=== PATIENT | male | born 1935 | race Caucasian/White ===

== ENCOUNTER → 2016-05-21 | Day surgery (SDC) | payer OTHER ==
[2016-04-30 07:36] VITALS: Ht 171.5 cm; Wt 79.5 kg
[~2016-05-21] VITALS: Ht 171.5 cm; Wt 79.5 kg
[~2016-05-21] MED LIST: 500ML BSS 0.3ML EPI 1:1000PF IRRIG ONE; ACETAMINOPHEN 325 MG TAB PO PRN; ALT/25 PO; AMIO200T4 PO; AMVISC PLUS 0.8ML SYRINGE INT OCU ONE; ASCO500T3 PO; ATOR-22 PO; ATROPINE SULFATE 0.1 MG/ML 5ML SYR IV PRN; BSS FLUSH ONE; ELQ25 PO; ENDOCOAT 0.85ML SYRINGE INT OCU ONE; EpHEDrine SULFATE INJ 50 MG/ML AMP IV PRN; EpINEphrine INJ 1MG/ML AMP 1 MG/ML AMP ONE; FINA5TAB PO; FOLI1TAB7 PO; FRS/40 PO; LACTATED RINGER'S 1000ML 500 ML IV SCH; LIDOCAINE 4% OP SOLN DROP CHARGE ONE; LIDOCAINE 4% OP SOLN DROP CHARGE OPR SCH; LIDOCAINE HCL 1% MPF 2 ML VIAL ONE; METO-217 PO; MIDAZOLAM HCL 1 MG/ML 2ML VIAL ONE; MIX: 4ML BSS 1ML EPI 1:1000 PF TOP ONE; MOXIFLOXACIN OPH SOLN PER DROP CHARGE ONE; PHENYLEPHRINE HCL 10% OP SOLN PER DROP CHARGE OPR SCH; POVIDONE-IODINE OP SOLN 30 ML BTL ONE; PRED1SUS3 OPR; PROPARACAINE 0.5% OP SOLN PER DROP CHARGE OPR SCH; PYRI100T4 PO; TAMS0.4C38 PO; TOBRAMYCIN/DEXAMETHASONE OPH OINT PER APPLN CHARGE ONE
--- NOTE | 2016-05-21 09:07 | History & Physical Bridge - [place] ---
H&P Re-Evaluation Bridge Note: I have examined the patient, reviewed the History & Physical and in the interval since the performance of the History & Physical I have noted the following changes of clinical significance: No changes noted
[2016-05-21] MEDS: TROPICAMIDE 1% OP SOLN PER DROP CHARGE OPR SCH ×3 (09:22→09:32)
[2016-05-21] MEDS: CYCLOPENTOLATE HCL 1% OP SOLN PER DROP CHARGE OPR SCH ×3 (09:23→09:33)
[2016-05-21] MEDS: MOXIFLOXACIN OPH SOLN PER DROP CHARGE OPR SCH ×3 (09:24→09:34)
[2016-05-21] MEDS: PHENYLEPHRINE HCL 10% OP SOLN PER DROP CHARGE OPR SCH ×2 (09:26→09:31)
--- NOTE | 2016-05-21 11:00 | [facility] Post Operative Brief Note ---
Immediate Operative Summary Operative Date May 21, 2016. Pre-Operative Diagnosis Cataract Right Eye Post-Operative Diagnosis Same Procedure(s) Performed Right Cataract Phacoemulsification With Intraocular Lens Implant Surgeon Dr. Spencer Can Bander Operator Surgeon(s) None Estimated Blood Loss 0 mL Findings right cataract Specimens None Complication(s) None Disposition
--- NOTE | 2016-05-21 11:01 | [facility] Operative Report ---
Operative Report Date of Service May 21, 2016. Operative Report Phaco with monofocal IOL DATE OF OPERATION: 05/21/16 PREOPERATIVE DIAGNOSIS: Senile nuclear cataract, right eye POSTOPERATIVE DIAGNOSIS: Senile nuclear cataract, right eye PROCEDURE PERFORMED: Phacoemulsification with intraocular lens implantation, right eye SURGEON: Dr. Will Spencer ANESTHESIA: Topical with 1% intracameral lidocaine and monitored anesthesia care COMPLICATIONS: None DESCRIPTION OF PROCEDURE: After positively identifying the patient both verbally and by wristband in the preoperative area, the right eye was marked as the operative eye. The patient was then brought back to the operating room by the anesthesia and nursing staff where they were given a drop of Lidocaine and betadine into the operative eye. They were then sterilely prepped and draped in the standard fashion typical for ophthalmic surgery. Steri-strips were placed along the upper eyelids to keep the lashes back, and a lid speculum was placed into the operative eye. At this point, a documented time out was performed with members of the ophthalmology, nursing, and anesthesia staffs all agreeing upon the correct patient, correct location for surgery, correct procedure, and correct type and power of intraocular lens to be implanted. The microscope was then swung into position. First, a paracentesis wound was made using a sideport blade. Then, in sequence, 1% preservative-free lidocaine followed by Endocoat viscoelastic was injected into the anterior chamber. Next , the main incision was made with a keratome blade in triplanar fashion. A sharp cystotome was introduced into the eye and used to create a tear in the anterior capsule, which was directed into a continuous curvilinear capsulorrhexis using Utrata forceps. Hydrodissection was then performed with BSS on a flat-tip cannula. Next, the phacoemulsification handpiece was introduced into the eye and used to remove the nucleus in a ildaky-zlr-yvzfgfv fashion. This was done without complication and then the irrigation-aspiration handpiece was introduced into the eye and used to remove all remaining cortical and epinuclear material. Amvisc was then injected into the anterior chamber as well as into the capsular bag and using the lens injector system, an MX60 19.5 D lens, serial number [id number], and expiration date 08/2018 was injected into the capsular bag and rotated into the correct position. Next, the irrigation- aspiration handpiece was used to remove all remaining Amvisc. BSS was used to hydrate the main wound, and then BSS was injected into the paracentesis site to reach physiologic pressure and then the main wound was checked and found to be watertight. The patient was given drops of Vigamox and Tobradex ointment into the operative eye, and then the surrounding area was cleaned and dried. A clear plastic shield was placed over the eye and the patient was then sat up and taken from the operating room by the anesthesia staff having tolerated the procedure well and suffering no complications. DISPOSITION: The patient was returned to the recovery room in stable condition. I attest to the content of the Intraoperative Record and any orders documented therein. Any exceptions are noted below.
--- NOTE | 2016-05-21 11:02 | Discharge Instructions-SurgCtr ---
Discharge Instructions Date of Service May 21, 2016. Visit Reason for Visit: Cataract Right Eye Discharge Discharge Diagnosis / Problem: right cataract Discharge Goals Goal(s): Decrease discomfort, Improve function Activity Recommendations Activity Limitations: as noted below Anesthesia . Post Anesthesia Instructions: If you have had General Anesthesia or IV Sedation: * Do not drive today. * Resume driving when surgeon permits. * Do not make important decisions or sign legal documents today. * Call surgeon for: 1. Temperature elevations greater than 101 degrees F. 2. Uncontrollable pain. 3. Excessive bleeding. 4. Persistent nausea and vomiting. 5. Medication intolerance (nausea, vomiting or rash). * For nausea and vomiting use only clear liquids such as: tea, soda, bouillon until nausea subsides, then gradually increase diet as tolerated. * If you have any concerns or questions, call your surgeon's office. If physician is unavailable and it is an emergency, call 911 or go to the nearest emergency room. . Instructions / Follow-Up Instructions / Follow-Up ACTIVITY RECOMMENDATIONS: * Light activities. * You may walk outside, read, watch television. * You may notice redness on the white part of the eye and some blurry vision - this is normal. MEDICATIONS: Resume previous medications unless instructed otherwise by your surgeon. Start all eye drops at 1pm today: * Eye drops (today): Prednisone - one drop in operative eye every 2 hours while awake Ofloxacin - one drop in operative eye every 2 hours while awake SPECIAL CARE INSTRUCTIONS: * Tape plastic shield over eye to sleep at night. Call your doctor at with any concerns or problems. FOLLOW UP VISIT: Follow-up with Dr Spencer at [place] office as scheduled. Diet Recommendations Home Diet: no limitations Procedures Procedures Performed: Right Cataract Phacoemulsification With Intraocular Lens Implant Pending Studies Studies pending at discharge: no Medical Emergencies . Who to Call and When: Medical Emergencies: If at any time you feel your situation is an emergency, please call 911 immediately. . Non-Emergent Contact Non-Emergency issues call your: Surgeon . . "Provider Documentation" section prepared by Will Spencer.
[2016-05-21 11:05] VITALS: TEMP 36.3
[2016-05-21 11:16] VITALS: BP 129/70; PULSE 64; O2SAT 98
--- NOTE | 2016-05-21 11:31 | Anesthesia Progress Nt - [facility] ---
Anesthesia Post Op Note Date & Time May 21, 2016 at 11:30 Vital Signs Pain Intensity: 0 Vital Signs Past 12 Hours Date Time Temp Pulse Resp B/P Pulse Ox O2 Delivery O2 Flow Rate FiO2 05/21/16 11:16 64 18 129/70 98 Room Air 05/21/16 11:05 36.3 63 16 146/82 98 Room Air 05/21/16 09:13 36.5 63 16 117/77 96 Room Air Notes Mental Status: alert / awake / arousable, participated in evaluation Pt Amnestic to Procedure: Yes Nausea / Vomiting: adequately controlled Pain: adequately controlled Airway Patency, RR, SpO2: stable & adequate BP & HR: stable & adequate Hydration State: stable & adequate Anesthetic Complications: no major complications apparent
== END | disposition home or self-care (01) ==
LOC: X.SURG 08:31
PROVIDERS: ATTEND Ophthalmology
DX: H25.11 Age-related nuclear cataract, right eye (principal); I51.9 Heart disease, unspecified; C44.90 Unspecified malignant neoplasm of skin, unspecified; Z98.890 Other specified postprocedural states; Z88.8 Allergy status to other drugs, medicaments and biological substances

== ENCOUNTER → 2016-06-04 | Day surgery (SDC) | payer OTHER ==
[2016-06-03 08:18] VITALS: Ht 171.5 cm; Wt 81.8 kg
[~2016-06-04] VITALS: Ht 171.5 cm; Wt 81.8 kg
[~2016-06-04] MED LIST changes: +LIDOCAINE 4% OP SOLN DROP CHARGE OPL SCH; -LIDOCAINE 4% OP SOLN DROP CHARGE OPR SCH; -METO-217 PO; -PHENYLEPHRINE HCL 10% OP SOLN PER DROP CHARGE OPR SCH; +PROPARACAINE 0.5% OP SOLN PER DROP CHARGE OPL SCH; -PROPARACAINE 0.5% OP SOLN PER DROP CHARGE OPR SCH
[2016-06-04] MEDS: PHENYLEPHRINE HCL 2.5% OP SOLN PER DROP CHARGE OPL SCH ×3 (10:17→10:27)
--- NOTE | 2016-06-04 10:17 | History & Physical Bridge - [place] ---
H&P Re-Evaluation Bridge Note: I have examined the patient, reviewed the History & Physical and in the interval since the performance of the History & Physical I have noted the following changes of clinical significance: No changes noted. Left eye cataract surgery.
[2016-06-04] MEDS: TROPICAMIDE 1% OP SOLN PER DROP CHARGE OPL SCH ×3 (10:18→10:28)
[2016-06-04] MEDS: CYCLOPENTOLATE HCL 1% OP SOLN PER DROP CHARGE OPL SCH ×3 (10:19→10:29)
[2016-06-04] MEDS: MOXIFLOXACIN OPH SOLN PER DROP CHARGE OPL SCH ×3 (10:20→10:40)
--- NOTE | 2016-06-04 11:39 | [facility] Post Operative Brief Note ---
Immediate Operative Summary Operative Date Jun 04, 2016. Pre-Operative Diagnosis Cataract Left Eye Post-Operative Diagnosis Same Procedure(s) Performed Left Cataract Phacoemulsification With Intraocular Lens Implant Surgeon Dr. Spencer Social Economist Surgeon(s) None Estimated Blood Loss 0 Findings left cataract Specimens None Complication(s) None Disposition
[2016-06-04 11:40] VITALS: TEMP 36.3
--- NOTE | 2016-06-04 11:40 | [facility] Operative Report ---
Operative Report Date of Service Jun 04, 2016. Operative Report Phaco with monofocal IOL DATE OF OPERATION: 06/04/16 PREOPERATIVE DIAGNOSIS: Senile nuclear cataract, left eye POSTOPERATIVE DIAGNOSIS: Senile nuclear cataract, left eye PROCEDURE PERFORMED: Phacoemulsification with intraocular lens implantation, left eye SURGEON: Dr. Will Spencer ANESTHESIA: Topical with 1% intracameral lidocaine and monitored anesthesia care COMPLICATIONS: None DESCRIPTION OF PROCEDURE: After positively identifying the patient both verbally and by wristband in the preoperative area, the left eye was marked as the operative eye. The patient was then brought back to the operating room by the anesthesia and nursing staff where they were given a drop of Lidocaine and betadine into the operative eye. They were then sterilely prepped and draped in the standard fashion typical for ophthalmic surgery. Steri-strips were placed along the upper eyelids to keep the lashes back, and a lid speculum was placed into the operative eye. At this point, a documented time out was performed with members of the ophthalmology, nursing, and anesthesia staffs all agreeing upon the correct patient, correct location for surgery, correct procedure, and correct type and power of intraocular lens to be implanted. The microscope was then swung into position. First, a paracentesis wound was made using a sideport blade. Then, in sequence, 1% preservative-free lidocaine followed by Endocoat viscoelastic was injected into the anterior chamber. Next , the main incision was made with a keratome blade in triplanar fashion. A Malyugin ring was inserted due to poor pupil dilation. A sharp cystotome was introduced into the eye and used to create a tear in the anterior capsule, which was directed into a continuous curvilinear capsulorrhexis using Utrata forceps. Hydrodissection was then performed with BSS on a flat-tip cannula. Next, the phacoemulsification handpiece was introduced into the eye and used to remove the nucleus in a adwxfg-bof-eoycwkp fashion. This was done without complication and then the irrigation-aspiration handpiece was introduced into the eye and used to remove all remaining cortical and epinuclear material. Amvisc was then injected into the anterior chamber as well as into the capsular bag and using the lens injector system, an MX60 19.5 D lens, serial number [id number], and expiration date 12/2018 was injected into the capsular bag and rotated into the correct position. The Malyugin ring was removed. Next, the irrigation-aspiration handpiece was used to remove all remaining Amvisc. BSS was used to hydrate the main wound, and then BSS was injected into the paracentesis site to reach physiologic pressure and then the main wound was checked and found to be watertight. The patient was given drops of Vigamox and Tobradex ointment into the operative eye, and then the surrounding area was cleaned and dried. A clear plastic shield was placed over the eye and the patient was then sat up and taken from the operating room by the anesthesia staff having tolerated the procedure well and suffering no complications. DISPOSITION: The patient was returned to the recovery room in stable condition. I attest to the content of the Intraoperative Record and any orders documented therein. Any exceptions are noted below.
--- NOTE | 2016-06-04 11:41 | Discharge Instructions-SurgCtr ---
Discharge Instructions Date of Service Jun 04, 2016. Visit Reason for Visit: Left Cataract Discharge Discharge Diagnosis / Problem: left cataract Discharge Goals Goal(s): Decrease discomfort, Improve function Activity Recommendations Activity Limitations: as noted below Anesthesia . Post Anesthesia Instructions: If you have had General Anesthesia or IV Sedation: * Do not drive today. * Resume driving when surgeon permits. * Do not make important decisions or sign legal documents today. * Call surgeon for: 1. Temperature elevations greater than 101 degrees F. 2. Uncontrollable pain. 3. Excessive bleeding. 4. Persistent nausea and vomiting. 5. Medication intolerance (nausea, vomiting or rash). * For nausea and vomiting use only clear liquids such as: tea, soda, bouillon until nausea subsides, then gradually increase diet as tolerated. * If you have any concerns or questions, call your surgeon's office. If physician is unavailable and it is an emergency, call 911 or go to the nearest emergency room. . Instructions / Follow-Up Instructions / Follow-Up ACTIVITY RECOMMENDATIONS: * Light activities. * You may walk outside, read, watch television. * You may notice redness on the white part of the eye and some blurry vision - this is normal. MEDICATIONS: Resume previous medications unless instructed otherwise by your surgeon. Start all eye drops at 1:30 pm today: * Eye drops (today): Prednisone - one drop in operative eye every 2 hours while awake Ofloxacin - one drop in operative eye every 2 hours while awake SPECIAL CARE INSTRUCTIONS: * Tape plastic shield over eye to sleep at night. Call your doctor at with any concerns or problems. FOLLOW UP VISIT: Follow-up with Dr Spencer at [place] office as scheduled. Diet Recommendations Home Diet: no limitations Procedures Procedures Performed: Left Cataract Phacoemulsification With Intraocular Lens Implant Pending Studies Studies pending at discharge: no Medical Emergencies . Who to Call and When: Medical Emergencies: If at any time you feel your situation is an emergency, please call 911 immediately. . Non-Emergent Contact Non-Emergency issues call your: Surgeon . . "Provider Documentation" section prepared by Will Spencer. .
--- NOTE | 2016-06-04 11:55 | Anesthesia Progress Nt - [facility] ---
Anesthesia Post Op Note Date & Time Jun 04, 2016 at 11:54 Vital Signs Pain Intensity: 0 Vital Signs Past 12 Hours Date Time Temp Pulse Resp B/P Pulse Ox O2 Delivery O2 Flow Rate FiO2 06/04/16 11:40 36.3 65 16 140/68 99 Room Air 06/04/16 10:28 36.3 61 16 137/74 98 Room Air Notes Mental Status: alert / awake / arousable, participated in evaluation Pt Amnestic to Procedure: Yes Nausea / Vomiting: adequately controlled Pain: adequately controlled Airway Patency, RR, SpO2: stable & adequate BP & HR: stable & adequate Hydration State: stable & adequate Anesthetic Complications: no major complications apparent
[2016-06-04 12:02] VITALS: BP 118/82; PULSE 65; O2SAT 99
== END | disposition home or self-care (01) ==
LOC: X.SURG 10:13
PROVIDERS: ATTEND Ophthalmology
DX: H25.12 Age-related nuclear cataract, left eye (principal)

== ENCOUNTER 2019-11-22 12:30 | Inpatient (IN) ==
[2019-11-22] MEDS ORDERED: SODIUM CHLORIDE 0.9% 1000ML 1,000 ML IV SCH (13:00)
--- NOTE | 2019-11-22 13:02 | Emergency Department Note ---
History of Present Illness General Chief complaint: Hypotension Stated complaint: hypotension Time Seen by Provider: 11/22/19 12:43 Source: patient, EMS, RN notes reviewed and old records reviewed Mode of arrival: EMS Limitations: no limitations History of Present Illness Provider complaint: weakness Onset (ago): day(s) 1 Location: head Radiation: non-radiation Severity: mild Pain Consistency: + constant Current Pain Intensity: 1 Quality: + burning Relieved By: + immobilization Exacerbated By: + movement Associated symptoms: + loss of appetite; no chest pain, no fever/chills and no headaches Treatments prior to arrival: none This is an 84-year-old male who presents the emergency department complaining of hypotension and weakness. In addition the patient also has a rash to the left side of his face. The patient reports he has been feeling weak over the past 24 hours and has not eaten. He was sent in by his personal residential over concerns of low blood pressure this morning. The patient himself has no complaints he denies any chest pain or shortness of breath. He is complaining of pain to the rash on the side of his head. Home Medications Home Medications Medication Instructions Recorded Confirmed Type amiodarone [Pacerone] 200 mg PO DAILY 10/26/19 11/22/19 History apixaban [Eliquis] 2.5 mg PO BID 10/26/19 11/22/19 History ascorbic acid (vitamin C) [Vitamin 500 mg PO DAILY 10/26/19 11/22/19 History C] atorvastatin [Lipitor] 40 mg PO DAILY 10/26/19 11/22/19 History cholecalciferol (vitamin D3) 50 mcg PO DAILY 10/26/19 11/22/19 History [Vitamin D3] finasteride [Proscar] 5 mg PO DAILY 10/26/19 11/22/19 History folic acid 0.4 mg PO BID 10/26/19 11/22/19 History furosemide [Lasix] 40 mg PO DAILY 10/26/19 11/22/19 History metolazone 2.5 mg PO DAILY 10/26/19 11/22/19 History metoprolol succinate [Toprol XL] 50 mg PO DAILY 10/26/19 11/22/19 History polyethylene glycol 3350 [Miralax] 17 g PO DAILY 10/26/19 11/22/19 History sennosides [senna] 8.6 mg PO BID 10/26/19 11/22/19 History silodosin 4 mg PO DAILY 10/26/19 11/22/19 History tamsulosin 0.4 mg PO HS 10/26/19 11/22/19 History vitamin B complex [Vitamin B-50] 1 tab PO DAILY 10/26/19 11/22/19 History Allergies Allergy/AdvReac Type Severity Reaction Status Date / Time disopyramide Allergy Intermediate SWELLING, Verified 11/22/19 13:43 RED SKIN Past Med/Surg History Medical History CAD (coronary artery disease) Cardiac defibrillator in place Chronic atrial fibrillation Chronic systolic CHF (congestive heart failure) CKD (chronic kidney disease), stage III Hyperlipidemia Ischemic cardiomyopathy Ventricular tachycardia Surgical History History of coronary artery bypass graft x 6 Longstanding ischemic heart disease, status post coronary bypass grafting x6 in 1996, receiving a OWENS graft to the LAD, free gastroepiploic graft to the right posterior descending artery, saphenous vein graft sequentially from the first diagonal to the mid left anterior descending, saphenous vein graft sequ entially from OM1 to OM2. History of hernia repair History of implantable cardiac defibrillator (ICD) Family History Brother Cancer Mother Pulmonary fibrosis Social History Smoking Status: Former smoker Hx Alcohol Use: Yes Alcohol type: beer Hx Substance Use: No Preferred Language: Mongolian Communication Ability: Effective Beliefs That Will Affect Care: None marital status: Current Living Situation: Family current occupation: [employer] Other Information That Helps Us Care for You: No Feels Safe at Home: Yes Safety Concerns: Feels Safe At This Time Assistive Devices: Oxygen - Continuous Review of Systems A total of 10 systems reviewed and were otherwise negative Physical Exam Vital Signs Vital Signs - 24 hr 11/22/19 12:50 11/22/19 12:57 11/22/19 12:59 Temperature 36.8 C Temperature Source Oral Pulse Rate - Lying 86 Pulse Rate - Sitting 84 Pulse Rate - Standing 84 Pulse Rate 90 Pulse Rate from SpO2 Sensor Respiratory Rate 20 Respiratory Effort / Characteristics Non-Labored Respiratory Depth Normal Blood Pressure - Lying 105/89 Blood Pressure - Sitting 102/63 Blood Pressure- Standing 86/51 L Blood Pressure 99/60 L Blood Pressure Mean 73 Pulse Oximetry 95 96 Oxygen Delivery Method Nasal Cannula Nasal Cannula Nasal Cannula Oxygen Flow Rate 2.5 2.5 2.5 Fraction of Inspired Oxygen 99 Sepsis Recent Fever Within 48 Hours No Sepsis New/Unexplained Change in Mental Status N/A Sepsis Action Taken by Nursing No Action Required 11/22/19 13:05 Temperature Temperature Source Pulse Rate - Lying Pulse Rate - Sitting Pulse Rate - Standing Pulse Rate 81 Pulse Rate from SpO2 Sensor 81 Respiratory Rate 19 Respiratory Effort / Characteristics Respiratory Depth Blood Pressure - Lying Blood Pressure - Sitting Blood Pressure- Standing Blood Pressure 94/63 L Blood Pressure Mean 69 Pulse Oximetry 100 Oxygen Delivery Method Nasal Cannula Oxygen Flow Rate 2.5 Fraction of Inspired Oxygen Sepsis Recent Fever Within 48 Hours Sepsis New/Unexplained Change in Mental Status Sepsis Action Taken by Nursing VITAL SIGNS - Vital signs and nursing notes were reviewed. GENERAL - 84-year-old male appearing stated age who is in no acute distress. Communicates well with provider and answers questions appropriately. SKIN - Rash in pattern of dermatone to left side of face HEAD - NC/AT. EYES - PERRL with EOMI bilaterally. Sclera anicteric. Palpebral conjunctiva pink and moist with no injection noted. EARS - No deformities of external structures noted on gross examination bilaterally. No pain elicited with palpation of the tragus bilaterally. External auditory canals without discharge or otorrhea. Tympanic membranes pearly valentine without retraction or bulging. No fluid or purulent material visualized behind the TM. Handle of malleus, umbo, cone of light, pars tensa/flaccid all easily visualized. NOSE - Midline and without cyanosis. No epistaxis or purulent drainage noted. Septum midline without deviation or septal hematoma noted. MOUTH/OROPHARYNX - Without perioral cyanosis. Buccal mucosa pink and moist and without leukoplakia. Tongue midline with equal elevation of palate bilaterally. No tonsillar hypertrophy, erythema, or exudates noted. dentition noted. NECK - Neck with FROM. Supple to palpation. lymphadenopathy noted. No nuchal rigidity. LUNGS - Chest wall symmetric without accessory muscle use, intercostals retractions, or central cyanosis. Normal vesicular breath sounds CTA B/L. No wheezes, rales, or rhonchi appreciated. CARDIAC - RRR with S1/S2. No murmur, rubs, or gallops appreciated. ABDOMEN - Abdominal contour without pulsations or visible masses. BS normoactive all four quadrants. No tenderness, palpable masses, hepatosplenomegaly, or ascites noted. EXTREMITIES - No clubbing or peripheral cyanosis. No pretibial edema present. +3/5 radial, posterior tibial, and dorsalis pedis pulses palpated throughout. +5/5 strength noted in UE/LE bilaterally. NEUROLOGIC - Cranial nerves II through XII grossly intact. Sensory intact to light touch throughout. Patellar reflexes +2/4. PSYCH - A&Ox3 and cooperates fully with examiner. Pt is very pleasant and interacts well with examiner. Course Administered Medications Amiodarone HCl (Amiodarone 200 Mg Tab) 200 mg PO DAILY [facility] Stop: 12/23/19 08:59 Last Admin: 11/23/19 08:10 Dose: 200 mg Documented by: [id number] Apixaban (Apixaban 2.5 Mg Tab) 2.5 mg PO BID [facility] Stop: 12/22/19 20:59 Last Admin: 11/23/19 08:10 Dose: 2.5 mg Documented by: [id number] Admin: 11/22/19 20:49 Dose: 2.5 mg Documented by: [id number] Ascorbic Acid (Ascorbic Acid 500 Mg Tab) 500 mg PO DAILY [facility] Stop: 12/23/19 08:59 Last Admin: 11/23/19 08:12 Dose: 500 mg Documented by: [id number] Atorvastatin Calcium (Atorvastatin 40 Mg Tab) 40 mg PO DAILY [facility] Stop: 12/23/19 08:59 Last Admin: 11/23/19 08:11 Dose: 40 mg Documented by: [id number] Finasteride (Finasteride 5 Mg Tab) 5 mg PO DAILY [facility] Stop: 12/23/19 08:59 Last Admin: 11/23/19 08:11 Dose: 5 mg Documented by: [id number] Folic Acid (Folic Acid 400 Mcg Tab) 400 mcg PO BID [facility] Stop: 12/22/19 20:59 Last Admin: 11/23/19 08:10 Dose: 400 mcg Documented by: [id number] Admin: 11/22/19 20:49 Dose: 400 mcg Documented by: [id number] Furosemide (Furosemide 40 Mg Tab) 40 mg PO DAILY [facility] Stop: 11/06/20 08:59 Last Admin: 11/23/19 08:10 Dose: 40 mg Documented by: [id number] Ceftriaxone Sodium 1,000 mg/ (Dextrose) 50 mls @ 100 mls/hr IV Q24H [facility]; Protocol Stop: 11/29/19 19:38 Last Infusion: 11/22/19 21:40 Dose: 0 mls/hr Documented by: [id number] Admin: 11/22/19 20:48 Dose: 100 mls/hr Documented by: [id number] Metolazone (Metolazone 2.5 Mg Tablet) 2.5 mg PO DAILY [facility] Stop: 12/23/19 08:59 Last Admin: 11/23/19 08:12 Dose: 2.5 mg Documented by: [id number] Metoprolol Succinate (Metoprolol Succ 50mg Ext Rel Tab) 50 mg PO DAILY [facility] Stop: 12/23/19 08:59 Last Admin: 11/23/19 08:11 Dose: 50 mg Documented by: [id number] Miscellaneous (Rapaflo- Order Awaiting Action) 1 ea N/A QS [facility] Stop: 12/23/19 00:00 Last Admin: 11/23/19 16:18 Dose: Not Given Documented by: [id number] Admin: 11/23/19 10:53 Dose: Not Given Documented by: [id number] Admin: 11/23/19 01:42 Dose: Not Given Documented by: [id number] Polyethylene Glycol (Polyethylene (Miralax) 17 Gm Pack) 17 gm PO DAILY [facility] Stop: 12/23/19 08:59 Last Admin: 11/23/19 08:11 Dose: 17 gm Documented by: [id number] Sennosides (Senna 8.6 Mg Tab) 8.6 mg PO BID [facility] Stop: 12/22/19 20:59 Last Admin: 11/23/19 08:11 Dose: 8.6 mg Documented by: [id number] Admin: 11/22/19 20:50 Dose: Not Given Documented by: [id number] Tamsulosin HCl (Tamsulosin Hcl 0.4 Mg Cap) 0.4 mg PO HS [facility] Stop: 12/22/19 20:59 Last Admin: 11/22/19 21:32 Dose: 0.4 mg Documented by: [id number] Valacyclovir HCl (Valacyclovir Hcl 500 Mg Tablet) 1,000 mg PO BID [facility]; Protocol Stop: 11/27/19 09:01 Last Admin: 11/23/19 08:12 Dose: 1,000 mg Documented by: [id number] Admin: 11/22/19 21:32 Dose: 1,000 mg Documented by: [id number] Vitamin B Complex (Vitamin B Complex Tab) 1 tab PO DAILY [facility] Stop: 12/23/19 08:59 Last Admin: 11/23/19 08:12 Dose: 1 tab Documented by: [id number] Vitamin D (Cholecalciferol 1,000 Units 25 Mcg Tab) 2,000 units PO DAILY [facility] Stop: 12/23/19 08:59 Last Admin: 11/23/19 08:12 Dose: 2,000 units Documented by: [id number] Discontinued Medications Sodium Chloride (Nss 1000ml) 1,000 mls @ 999 mls/hr IV .Q1H1M [facility] Stop: 11/22/19 14:00 Last Infusion: 11/22/19 14:09 Dose: 0 mls/hr Documented by: [id number] Admin: 11/22/19 13:08 Dose: 999 mls/hr Documented by: [id number] Sodium Chloride (Nss 1000ml) 1,000 mls @ 999 mls/hr IV .Q1H1M ONE Stop: 11/22/19 14:31 Last Infusion: 11/22/19 16:38 Dose: 0 mls/hr Documented by: [id number] Admin: 11/22/19 13:48 Dose: 999 mls/hr Documented by: [id number] Valacyclovir HCl (Valacyclovir Hcl 500 Mg Tablet) 1,000 mg PO NOW ONE Stop: 11/22/19 14:40 Last Admin: 11/22/19 16:36 Dose: 1,000 mg Documented by: [id number] Medical Decision Making Differential Diagnosis Infection, dehydration, metabolic abnormality, hypo/hyperglycemia, electrolyte disturbance, anemia, hypoxia, cardiac sources, intracerebral event, toxicologic, neurologic, as well as other pathologies. Medical Records Attestation: I reviewed the patient's medical records. Home Medications Current Medication List: was personally reviewed by me Laboratory Data Attestation: I reviewed the patient's lab results. Result diagrams: 11/22/19 13:40 11/22/19 13:40 Lab Results 11/22/19 11/22/19 Range/Units 13:40 13:40 WBC 4.45 L (4.8-10.8) K/uL RBC 4.04 L (4.7-6.1) M/uL Hgb 11.5 L (14.0-18.0) g/dL Hct 37.9 L (42-52) % MCV 93.8 (80-100) fL MCH 28.5 (25-34) pg MCHC 30.3 L (32-36) g/dL RDW Std Deviation 57.2 H (36.4-46.3) fL RDW Coeff of [place] 16.5 H (11.5-14.5) % Plt Count 150 (130-400) K/uL MPV 9.6 (7.4-10.4) fL Immature Gran % (Auto) 0.4 % Neut % (Auto) 76.3 % Lymph % (Auto) 12.4 % [place] % (Auto) 9.2 % Eos % (Auto) 1.3 % Baso % (Auto) 0.4 % Neut # (Auto) 3.39 (1.4-6.5) K/uL Lymph # (Auto) 0.55 L (1.2-3.4) K/uL [place] # (Auto) 0.41 (0.11-0.59) K/uL Eos # (Auto) 0.06 (0-0.5) K/uL Baso # (Auto) 0.02 (0-0.2) K/uL Immature Gran # (Auto) 0.02 (0.00-0.02) K/uL Sodium 138 (136-145) mmol/L Potassium 3.8 (3.5-5.1) mmol/L Chloride 91 L (98-107) mmol/L Carbon Dioxide 45 H* (21-32) mmol/L Anion Gap 2.0 L (3-11) BUN 30 H (7-18) mg/dl Creatinine 1.23 (0.6-1.4) mg/dl Est Cr Clr Drug Dosing 43.3 ml/min Est GFR ( Amer) 63.0 Est GFR (Non-Af Amer) 54.3 BUN/Creatinine Ratio 24.3 H (10-20) Glucose 83 (70-99) mg/dl Calcium 9.2 (8.5-10.1) mg/dl Total Bilirubin 0.7 (0.2-1) mg/dl AST 88 H (15-37) U/L ALT 68 (12-78) U/L Alkaline Phosphatase 87 (45-117) U/L Total Creatine Kinase 95 (39-308) U/L CK-MB (CK-2) 2.0 (0.5-3.6) ng/ml CK/CKMB % Calc 2.1 (0-3.0) Troponin I 0.023 (0-0.045) ng/ml Total Protein 6.4 (6.4-8.2) gm/dl Albumin 2.5 L (3.4-5.0) gm/dl Globulin 3.9 (2.5-4.0) gm/dl Albumin/Globulin Ratio 0.6 L (0.9-2) TSH 2.810 (0.300-4.500) uIu/ml Imaging Data Radiologist's Impression: [place], [place] [phone] XRay Report Patient: BLAKE RIBEIRO Admit Date: 11/22/19 MR#: [id number] Address1: [address] [place] [address] Acct ID:[id number] Address2: Date: 1935 [facility] Zip: [place] [address] Age: 84 Location: ED Sex: M Room/Bed: Att Phy: Diagnosis: hypotension Susy Phy: Anival Guido MD Service Date: 11/22/19 Fam Phy: Interpreting Phy: Jimmy Byrnes MD Admit Phy: Ordering Phy: Rick Wild MD cc: ~ XR chest 1V portable CLINICAL HISTORY: weakness COMPARISON STUDY: Chest radiograph and chest CT October 26, 2019. FINDINGS: Left subclavian biventricular pacer/AICD is in place. Note is made of moderate cardiomegaly without evidence for pulmonary edema. Multiple healing left-sided rib fractures are noted. Skinfold projects over the left hemithorax. There is no pneumothorax. Small bilateral pleural effusions have decreased in size since prior exam. Basilar opacity is noted. This has decreased. Left upper quadrant surgical clips are noted. IMPRESSION: 1. Left basilar opacity which may reflect consolidation or atelectasis. This has decreased since chest CT October 26, 2019. 2. Small bilateral pleural effusions. 3. No pneumothorax. 4. Cardiomegaly without evidence for pulmonary edema. ACT 112: Negative or not required by law. Electronically signed by: Jimmy Byrnes M.D. 11/22/2019 1:03 PM Dictated: 11/22/19 1300 Transcribed: 11/22/19 1300 [phone] Scan Report Patient: BLAKE RIBEIRO Date: 11/22/19 MR#: [id number]: [address] Acct ID:[id number]: Date: 1935City Zip: [place] [address] Age: 84Location: ED Sex: MRoom/Bed: Att Phy:Diagnosis: hypotension Susy Phy: Anival Guido, SERGIOervice Date: 11/22/19 Fam Phy:Interpreting Phy: Pb Gregory MD Admit Phy: Ordering Phy: Rick Wild MD cc: ~ CT SCAN OF THE BRAIN WITHOUT IV CONTRAST CLINICAL HISTORY: Fall. COMPARISON STUDY: CT of the brain dated 10/26/2019. TECHNIQUE: Unenhanced axial CT scan of the brain is performed from the vertex to the skull base. A dose lowering technique was utilized adhering to the principles of ALARA. CT DOSE: 537.48 mGy.cm FINDINGS: Brain parenchyma: There are age-related involutional changes noting mild subcortical and periventricular microangiopathic change. There is no hemorrhage, mass effect, or evidence of acute territorial ischemia by CT criteria. Valentine- white matter differentiation is preserved. No extra-axial fluid collection is seen. Ventricles, sulci, cisterns: Prominent secondary to involutional change. Intracranial vasculature: There is atherosclerotic calcification of the cavernous carotid and vertebral arteries. Calvarium: The skeletal structures are osteopenic. No depressed calvarial fractu re is identified. Sinuses and mastoids: Trace mucosal thickening is noted in the ethmoid and sphenoid, sinuses. The mastoid air cells are well pneumatized. Orbits: Suspect a chronic right orbital floor fracture. There are bilateral ocular lens implants. IMPRESSION: There is no hemorrhage, mass effect, or evidence of acute territorial ischemia by CT criteria. ACT 112: Negative or not required by law. Electronically signed by: Pb Gregory M.D. 11/22/2019 6:16 PM Dictated: 11/22/191811 Transcribed: 11/22/191811 ECG Data Attestation: I personally reviewed and interpreted this ECG as follows: Indication: + other (pacemaker ) Rate (beats per minute): 83 ECG Bentley: + Normal ECG ST segments: no ST depression and no ST elevation ECG Findings: + PVCs Comparison ECG Date: from (10/26/2019) Change: the following changes noted (PVCs present) MDM Narrative Patient was seen and evaluated as above in room A3. Review was performed of nursing notes and vital signs. I did review pertinent previous visits and patient history. After obtaining a thorough history and physical examination the above work up was performed. This is an 84-year-old male who presents emergency department complaining of hypotension. The patient was given multiple boluses of saline here in the emergency department. He was also appears to have what I believe is a zoster rash on the left side of his face. For this reason he was started on Valtrex. Because the patient is altered and hypotensive I did discuss the case with the hospitalist service who did agree to admit the patient. Patient and family are in agreement with the treatment plan. I will note that the patient does not have an elevation in his white blood cell count. An order was placed for continuous cardiac monitoring. The monitor shows a rate of 83 with Normal SInus rhythm. The patient was evaluated during the global COVID-19 pandemic, and that diagnosis was suspected/considered upon their initial presentation. Their evaluation, treatment and testing was consistent with current guidelines for patients who present with complaints or symptoms that may be related to COVID- 19. Impression & Plan Herpes zoster, CKD (chronic kidney disease), stage III, Acute hypotension Discharge Plan Visit Data Chief Complaint: Hypotension Stated Complaint: hypotension ED Provider: Rick Wild Discharge Problem: Herpes zoster, CKD (chronic kidney disease), stage III, Acute hypotension Patient Disposition: Admitted As Inpatient Discharge Instructions Interventions: ED Discharge Assessment Last Done: 11/22/19 18:28 Discharge Problem: Herpes zoster Qualifiers: Herpes zoster complications: without complications Qualified Code(s): B02.9 - Zoster without complications CKD (chronic kidney disease), stage III Qualifiers: Chronic kidney disease stage 3 subtype: unspecified whether 3a or 3b Qualified Code(s): N18.30 - Chronic kidney disease, stage 3 unspecified
--- NOTE | 2019-11-22 13:05 | XRay Report ---
XR chest 1V portable CLINICAL HISTORY: weakness COMPARISON STUDY: Chest radiograph and chest CT October 26, 2019. FINDINGS: Left subclavian biventricular pacer/AICD is in place. Note is made of moderate cardiomegaly without evidence for pulmonary edema. Multiple healing left-sided rib fractures are noted. Skinfold projects over the left hemithorax. There is no pneumothorax. Small bilateral pleural effusions have d ecreased in size since prior exam. Basilar opacity is noted. This has decreased. Left upper quadrant surgical clips are noted. IMPRESSION: 1. Left basilar opacity which may reflect consolidation or atelectasis. This has decreased since ches t CT October 26, 2019. 2. Small bilateral pleural effusions. 3. No pneumothorax. 4. Cardiomegaly without evidence for pulmonary edema. ACT 112: Negative or not required by law. Electronically signed by: Jimmy Byrnes M.D. 11/22/2019 1:03 PM
[2019-11-22] MEDS ORDERED: SODIUM CHLORIDE 0.9% 1000ML 1,000 ML IV ONE (13:31)
[2019-11-22 13:55] LABS: Basophils # (auto) 0.02 K/uL (0-0.2); Basophils % (auto) 0.4 %; Eosinophils # (auto) 0.06 K/uL (0-0.5); Eosinophils % (auto) 1.3 %; Hematocrit (blood only) 37.9 % (42-52); Hemoglobin 11.5 g/dL (14.0-18.0); Immature Granulocytes # (auto) 0.02 K/uL (0.00-0.02); Immature Granulocytes % (auto) 0.4 %; Lymphocytes # (auto) 0.55 K/uL (1.2-3.4); Lymphocytes % (auto) 12.4 %; Mean Corpuscular Hemoglobin 28.5 pg (25-34); Mean Corpuscular Hgb Conc 30.3 g/dL (32-36); Mean Corpuscular Volume 93.8 fL (80-100); Mean Platelet Volume 9.6 fL (7.4-10.4); Monocytes # (auto) 0.41 K/uL (0.11-0.59); Monocytes % (auto) 9.2 %; Neutrophils # (auto) 3.39 K/uL (1.4-6.5); Neutrophils % (auto) 76.3 %; Platelet Count 150 K/uL (130-400); RDW Coefficient of Variation 16.5 % (11.5-14.5); RDW Standard Deviation 57.2 fL (36.4-46.3); Red Blood Count 4.04 M/uL (4.7-6.1); White Blood Count 4.45 K/uL (4.8-10.8)
[2019-11-22 14:19] LABS: Albumin Level 2.5 gm/dl (3.4-5.0); BUN Creatinine Ratio 24.3 (10-20); Calcium 9.2 mg/dl (8.5-10.1); Creatinine Clr Calc Pharmacy 43.3 ml/min; Est GFR (Non-African American) 54.3; Potassium 3.8 mmol/L (3.5-5.1)
[2019-11-22 14:25] LABS: Albumin Globulin Ratio 0.6 (0.9-2); Bilirubin,Total 0.7 mg/dl (0.2-1); Globulin 3.9 gm/dl (2.5-4.0); Thyroid Stimulating Hormone 2.81 uIu/ml (0.300-4.500); Total Protein 6.4 gm/dl (6.4-8.2); Troponin I 0.023 ng/ml (0-0.045)
[2019-11-22] MEDS ORDERED: valACYclovir HCL 500 MG TABLET PO ONE (14:39)
--- NOTE | 2019-11-22 15:35 | History & Physical Report ---
Date of Service November 22, 2019 Assessment & Plan (1) Herpes zoster: This is an 84-year-old male who has significant past medical history chronic systolic CHF with EF 20 to 24%, ischemic cardiomyopathy, CAD with history of CABG x6, chronic atrial fibrillation anticoagulated on Eliquis, bilateral pleural effusions, hyperlipidemia, CKD stage III who presents to ED at the referral of home health secondary to hypotension. Patient was initially hypotensive in ED with blood pressure 90s over 60s with improvement with 1 L of IVF. Patient does have chronic systolic biventricular CHF and likely has low BP at baseline given medical regimen. Currently he denies any dizziness or lightheadedness. On admission he does have evidence of acute herpes zoster abdominal case as well as left lower extremity cellulitis which is likely contributing to poor appetite and weakness. Admit to med telemetry Valtrex 1 g p.o. 3 times daily Discussed with ophthalmology at [facility] -recommended close monitoring for now and monitor for signs of conjunctivitis, foreign body sensation of eye (if this were to develop consider erythromycin ointment or lubricating eye ointment) Currently patient is not complaining of any ocular complaints Treat with IV Rocephin for likely left extremity cellulitis Consult PT/OT and dietitian In regards to blood pressure continue to monitor closely but we will not administer any further IV fluid secondary to severely reduced EF and associated severe aortic stenosis (2) Left leg cellulitis: mild erythema and warmth to medial aspect left leg with scab inferiorly likely early development of cellulitis Start IV rocephin wound care consult as well for L heel (3) Chronic systolic CHF (congestive heart failure): (4) CAD (coronary artery disease): (5) Ischemic cardiomyopathy: pt with hx of CAD and CABG x 6 in 1996 He had recent echo LVEF < 20%, left ventricular cavity severely dilated and diffuse hypokinesis to akinesis, right ventricular cavity moderately dilated, ri ght ventricular systolic function moderately reduced, aortic valve heavily calcified with severe , Severe mitral regurg, severe tricuspid regurg continue amiodarone, metoprolol, atorvastatin, Eliquis, Lasix and metolazone defib in place - no known shocks Patient was on ramipril -this was recently discontinued at [facility] during recent hospitalization secondary to hypotension His initial reason for coming to ED today was secondary to hypotension so will need to monitor blood pressure accordingly Daily weights, strict I's and O's (6) Chronic atrial fibrillation: Rate and rhythm controlled on amiodarone and metoprolol Continue Eliquis for thrombotic control (7) CKD (chronic kidney disease), stage III: baseline cr 1.2 bun/cr 30 and 1.23 monitor closely (8) Ventricular tachycardia: s/p cardiac defibrillator in place (9) DVT prophylaxis: continue eliquis Disposition: admit to tele Follow up: PCP Dr. Guido upon discharge Pt was seen and examined in collaboration with Dr. Jones, please see addendum History of Present Illness Chief Complaint: Sent in via home health aide secondary to hypotension. Primary Care Provider: Anival Guido MD This is an 84-year-old male who has significant past medical history chronic systolic CHF with EF 20 to 24%, ischemic cardiomyopathy, CAD with history of CABG x6, chronic atrial fibrillation anticoagulated on Eliquis, bilateral pleural effusions, hyperlipidemia, CKD stage III who presents to ED at the referral of home health secondary to hypotension. Of significance patient was recently hospitalized at [facility] 10/25-11/09 secondary to fall, multiple left-sided rib fractures, TATE, uremia, fracture of transverse process, traumatic flank hematoma and was discharged to [facility]. He was discharged to home from rehab on Thursday and had his first home health visit today. She was concerned because blood pressure was 80s over 60s and he was dizzy with standing. A call was placed to PCP who recommended he come to ER. Overall patient does complain of generalized malaise, weakness, poor appetite, lightheadedness and dizziness with standing. He states his lightheadedness and dizziness with standing is not unusual for him. He also has a rash on the left side of his face that developed approximately 3 days ago. He denies any pain. He denies any further trauma. He denies any documented fever, chills, sweats, syncope, chest pain, cough, hemoptysis, nausea, vomiting, abdominal pain. He admits to decreased appetite and overall poor p.o. intake over the past 24 hours. In ED his initial BP was 90 over 60s which did respond to gentle IV hydration. In ED initially patient was hypotensive. He received a total of 1 L of IVF. Lab abnormalities notable for H&H 11.5 and 37.9, WBC 4.45k, platelet 150, BUN 30, creatinine 1.23, AST 88. Ischemic cardiomyopathy, chronic chest x-ray reveals small bilateral pleural effusions, left basilar opacity which may reflect consolidation. In ED he received 1 g oral Valtrex secondary to zoster ophthalmicus and 1 L IVF. Allergies Allergy/AdvReac Type Severity Reaction Status Date / Time disopyramide Allergy Intermediate SWELLING, Verified 11/22/19 13:43 RED SKIN Home Medications Home Medications Medication Instructions Recorded Confirmed Type amiodarone [Pacerone] 200 mg PO DAILY 10/26/19 11/22/19 History apixaban [Eliquis] 2.5 mg PO BID 10/26/19 11/22/19 History ascorbic acid (vitamin C) [Vitamin 500 mg PO DAILY 10/26/19 11/22/19 History C] atorvastatin [Lipitor] 40 mg PO DAILY 10/26/19 11/22/19 History cholecalciferol (vitamin D3) 50 mcg PO DAILY 10/26/19 11/22/19 History [Vitamin D3] finasteride [Proscar] 5 mg PO DAILY 10/26/19 11/22/19 History folic acid 0.4 mg PO BID 10/26/19 11/22/19 History furosemide [Lasix] 40 mg PO DAILY 10/26/19 11/22/19 History metolazone 2.5 mg PO DAILY 10/26/19 11/22/19 History metoprolol succinate [Toprol XL] 50 mg PO DAILY 10/26/19 11/22/19 History polyethylene glycol 3350 [Miralax] 17 g PO DAILY 10/26/19 11/22/19 History sennosides [senna] 8.6 mg PO BID 10/26/19 11/22/19 History silodosin 4 mg PO DAILY 10/26/19 11/22/19 History tamsulosin 0.4 mg PO HS 10/26/19 11/22/19 History vitamin B complex [Vitamin B-50] 1 tab PO DAILY 10/26/19 11/22/19 History Past Med/Surg History Medical History (Updated 11/22/19 @ 15:55 by Leslie Riley PA-C) CAD (coronary artery disease) Cardiac defibrillator in place Chronic atrial fibrillation Chronic systolic CHF (congestive heart failure) CKD (chronic kidney disease), stage III Hyperlipidemia Ischemic cardiomyopathy Ventricular tachycardia Surgical History (Updated 11/22/19 @ 15:46 by Leslie Riley PA-C) History of coronary artery bypass graft x 6 Longstanding ischemic heart disease, status post coronary bypass grafting x6 in 1996, receiving a OWENS graft to the LAD, free gastroepiploic graft to the right posterior descending artery, saphenous vein graft sequentially from the first diagonal to the mid left anterior descending, saphenous vein graft seq uentially from OM1 to OM2. History of hernia repair History of implantable cardiac defibrillator (ICD) Family History Brother Cancer Mother Pulmonary fibrosis Social History (Updated 11/22/19 @ 15:47 by Leslie Riley PA-C) Smoking Status: Never smoker Hx Alcohol Use: No Hx Substance Use: No Preferred Language: Yi marital status: Current Living Situation: Family current occupation: [employer] Feels Safe at Home: Yes Review of Systems Review of Systems: All systems reviewed & are unremarkable except as noted in HPI & below Physical Exam Physical Exam: Constitutional: WD/WN, M, vitals as above, NAD, sitting up in bed, pleasant, conversing easily Head: Normocephalic, Atraumatic + Herpes Zoster rash in dermatomal distribution of ophthalmologic bigeminal nerve Eyes: PERRL, conjunctivae normal, anicteric sclerae ENMT: external ear and nose normal, oropharynx normal Neck: trachea midline, no thyromegaly normal visual inspection Respiratory: normal respiratory effort, lungs clear to auscultation but diminished at bases b/l, no wheeze, rales, rhonchi. Normal insp/exp effort, no accessory muscle use Cardiovascular: RRR, no murmur, no edema, b/l venous stasis changes, Vessels: no JVD or carotid bruit Chest: normal inspection of chest Abdomen: normal bowel sounds, soft, nontender, no hepatosplenomegaly Musculoskeletal: no cyanosis or clubbing, extremities motor strength 5/5 Skin: +Zoster Rash erythematous maculopapular rash extended from top of head to Medial aspect of L nose, 2 crusted lesions noted, Also LLE medial pre tibial erythema, warmth, b/l venous stasis changes, warm and dry normal turgor Neurologic: PERRL, EOMI, accommodation nl, no face palsy, no dysarthria CN's II-XI intact bilaterally and moves all extremities Psychiatric: A+Ox3, euthymic affect Lymphatic: no cervical or axillary lymphadenopathy : deferred Results & Data Results & Data ([facility]) Vital Signs (Past 12 Hours) Vital Signs Temp Pulse Resp BP Pulse Ox 11/22/19 14:30 82 21 100/61 95 11/22/19 14:00 94 H 19 107/65 100 11/22/19 13:30 80 21 106/64 100 11/22/19 13:05 81 19 94/63 L 100 11/22/19 12:57 96 11/22/19 12:50 36.8 C 90 20 99/60 L 95 Laboratory Results Short CBC 11/22/19 Range/Units 13:40 WBC 4.45 L (4.8-10.8) K/uL Hgb 11.5 L (14.0-18.0) g/dL Hct 37.9 L (42-52) % Plt Count 150 (130-400) K/uL BMP 11/22/19 13:40 Sodium 138 Potassium 3.8 Chloride 91 L Carbon Dioxide 45 H* BUN 30 H Creatinine 1.23 Glucose 83 Calcium 9.2 Cardiac Enzymes 11/22/19 Range/Units 13:40 Total Creatine Kinase 95 (39-308) U/L CK-MB (CK-2) 2.0 (0.5-3.6) ng/ml Troponin I 0.023 (0-0.045) ng/ml Liver Function 11/22/19 Range/Units 13:40 Total Bilirubin 0.7 (0.2-1) mg/dl AST 88 H (15-37) U/L ALT 68 (12-78) U/L Alkaline Phosphatase 87 (45-117) U/L Albumin 2.5 L (3.4-5.0) gm/dl Diagnostic Findings CXR: IMPRESSION: 1. Left basilar opacity which may reflect consolidation or atelectasis. This has decreased since chest CT October 26, 2019. 2. Small bilateral pleural effusions. 3. No pneumothorax. 4. Cardiomegaly without evidence for pulmonary edema. Medications Administered Discontinued Medications Sodium Chloride (Nss 1000ml) 1,000 mls @ 999 mls/hr IV .Q1H1M LORRAINE Stop: 11/22/19 14:00 Last Infusion: 11/22/19 14:09 Dose: 0 mls/hr Documented by: [id number] Admin: 11/22/19 13:08 Dose: 999 mls/hr Documented by: [id number] Sodium Chloride (Nss 1000ml) 1,000 mls @ 999 mls/hr IV .Q1H1M ONE Stop: 11/22/19 14:31 Last Admin: 11/22/19 13:48 Dose: 999 mls/hr Documented by: [id number] ECG Rate (beats per minute): 83 Findings: + paced rhythm Code Status & VTE Plan Code Status Full Code VTE Prophylaxis Plan VTE Prophylaxis will be ordered: No Supervising Physician Co-Signing Physician Notes I, Dr. Abner Jones, have seen and examined the patient Chano Restrepo with physician clinic office assistant and would like to comment that On Physical exam General: no acute distress HEENT: extra-occular movements intact, maculopapular rash of left face that also involves nasal bridge Heart: regular rate Lungs: normal respiratory rate, no wheezing Abdomen: soft, nontender, positive bowel sounds Extremities: left medial lower leg is erythematous compared to the right leg Neuro: awake and alert, speaking in full sentences Assessment and Plan -This is a patient with chronic congestive heart failure with previous admission to [facility] in [place] and then [facility] a [facility]. Patient then recently discharged from prison and it would appear that when he was seen by visiting nurses at home, that patient developed maculopapular rash of left face that also involves nasal bridge. This is concerning for acute flare of shingles. Patient to continue Valacyclovir as started in the ED. In addition, patient to be on airborne and contact precautions -a phone call consultation was made to ophthalmology service in regards facial involvement of the herpes. Patient denies any eye pain or any changes in vision. Ophthalmology service reports no acute intervention right now but if there is any eye pain or changes to vision then initial measures can include eyedrops or ophthalmic ointment antibiotic -left medial lower leg is erythematous compared to the right leg, start empiric ceftriaxone for empiric antibiotics for possible left leg cellulitis -patient was given IV fluids in the ED because of report of poor oral intake at home and low normotensive pressure. But given patients known chronic systolic congestive heart and severe aortic stenosis, patient generally has low normotensive blood pressure. Continue home dose diuretic. Patient appeared to have also eaten most of the food on the plate in the ED. -dysphagia screen, aspiration precautions, speech and swallow consult, PT/OT evaluation -no acute symptoms suggestive of COVID 19, but COVID screening ordered by ED provider -agree with other assessments and plans as documented by physician clinic office assistant -My colleague Dr. Snow will be following the patient as hospitalist starting on 11/23/2019
[2019-11-22 15:38] LABS: Base Excess ABG 12.8 mEq/L (-9-1.8); HCO3 ABG 40 mmol/L (19-24); PCO2 ABG 67 mmHg (35-46); PO2 ABG 146 mmHg (80-95); pH ABG 7.39 (7.35-7.45)
[2019-11-22 16:03] LABS: Allen Test POS (Pos)
--- NOTE | 2019-11-22 17:33 | Electrocardiogram Report ---
Test Reason : Blood Pressure : / mmHG Vent. Rate : 083 BPM Atrial Rate : 083 BPM P-R Int : 000 ms QRS Dur : 174 ms QT Int : 500 ms P-R-T Axes : 000 -67 054 degrees QTc Int : 587 ms Ventricular-paced rhythm with frequent Premature ventricular complexes Biventricular pacemaker detected Abnormal ECG When compared with ECG of 26-OCT-2019 14:51, Premature ventricular complexes are now Present Vent. rate has increased BY 3 BPM Confirmed by Jonah Willingham ([id number]) on 11/22/2019 5:32:54 PM Referred By: Confirmed By:Hiren Willingham
--- NOTE | 2019-11-22 18:17 | CT Scan Report ---
CT SCAN OF THE BRAIN WITHOUT IV CONTRAST CLINICAL HISTORY: Fall. COMPARISON STUDY: CT of the brain dated 10/26/2019. TECHNIQUE: Unenhanced axial CT scan of the brain is performed from the vertex to the skull base. A do se lowering technique was utilized adhering to the principles of ALARA. CT DOSE: 537.48 mGy.cm FINDINGS: Brain parenchyma: There are age-related involutional changes noting mild subcortical and periventric ular microangiopathic change. There is no hemorrhage, mass effect, or evidence of acute territorial i schemia by CT criteria. Valentine-white matter differentiation is preserved. No extra-axial fluid collecti on is seen. Ventricles, sulci, cisterns: Prominent secondary to involutional change. Intracranial vasculature: There is atherosclerotic calcification of the cavernous carotid and vertebr al arteries. Calvarium: The skeletal structures are osteopenic. No depressed calvarial fracture is identified. Sinuses and mastoids: Trace mucosal thickening is noted in the ethmoid and sphenoid, sinuses. The mas toid air cells are well pneumatized. Orbits: Suspect a chronic right orbital floor fracture. There are bilateral ocular lens implants. IMPRESSION: There is no hemorrhage, mass effect, or evidence of acute territorial ischemia by CT crit jolie. ACT 112: Negative or not required by law. Electronically signed by: Pb Gregory M.D. 11/22/2019 6:16 PM
[2019-11-22] MEDS ORDERED: ONDANSETRON INJ 2 MG/ML 2 ML VIAL IV PRN (19:39)
[2019-11-22] MEDS ORDERED: MAGNESIUM HYDROXIDE SUSP 30 ML UDC PO PRN (19:39)
[2019-11-22] MEDS ORDERED: ALUMINUM/MAGNESIUM SUSP 30 ML UDC PO PRN (19:39)
[2019-11-22] MEDS ORDERED: POLYETHYLENE (MIRALAX) 17 GM PACK PO PRN (19:39)
[2019-11-22] MEDS: cefTRIAXone SODIUM 1,000 MG in DEXTROSE 5% 50 ML IV SCH (20:48)
[2019-11-22] MEDS: FOLIC ACID 400 MCG TAB PO SCH (20:49)
[2019-11-22] MEDS: APIXABAN 2.5 MG TAB PO SCH (20:49)
[2019-11-22] MEDS: SENNA 8.6 MG TAB PO SCH (20:50)
[2019-11-22] MEDS: TAMSULOSIN HCL 0.4 MG CAP PO SCH (21:32)
[2019-11-22] MEDS: valACYclovir HCL 500 MG TABLET PO SCH (21:32)
[2019-11-23 04:06] LABS: Appearance Urine Clear (Clear); Bacteria Urine Automated Negative (Negative); Bilirubin Urine Negative (Negative); Blood Urine Negative (Negative); Color Urine Yellow; Glucose Urine UA Negative (Negative); Ketones Urine Negative (Negative); Leukocyte Esterase Urine Trace (Negative); Nitrite Urine Negative (Negative); Protein Urine Trace (Negative); RBC Urine Automated 0-4 /hpf (0-4); Specific Gravity Urine 1.019 (1.000-1.030); Urobilinogen Urine Negative (Negative)
[2019-11-23] MEDS: AMIODARONE 200 MG TAB PO SCH (08:10)
[2019-11-23] MEDS: APIXABAN 2.5 MG TAB PO SCH ×2 (08:10→20:57)
[2019-11-23] MEDS: FUROSEMIDE 40 MG TAB PO SCH (08:10)
[2019-11-23] MEDS: FOLIC ACID 400 MCG TAB PO SCH ×2 (08:10→20:57)
[2019-11-23] MEDS: SENNA 8.6 MG TAB PO SCH ×2 (08:11→20:55)
[2019-11-23] MEDS: POLYETHYLENE (MIRALAX) 17 GM PACK PO SCH (08:11)
[2019-11-23] MEDS: FINASTERIDE 5 MG TAB PO SCH (08:11)
[2019-11-23] MEDS: ATORVASTATIN 40 MG TAB PO SCH (08:11)
[2019-11-23] MEDS: METOPROLOL SUCC 50MG EXT REL TAB PO SCH (08:11)
[2019-11-23] MEDS: CHOLECALCIFEROL 1,000 UNITS 25 MCG TAB PO SCH (08:12)
[2019-11-23] MEDS: valACYclovir HCL 500 MG TABLET PO SCH ×2 (08:12→20:57)
[2019-11-23] MEDS: VITAMIN B COMPLEX TAB PO SCH (08:12)
[2019-11-23] MEDS: ASCORBIC ACID 500 MG TAB PO SCH (08:12)
[2019-11-23] MEDS: metOLazone 2.5 MG TABLET PO SCH (08:12)
--- NOTE | 2019-11-23 08:23 | Hospitalist Progress Note ---
Date of Service November 23, 2019 Assessment & Plan (1) Herpes zoster: Hepes Zoster of left eyelid This is an 84-year-old male who has significant past medical history chronic systolic CHF with EF 20 to 24%, ischemic cardiomyopathy, CAD with history of CABG x6, chronic atrial fibrillation anticoagulated on Eliquis, bilateral pleural effusions, hyperlipidemia, CKD stage III who presents to ED at the referral of home health secondary to hypotension. Patient was initially hypotensive in ED with blood pressure 90s over 60s with improvement with 1 L of IVF. Patient does have chronic systolic biventricular CHF and likely has low BP at baseline given medical regimen. Currently he denies any dizziness or lightheadedness. On admission he does have evidence of acute herpes zoster of left eyelid as well as left lower extremity cellulitis which is likely contributing to poor appetite and weakness. Admit to med telemetry Valtrex 1 g p.o. 3 times daily Discussed with ophthalmology at [facility] -recommended close monitoring for now and monitor for signs of conjunctivitis, foreign body sensation of eye (if this were to develop consider erythromycin ointment or lubricating eye ointment) Currently patient is not complaining of any ocular complaints Treat with IV Rocephin for likely left extremity cellulitis Consult PT/OT and dietitian In regards to blood pressure continue to monitor closely but we will not administer any further IV fluid secondary to severely reduced EF and associated severe aortic stenosis (2) Left leg cellulitis: mild erythema and warmth to medial aspect left leg with scab inferiorly likely early development of cellulitis Started IV rocephin on admission, will continue Unstageable pressure injury, left heel pressure injury, POA wound care consult as well for L heel (3) Chronic systolic CHF (congestive heart failure): (4) CAD (coronary artery disease): (5) Ischemic cardiomyopathy: pt with hx of CAD and CABG x 6 in 1996 He had recent echo LVEF < 20%, left ventricular cavity severely dilated and diffuse hypokinesis to akinesis, right ventricular cavity moderately dilated, right ventricular systolic function moderately reduced, aortic valve heavily calcified with severe , Severe mitral regurg, severe tricuspid regurg continue amiodarone, metoprolol, atorvastatin, Eliquis, Lasix and metolazone defib in place - no known shocks Patient was on ramipril -this was recently discontinued at [facility] [place] during recent hospitalization secondary to hypotension His initial reason for coming to ED today was secondary to hypotension so will need to monitor blood pressure accordingly Daily weights, strict I's and O's (6) Chronic atrial fibrillation: Rate and rhythm controlled on amiodarone and metoprolol Continue Eliquis for thrombotic control (7) CKD (chronic kidney disease), stage III: baseline cr 1.2 bun/cr 30 and 1.23 monitor closely (8) Ventricular tachycardia: s/p cardiac defibrillator in place (9) DVT prophylaxis: continue eliquis Disposition: admit to tele Per PT OT, recommend rehab or 24/7 support at home Follow up: PCP Dr. Guido upon discharge Admission and Anticipated Discharge Date Admission Date: November 22, 2019 Subjective Patient is sitting in the chair, in no acute distress. Currently has no complaints, denies any fevers chills, chest pain, shortness of breath, abdominal pain, nausea or vomiting. He is very hard of hearing. Left eye does not seem to bother him, he actually says that skin was weeping before and now it all dried up. Currently denies any dizziness or lightheadedness. Seen by PT, recommend rehab or 24/7 support at home. Review of Systems Review of Systems: All systems reviewed & are unremarkable except as noted in HPI & below Constitutional: no fever and no chills Respiratory: no cough and no dyspnea Cardiovascular: no chest pain and no palpitations Gastrointestinal: no abdominal pain, no nausea and no vomiting Physical Exam Physical Exam: Constitutional: WD/WN, M, vitals as above, NAD, sitting up in chair, pleasant, conversing easily Head: Normocephalic, Atraumatic + Herpes Zoster rash in dermatomal distribution including left eyelid Eyes: PERRL, EOMI, conjunctivae normal, anicteric sclerae ENMT: external ear and nose normal, oropharynx normal Neck: trachea midline, no thyromegaly normal visual inspection Respiratory: normal respiratory effort, lungs clear to auscultation but diminished at bases b/l, no wheeze, rales, rhonchi. Normal insp/exp effort, no accessory muscle use Cardiovascular: RRR, no murmur, no edema, b/l venous stasis changes, Vessels: no JVD or carotid bruit Chest: normal inspection of chest Abdomen: normal bowel sounds, soft, nontender, no hepatosplenomegaly Musculoskeletal: no cyanosis or clubbing, extremities motor strength 5/5 Skin: +Zoster Rash erythematous maculopapular rash extended from top of head to Medial aspect of L nose, 2 crusted lesions noted, Also LLE medial pre tibial e rythema, warmth, b/l venous stasis changes, warm and dry normal turgor, pressure wound on left heel Neurologic: PERRL, EOMI, no face palsy, no dysarthria CN's II-XI intact bilaterally and moves all extremities Psychiatric: A+Ox3, euthymic affect Results & Data Results & Data ([facility]) Vital Signs (Past 12 Hours) Vital Signs Temp Pulse Pulse Resp BP BP Pulse Ox 11/23/19 07:14 83 11/23/19 07:00 36.8 C 83 18 111/67 98 11/23/19 03:48 81 11/23/19 03:46 36.6 C 82 18 116/52 L 94 11/22/19 22:50 36.5 C 81 18 108/61 94 Laboratory Results 11/23/19 11/22/19 11/22/19 Range/Units Unknown 16:20 16:20 WBC (4.8-10.8) K/uL RBC (4.7-6.1) M/uL Hgb (14.0-18.0) g/dL Hct (42-52) % MCV (80-100) fL MCH (25-34) pg MCHC (32-36) g/dL RDW Std Deviation (36.4-46.3) fL RDW Coeff of [place] (11.5-14.5) % Plt Count (130-400) K/uL MPV (7.4-10.4) fL Immature Gran % (Auto) % Neut % (Auto) % Lymph % (Auto) % Story % (Auto) % Eos % (Auto) % Baso % (Auto) % Neut # (Auto) (1.4-6.5) K/uL Lymph # (Auto) (1.2-3.4) K/uL Story # (Auto) (0.11-0.59) K/uL Eos # (Auto) (0-0.5) K/uL Baso # (Auto) (0-0.2) K/uL Immature Gran # (Auto) (0.00-0.02) K/uL ABG pH (7.35-7.45) ABG pCO2 (35-46) mmHg ABG pO2 (80-95) mmHg ABG HCO3 (19-24) mmol/L ABG O2 Saturation (90-95) % ABG Base Excess (-9-1.8) mEq/L Billy Test (Pos) Barometric Pressure mm/Hg Oxygen Given Sodium (136-145) mmol/L Potassium (3.5-5.1) mmol/L Chloride (98-107) mmol/L Carbon Dioxide (21-32) mmol/L Anion Gap (3-11) BUN (7-18) mg/dl Creatinine (0.6-1.4) mg/dl Est Cr Clr Drug Dosing ml/min Est GFR ( Amer) Est GFR (Non-Af Amer) BUN/Creatinine Ratio (10-20) Glucose (70-99) mg/dl Calcium (8.5-10.1) mg/dl Total Bilirubin (0.2-1) mg/dl AST (15-37) U/L ALT (12-78) U/L Alkaline Phosphatase (45-117) U/L Total Creatine Kinase (39-308) U/L CK-MB (CK-2) (0.5-3.6) ng/ml CK/CKMB % Calc (0-3.0) Troponin I (0-0.045) ng/ml Total Protein (6.4-8.2) gm/dl Albumin (3.4-5.0) gm/dl Globulin (2.5-4.0) gm/dl Albumin/Globulin Ratio (0.9-2) TSH (0.300-4.500) uIu/ml Urine Color Yellow Urine Appearance Clear (Clear) Urine pH 7.0 (4.5-7.5) Ur Specific [place] 1.019 (1.000-1.030) Urine Protein Trace H (Negative) Urine Glucose (UA) Negative (Negative) Urine Ketones Negative (Negative) Urine Blood Negative (Negative) Urine Nitrite Negative (Negative) Urine Bilirubin Negative (Negative) Urine Urobilinogen Negative (Negative) Ur Leukocyte Esterase Trace H (Negative) Urine WBC (Auto) 1-5 (0-5) /hpf Urine RBC (Auto) 0-4 (0-4) /hpf U Hyaline Cast (Auto) 1-5 (0-5) /lpf U Epithel Cells (Auto) 5-10 H (0-5) /lpf Urine Bacteria (Auto) Negative (Negative) COVID-19 Eval Order Covid19 Done at [facility] COVID-19 PCR NEGATIVE (Negative) 11/22/19 11/22/19 11/22/19 Range/Units 15:22 13:40 13:40 WBC 4.45 L (4.8-10.8) K/uL RBC 4.04 L (4.7-6.1) M/uL Hgb 11.5 L (14.0-18.0) g/dL Hct 37.9 L (42-52) % MCV 93.8 (80-100) fL MCH 28.5 (25-34) pg MCHC 30.3 L (32-36) g/dL RDW Std Deviation 57.2 H (36.4-46.3) fL RDW Coeff of [place] 16.5 H (11.5-14.5) % Plt Count 150 (130-400) K/uL MPV 9.6 (7.4-10.4) fL Immature Gran % (Auto) 0.4 % Neut % (Auto) 76.3 % Lymph % (Auto) 12.4 % Story % (Auto) 9.2 % Eos % (Auto) 1.3 % Baso % (Auto) 0.4 % Neut # (Auto) 3.39 (1.4-6.5) K/uL Lymph # (Auto) 0.55 L (1.2-3.4) K/uL Story # (Auto) 0.41 (0.11-0.59) K/uL Eos # (Auto) 0.06 (0-0.5) K/uL Baso # (Auto) 0.02 (0-0.2) K/uL Immature Gran # (Auto) 0.02 (0.00-0.02) K/uL ABG pH 7.39 (7.35-7.45) ABG pCO2 67 H (35-46) mmHg ABG pO2 146 H (80-95) mmHg ABG HCO3 40 H (19-24) mmol/L ABG O2 Saturation 99.0 H (90-95) % ABG Base Excess 12.8 H (-9-1.8) mEq/L Billy Test POS (Pos) Barometric Pressure 731.1 mm/Hg Oxygen Given 2 L Sodium 138 (136-145) mmol/L Potassium 3.8 (3.5-5.1) mmol/L Chloride 91 L (98-107) mmol/L Carbon Dioxide 45 H* (21-32) mmol/L Anion Gap 2.0 L (3-11) BUN 30 H (7-18) mg/dl Creatinine 1.23 (0.6-1.4) mg/dl Est Cr Clr Drug Dosing 43.3 ml/min Est GFR ( Amer) 63.0 Est GFR (Non-Af Amer) 54.3 BUN/Creatinine Ratio 24.3 H (10-20) Glucose 83 (70-99) mg/dl Calcium 9.2 (8.5-10.1) mg/dl Total Bilirubin 0.7 (0.2-1) mg/dl AST 88 H (15-37) U/L ALT 68 (12-78) U/L Alkaline Phosphatase 87 (45-117) U/L Total Creatine Kinase 95 (39-308) U/L CK-MB (CK-2) 2.0 (0.5-3.6) ng/ml CK/CKMB % Calc 2.1 (0-3.0) Troponin I 0.023 (0-0.045) ng/ml Total Protein 6.4 (6.4-8.2) gm/dl Albumin 2.5 L (3.4-5.0) gm/dl Globulin 3.9 (2.5-4.0) gm/dl Albumin/Globulin Ratio 0.6 L (0.9-2) TSH 2.810 (0.300-4.500) uIu/ml Urine Color Urine Appearance (Clear) Urine pH (4.5-7.5) Ur Specific [place] (1.000-1.030) Urine Protein (Negative) Urine Glucose (UA) (Negative) Urine Ketones (Negative) Urine Blood (Negative) Urine Nitrite (Negative) Urine Bilirubin (Negative) Urine Urobilinogen (Negative) Ur Leukocyte Esterase (Negative) Urine WBC (Auto) (0-5) /hpf Urine RBC (Auto) (0-4) /hpf U Hyaline Cast (Auto) (0-5) /lpf U Epithel Cells (Auto) (0-5) /lpf Urine Bacteria (Auto) (Negative) COVID-19 Eval Order COVID-19 PCR (Negative) Medications Administered Current Inpatient Medications Acetaminophen (Acetaminophen 325 Mg Tab) 650 mg PO Q4H PRN PRN Reason: Pain or Fever Stop: 12/22/19 19:38 Al Hydrox/Mg Hydrox/Simethicone (Aluminum/Magnesium Susp 30 Ml Udc) 15 ml PO Q4H PRN PRN Reason: Dyspepsia Stop: 12/22/19 19:38 Amiodarone HCl (Amiodarone 200 Mg Tab) 200 mg PO DAILY [facility] Stop: 12/23/19 08:59 Last Admin: 11/23/19 08:10 Dose: 200 mg Documented by: Apixaban (Apixaban 2.5 Mg Tab) 2.5 mg PO BID [facility] Stop: 12/22/19 20:59 Last Admin: 11/23/19 08:10 Dose: 2.5 mg Documented by: Ascorbic Acid (Ascorbic Acid 500 Mg Tab) 500 mg PO DAILY [facility] Stop: 12/23/19 08:59 Last Admin: 11/23/19 08:12 Dose: 500 mg Documented by: Atorvastatin Calcium (Atorvastatin 40 Mg Tab) 40 mg PO DAILY [facility] Stop: 12/23/19 08:59 Last Admin: 11/23/19 08:11 Dose: 40 mg Documented by: Finasteride (Finasteride 5 Mg Tab) 5 mg PO DAILY [facility] Stop: 12/23/19 08:59 Last Admin: 11/23/19 08:11 Dose: 5 mg Documented by: Folic Acid (Folic Acid 400 Mcg Tab) 400 mcg PO BID [facility] Stop: 12/22/19 20:59 Last Admin: 11/23/19 08:10 Dose: 400 mcg Documented by: Furosemide (Furosemide 40 Mg Tab) 40 mg PO DAILY [facility] Stop: 12/23/19 08:59 Last Admin: 11/23/19 08:10 Dose: 40 mg Documented by: Ceftriaxone Sodium 1,000 mg/ (Dextrose) 50 mls @ 100 mls/hr IV Q24H [facility]; Protocol Stop: 11/29/19 19:38 Last Infusion: 11/22/19 21:40 Dose: Infused Documented by: Magnesium Hydroxide (Magnesium Hydroxide Susp 30 Ml Udc) 30 ml PO Q12H PRN PRN Reason: Constipation Stop: 12/22/19 19:38 Metolazone (Metolazone 2.5 Mg Tablet) 2.5 mg PO DAILY [facility] Stop: 12/23/19 08:59 Last Admin: 11/23/19 08:12 Dose: 2.5 mg Documented by: Metoprolol Succinate (Metoprolol Succ 50mg Ext Rel Tab) 50 mg PO DAILY [facility] Stop: 12/23/19 08:59 Last Admin: 11/23/19 08:11 Dose: 50 mg Documented by: Miscellaneous (Rapaflo- Order Awaiting Action) 1 ea N/A QS [facility] Stop: 12/23/19 00:00 Last Admin: 11/23/19 01:42 Dose: Not Given Documented by: Ondansetron HCl (Ondansetron Inj 2 Mg/Ml 2 Ml Vial) 4 mg IV Q6H PRN PRN Reason: Nausea Stop: 12/22/19 19:38 Polyethylene Glycol (Polyethylene (Miralax) 17 Gm Pack) 17 gm PO DAILY PRN PRN Reason: Constipation Stop: 12/22/19 19:38 Polyethylene Glycol (Polyethylene (Miralax) 17 Gm Pack) 17 gm PO DAILY [facility] Stop: 12/23/19 08:59 Last Admin: 11/23/19 08:11 Dose: 17 gm Documented by: Sennosides (Senna 8.6 Mg Tab) 8.6 mg PO BID [facility] Stop: 12/22/19 20:59 Last Admin: 11/23/19 08:11 Dose: 8.6 mg Documented by: Tamsulosin HCl (Tamsulosin Hcl 0.4 Mg Cap) 0.4 mg PO HS [facility] Stop: 12/22/19 20:59 Last Admin: 11/22/19 21:32 Dose: 0.4 mg Documented by: Valacyclovir HCl (Valacyclovir Hcl 500 Mg Tablet) 1,000 mg PO BID [facility]; Protocol Stop: 11/27/19 09:01 Last Admin: 11/23/19 08:12 Dose: 1,000 mg Documented by: Vitamin B Complex (Vitamin B Complex Tab) 1 tab PO DAILY [facility] Stop: 12/23/19 08:59 Last Admin: 11/23/19 08:12 Dose: 1 tab Documented by: Vitamin D (Cholecalciferol 1,000 Units 25 Mcg Tab) 2,000 units PO DAILY [facility] Stop: 12/23/19 08:59 Last Admin: 11/23/19 08:12 Dose: 2,000 units Documented by: (1) Herpes zoster Herpes zoster complications: without complications Qualified Code(s): B02.9 - Zoster without complications (2) CKD (chronic kidney disease), stage III Chronic kidney disease stage 3 subtype: unspecified whether 3a or 3b Qualified Code(s): N18.30 - Chronic kidney disease, stage 3 unspecified
[2019-11-23] MEDS: cefTRIAXone SODIUM 1,000 MG in DEXTROSE 5% 50 ML IV SCH (20:55)
[2019-11-23] MEDS: TAMSULOSIN HCL 0.4 MG CAP PO SCH (20:57)
[2019-11-24] MEDS: FOLIC ACID 400 MCG TAB PO SCH ×2 (08:14→21:04)
[2019-11-24] MEDS: SENNA 8.6 MG TAB PO SCH ×2 (08:14→21:05)
[2019-11-24] MEDS: valACYclovir HCL 500 MG TABLET PO SCH ×2 (08:14→21:04)
[2019-11-24] MEDS: APIXABAN 2.5 MG TAB PO SCH ×2 (08:14→21:05)
[2019-11-24] MEDS: ATORVASTATIN 40 MG TAB PO SCH (08:15)
[2019-11-24] MEDS: METOPROLOL SUCC 50MG EXT REL TAB PO SCH (08:15)
[2019-11-24] MEDS: ASCORBIC ACID 500 MG TAB PO SCH (08:15)
[2019-11-24] MEDS: metOLazone 2.5 MG TABLET PO SCH (08:15)
[2019-11-24] MEDS: AMIODARONE 200 MG TAB PO SCH (08:15)
[2019-11-24] MEDS: FINASTERIDE 5 MG TAB PO SCH (08:15)
[2019-11-24] MEDS: FUROSEMIDE 40 MG TAB PO SCH (08:15)
[2019-11-24] MEDS: POLYETHYLENE (MIRALAX) 17 GM PACK PO SCH ×2 (08:16→08:21)
[2019-11-24] MEDS: VITAMIN B COMPLEX TAB PO SCH (08:16)
[2019-11-24] MEDS: CHOLECALCIFEROL 1,000 UNITS 25 MCG TAB PO SCH (08:16)
[2019-11-24 08:43] LABS: Hematocrit (blood only) 35.6 % (42-52); Hemoglobin 10.7 g/dL (14.0-18.0); Mean Corpuscular Hemoglobin 27.9 pg (25-34); Mean Corpuscular Hgb Conc 30.1 g/dL (32-36); Mean Platelet Volume 9.4 fL (7.4-10.4); Platelet Count 136 K/uL (130-400); RDW Coefficient of Variation 16.5 % (11.5-14.5); RDW Standard Deviation 56.1 fL (36.4-46.3); Red Blood Count 3.83 M/uL (4.7-6.1); White Blood Count 4.37 K/uL (4.8-10.8)
[2019-11-24 09:07] LABS: BUN Creatinine Ratio 23.2 (10-20); Calcium 9.4 mg/dl (8.5-10.1); Creatinine Clr Calc Pharmacy 46.7 ml/min; Est GFR (African American) 69.8; Est GFR (Non-African American) 60.2; Magnesium 1.9 mg/dl (1.8-2.4); Phosphorus 2.6 mg/dl (2.5-4.9)
--- NOTE | 2019-11-24 19:15 | Hospitalist Progress Note ---
Date of Service November 24, 2019 Assessment & Plan (1) Herpes zoster: Hepes Zoster of left eyelid This is an 84-year-old male who has significant past medical history chronic systolic CHF with EF 20 to 24%, ischemic cardiomyopathy, CAD with history of CABG x6, chronic atrial fibrillation anticoagulated on Eliquis, bilateral pleural effusions, hyperlipidemia, CKD stage III who presents to ED at the referral of home health secondary to hypotension. Patient was initially hypotensive in ED with blood pressure 90s over 60s with improvement with 1 L of IVF. Patient does have chronic systolic biventricular CHF and likely has low BP at baseline given medical regimen. Currently he denies any dizziness or lightheadedness. On admission he does have evidence of acute herpes zoster of left eyelid as well as left lower extremity cellulitis which is likely contributing to poor appetite and weakness. Admit to med telemetry Valtrex 1 g p.o. 3 times daily Discussed with ophthalmology at [facility] -recommended close monitoring for now and monitor for signs of conjunctivitis, foreign body sensation of eye (if this were to develop consider erythromycin ointment or lubricating eye ointment) Currently patient is not complaining of any ocular complaints Treat with IV Rocephin for likely left extremity cellulitis Consult PT/OT and dietitian In regards to blood pressure continue to monitor closely but not planning to administer any further IV fluid secondary to severely reduced EF and associated severe aortic stenosis (2) Left leg cellulitis: mild erythema and warmth to medial aspect left leg with scab inferiorly likely early development of cellulitis Started IV rocephin on admission, will continue Unstageable pressure injury, left heel pressure injury, POA wound care consult as well for L heel (3) Chronic systolic CHF (congestive heart failure): (4) CAD (coronary artery disease): (5) Ischemic cardiomyopathy: pt with hx of CAD and CABG x 6 in 1996 He had recent echo LVEF < 20%, left ventricular cavity severely dilated and diffuse hypokinesis to akinesis, right ventricular cavity moderately dilated, right ventricular systolic function moderately reduced, aortic valve heavily calcified with severe , Severe mitral regurg, severe tricuspid regurg continue amiodarone, metoprolol, atorvastatin, Eliquis, Lasix and metolazone defib in place - no known shocks Patient was on ramipril -this was recently discontinued at [facility] during recent hospitalization secondary to hypotension His initial reason for coming to ED today was secondary to hypotension so will need to monitor blood pressure accordingly Daily weights, strict I's and O's (6) Chronic atrial fibrillation: Rate and rhythm controlled on amiodarone and metoprolol Continue Eliquis for thrombotic control (7) CKD (chronic kidney disease), stage III: baseline cr 1.2 bun/cr 30 and 1.23 monitor closely (8) Ventricular tachycardia: s/p cardiac defibrillator in place (9) DVT prophylaxis: continue eliquis Disposition: admit to tele Per PT OT, recommend 24 hr care Follow up: PCP Dr. Guido upon discharge Admission and Anticipated Discharge Date Admission Date: November 22, 2019 Subjective Patient is sitting in the chair, in no acute distress. Currently has no complaints, denies any fevers chills, chest pain, shortness of breath, abdominal pain, nausea or vomiting. He is very hard of hearing. Left eye does not seem to bother him, he actually says that skin was weeping before and now it all dried up. Currently denies any dizziness or lightheadedness. However he states that when he changes position, standing up, he does get lightheaded and has been going on for a long time, he cannot even tell me since when. Seen by PT, recommend rehab or 24 hr care. Review of Systems Review of Systems: All systems reviewed & are unremarkable except as noted in HPI & below Constitutional: + fatigue and + weakness; no fever and no chills Respiratory: no cough and no dyspnea Cardiovascular: no chest pain and no palpitations Gastrointestinal: no abdominal pain, no nausea and no vomiting Neurologic: + dizziness (when changing position) Physical Exam Physical Exam: Constitutional: WD/WN, M, vitals as above, NAD, sitting up in chair, pleasant, conversing easily Head: Normocephalic, Atraumatic + Herpes Zoster rash in dermatomal distribution including left eyelid Eyes: PERRL, EOMI, conjunctivae normal, anicteric sclerae ENMT: external ear and nose normal, oropharynx normal Neck: trachea midline, no thyromegaly normal visual inspection Respiratory: normal respiratory effort, lungs clear to auscultation but diminished at bases b/l, no wheeze, rales, rhonchi. Normal insp/exp effort, no accessory muscle use Cardiovascular: RRR, no murmur, no edema, b/l venous stasis changes, Vessels: no JVD or carotid bruit Chest: normal inspection of chest Abdomen: normal bowel sounds, soft, nontender, no hepatosplenomegaly Musculoskeletal: no cyanosis or clubbing, extremities motor strength 5/5 Skin: +Zoster Rash erythematous maculopapular rash extended from top of head to Medial aspect of L nose, 2 crusted lesions noted, Also LLE medial pre tibial erythema, warmth, b/l venous stasis changes, warm and dry normal turgor, pressure wound on left heel Neurologic: PERRL, EOMI, no face palsy, no dysarthria CN's II-XI intact bilaterally and moves all extremities Psychiatric: A+Ox3, euthymic affect Results & Data Results & Data ([facility]) Vital Signs (Past 12 Hours) Vital Signs Temp Pulse Pulse Resp BP BP Pulse Ox 11/24/19 16:00 36.6 C 80 81 18 117/73 94 11/24/19 11:00 35.9 C L 80 18 95/61 L 100 11/24/19 08:00 80 Laboratory Results 11/24/19 11/24/19 Range/Units 08:31 08:31 WBC 4.37 L (4.8-10.8) K/uL RBC 3.83 L (4.7-6.1) M/uL Hgb 10.7 L (14.0-18.0) g/dL Hct 35.6 L (42-52) % MCV 93.0 (80-100) fL MCH 27.9 (25-34) pg MCHC 30.1 L (32-36) g/dL RDW Std Deviation 56.1 H (36.4-46.3) fL RDW Coeff of [place] 16.5 H (11.5-14.5) % Plt Count 136 (130-400) K/uL MPV 9.4 (7.4-10.4) fL Sodium 135 L (136-145) mmol/L Potassium 4.0 (3.5-5.1) mmol/L Chloride 91 L (98-107) mmol/L Carbon Dioxide 40 H (21-32) mmol/L Anion Gap 4.0 (3-11) BUN 26 H (7-18) mg/dl Creatinine 1.13 (0.6-1.4) mg/dl Est Cr Clr Drug Dosing 46.7 ml/min Est GFR ( Amer) 69.8 Est GFR (Non-Af Amer) 60.2 BUN/Creatinine Ratio 23.2 H (10-20) Glucose 97 (70-99) mg/dl Calcium 9.4 (8.5-10.1) mg/dl Phosphorus 2.6 (2.5-4.9) mg/dl Magnesium 1.9 (1.8-2.4) mg/dl (1) Herpes zoster Herpes zoster complications: without complications Qualified Code(s): B02.9 - Zoster without complications (2) CKD (chronic kidney disease), stage III Chronic kidney disease stage 3 subtype: unspecified whether 3a or 3b Qualified Code(s): N18.30 - Chronic kidney disease, stage 3 unspecified
[2019-11-24] MEDS: TAMSULOSIN HCL 0.4 MG CAP PO SCH (21:04)
[2019-11-24] MEDS: cefTRIAXone SODIUM 1,000 MG in DEXTROSE 5% 50 ML IV SCH (21:49)
[2019-11-25 07:57] LABS: BUN Creatinine Ratio 25.1 (10-20); Calcium 9.1 mg/dl (8.5-10.1); Creatinine Clr Calc Pharmacy 48.6 ml/min; Est GFR (African American) 75.4; Magnesium 1.8 mg/dl (1.8-2.4); Phosphorus 3.1 mg/dl (2.5-4.9); Potassium 3.5 mmol/L (3.5-5.1)
[2019-11-25] MEDS: METOPROLOL SUCC 50MG EXT REL TAB PO SCH (08:13)
[2019-11-25] MEDS: FUROSEMIDE 40 MG TAB PO SCH (08:13)
[2019-11-25] MEDS: SENNA 8.6 MG TAB PO SCH ×2 (08:13→20:38)
[2019-11-25] MEDS: AMIODARONE 200 MG TAB PO SCH (08:13)
[2019-11-25] MEDS: valACYclovir HCL 500 MG TABLET PO SCH ×2 (08:14→20:37)
[2019-11-25] MEDS: APIXABAN 2.5 MG TAB PO SCH ×2 (08:14→20:38)
[2019-11-25] MEDS: FOLIC ACID 400 MCG TAB PO SCH ×2 (08:14→20:38)
[2019-11-25] MEDS: CHOLECALCIFEROL 1,000 UNITS 25 MCG TAB PO SCH (08:15)
[2019-11-25] MEDS: VITAMIN B COMPLEX TAB PO SCH (08:15)
[2019-11-25] MEDS: ATORVASTATIN 40 MG TAB PO SCH (08:15)
[2019-11-25] MEDS: FINASTERIDE 5 MG TAB PO SCH (08:15)
[2019-11-25] MEDS: ASCORBIC ACID 500 MG TAB PO SCH (08:15)
[2019-11-25] MEDS: metOLazone 2.5 MG TABLET PO SCH (08:16)
[2019-11-25] MEDS: POLYETHYLENE (MIRALAX) 17 GM PACK PO SCH (08:16)
[2019-11-25] MEDS: SILODOSIN PO SCH (08:17)
[2019-11-25] MEDS ORDERED: POTASSIUM CHLORIDE CRTAB 20 MEQ TABCR PO STA (15:58)
--- NOTE | 2019-11-25 16:00 | Hospitalist Progress Note ---
Date of Service November 25, 2019 Assessment & Plan (1) Herpes zoster: Hepes Zoster of left eyelid This is an 84-year-old male who has significant past medical history chronic systolic CHF with EF 20 to 24%, ischemic cardiomyopathy, CAD with history of CABG x6, chronic atrial fibrillation anticoagulated on Eliquis, bilateral pleural effusions, hyperlipidemia, CKD stage III who presents to ED at the referral of home health secondary to hypotension. Patient was initially hypotensive in ED with blood pressure 90s over 60s with improvement with 1 L of IVF. Patient does have chronic systolic biventricular CHF and likely has low BP at baseline given medical regimen. Currently he denies any dizziness or lightheadedness. On admission he does have evidence of acute herpes zoster of left eyelid as well as left lower extremity cellulitis which is likely contributing to poor appetite and weakness. Admit to med telemetry Valtrex 1 g p.o. 3 times daily Discussed with ophthalmology at [facility] -recommended close monitoring for now and monitor for signs of conjunctivitis, foreign body sensation of eye (if this were to develop consider erythromycin ointment or lubricating eye ointment) Currently patient is not complaining of any ocular complaints Treat with IV Rocephin for likely left extremity cellulitis Consult PT/OT and dietitian In regards to blood pressure continue to monitor closely but not planning to administer any further IV fluid secondary to severely reduced EF and associated severe aortic stenosis (2) Left leg cellulitis: mild erythema and warmth to medial aspect left leg with scab inferiorly likely early development of cellulitis Started IV rocephin on admission, will continue Unstageable pressure injury, left heel pressure injury, POA wound care consult as well for L heel (3) Chronic systolic CHF (congestive heart failure): (4) CAD (coronary artery disease): (5) Ischemic cardiomyopathy: pt with hx of CAD and CABG x 6 in 1996 He had recent echo LVEF < 20%, left ventricular cavity severely dilated and diffuse hypokinesis to akinesis, right ventricular cavity moderately dilated, right ventricular systolic function moderately reduced, aortic valve heavily calcified with severe , Severe mitral regurg, severe tricuspid regurg continue amiodarone, metoprolol, atorvastatin, Eliquis, Lasix and metolazone defib in place - no known shocks Patient was on ramipril -this was recently discontinued at [facility] during recent hospitalization secondary to hypotension His initial reason for coming to ED today was secondary to hypotension so will need to monitor blood pressure accordingly Daily weights, strict I's and O's (6) Chronic atrial fibrillation: Rate and rhythm controlled on amiodarone and metoprolol Continue Eliquis for thrombotic control (7) CKD (chronic kidney disease), stage III: baseline cr 1.2 bun/cr 30 and 1.23 monitor closely (8) Ventricular tachycardia: s/p cardiac defibrillator in place (9) DVT prophylaxis: continue eliquis Disposition: admit to tele Per PT OT, recommend 24 hr care Follow up: PCP Dr. Guido upon discharge Admission and Anticipated Discharge Date Admission Date: November 22, 2019 Subjective Patient is lying in bed in no acute distress. Currently has no complaints, denies any fevers chills, chest pain, shortness of breath, abdominal pain, nausea or vomiting. Currently denies any dizziness or lightheadedness. However he states that when he changes position, standing up, he does get lightheaded and this has been going on for a long time. Seen by PT, recommend rehab or 24 hr care. Review of Systems Review of Systems: All systems reviewed & are unremarkable except as noted in HPI & below Constitutional: + fatigue and + weakness; no fever and no chills Respiratory: no cough and no dyspnea Cardiovascular: no chest pain and no palpitations Gastrointestinal: no abdominal pain, no nausea and no vomiting Neurologic: + dizziness (when changing position) Physical Exam Physical Exam: Constitutional: WD/WN, M, vitals as above, NAD, sitting up in bed, pleasant, conversing easily Head: Normocephalic, Atraumatic + Herpes Zoster rash in dermatomal distribution including left eyelid much improved Eyes: PERRL, EOMI, conjunctivae normal, anicteric sclerae ENMT: external ear and nose normal, oropharynx normal Neck: trachea midline, no thyromegaly normal visual inspection Respiratory: normal respiratory effort, lungs clear to auscultation but diminished at bases b/l, no wheeze, rales, rhonchi. Normal insp/exp effort, no accessory muscle use Cardiovascular: RRR, no murmur, no edema, b/l venous stasis changes, Vessels: no JVD or carotid bruit Chest: normal inspection of chest Abdomen: normal bowel sounds, soft, nontender, no hepatosplenomegaly Musculoskeletal: no cyanosis or clubbing, extremities motor strength 5/5 Skin: +Zoster Rash erythematous maculopapular rash extended from top of head to Medial aspect of L nose, 2 crusted lesions noted, Also LLE medial pre tibial erythema, warmth, improved, b/l venous stasis changes, warm and dry normal turgor, pressure wound on left heel Neurologic: PERRL, EOMI, no face palsy, no dysarthria CN's II-XI intact bilaterally and moves all extremities Psychiatric: A+Ox3, euthymic affect Results & Data Results & Data ([facility]) Vital Signs (Past 12 Hours) Vital Signs Temp Pulse Pulse Resp BP BP Pulse Ox 11/25/19 15:43 81 11/25/19 11:00 36.3 C L 80 18 98/55 L 97 11/25/19 08:00 36.2 C L 80 18 103/81 97 11/25/19 05:00 36.4 C L 108 H 20 177/82 H 101/61 97 Laboratory Results 11/25/19 Range/Units 06:54 Sodium 135 L (136-145) mmol/L Potassium 3.5 (3.5-5.1) mmol/L Chloride 90 L (98-107) mmol/L Carbon Dioxide 42 H* (21-32) mmol/L Anion Gap 4.0 (3-11) BUN 27 H (7-18) mg/dl Creatinine 1.06 (0.6-1.4) mg/dl Est Cr Clr Drug Dosing 48.6 ml/min Est GFR ( Amer) 75.4 Est GFR (Non-Af Amer) 65.0 BUN/Creatinine Ratio 25.1 H (10-20) Glucose 95 (70-99) mg/dl Calcium 9.1 (8.5-10.1) mg/dl Phosphorus 3.1 (2.5-4.9) mg/dl Magnesium 1.8 (1.8-2.4) mg/dl Medications Administered Current Inpatient Medications Acetaminophen (Acetaminophen 325 Mg Tab) 650 mg PO Q4H PRN PRN Reason: Pain or Fever Stop: 12/22/19 19:38 Al Hydrox/Mg Hydrox/Simethicone (Aluminum/Magnesium Susp 30 Ml Udc) 15 ml PO Q4H PRN PRN Reason: Dyspepsia Stop: 12/22/19 19:38 Amiodarone HCl (Amiodarone 200 Mg Tab) 200 mg PO DAILY [facility] Stop: 12/23/19 08:59 Last Admin: 11/25/19 08:13 Dose: 200 mg Documented by: Apixaban (Apixaban 2.5 Mg Tab) 2.5 mg PO BID [facility] Stop: 12/22/19 20:59 Last Admin: 11/25/19 08:14 Dose: 2.5 mg Documented by: Ascorbic Acid (Ascorbic Acid 500 Mg Tab) 500 mg PO DAILY [facility] Stop: 12/23/19 08:59 Last Admin: 11/25/19 08:15 Dose: 500 mg Documented by: Atorvastatin Calcium (Atorvastatin 40 Mg Tab) 40 mg PO DAILY [facility] Stop: 12/23/19 08:59 Last Admin: 11/25/19 08:15 Dose: 40 mg Documented by: Finasteride (Finasteride 5 Mg Tab) 5 mg PO DAILY [facility] Stop: 12/23/19 08:59 Last Admin: 11/25/19 08:15 Dose: 5 mg Documented by: Folic Acid (Folic Acid 400 Mcg Tab) 400 mcg PO BID [facility] Stop: 12/22/19 20:59 Last Admin: 11/25/19 08:14 Dose: 400 mcg Documented by: Furosemide (Furosemide 40 Mg Tab) 40 mg PO DAILY [facility] Stop: 12/23/19 08:59 Last Admin: 11/25/19 08:13 Dose: 40 mg Documented by: Ceftriaxone Sodium 1,000 mg/ (Dextrose) 50 mls @ 100 mls/hr IV Q24H [facility]; Protocol Stop: 11/29/19 19:38 Last Infusion: 11/24/19 22:19 Dose: Infused Documented by: Albumin Human (Albumin 25%) 50 mls @ 50 mls/hr IV ONE ONE Stop: 11/25/19 17:14 Magnesium Hydroxide (Magnesium Hydroxide Susp 30 Ml Udc) 30 ml PO Q12H PRN PRN Reason: Constipation Stop: 12/22/19 19:38 Metolazone (Metolazone 2.5 Mg Tablet) 2.5 mg PO DAILY [facility] Stop: 12/23/19 08:59 Last Admin: 11/25/19 08:16 Dose: 2.5 mg Documented by: Metoprolol Succinate (Metoprolol Succ 50mg Ext Rel Tab) 50 mg PO DAILY [facility] Stop: 12/23/19 08:59 Last Admin: 11/25/19 08:13 Dose: 50 mg Documented by: Miscellaneous (Rapaflo- Order Awaiting Action) 1 ea N/A QS [facility] Stop: 12/23/19 00:00 Last Admin: 11/25/19 15:41 Dose: Not Given Documented by: Ondansetron HCl (Ondansetron Inj 2 Mg/Ml 2 Ml Vial) 4 mg IV Q6H PRN PRN Reason: Nausea Stop: 12/22/19 19:38 Polyethylene Glycol (Polyethylene (Miralax) 17 Gm Pack) 17 gm PO DAILY PRN PRN Reason: Constipation Stop: 12/22/19 19:38 Polyethylene Glycol (Polyethylene (Miralax) 17 Gm Pack) 17 gm PO DAILY [facility] Stop: 12/23/19 08:59 Last Admin: 11/25/19 08:16 Dose: 17 gm Documented by: Sennosides (Senna 8.6 Mg Tab) 8.6 mg PO BID [facility] Stop: 12/22/19 20:59 Last Admin: 11/25/19 08:13 Dose: 8.6 mg Documented by: Silodosin (Silodosin) 1 ea PO QAM [facility] Stop: 12/25/19 08:59 Last Admin: 11/25/19 08:17 Dose: 1 ea Documented by: Tamsulosin HCl (Tamsulosin Hcl 0.4 Mg Cap) 0.4 mg PO HS [facility] Stop: 12/22/19 20:59 Last Admin: 11/24/19 21:04 Dose: 0.4 mg Documented by: Valacyclovir HCl (Valacyclovir Hcl 500 Mg Tablet) 1,000 mg PO BID [facility]; Protocol Stop: 11/27/19 09:01 Last Admin: 11/25/19 08:14 Dose: 1,000 mg Documented by: Vitamin B Complex (Vitamin B Complex Tab) 1 tab PO DAILY [facility] Stop: 12/23/19 08:59 Last Admin: 11/25/19 08:15 Dose: 1 tab Documented by: Vitamin D (Cholecalciferol 1,000 Units 25 Mcg Tab) 2,000 units PO DAILY [facility] Stop: 12/23/19 08:59 Last Admin: 11/25/19 08:15 Dose: 2,000 units Documented by: (1) Herpes zoster Herpes zoster complications: without complications Qualified Code(s): B02.9 - Zoster without complications (2) CKD (chronic kidney disease), stage III Chronic kidney disease stage 3 subtype: unspecified whether 3a or 3b Qualified Code(s): N18.30 - Chronic kidney disease, stage 3 unspecified
[2019-11-25] MEDS ORDERED: ALBUMIN 25% 50 ML IV ONE (16:15)
[2019-11-25] MEDS: cefTRIAXone SODIUM 1,000 MG in DEXTROSE 5% 50 ML IV SCH (20:36)
[2019-11-25] MEDS: TAMSULOSIN HCL 0.4 MG CAP PO SCH (20:38)
[2019-11-26 07:32] LABS: BUN Creatinine Ratio 27.2 (10-20); Creatinine Clr Calc Pharmacy 51.2 ml/min; Est GFR (African American) 80.9; Est GFR (Non-African American) 69.8; Magnesium 1.9 mg/dl (1.8-2.4)
[2019-11-26 07:37] LABS: Potassium 4.1 mmol/L (3.5-5.1)
[2019-11-26] MEDS: SILODOSIN PO SCH (08:55)
[2019-11-26] MEDS: AMIODARONE 200 MG TAB PO SCH (08:56)
[2019-11-26] MEDS: ATORVASTATIN 40 MG TAB PO SCH (08:57)
[2019-11-26] MEDS: FINASTERIDE 5 MG TAB PO SCH (08:57)
[2019-11-26] MEDS: VITAMIN B COMPLEX TAB PO SCH (08:57)
[2019-11-26] MEDS: FUROSEMIDE 40 MG TAB PO SCH (08:57)
[2019-11-26] MEDS: metOLazone 2.5 MG TABLET PO SCH (08:58)
[2019-11-26] MEDS: POLYETHYLENE (MIRALAX) 17 GM PACK PO SCH (08:58)
[2019-11-26] MEDS: ASCORBIC ACID 500 MG TAB PO SCH (08:58)
[2019-11-26] MEDS: CHOLECALCIFEROL 1,000 UNITS 25 MCG TAB PO SCH (08:58)
[2019-11-26] MEDS: METOPROLOL SUCC 50MG EXT REL TAB PO SCH (08:58)
[2019-11-26] MEDS: APIXABAN 2.5 MG TAB PO SCH ×2 (08:59→21:36)
[2019-11-26] MEDS: valACYclovir HCL 500 MG TABLET PO SCH ×2 (08:59→21:37)
[2019-11-26] MEDS: SENNA 8.6 MG TAB PO SCH ×2 (09:00→21:37)
[2019-11-26] MEDS: FOLIC ACID 400 MCG TAB PO SCH ×2 (09:00→21:37)
[2019-11-26] MEDS ORDERED: ALBUMIN 25% 50 ML IV ONE (17:37)
[2019-11-26] MEDS: TAMSULOSIN HCL 0.4 MG CAP PO SCH (21:37)
[2019-11-26] MEDS: cefTRIAXone SODIUM 1,000 MG in DEXTROSE 5% 50 ML IV SCH (21:41)
[2019-11-27] MEDS: valACYclovir HCL 500 MG TABLET PO SCH (08:39)
[2019-11-27] MEDS: FOLIC ACID 400 MCG TAB PO SCH ×2 (08:39→21:26)
[2019-11-27] MEDS: APIXABAN 2.5 MG TAB PO SCH ×2 (08:39→21:26)
[2019-11-27] MEDS: FINASTERIDE 5 MG TAB PO SCH (08:40)
[2019-11-27] MEDS: ATORVASTATIN 40 MG TAB PO SCH (08:41)
[2019-11-27] MEDS: POLYETHYLENE (MIRALAX) 17 GM PACK PO SCH (08:41)
[2019-11-27] MEDS: VITAMIN B COMPLEX TAB PO SCH (08:42)
[2019-11-27] MEDS: CHOLECALCIFEROL 1,000 UNITS 25 MCG TAB PO SCH (08:42)
[2019-11-27] MEDS: SENNA 8.6 MG TAB PO SCH ×2 (08:42→21:26)
[2019-11-27] MEDS: ASCORBIC ACID 500 MG TAB PO SCH (08:42)
[2019-11-27] MEDS: AMIODARONE 200 MG TAB PO SCH (08:42)
[2019-11-27] MEDS: FUROSEMIDE 40 MG TAB PO SCH (08:42)
[2019-11-27] MEDS: METOPROLOL SUCC 50MG EXT REL TAB PO SCH (08:43)
[2019-11-27] MEDS: SILODOSIN PO SCH (08:43)
[2019-11-27] MEDS: metOLazone 2.5 MG TABLET PO SCH (08:43)
--- NOTE | 2019-11-27 19:13 | XRay Report ---
SINGLE VIEW CHEST CLINICAL HISTORY: Generalized weakness. FINDINGS: An AP, portable, upright chest radiograph is compared to study dated 11/22/2019 and correlat ed with chest CT dated 10/26/2019. The examination is degraded by portable technique and patient rotati on. The patient is status post midline sternotomy. A 2-lead cardiac AICD is unchanged in position and largely obscures the left mid chest. The heart is enlarged noting atherosclerotic calcification of t he thoracic aorta. There is pulmonary vascular congestion. There are layering pleural effusions with bibasilar consolidation. No pneumothorax is seen. The skeletal structures are osteopenic. Left-sided rib fractures are again noted. Surgical clips are noted in the upper abdomen. IMPRESSION: 1. Cardiomegaly and AICD with evidence of congestive failure. This has worsened as compared to the examination. 2. Layering pleural effusions with bibasilar consolidation. 3. Left-sided rib fractures are again noted. ACT 112: Negative or not required by law. Electronically signed by: Pb Gregory M.D. 11/27/2019 7:12 PM
--- NOTE | 2019-11-27 19:57 | Hospitalist Progress Note ---
Date of Service November 27, 2019 Assessment & Plan (1) Herpes zoster: Hepes Zoster of left eyelid This is an 84-year-old male who has significant past medical history chronic systolic CHF with EF 20 to 24%, ischemic cardiomyopathy, CAD with history of CABG x6, chronic atrial fibrillation anticoagulated on Eliquis, bilateral pleural effusions, hyperlipidemia, CKD stage III who presents to ED at the referral of home health secondary to hypotension. Patient was initially hypotensive in ED with blood pressure 90s over 60s with improvement with 1 L of IVF. Patient does have chronic systolic biventricular CHF and likely has low BP at baseline given medical regimen. Currently he denies any dizziness or lightheadedness. On admission he does have evidence of acute herpes zoster of left eyelid as well as left lower extremity cellulitis which is likely contributing to poor appetite and weakness. Admit to med telemetry Valtrex 1 g p.o. 3 times daily Discussed with ophthalmology at [facility] -recommended close monitoring for now and monitor for signs of conjunctivitis, foreign body sensation of eye (if this were to develop consider erythromycin ointment or lubricating eye ointment) Currently patient is not complaining of any ocular complaints Treat with IV Rocephin for likely left extremity cellulitis Consult PT/OT and dietitian In regards to blood pressure continue to monitor closely but not planning to administer any further IV fluid secondary to severely reduced EF and associated severe aortic stenosis (2) Left leg cellulitis: mild erythema and warmth to medial aspect left leg with scab inferiorly, resolved likely early development of cellulitis Started IV rocephin on admission, continued while inpt and finished course Unstageable pressure injury, left heel pressure injury, POA wound care consult as well for L heel (3) Chronic systolic CHF (congestive heart failure): (4) CAD (coronary artery disease): (5) Ischemic cardiomyopathy: pt with hx of CAD and CABG x 6 in 1996 He had recent echo LVEF < 20%, left ventricular cavity severely dilated and diffuse hypokinesis to akinesis, right ventricular cavity moderately dilated, right ventricular systolic function moderately reduced, aortic valve heavily calcified with severe , Severe mitral regurg, severe tricuspid regurg continue amiodarone, metoprolol, atorvastatin, Eliquis, Lasix and metolazone defib in place - no known shocks Patient was on ramipril -this was recently discontinued at [facility] during recent hospitalization secondary to hypotension His initial reason for coming to ED today was secondary to hypotension so will need to monitor blood pressure accordingly Daily weights, strict I's and O's (6) Chronic atrial fibrillation: Rate and rhythm controlled on amiodarone and metoprolol Continue Eliquis for thrombotic control (7) CKD (chronic kidney disease), stage III: baseline cr 1.2 bun/cr 30 and 1.23 monitor closely (8) Ventricular tachycardia: s/p cardiac defibrillator in place (9) DVT prophylaxis: continue eliquis Disposition: admit to tele Per PT OT, recommend 24 hr care Follow up: PCP Dr. Guido upon discharge Admission and Anticipated Discharge Date Admission Date: November 22, 2019 Subjective No acute events overnight. Pt is resting comfortably in bed. Denies fever, chills, chest pain, shortness of breath. Review of Systems Review of Systems: All systems reviewed & are unremarkable except as noted in HPI & below Constitutional: no fever and no chills Respiratory: no cough and no dyspnea Cardiovascular: no chest pain and no palpitations Gastrointestinal: no abdominal pain, no nausea and no vomiting Physical Exam Physical Exam: Constitutional: WD/WN, M, vitals as above, NAD, sitting up in bed, pleasant, conversing easily Head: Normocephalic, Atraumatic + Herpes Zoster rash in dermatomal distribution including left eyelid much improved Eyes: PERRL, EOMI, conjunctivae normal, anicteric sclerae ENMT: external ear and nose normal, oropharynx normal Neck: trachea midline, no thyromegaly normal visual inspection Respiratory: normal respiratory effort, lungs clear to auscultation but diminished at bases b/l, no wheeze, rales, rhonchi. Normal insp/exp effort, no accessory muscle use Cardiovascular: RRR, +murmur, no edema, b/l venous stasis changes Chest: normal inspection of chest Abdomen: normal bowel sounds, soft, nontender, no hepatosplenomegaly Musculoskeletal: no cyanosis or clubbing, extremities motor strength 5/5 Skin: +Zoster Rash erythematous maculopapular rash extended from top of head to Medial aspect of L nose, 2 crusted lesions noted, Also LLE medial pre tibial erythema, warmth, improved, b/l venous stasis changes, warm and dry normal turgor, pressure wound on left heel Neurologic: PERRL, EOMI, no face palsy, no dysarthria CN's II-XI intact bilaterally and moves all extremities Psychiatric: A+Ox3, euthymic affect Results & Data Results & Data ([facility]) Vital Signs (Past 12 Hours) Vital Signs Temp Pulse Resp BP BP Pulse Ox 11/27/19 19:55 37.0 C 82 20 105/63 97 11/27/19 16:00 36.5 C 81 20 99/58 L 99 11/27/19 12:00 36.3 C L 80 18 97/57 L 96 Medications Administered Current Inpatient Medications Acetaminophen (Acetaminophen 325 Mg Tab) 650 mg PO Q4H PRN PRN Reason: Pain or Fever Stop: 12/22/19 19:38 Al Hydrox/Mg Hydrox/Simethicone (Aluminum/Magnesium Susp 30 Ml Udc) 15 ml PO Q4H PRN PRN Reason: Dyspepsia Stop: 12/22/19 19:38 Amiodarone HCl (Amiodarone 200 Mg Tab) 200 mg PO DAILY [facility] Stop: 12/23/19 08:59 Last Admin: 11/27/19 08:42 Dose: 200 mg Documented by: Apixaban (Apixaban 2.5 Mg Tab) 2.5 mg PO BID [facility] Stop: 12/22/19 20:59 Last Admin: 11/27/19 08:39 Dose: 2.5 mg Documented by: Ascorbic Acid (Ascorbic Acid 500 Mg Tab) 500 mg PO DAILY [facility] Stop: 12/23/19 08:59 Last Admin: 11/27/19 08:42 Dose: 500 mg Documented by: Atorvastatin Calcium (Atorvastatin 40 Mg Tab) 40 mg PO DAILY [facility] Stop: 12/23/19 08:59 Last Admin: 11/27/19 08:41 Dose: 40 mg Documented by: Finasteride (Finasteride 5 Mg Tab) 5 mg PO DAILY [facility] Stop: 12/23/19 08:59 Last Admin: 11/27/19 08:40 Dose: 5 mg Documented by: Folic Acid (Folic Acid 400 Mcg Tab) 400 mcg PO BID [facility] Stop: 12/22/19 20:59 Last Admin: 11/27/19 08:39 Dose: 400 mcg Documented by: Furosemide (Furosemide 40 Mg Tab) 40 mg PO DAILY [facility] Stop: 12/23/19 08:59 Last Admin: 11/27/19 08:42 Dose: 40 mg Documented by: Ceftriaxone Sodium 1,000 mg/ (Dextrose) 50 mls @ 100 mls/hr IV Q24H [facility]; Protocol Stop: 11/29/19 19:38 Last Infusion: 11/26/19 22:17 Dose: Infused Documented by: Magnesium Hydroxide (Magnesium Hydroxide Susp 30 Ml Udc) 30 ml PO Q12H PRN PRN Reason: Constipation Stop: 12/22/19 19:38 Metolazone (Metolazone 2.5 Mg Tablet) 2.5 mg PO DAILY [facility] Stop: 12/23/19 08:59 Last Admin: 11/27/19 08:43 Dose: 2.5 mg Documented by: Metoprolol Succinate (Metoprolol Succ 50mg Ext Rel Tab) 50 mg PO DAILY [facility] Stop: 12/23/19 08:59 Last Admin: 11/27/19 08:43 Dose: Not Given Documented by: Miscellaneous (Rapaflo- Order Awaiting Action) 1 ea N/A QS [facility] Stop: 12/23/19 00:00 Last Admin: 11/27/19 17:06 Dose: Not Given Documented by: Ondansetron HCl (Ondansetron Inj 2 Mg/Ml 2 Ml Vial) 4 mg IV Q6H PRN PRN Reason: Nausea Stop: 12/22/19 19:38 Polyethylene Glycol (Polyethylene (Miralax) 17 Gm Pack) 17 gm PO DAILY PRN PRN Reason: Constipation Stop: 12/22/19 19:38 Polyethylene Glycol (Polyethylene (Miralax) 17 Gm Pack) 17 gm PO DAILY [facility] Stop: 12/23/19 08:59 Last Admin: 11/27/19 08:41 Dose: 17 gm Documented by: Sennosides (Senna 8.6 Mg Tab) 8.6 mg PO BID [facility] Stop: 12/22/19 20:59 Last Admin: 11/27/19 08:42 Dose: 8.6 mg Documented by: Silodosin (Silodosin) 1 ea PO QAM [facility] Stop: 12/25/19 08:59 Last Admin: 11/27/19 08:43 Dose: 1 ea Documented by: Tamsulosin HCl (Tamsulosin Hcl 0.4 Mg Cap) 0.4 mg PO HS [facility] Stop: 12/22/19 20:59 Last Admin: 11/26/19 21:37 Dose: 0.4 mg Documented by: Vitamin B Complex (Vitamin B Complex Tab) 1 tab PO DAILY [facility] Stop: 12/23/19 08:59 Last Admin: 11/27/19 08:42 Dose: 1 tab Documented by: Vitamin D (Cholecalciferol 1,000 Units 25 Mcg Tab) 2,000 units PO DAILY [facility] Stop: 12/23/19 08:59 Last Admin: 11/27/19 08:42 Dose: 2,000 units Documented by: (1) Herpes zoster Herpes zoster complications: without complications Qualified Code(s): B02.9 - Zoster without complications (2) CKD (chronic kidney disease), stage III Chronic kidney disease stage 3 subtype: unspecified whether 3a or 3b Qualified Code(s): N18.30 - Chronic kidney disease, stage 3 unspecified
--- NOTE | 2019-11-27 19:57 | Hospitalist Progress Note ---
Date of Service November 26, 2019 Assessment & Plan (1) Herpes zoster: Hepes Zoster of left eyelid This is an 84-year-old male who has significant past medical history chronic systolic CHF with EF 20 to 24%, ischemic cardiomyopathy, CAD with history of CABG x6, chronic atrial fibrillation anticoagulated on Eliquis, bilateral pleural effusions, hyperlipidemia, CKD stage III who presents to ED at the referral of home health secondary to hypotension. Patient was initially hypotensive in ED with blood pressure 90s over 60s with improvement with 1 L of IVF. Patient does have chronic systolic biventricular CHF and likely has low BP at baseline given medical regimen. Currently he denies any dizziness or lightheadedness. On admission he does have evidence of acute herpes zoster of left eyelid as well as left lower extremity cellulitis which is likely contributing to poor appetite and weakness. Admit to med telemetry Valtrex 1 g p.o. 3 times daily Discussed with ophthalmology at [facility] -recommended close monitoring for now and monitor for signs of conjunctivitis, foreign body sensation of eye (if this were to develop consider erythromycin ointment or lubricating eye ointment) Currently patient is not complaining of any ocular complaints Treat with IV Rocephin for likely left extremity cellulitis Consult PT/OT and dietitian In regards to blood pressure continue to monitor closely but not planning to administer any further IV fluid secondary to severely reduced EF and associated severe aortic stenosis (2) Left leg cellulitis: mild erythema and warmth to medial aspect left leg with scab inferiorly, much improved likely early development of cellulitis Started IV rocephin on admission, continued while inpt Unstageable pressure injury, left heel pressure injury, POA wound care consult as well for L heel (3) Chronic systolic CHF (congestive heart failure): (4) CAD (coronary artery disease): (5) Ischemic cardiomyopathy: pt with hx of CAD and CABG x 6 in 1996 He had recent echo LVEF < 20%, left ventricular cavity severely dilated and diffuse hypokinesis to akinesis, right ventricular cavity moderately dilated, right ventricular systolic function moderately reduced, aortic valve heavily calcified with severe , Severe mitral regurg, severe tricuspid regurg continue amiodarone, metoprolol, atorvastatin, Eliquis, Lasix and metolazone defib in place - no known shocks Patient was on ramipril -this was recently discontinued at [facility] during recent hospitalization secondary to hypotension His initial reason for coming to ED today was secondary to hypotension so will need to monitor blood pressure accordingly Daily weights, strict I's and O's (6) Chronic atrial fibrillation: Rate and rhythm controlled on amiodarone and metoprolol Continue Eliquis for thrombotic control (7) CKD (chronic kidney disease), stage III: baseline cr 1.2 bun/cr 30 and 1.23 monitor closely (8) Ventricular tachycardia: s/p cardiac defibrillator in place (9) DVT prophylaxis: continue eliquis Disposition: admit to tele Per PT OT, recommend 24 hr care Follow up: PCP Dr. Guido upon discharge Admission and Anticipated Discharge Date Admission Date: November 22, 2019 Subjective Pt states he feels well today. Denies having any dizziness today. Denies fever, chills, chest pain, shortness of breath. Daughter updated over the phone. Review of Systems Review of Systems: All systems reviewed & are unremarkable except as noted in HPI & below Constitutional: no fever and no chills Respiratory: no cough and no dyspnea Cardiovascular: no chest pain and no palpitations Gastrointestinal: no abdominal pain, no nausea and no vomiting Physical Exam Physical Exam: Constitutional: WD/WN, M, vitals as above, NAD, sitting up in bed, pleasant, conversing easily Head: Normocephalic, Atraumatic + Herpes Zoster rash in dermatomal distribution including left eyelid much improved Eyes: PERRL, EOMI, conjunctivae normal, anicteric sclerae ENMT: external ear and nose normal, oropharynx normal Neck: trachea midline, no thyromegaly normal visual inspection Respiratory: normal respiratory effort, lungs clear to auscultation but diminished at bases b/l, no wheeze, rales, rhonchi. Normal insp/exp effort, no accessory muscle use Cardiovascular: RRR, no murmur, no edema, b/l venous stasis changes, Vessels: no JVD or carotid bruit Chest: normal inspection of chest Abdomen: normal bowel sounds, soft, nontender, no hepatosplenomegaly Musculoskeletal: no cyanosis or clubbing, extremities motor strength 5/5 Skin: +Zoster Rash erythematous maculopapular rash extended from top of head to Medial aspect of L nose, 2 crusted lesions noted, Also LLE medial pre tibial erythema, warmth, improved, b/l venous stasis changes, warm and dry normal turgor, pressure wound on left heel Neurologic: PERRL, EOMI, no face palsy, no dysarthria CN's II-XI intact bilaterally and moves all extremities Psychiatric: A+Ox3, euthymic affect Results & Data Results & Data ([facility]) Vital Signs (Past 12 Hours) (1) Herpes zoster Herpes zoster complications: without complications Qualified Code(s): B02.9 - Zoster without complications (2) CKD (chronic kidney disease), stage III Chronic kidney disease stage 3 subtype: unspecified whether 3a or 3b Qualified Code(s): N18.30 - Chronic kidney disease, stage 3 unspecified
[2019-11-27] MEDS: TAMSULOSIN HCL 0.4 MG CAP PO SCH (21:26)
[2019-11-27] MEDS: cefTRIAXone SODIUM 1,000 MG in DEXTROSE 5% 50 ML IV SCH (21:33)
[2019-11-28] MEDS: SENNA 8.6 MG TAB PO SCH ×2 (09:06→21:19)
[2019-11-28] MEDS: FOLIC ACID 400 MCG TAB PO SCH ×2 (09:06→21:19)
[2019-11-28] MEDS: APIXABAN 2.5 MG TAB PO SCH ×2 (09:07→21:19)
[2019-11-28] MEDS: SILODOSIN PO SCH (09:07)
[2019-11-28] MEDS: METOPROLOL SUCC 50MG EXT REL TAB PO SCH (09:07)
[2019-11-28] MEDS: FINASTERIDE 5 MG TAB PO SCH (09:10)
[2019-11-28] MEDS: CHOLECALCIFEROL 1,000 UNITS 25 MCG TAB PO SCH (09:10)
[2019-11-28] MEDS: ASCORBIC ACID 500 MG TAB PO SCH (09:10)
[2019-11-28] MEDS: POLYETHYLENE (MIRALAX) 17 GM PACK PO SCH (09:10)
[2019-11-28] MEDS: VITAMIN B COMPLEX TAB PO SCH (09:10)
[2019-11-28] MEDS: FUROSEMIDE 40 MG TAB PO SCH (09:10)
[2019-11-28] MEDS: AMIODARONE 200 MG TAB PO SCH (09:11)
[2019-11-28] MEDS: ATORVASTATIN 40 MG TAB PO SCH (09:13)
[2019-11-28] MEDS: metOLazone 2.5 MG TABLET PO SCH (09:13)
[2019-11-28] MEDS: TAMSULOSIN HCL 0.4 MG CAP PO SCH (21:19)
[2019-11-29] MEDS: FOLIC ACID 400 MCG TAB PO SCH ×2 (08:01→20:41)
[2019-11-29] MEDS: SENNA 8.6 MG TAB PO SCH ×2 (08:01→20:41)
[2019-11-29] MEDS: FUROSEMIDE 40 MG TAB PO SCH (08:02)
[2019-11-29] MEDS: metOLazone 2.5 MG TABLET PO SCH (08:02)
[2019-11-29] MEDS: ASCORBIC ACID 500 MG TAB PO SCH (08:02)
[2019-11-29] MEDS: APIXABAN 2.5 MG TAB PO SCH ×2 (08:02→20:41)
[2019-11-29] MEDS: AMIODARONE 200 MG TAB PO SCH (08:02)
[2019-11-29] MEDS: VITAMIN B COMPLEX TAB PO SCH (08:03)
[2019-11-29] MEDS: CHOLECALCIFEROL 1,000 UNITS 25 MCG TAB PO SCH (08:03)
[2019-11-29] MEDS: METOPROLOL SUCC 50MG EXT REL TAB PO SCH (08:03)
[2019-11-29] MEDS: ATORVASTATIN 40 MG TAB PO SCH (08:03)
[2019-11-29] MEDS: FINASTERIDE 5 MG TAB PO SCH (08:03)
[2019-11-29] MEDS: SILODOSIN PO SCH (08:04)
[2019-11-29] MEDS: POLYETHYLENE (MIRALAX) 17 GM PACK PO SCH (08:04)
--- NOTE | 2019-11-29 14:16 | Hospitalist Progress Note ---
Date of Service November 28, 2019 Assessment & Plan (1) Herpes zoster: Hepes Zoster of left eyelid This is an 84-year-old male who has significant past medical history chronic systolic CHF with EF 20 to 24%, ischemic cardiomyopathy, CAD with history of CABG x6, chronic atrial fibrillation anticoagulated on Eliquis, bilateral pleural effusions, hyperlipidemia, CKD stage III who presents to ED at the referral of home health secondary to hypotension. Patient was initially hypotensive in ED with blood pressure 90s over 60s with improvement with 1 L of IVF. Patient does have chronic systolic biventricular CHF and likely has low BP at baseline given medical regimen. Currently he denies any dizziness or lightheadedness. On admission he does have evidence of acute herpes zoster of left eyelid as well as left lower extremity cellulitis which is likely contributing to poor appetite and weakness. Admit to med telemetry Valtrex 1 g p.o. 3 times daily Discussed with ophthalmology at [facility] -recommended close monitoring for now and monitor for signs of conjunctivitis, foreign body sensation of eye (if this were to develop consider erythromycin ointment or lubricating eye ointment) Currently patient is not complaining of any ocular complaints Treat with IV Rocephin for likely left extremity cellulitis Consult PT/OT and dietitian In regards to blood pressure continue to monitor closely but not planning to administer any further IV fluid secondary to severely reduced EF and associated severe aortic stenosis (2) Left leg cellulitis: mild erythema and warmth to medial aspect left leg with scab inferiorly, resolved likely early development of cellulitis Started IV rocephin on admission, continued while inpt and finished course Unstageable pressure injury, left heel pressure injury, POA wound care consult as well for L heel (3) Chronic systolic CHF (congestive heart failure): (4) CAD (coronary artery disease): (5) Ischemic cardiomyopathy: pt with hx of CAD and CABG x 6 in 1996 He had recent echo LVEF < 20%, left ventricular cavity severely dilated and diffuse hypokinesis to akinesis, right ventricular cavity moderately dilated, right ventricular systolic function moderately reduced, aortic valve heavily calcified with severe , Severe mitral regurg, severe tricuspid regurg continue amiodarone, metoprolol, atorvastatin, Eliquis, Lasix and metolazone defib in place - no known shocks Patient was on ramipril -this was recently discontinued at [facility] during recent hospitalization secondary to hypotension His initial reason for coming to ED today was secondary to hypotension so will need to monitor blood pressure accordingly Daily weights, strict I's and O's (6) Chronic atrial fibrillation: Rate and rhythm controlled on amiodarone and metoprolol Continue Eliquis for thrombotic control (7) CKD (chronic kidney disease), stage III: baseline cr 1.2 bun/cr 30 and 1.23 monitor closely (8) Ventricular tachycardia: s/p cardiac defibrillator in place (9) DVT prophylaxis: continue eliquis Disposition: admit to tele Per PT OT, recommend 24 hr care Follow up: PCP Dr. Guido upon discharge Admission and Anticipated Discharge Date Admission Date: November 22, 2019 Subjective No acute events overnight. Pt is resting comfortably in bed. Denies fever, chills, chest pain, shortness of breath. Reports occasional dizziness. Review of Systems Review of Systems: All systems reviewed & are unremarkable except as noted in HPI & below Constitutional: no fever and no chills Respiratory: no cough and no dyspnea Cardiovascular: no chest pain and no palpitations Additional Comments: Occasional dizzy Gastrointestinal: no abdominal pain, no nausea and no vomiting Neurologic: + dizziness (when changing position) Physical Exam Physical Exam: Constitutional: WD/WN, M, vitals as above, NAD, sitting up in bed, pleasant, conversing easily Head: Normocephalic, Atraumatic + Herpes Zoster rash in dermatomal distribution including left eyelid much improved and crusted over Eyes: PERRL, EOMI, conjunctivae normal, anicteric sclerae ENMT: external ear and nose normal, oropharynx normal Neck: trachea midline, no thyromegaly normal visual inspection Respiratory: normal respiratory effort, lungs clear to auscultation but diminished at bases b/l, no wheeze, rales, rhonchi. Normal insp/exp effort, no accessory muscle use Cardiovascular: RRR, +murmur, no edema, b/l venous stasis changes Chest: normal inspection of chest Abdomen: normal bowel sounds, soft, nontender, no hepatosplenomegaly Musculoskeletal: no cyanosis or clubbing, extremities motor strength 5/5 Skin: +Zoster Rash erythematous maculopapular rash extended from top of head to Medial aspect of L nose, 2 crusted lesions noted, much improved,, Also LLE medial pre tibial erythema, warmth resolved,b/l venous stasis changes, warm and dry normal turgor, pressure wound on left heel Neurologic: PERRL, EOMI, no face palsy, no dysarthria CN's II-XI intact bilaterally and moves all extremities Psychiatric: A+Ox3, euthymic affect Results & Data Results & Data ([facility]) Vital Signs (Past 12 Hours) Medications Administered Current Inpatient Medications Acetaminophen (Acetaminophen 325 Mg Tab) 650 mg PO Q4H PRN PRN Reason: Pain or Fever Stop: 12/22/19 19:38 Al Hydrox/Mg Hydrox/Simethicone (Aluminum/Magnesium Susp 30 Ml Udc) 15 ml PO Q4H PRN PRN Reason: Dyspepsia Stop: 12/22/19 19:38 Amiodarone HCl (Amiodarone 200 Mg Tab) 200 mg PO DAILY LORRAINE Stop: 12/23/19 08:59 Last Admin: 11/29/19 08:02 Dose: 200 mg Documented by: Apixaban (Apixaban 2.5 Mg Tab) 2.5 mg PO BID LORRAINE Stop: 12/22/19 20:59 Last Admin: 11/29/19 08:02 Dose: 2.5 mg Documented by: Ascorbic Acid (Ascorbic Acid 500 Mg Tab) 500 mg PO DAILY LORRAINE Stop: 12/23/19 08:59 Last Admin: 11/29/19 08:02 Dose: 500 mg Documented by: Atorvastatin Calcium (Atorvastatin 40 Mg Tab) 40 mg PO DAILY LORRAINE Stop: 12/23/19 08:59 Last Admin: 11/29/19 08:03 Dose: 40 mg Documented by: Finasteride (Finasteride 5 Mg Tab) 5 mg PO DAILY LORRAINE Stop: 12/23/19 08:59 Last Admin: 11/29/19 08:03 Dose: 5 mg Documented by: Folic Acid (Folic Acid 400 Mcg Tab) 400 mcg PO BID LORRAINE Stop: 12/22/19 20:59 Last Admin: 11/29/19 08:01 Dose: 400 mcg Documented by: Furosemide (Furosemide 40 Mg Tab) 40 mg PO DAILY LORRAINE Stop: 12/23/19 08:59 Last Admin: 11/29/19 08:02 Dose: 40 mg Documented by: Magnesium Hydroxide (Magnesium Hydroxide Susp 30 Ml Udc) 30 ml PO Q12H PRN PRN Reason: Constipation Stop: 12/22/19 19:38 Last Admin: 11/28/19 21:19 Dose: 30 ml Documented by: Metolazone (Metolazone 2.5 Mg Tablet) 2.5 mg PO DAILY LORRAINE Stop: 12/23/19 08:59 Last Admin: 11/29/19 08:02 Dose: 2.5 mg Documented by: Metoprolol Succinate (Metoprolol Succ 50mg Ext Rel Tab) 50 mg PO DAILY LORRAINE Stop: 12/23/19 08:59 Last Admin: 11/29/19 08:03 Dose: 50 mg Documented by: Ondansetron HCl (Ondansetron Inj 2 Mg/Ml 2 Ml Vial) 4 mg IV Q6H PRN PRN Reason: Nausea Stop: 12/22/19 19:38 Polyethylene Glycol (Polyethylene (Miralax) 17 Gm Pack) 17 gm PO DAILY PRN PRN Reason: Constipation Stop: 12/22/19 19:38 Polyethylene Glycol (Polyethylene (Miralax) 17 Gm Pack) 17 gm PO DAILY LORRAINE Stop: 12/23/19 08:59 Last Admin: 11/29/19 08:04 Dose: 17 gm Documented by: Sennosides (Senna 8.6 Mg Tab) 8.6 mg PO BID LORRAINE Stop: 12/22/19 20:59 Last Admin: 11/29/19 08:01 Dose: 8.6 mg Documented by: Silodosin (Silodosin) 1 ea PO QAM LORRAINE Stop: 12/25/19 08:59 Last Admin: 11/29/19 08:04 Dose: 1 ea Documented by: Tamsulosin HCl (Tamsulosin Hcl 0.4 Mg Cap) 0.4 mg PO HS LORRAINE Stop: 12/22/19 20:59 Last Admin: 11/28/19 21:19 Dose: 0.4 mg Documented by: Vitamin B Complex (Vitamin B Complex Tab) 1 tab PO DAILY LORRAINE Stop: 12/23/19 08:59 Last Admin: 11/29/19 08:03 Dose: 1 tab Documented by: Vitamin D (Cholecalciferol 1,000 Units 25 Mcg Tab) 2,000 units PO DAILY LORRAINE Stop: 12/23/19 08:59 Last Admin: 11/29/19 08:03 Dose: 2,000 units Documented by: (1) Herpes zoster Herpes zoster complications: without complications Qualified Code(s): B02.9 - Zoster without complications (2) CKD (chronic kidney disease), stage III Chronic kidney disease stage 3 subtype: unspecified whether 3a or 3b Qualified Code(s): N18.30 - Chronic kidney disease, stage 3 unspecified
--- NOTE | 2019-11-29 14:16 | Hospitalist Progress Note ---
Date of Service November 29, 2019 Assessment & Plan (1) Herpes zoster: Hepes Zoster of left eyelid This is an 84-year-old male who has significant past medical history chronic systolic CHF with EF 20 to 24%, ischemic cardiomyopathy, CAD with history of CABG x6, chronic atrial fibrillation anticoagulated on Eliquis, bilateral pleural effusions, hyperlipidemia, CKD stage III who presents to ED at the referral of home health secondary to hypotension. Patient was initially hypotensive in ED with blood pressure 90s over 60s with improvement with 1 L of IVF. Patient does have chronic systolic biventricular CHF and likely has low BP at baseline given medical regimen. Currently he denies any dizziness or lightheadedness. On admission he does have evidence of acute herpes zoster of left eyelid as well as left lower extremity cellulitis which is likely contributing to poor appetite and weakness. Admitted to [facility] telemetry Valtrex treatment while inpt, finished course Discussed with ophthalmology at [facility] -recommended close monitoring for now and monitor for signs of conjunctivitis, foreign body sensation of eye (if this were to develop consider erythromycin ointment or lubricating eye ointment) Currently patient is not complaining of any ocular complaints, rash is crusted and much improved Treat with IV Rocephin for likely left extremity cellulitis, finished treatment Consult PT/OT and dietitian - recommend rehab/ SNF In regards to blood pressure continue to monitor closely but not planning to administer any further IV fluid secondary to severely reduced EF and associated severe aortic stenosis (2) Left leg cellulitis: mild erythema and warmth to medial aspect left leg with scab inferiorly, resolved likely early development of cellulitis Started IV rocephin on admission, continued while inpt and finished course Unstageable pressure injury, left heel pressure injury, POA wound care consult as well for L heel (3) Chronic systolic CHF (congestive heart failure): (4) CAD (coronary artery disease): (5) Ischemic cardiomyopathy: pt with hx of CAD and CABG x 6 in 1996 He had recent echo LVEF < 20%, left ventricular cavity severely dilated and diffuse hypokinesis to akinesis, right ventricular cavity moderately dilated, right ventricular systolic function moderately reduced, aortic valve heavily calcified with severe , Severe mitral regurg, severe tricuspid regurg continue amiodarone, metoprolol, atorvastatin, Eliquis, Lasix and metolazone defib in place - no known shocks Patient was on ramipril -this was recently discontinued at [facility] during recent hospitalization secondary to hypotension His initial reason for coming to ED today was secondary to hypotension so will need to monitor blood pressure accordingly Daily weights, strict I's and O's (6) Chronic atrial fibrillation: Rate and rhythm controlled on amiodarone and metoprolol Continue Eliquis for thrombotic control (7) CKD (chronic kidney disease), stage III: baseline cr 1.2 bun/cr 30 and 1.23 monitor closely (8) Ventricular tachycardia: s/p cardiac defibrillator in place (9) DVT prophylaxis: continue eliquis Disposition: admit to tele Per PT OT, recommend 24 hr care Follow up: PCP Dr. Guido upon discharge Admission and Anticipated Discharge Date Admission Date: November 22, 2019 Subjective No acute events overnight. Pt is resting comfortably in bed. Says he feels well. Denies fever, chills, chest pain, shortness of breath. Reports occasional dizziness, especially after his exercises. Review of Systems Review of Systems: All systems reviewed & are unremarkable except as noted in HPI & below Constitutional: no fever and no chills Respiratory: no cough and no dyspnea Cardiovascular: no chest pain and no palpitations Additional Comments: Occasional dizzy Gastrointestinal: no abdominal pain, no nausea and no vomiting Physical Exam Physical Exam: Constitutional: WD/WN, M, vitals as above, NAD, sitting up in bed, pleasant, conversing easily Head: Normocephalic, Atraumatic + Herpes Zoster rash in dermatomal distribution including left eyelid much improved and crusted over Eyes: PERRL, EOMI, conjunctivae normal, anicteric sclerae ENMT: external ear and nose normal, oropharynx normal Neck: trachea midline, no thyromegaly normal visual inspection Respiratory: normal respiratory effort, lungs clear to auscultation but diminished at bases b/l, no wheeze, rales, rhonchi. Normal insp/exp effort, no accessory muscle use Cardiovascular: RRR, +murmur, no edema, b/l venous stasis changes Chest: normal inspection of chest Abdomen: normal bowel sounds, soft, nontender, no hepatosplenomegaly Musculoskeletal: no cyanosis or clubbing, extremities motor strength 5/5 Skin: +Zoster Rash erythematous maculopapular rash extended from top of head to Medial aspect of L nose, 2 crusted lesions noted, much improved, Also LLE medial pre tibial erythema, warmth resolved,b/l venous stasis changes, warm and dry normal turgor, pressure wound on left heel Neurologic: PERRL, EOMI, no face palsy, no dysarthria CN's II-XI intact bilaterally and moves all extremities Psychiatric: A+Ox3, euthymic affect Results & Data Results & Data ([facility]) Vital Signs (Past 12 Hours) Vital Signs Temp Pulse Pulse Resp BP BP Pulse Ox 11/29/19 12:37 36.5 C 80 18 96/62 L 100 11/29/19 09:11 80 11/29/19 07:43 36.7 C 81 18 105/64 95 11/29/19 03:15 36.8 C 81 20 104/65 97 (1) Herpes zoster Herpes zoster complications: without complications Qualified Code(s): B02.9 - Zoster without complications (2) CKD (chronic kidney disease), stage III Chronic kidney disease stage 3 subtype: unspecified whether 3a or 3b Qualified Code(s): N18.30 - Chronic kidney disease, stage 3 unspecified
[2019-11-29] MEDS: TAMSULOSIN HCL 0.4 MG CAP PO SCH (20:41)
[2019-11-30] MEDS: CHOLECALCIFEROL 1,000 UNITS 25 MCG TAB PO SCH (08:58)
[2019-11-30] MEDS: APIXABAN 2.5 MG TAB PO SCH ×2 (08:58→20:23)
[2019-11-30] MEDS: SENNA 8.6 MG TAB PO SCH ×2 (08:59→20:22)
[2019-11-30] MEDS: VITAMIN B COMPLEX TAB PO SCH (08:59)
[2019-11-30] MEDS: FOLIC ACID 400 MCG TAB PO SCH ×2 (08:59→20:22)
[2019-11-30] MEDS: FINASTERIDE 5 MG TAB PO SCH (08:59)
[2019-11-30] MEDS: ATORVASTATIN 40 MG TAB PO SCH (08:59)
[2019-11-30] MEDS: ASCORBIC ACID 500 MG TAB PO SCH (09:01)
[2019-11-30] MEDS: POLYETHYLENE (MIRALAX) 17 GM PACK PO SCH (09:01)
[2019-11-30] MEDS: AMIODARONE 200 MG TAB PO SCH ×2 (09:01→10:13)
[2019-11-30] MEDS: metOLazone 2.5 MG TABLET PO SCH ×2 (09:05→10:14)
[2019-11-30] MEDS: METOPROLOL SUCC 50MG EXT REL TAB PO SCH ×2 (09:06→10:14)
[2019-11-30] MEDS: SILODOSIN PO SCH (09:08)
[2019-11-30] MEDS: FUROSEMIDE 40 MG TAB PO SCH (10:13)
[2019-11-30] MEDS ORDERED: SODIUM CHLORIDE 0.9% 500 ML IV SCH (14:40)
[2019-11-30] MEDS ORDERED: Nursing to Pharmacy Communication SCH (15:15)
--- NOTE | 2019-11-30 18:41 | Hospitalist Progress Note ---
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 Valtrex treatment while inpt, finished course Discussed with ophthalmology at [facility] -recommended close monitoring for now and monitor for signs of conjunctivitis, foreign body sensation of eye (if this were to develop consider erythromycin ointment or lubricating eye ointment) Clinically much better Hypotension at presentation Patient was initially hypotensive in ED with blood pressure 90s over 60s with improvement with 1 L of IVF. Has been on oral Lasix and metolazone also metoprolol 50 mg daily Read to be very hypotensive during physical therapy today Received 500 mL of normal saline bolus and will hold off metolazone and Lasix Decrease metoprolol to 25 mg once a day (2) Left leg cellulitis: mild erythema and warmth to medial aspect left leg with scab inferiorly, resolved likely early development of cellulitis Started IV rocephin on admission, continued while inpt and finished course Unstageable pressure injury, left heel pressure injury, POA wound care consult as well for L heel (3) Chronic systolic CHF (congestive heart failure): Does not have any signs or symptoms of fluid overload He is rather try with increasing BUN Hold off oral Lasix and metolazone for now Continue PT and OT (4) CAD (coronary artery disease): (5) Ischemic cardiomyopathy: pt with hx of CAD and CABG x 6 in 1996 He had recent echo LVEF < 20%, left ventricular cavity severely dilated and diffuse hypokinesis to akinesis, right ventricular cavity moderately dilated, right ventricular systolic function moderately reduced, aortic valve heavily calcified with severe , Severe mitral regurg, severe tricuspid regurg continue amiodarone, metoprolol, atorvastatin, Eliquis, Lasix and metolazone defib in place - no known shocks Patient was on [place]ip[place] [facility] [place] secondary to [place]ension His initial reason for coming to ED today was secondary to hypotension so will need to monitor blood pressure accordingly Daily weights, strict I's and O's (6) Chronic atrial fibrillation: Rate and rhythm controlled on amiodarone and metoprolol Continue Eliquis for thrombotic control (7) CKD (chronic kidney disease), stage III: baseline cr 1.2 bun/cr 30 and 1.23 monitor closely (8) Ventricular tachycardia: s/p cardiac defibrillator in place (9) DVT prophylaxis: continue eliquis Disposition: admit to tele Per PT OT, recommend 24 hr care Follow up: PCP Dr. Guido upon discharge Admission and Anticipated Discharge Date Admission Date: November 22, 2019 Subjective 11/30/2019 Patient is seen and examined in medical telemetry unit Clinically stable and thinks that he will be discharged today Insert denied from Denies any significant symptoms but noted to be hypotensive with ambulation Review of Systems Review of Systems: All systems reviewed and are unremarkable except as noted below Cardiovascular: + lightheadedness (With standing and with ambulation) Physical Exam Physical Exam: Lying in bed comfortably Constitutional: well developed and well nourished; no acute distress and not ill appearing Eyes: PERRL, conjunctivae normal, anicteric sclerae ENMT: external ear and nose normal, oropharynx normal Neck: trachea midline, no thyromegaly Respiratory: normal respiratory effort; no respiratory distress Auscu ltation: lungs clear to auscultation bilaterally Cardiovascular: Rate/Rhythm: regular rate and regular rhythm Heart Sounds: no murmur Gastrointestinal (Abdomen): Inspection/Auscultation: abdomen normal to inspection and normal bowel sounds; abdomen not distended Percussion/Palpation: abdomen soft; abdomen nontender Musculoskeletal: No acute arthritis in any joints Neurologic: moves all extremities; no focal motor deficits Psychiatric: A+Ox3, euthymic affect Lymphatic: no cervical or axillary lymphadenopathy Results & Data Results & Data ([facility]) Vital Signs (Past 12 Hours) Vital Signs Temp Pulse Pulse Pulse Resp BP BP 11/30/19 16:22 81 11/30/19 11:35 36.3 C L 80 20 100/63 11/30/19 10:11 80 102/66 11/30/19 09:05 82 95/57 L 11/30/19 07:32 36.3 C L 81 19 102/64 11/30/19 07:00 80 Pulse Ox 11/30/19 16:22 11/30/19 11:35 99 11/30/19 10:11 11/30/19 09:05 11/30/19 07:32 95 11/30/19 07:00 Medications Administered Current Inpatient Medications Acetaminophen (Acetaminophen 325 Mg Tab) 650 mg PO Q4H PRN PRN Reason: Pain or Fever Stop: 12/22/19 19:38 Al Hydrox/Mg Hydrox/Simethicone (Aluminum/Magnesium Susp 30 Ml Udc) 15 ml PO Q4H PRN PRN Reason: Dyspepsia Stop: 12/22/19 19:38 Amiodarone HCl (Amiodarone 200 Mg Tab) 200 mg PO DAILY [facility] Stop: 12/23/19 08:59 Last Admin: 11/30/19 10:13 Dose: 200 mg Documented by: Apixaban (Apixaban 2.5 Mg Tab) 2.5 mg PO BID [facility] Stop: 12/22/19 20:59 Last Admin: 11/30/19 08:58 Dose: 2.5 mg Documented by: Ascorbic Acid (Ascorbic Acid 500 Mg Tab) 500 mg PO DAILY [facility] Stop: 12/23/19 08:59 Last Admin: 11/30/19 09:01 Dose: 500 mg Documented by: Atorvastatin Calcium (Atorvastatin 40 Mg Tab) 40 mg PO DAILY [facility] Stop: 12/23/19 08:59 Last Admin: 11/30/19 08:59 Dose: 40 mg Documented by: Finasteride (Finasteride 5 Mg Tab) 5 mg PO DAILY [facility] Stop: 12/23/19 08:59 Last Admin: 11/30/19 08:59 Dose: 5 mg Documented by: Folic Acid (Folic Acid 400 Mcg Tab) 400 mcg PO BID [facility] Stop: 12/22/19 20:59 Last Admin: 11/30/19 08:59 Dose: 400 mcg Documented by: Furosemide (Furosemide 40 Mg Tab) 40 mg PO DAILY [facility] Stop: 12/23/19 08:59 Last Admin: 11/30/19 10:13 Dose: 40 mg Documented by: Magnesium Hydroxide (Magnesium Hydroxide Susp 30 Ml Udc) 30 ml PO Q12H PRN PRN Reason: Constipation Stop: 12/22/19 19:38 Last Admin: 11/28/19 21:19 Dose: 30 ml Documented by: Metolazone (Metolazone 2.5 Mg Tablet) 2.5 mg PO DAILY [facility] Stop: 12/23/19 08:59 Last Admin: 11/30/19 10:14 Dose: 2.5 mg Documented by: Metoprolol Succinate (Metoprolol Succ 25mg Ext Rel Tab) 25 mg PO DAILY [facility] Stop: 12/31/19 08:59 Ondansetron HCl (Ondansetron Inj 2 Mg/Ml 2 Ml Vial) 4 mg IV Q6H PRN PRN Reason: Nausea Stop: 12/22/19 19:38 Polyethylene Glycol (Polyethylene (Miralax) 17 Gm Pack) 17 gm PO DAILY PRN PRN Reason: Constipation Stop: 12/22/19 19:38 Polyethylene Glycol (Polyethylene (Miralax) 17 Gm Pack) 17 gm PO DAILY [facility] Stop: 12/23/19 08:59 Last Admin: 11/30/19 09:01 Dose: 17 gm Documented by: Sennosides (Senna 8.6 Mg Tab) 8.6 mg PO BID [facility] Stop: 12/22/19 20:59 Last Admin: 11/30/19 08:59 Dose: 8.6 mg Documented by: Silodosin (Silodosin) 1 ea PO QAM [facility] Stop: 12/25/19 08:59 Last Admin: 11/30/19 09:08 Dose: 1 ea Documented by: Tamsulosin HCl (Tamsulosin Hcl 0.4 Mg Cap) 0.4 mg PO HS [facility] Stop: 12/22/19 20:59 Last Admin: 11/29/19 20:41 Dose: 0.4 mg Documented by: Vitamin B Complex (Vitamin B Complex Tab) 1 tab PO DAILY [facility] Stop: 12/23/19 08:59 Last Admin: 11/30/19 08:59 Dose: 1 tab Documented by: Vitamin D (Cholecalciferol 1,000 Units 25 Mcg Tab) 2,000 units PO DAILY [facility] Stop: 12/23/19 08:59 Last Admin: 11/30/19 08:58 Dose: 2,000 units Documented by: (1) Herpes zoster Herpes zoster complications: without complications Qualified Code(s): B02.9 - Zoster without complications (2) CKD (chronic kidney disease), stage III Chronic kidney disease stage 3 subtype: unspecified whether 3a or 3b Qualified Code(s): N18.30 - Chronic kidney disease, stage 3 unspecified
[2019-11-30] MEDS: TAMSULOSIN HCL 0.4 MG CAP PO SCH (20:23)
[2019-12-01 07:57] LABS: Basophils # (auto) 0.02 K/uL (0-0.2); Basophils % (auto) 0.5 %; Eosinophils # (auto) 0.08 K/uL (0-0.5); Eosinophils % (auto) 1.8 %; Hematocrit (blood only) 36.1 % (42-52); Hemoglobin 10.9 g/dL (14.0-18.0); Immature Granulocytes # (auto) 0.01 K/uL (0.00-0.02); Immature Granulocytes % (auto) 0.2 %; Lymphocytes # (auto) 1.06 K/uL (1.2-3.4); Lymphocytes % (auto) 24.1 %; Mean Corpuscular Hemoglobin 28.5 pg (25-34); Mean Corpuscular Hgb Conc 30.2 g/dL (32-36); Mean Corpuscular Volume 94.5 fL (80-100); Mean Platelet Volume 10.2 fL (7.4-10.4); Monocytes % (auto) 6.8 %; Neutrophils # (auto) 2.93 K/uL (1.4-6.5); Neutrophils % (auto) 66.6 %; Platelet Count 152 K/uL (130-400); RDW Coefficient of Variation 16.6 % (11.5-14.5); RDW Standard Deviation 55.5 fL (36.4-46.3); Red Blood Count 3.82 M/uL (4.7-6.1)
[2019-12-01] MEDS: APIXABAN 2.5 MG TAB PO SCH ×2 (08:09→21:12)
[2019-12-01] MEDS: METOPROLOL SUCC 25MG EXT REL TAB PO SCH (08:09)
[2019-12-01] MEDS: ATORVASTATIN 40 MG TAB PO SCH (08:10)
[2019-12-01] MEDS: AMIODARONE 200 MG TAB PO SCH (08:10)
[2019-12-01] MEDS: ASCORBIC ACID 500 MG TAB PO SCH (08:10)
[2019-12-01] MEDS: POLYETHYLENE (MIRALAX) 17 GM PACK PO SCH (08:10)
[2019-12-01] MEDS: FOLIC ACID 400 MCG TAB PO SCH ×2 (08:10→21:12)
[2019-12-01] MEDS: SENNA 8.6 MG TAB PO SCH ×2 (08:10→21:12)
[2019-12-01] MEDS: CHOLECALCIFEROL 1,000 UNITS 25 MCG TAB PO SCH (08:11)
[2019-12-01] MEDS: FINASTERIDE 5 MG TAB PO SCH (08:11)
[2019-12-01] MEDS: VITAMIN B COMPLEX TAB PO SCH (08:12)
[2019-12-01] MEDS: SILODOSIN PO SCH (08:14)
[2019-12-01 08:33] LABS: BUN Creatinine Ratio 33.6 (10-20); Calcium 9.5 mg/dl (8.5-10.1); Creatinine Clr Calc Pharmacy 40.8 ml/min; Est GFR (African American) 63.6; Est GFR (Non-African American) 54.9; Potassium 3.6 mmol/L (3.5-5.1)
[2019-12-01] MEDS: SODIUM CHLORIDE 0.9% 1000ML 1,000 ML IV SCH ×2 (09:21→17:56)
--- NOTE | 2019-12-01 13:07 | Hospitalist Progress Note ---
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 Valtrex treatment while inpt, finished course Discussed with ophthalmology at [facility] -recommended close monitoring for now and monitor for signs of conjunctivitis, foreign body sensation of eye (if this were to develop consider erythromycin ointment or lubricating eye ointment) Complains dizziness when standing and with ambulation Hypotension at presentation Patient was initially hypotensive in ED with blood pressure 90s over 60s with improvement with 1 L of IVF. Has been on oral Lasix and metolazone also metoprolol 50 mg daily Read to be very hypotensive during physical therapy today Received 500 mL of normal saline bolus and will hold off metolazone and Lasix Decrease metoprolol to 25 mg once a day Has significant postural hypotension Will give cautious amount of intravenous fluid Medically not stable to be discharged (2) Left leg cellulitis: mild erythema and warmth to medial aspect left leg with scab inferiorly, resolved likely early development of cellulitis Started IV rocephin on admission, continued while inpt and finished course Unstageable pressure injury, left heel pressure injury, POA wound care consult as well for L heel (3) Chronic systolic CHF (congestive heart failure): Does not have any signs or symptoms of fluid overload He is rather try with increasing BUN Hold off oral Lasix and metolazone for now Continue PT and OT Will monitor for any fluid overload (4) CAD (coronary artery disease): (5) Ischemic cardiomyopathy: pt with hx of CAD and CABG x 6 in 1996 He had recent echo LVEF < 20%, left ventricular cavity severely dilated and diffuse hypokinesis to akinesis, right ventricular cavity moderately dilated, right ventricular systolic function moderately reduced, aortic valve heavily calcified with severe , Severe mitral regurg, severe tricuspid regurg continue amiodarone, metoprolol, atorvastatin, Eliquis, Lasix and metolazone defib in place - no known shocks Patient was on ramipril -this was recently discontinued at [facility] during recent hospitalization secondary to hypotension His initial reason for coming to ED today was secondary to hypotension so will need to monitor blood pressure accordingly Daily weights, strict I's and O's (6) Chronic atrial fibrillation: Rate and rhythm controlled on amiodarone and metoprolol Continue Eliquis for thrombotic control (7) CKD (chronic kidney disease), stage III: baseline cr 1.2 bun/cr 30 and 1.23 monitor closely (8) Ventricular tachycardia: s/p cardiac defibrillator in place (9) DVT prophylaxis: continue eliquis Disposition: admit to tele Per PT OT, recommend 24 hr care Follow up: PCP Dr. Guido upon discharge Admission and Anticipated Discharge Date Admission Date: November 22, 2019 Subjective 11/30/2019 Patient is seen and examined in medical telemetry unit Clinically stable and thinks that he will be discharged today Insert denied from [facility] Denies any significant symptoms but noted to be hypotensive with ambulation 12/01/2019 The patient was seen and examined in medical telemetry unit He remains stable but generally weak and lethargic He complained to have dizziness when standing in order to have postural hypotension He is not ready to be discharged Review of Systems Review of Systems: All systems reviewed and are unremarkable except as noted below Cardiovascular: + lightheadedness (With standing and with ambulation) Neurologic: + dizziness (when changing position) Physical Exam Physical Exam: Lying in bed comfortably Constitutional: well developed, well nourished and + ill appearing; no acute distress Eyes: PERRL, conjunctivae normal, anicteric sclerae ENMT: external ear and nose normal, oropharynx normal Neck: trachea midline, no thyromegaly Respiratory: normal respiratory effort; no respiratory distress Auscultation: lungs clear to auscultation bilaterally Cardiovascular: Rate/Rhythm: regular rate and regular rhythm Heart Sounds: no murmur Extremities: no edema Gastrointestinal (Abdomen): Inspection/Auscultation: abdomen normal to inspection and normal bowel sounds; abdomen not distended P ercussion/Palpation: abdomen soft; abdomen nontender Neurologic: moves all extremities; no focal motor deficits Psychiatric: A+Ox3, euthymic affect Lymphatic: no cervical or axillary lymphadenopathy Results & Data Results & Data ([facility]) Vital Signs (Past 12 Hours) Vital Signs Temp Pulse Pulse Pulse Resp BP BP 12/01/19 11:04 36.7 C 78 19 98/61 L 12/01/19 09:09 84 73/39 L 12/01/19 09:07 88 95/61 L 12/01/19 09:05 80 103/61 12/01/19 08:32 36.4 C L 82 20 104/64 12/01/19 07:00 80 12/01/19 04:24 36.2 C L 84 17 102/65 Pulse Ox 12/01/19 11:04 99 12/01/19 09:09 12/01/19 09:07 12/01/19 09:05 12/01/19 08:32 93 12/01/19 07:00 12/01/19 04:24 97 Laboratory Results Short CBC 12/01/19 Range/Units 06:55 WBC 4.40 L (4.8-10.8) K/uL Hgb 10.9 L (14.0-18.0) g/dL Hct 36.1 L (42-52) % Plt Count 152 (130-400) K/uL BMP 12/01/19 06:55 Sodium 138 Potassium 3.6 Chloride 90 L Carbon Dioxide 45 H* BUN 41 H Creatinine 1.22 Glucose 111 H Calcium 9.5 Medications Administered Current Inpatient Medications Acetaminophen (Acetaminophen 325 Mg Tab) 650 mg PO Q4H PRN PRN Reason: Pain or Fever Stop: 12/22/19 19:38 Al Hydrox/Mg Hydrox/Simethicone (Aluminum/Magnesium Susp 30 Ml Udc) 15 ml PO Q4H PRN PRN Reason: Dyspepsia Stop: 12/22/19 19:38 Amiodarone HCl (Amiodarone 200 Mg Tab) 200 mg PO DAILY [facility] Stop: 12/23/19 08:59 Last Admin: 12/01/19 08:10 Dose: 200 mg Documented by: Apixaban (Apixaban 2.5 Mg Tab) 2.5 mg PO BID [facility] Stop: 12/22/19 20:59 Last Admin: 12/01/19 08:09 Dose: 2.5 mg Documented by: Ascorbic Acid (Ascorbic Acid 500 Mg Tab) 500 mg PO DAILY [facility] Stop: 12/23/19 08:59 Last Admin: 12/01/19 08:10 Dose: 500 mg Documented by: Atorvastatin Calcium (Atorvastatin 40 Mg Tab) 40 mg PO DAILY [facility] Stop: 12/23/19 08:59 Last Admin: 12/01/19 08:10 Dose: 40 mg Documented by: Finasteride (Finasteride 5 Mg Tab) 5 mg PO DAILY [facility] Stop: 12/23/19 08:59 Last Admin: 12/01/19 08:11 Dose: 5 mg Documented by: Folic Acid (Folic Acid 400 Mcg Tab) 400 mcg PO BID [facility] Stop: 12/22/19 20:59 Last Admin: 12/01/19 08:10 Dose: 400 mcg Documented by: Furosemide (Furosemide 40 Mg Tab) 40 mg PO DAILY [facility] Stop: 12/23/19 08:59 Last Admin: 11/30/19 10:13 Dose: 40 mg Documented by: Sodium Chloride (Nss 1000ml) 1,000 mls @ 125 mls/hr IV .Q8H [facility] Stop: 12/02/19 01:14 Last Admin: 12/01/19 09:21 Dose: 125 mls/hr Documented by: Magnesium Hydroxide (Magnesium Hydroxide Susp 30 Ml Udc) 30 ml PO Q12H PRN PRN Reason: Constipation Stop: 12/22/19 19:38 Last Admin: 11/28/19 21:19 Dose: 30 ml Documented by: Metolazone (Metolazone 2.5 Mg Tablet) 2.5 mg PO DAILY [facility] Stop: 12/23/19 08:59 Last Admin: 11/30/19 10:14 Dose: 2.5 mg Documented by: Metoprolol Succinate (Metoprolol Succ 25mg Ext Rel Tab) 25 mg PO DAILY [facility] Stop: 12/31/19 08:59 Last Admin: 12/01/19 08:09 Dose: 25 mg Documented by: Ondansetron HCl (Ondansetron Inj 2 Mg/Ml 2 Ml Vial) 4 mg IV Q6H PRN PRN Reason: Nausea Stop: 12/22/19 19:38 Polyethylene Glycol (Polyethylene (Miralax) 17 Gm Pack) 17 gm PO DAILY PRN PRN Reason: Constipation Stop: 12/22/19 19:38 Polyethylene Glycol (Polyethylene (Miralax) 17 Gm Pack) 17 gm PO DAILY [facility] Stop: 12/23/19 08:59 Last Admin: 12/01/19 08:10 Dose: 17 gm Documented by: Sennosides (Senna 8.6 Mg Tab) 8.6 mg PO BID [facility] Stop: 12/22/19 20:59 Last Admin: 12/01/19 08:10 Dose: 8.6 mg Documented by: Silodosin (Silodosin) 1 ea PO QAM [facility] Stop: 12/25/19 08:59 Last Admin: 12/01/19 08:14 Dose: 1 ea Documented by: Tamsulosin HCl (Tamsulosin Hcl 0.4 Mg Cap) 0.4 mg PO HS [facility] Stop: 12/22/19 20:59 Last Admin: 11/30/19 20:23 Dose: 0.4 mg Documented by: Vitamin B Complex (Vitamin B Complex Tab) 1 tab PO DAILY [facility] Stop: 12/23/19 08:59 Last Admin: 12/01/19 08:12 Dose: 1 tab Documented by: Vitamin D (Cholecalciferol 1,000 Units 25 Mcg Tab) 2,000 units PO DAILY [facility] Stop: 12/23/19 08:59 Last Admin: 12/01/19 08:11 Dose: 2,000 units Documented by: (1) Herpes zoster Herpes zoster complications: without complications Qualified Code(s): B02.9 - Zoster without complications (2) CKD (chronic kidney disease), stage III Chronic kidney disease stage 3 subtype: unspecified whether 3a or 3b Qualified Code(s): N18.30 - Chronic kidney disease, stage 3 unspecified
[2019-12-01] MEDS ORDERED: bisacodyL 10 MG SUPP PR STA (16:30)
[2019-12-01] MEDS: TAMSULOSIN HCL 0.4 MG CAP PO SCH (21:12)
[2019-12-02] MEDS: SENNA 8.6 MG TAB PO SCH ×2 (07:48→22:43)
[2019-12-02] MEDS: SILODOSIN PO SCH (07:48)
[2019-12-02] MEDS: ATORVASTATIN 40 MG TAB PO SCH (07:49)
[2019-12-02] MEDS: VITAMIN B COMPLEX TAB PO SCH (07:49)
[2019-12-02] MEDS: AMIODARONE 200 MG TAB PO SCH (07:49)
[2019-12-02] MEDS: FINASTERIDE 5 MG TAB PO SCH (07:49)
[2019-12-02] MEDS: FOLIC ACID 400 MCG TAB PO SCH ×2 (07:50→22:42)
[2019-12-02] MEDS: ASCORBIC ACID 500 MG TAB PO SCH (07:50)
[2019-12-02] MEDS: APIXABAN 2.5 MG TAB PO SCH ×2 (07:50→22:43)
[2019-12-02] MEDS: CHOLECALCIFEROL 1,000 UNITS 25 MCG TAB PO SCH (07:50)
[2019-12-02] MEDS: METOPROLOL SUCC 25MG EXT REL TAB PO SCH (07:51)
[2019-12-02] MEDS: POLYETHYLENE (MIRALAX) 17 GM PACK PO SCH (07:52)
[2019-12-02 08:30] LABS: BUN Creatinine Ratio 37.4 (10-20); Calcium 9.3 mg/dl (8.5-10.1); Creatinine Clr Calc Pharmacy 62.6 ml/min; Est GFR (Non-African American) 81.1; Magnesium 2.2 mg/dl (1.8-2.4); Phosphorus 2.7 mg/dl (2.5-4.9); Potassium 3.7 mmol/L (3.5-5.1)
--- NOTE | 2019-12-02 18:35 | Hospitalist Progress Note ---
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 Valtrex treatment while inpt, finished course Discussed with ophthalmology at [facility] -recommended close monitoring for now and monitor for signs of conjunctivitis, foreign body sensation of eye (if this were to develop consider erythromycin ointment or lubricating eye ointment) Complains dizziness when standing and with ambulation Hypotension at presentation Patient was initially hypotensive in ED with blood pressure 90s over 60s with improvement with 1 L of IVF. Has been on oral Lasix and metolazone also metoprolol 50 mg daily Read to be very hypotensive during physical therapy today Received 500 mL of normal saline bolus and will hold off metolazone and Lasix Decrease metoprolol to 25 mg once a day Has significant postural hypotension Will give cautious amount of intravenous fluid Medically not stable to be discharged We will continue to hold diuretics for now (2) Left leg cellulitis: mild erythema and warmth to medial aspect left leg with scab inferiorly, resolved likely early development of cellulitis Started IV rocephin on admission, continued while inpt and finished course Unstageable pressure injury, left heel pressure injury, POA wound care consult as well for L heel (3) Chronic systolic CHF (congestive heart failure): Does not have any signs or symptoms of fluid overload He is rather try with increasing BUN Hold off oral Lasix and metolazone for now Continue PT and OT Will monitor for any fluid overload And/or symptoms of fluid overload (4) CAD (coronary artery disease): (5) Ischemic cardiomyopathy: pt with hx of CAD and CABG x 6 in 1996 He had recent echo LVEF < 20%, left ventricular cavity severely dilated and diffuse hypokinesis to akinesis, right ventricular cavity moderately dilated, right ventricular systolic function moderately reduced, aortic valve heavily calcified with severe , Severe mitral regurg, severe tricuspid regurg continue amiodarone, metoprolol, atorvastatin, Eliquis, Lasix and metolazone defib in place - no known shocks Patient was on ramipril -this was recently discontinued at [facility] during recent hospitalization secondary to hypotension His initial reason for coming to ED today was secondary to hypotension so will need to monitor blood pressure accordingly Daily weights, strict I's and O's (6) Chronic atrial fibrillation: Rate and rhythm controlled on amiodarone and metoprolol Continue Eliquis for thrombotic control (7) CKD (chronic kidney disease), stage III: baseline cr 1.2 bun/cr 30 and 1.23 monitor closely (8) Ventricular tachycardia: s/p cardiac defibrillator in place (9) DVT prophylaxis: continue eliquis Disposition: admit to tele Per PT OT, recommend 24 hr care Follow up: PCP Dr. Guido upon discharge Admission and Anticipated Discharge Date Admission Date: November 22, 2019 Subjective 11/30/2019 Patient is seen and examined in medical telemetry unit Clinically stable and thinks that he will be discharged today Insert denied from Denies any significant symptoms but noted to be hypotensive with ambulation 12/01/2019 The patient was seen and examined in medical telemetry unit He remains stable but generally weak and lethargic He complained to have dizziness when standing in order to have postural hypotension He is not ready to be discharged 12/02/2019 The patient was seen and examined in medical telemetry unit He looks brighter today but he still has dizziness on standing Denies any other symptoms Review of Systems Review of Systems: All systems reviewed and are unremarkable except as noted below Cardiovascular: + lightheadedness (With standing and with ambulation) Neurologic: + dizziness (when changing position) Physical Exam Physical Exam: Lying in bed comfortably Constitutional: well developed, well nourished and + ill appearing; no acute distress Eyes: PERRL, conjunctivae normal, anicteric sclerae ENMT: external ear and nose normal, oropharynx normal Neck: trachea midline, no thyromegaly Respiratory: normal respiratory effort; no respiratory distress Auscultation: lungs clear to auscultation bilaterally Cardiovascular: Rate/Rhythm: regular rate and regular rhythm Heart Sounds: no murmur Extremities: no edema Gastrointestinal (Abdomen): Inspection/Auscultation: abdomen normal to inspection and normal bowel sounds; abdomen not distended Percussion/Palpation: abdomen soft; abdomen nontender Musculoskeletal: No acute arthritis in any joint Neurologic: moves all extremities; no focal motor deficits Psychiatric: A+Ox3, euthymic affect Lymphatic: no cervical or axillary lymphadenopathy Results & Data Results & Data ([facility]) Vital Signs (Past 12 Hours) Vital Signs Temp Pulse Pulse Pulse Resp BP BP 12/02/19 18:20 80 12/02/19 15:25 36.5 C 82 18 100/63 12/02/19 12:00 36.3 C L 80 20 99/67 L 12/02/19 07:34 36.4 C L 79 20 104/67 12/02/19 07:19 82 Pulse Ox 12/02/19 18:20 12/02/19 15:25 100 12/02/19 12:00 100 12/02/19 07:34 93 12/02/19 07:19 Laboratory Results BMP 12/02/19 07:11 Sodium 138 Potassium 3.7 Chloride 96 L Carbon Dioxide 40 H BUN 32 H Creatinine 0.85 D Glucose 88 Calcium 9.3 Medications Administered Current Inpatient Medications Acetaminophen (Acetaminophen 325 Mg Tab) 650 mg PO Q4H PRN PRN Reason: Pain or Fever Stop: 12/22/19 19:38 Al Hydrox/Mg Hydrox/Simethicone (Aluminum/Magnesium Susp 30 Ml Udc) 15 ml PO Q4H PRN PRN Reason: Dyspepsia Stop: 12/22/19 19:38 Amiodarone HCl (Amiodarone 200 Mg Tab) 200 mg PO DAILY LORRAINE Stop: 12/23/19 08:59 Last Admin: 12/02/19 07:49 Dose: 200 mg Documented by: Apixaban (Apixaban 2.5 Mg Tab) 2.5 mg PO BID LORRAINE Stop: 12/22/19 20:59 Last Admin: 12/02/19 07:50 Dose: 2.5 mg Documented by: Ascorbic Acid (Ascorbic Acid 500 Mg Tab) 500 mg PO DAILY LORRAINE Stop: 12/23/19 08:59 Last Admin: 12/02/19 07:50 Dose: 500 mg Documented by: Atorvastatin Calcium (Atorvastatin 40 Mg Tab) 40 mg PO DAILY LORRAINE Stop: 12/23/19 08:59 Last Admin: 12/02/19 07:49 Dose: 40 mg Documented by: Finasteride (Finasteride 5 Mg Tab) 5 mg PO DAILY LORRAINE Stop: 12/23/19 08:59 Last Admin: 12/02/19 07:49 Dose: 5 mg Documented by: Folic Acid (Folic Acid 400 Mcg Tab) 400 mcg PO BID LORRAINE Stop: 12/22/19 20:59 Last Admin: 12/02/19 07:50 Dose: 400 mcg Documented by: Furosemide (Furosemide 40 Mg Tab) 40 mg PO DAILY LORRAINE Stop: 12/23/19 08:59 Last Admin: 11/30/19 10:13 Dose: 40 mg Documented by: Magnesium Hydroxide (Magnesium Hydroxide Susp 30 Ml Udc) 30 ml PO Q12H PRN PRN Reason: Constipation Stop: 12/22/19 19:38 Last Admin: 11/28/19 21:19 Dose: 30 ml Documented by: Metolazone (Metolazone 2.5 Mg Tablet) 2.5 mg PO DAILY LORRAINE Stop: 12/23/19 08:59 Last Admin: 11/30/19 10:14 Dose: 2.5 mg Documented by: Metoprolol Succinate (Metoprolol Succ 25mg Ext Rel Tab) 25 mg PO DAILY LORRAINE Stop: 12/31/19 08:59 Last Admin: 12/02/19 07:51 Dose: 25 mg Documented by: Ondansetron HCl (Ondansetron Inj 2 Mg/Ml 2 Ml Vial) 4 mg IV Q6H PRN PRN Reason: Nausea Stop: 12/22/19 19:38 Polyethylene Glycol (Polyethylene (Miralax) 17 Gm Pack) 17 gm PO DAILY PRN PRN Reason: Constipation Stop: 12/22/19 19:38 Polyethylene Glycol (Polyethylene (Miralax) 17 Gm Pack) 17 gm PO DAILY LORRAINE Stop: 12/23/19 08:59 Last Admin: 12/02/19 07:52 Dose: 17 gm Documented by: Sennosides (Senna 8.6 Mg Tab) 8.6 mg PO BID LORRAINE Stop: 12/22/19 20:59 Last Admin: 12/02/19 07:48 Dose: 8.6 mg Documented by: Silodosin (Silodosin) 1 ea PO QAM LORRAINE Stop: 12/25/19 08:59 Last Admin: 12/02/19 07:48 Dose: 1 ea Documented by: Tamsulosin HCl (Tamsulosin Hcl 0.4 Mg Cap) 0.4 mg PO HS LORRAINE Stop: 12/22/19 20:59 Last Admin: 12/01/19 21:12 Dose: 0.4 mg Documented by: Vitamin B Complex (Vitamin B Complex Tab) 1 tab PO DAILY LORRAINE Stop: 12/23/19 08:59 Last Admin: 12/02/19 07:49 Dose: 1 tab Documented by: Vitamin D (Cholecalciferol 1,000 Units 25 Mcg Tab) 2,000 units PO DAILY LORRAINE Stop: 12/23/19 08:59 Last Admin: 12/02/19 07:50 Dose: 2,000 units Documented by: (1) Herpes zoster Herpes zoster complications: without complications Qualified Code(s): B02.9 - Zoster without complications (2) CKD (chronic kidney disease), stage III Chronic kidney disease stage 3 subtype: unspecified whether 3a or 3b Qualified Code(s): N18.30 - Chronic kidney disease, stage 3 unspecified
[2019-12-02] MEDS: TAMSULOSIN HCL 0.4 MG CAP PO SCH (22:44)
[2019-12-03] MEDS: ASCORBIC ACID 500 MG TAB PO SCH (08:09)
[2019-12-03] MEDS: SENNA 8.6 MG TAB PO SCH ×2 (08:09→20:51)
[2019-12-03] MEDS: VITAMIN B COMPLEX TAB PO SCH (08:09)
[2019-12-03] MEDS: FOLIC ACID 400 MCG TAB PO SCH ×2 (08:09→20:53)
[2019-12-03] MEDS: AMIODARONE 200 MG TAB PO SCH (08:09)
[2019-12-03] MEDS: APIXABAN 2.5 MG TAB PO SCH ×2 (08:10→20:53)
[2019-12-03] MEDS: SILODOSIN PO SCH (08:10)
[2019-12-03] MEDS: CHOLECALCIFEROL 1,000 UNITS 25 MCG TAB PO SCH (08:11)
[2019-12-03] MEDS: METOPROLOL SUCC 25MG EXT REL TAB PO SCH (08:11)
[2019-12-03] MEDS: FINASTERIDE 5 MG TAB PO SCH (08:11)
[2019-12-03] MEDS: ATORVASTATIN 40 MG TAB PO SCH (08:12)
[2019-12-03] MEDS: POLYETHYLENE (MIRALAX) 17 GM PACK PO SCH (08:12)
--- NOTE | 2019-12-03 16:50 | Hospitalist Progress Note ---
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 Valtrex treatment while inpt, finished course Discussed with ophthalmology at [facility] -recommended close monitoring for now and monitor for signs of conjunctivitis, foreign body sensation of eye (if this were to develop consider erythromycin ointment or lubricating eye ointment) Complains dizziness when standing and with ambulation Hypotension at presentation Patient was initially hypotensive in ED with blood pressure 90s over 60s with improvement with 1 L of IVF. Has been on oral Lasix and metolazone also metoprolol 50 mg daily Read to be very hypotensive during physical therapy today Received 500 mL of normal saline bolus and will hold off metolazone and Lasix Decrease metoprolol to 25 mg once a day Has significant postural hypotension Will give cautious amount of intravenous fluid Medically not stable to be discharged We will continue to hold diuretics for now Still remains symptomatic with postural hypotension We will add small dose of midodrine Was advised to drink more fluid (2) Left leg cellulitis: mild erythema and warmth to medial aspect left leg with scab inferiorly, resolved likely early development of cellulitis Started IV rocephin on admission, continued while inpt and finished course Unstageable pressure injury, left heel pressure injury, POA wound care consult as well for L heel (3) Chronic systolic CHF (congestive heart failure): Does not have any signs or symptoms of fluid overload He is rather try with increasing BUN Hold off oral Lasix and metolazone for now Continue PT and OT Will monitor for any fluid overload And/or symptoms of fluid overload-denies any shortness of breath at rest (4) CAD (coronary artery disease): (5) Ischemic cardiomyopathy: pt with hx of CAD and CABG x 6 in 1996 He had recent echo LVEF < 20%, left ventricular cavity severely dilated and diffuse hypokinesis to akinesis, right ventricular cavity moderately dilated, right ventricular systolic function moderately reduced, aortic valve heavily calcified with severe , Severe mitral regurg, severe tricuspid regurg continue amiodarone, metoprolol, atorvastatin, Eliquis, Lasix and metolazone defib in place - no known shocks Patient was on ramipril -this was recently discontinued at [facility] during recent hospitalization secondary to hypotension His initial reason for coming to ED today was secondary to hypotension so will need to monitor blood pressure accordingly Daily weights, strict I's and O's (6) Chronic atrial fibrillation: Rate and rhythm controlled on amiodarone and metoprolol Continue Eliquis for thrombotic control (7) CKD (chronic kidney disease), stage III: baseline cr 1.2 bun/cr 30 and 1.23 monitor closely (8) Ventricular tachycardia: s/p cardiac defibrillator in place (9) DVT prophylaxis: continue eliquis Disposition: admit to tele Per PT OT, recommend 24 hr care Follow up: PCP Dr. Guido upon discharge Admission and Anticipated Discharge Date Admission Date: November 22, 2019 Subjective 11/30/2019 Patient is seen and examined in medical telemetry unit Clinically stable and thinks that he will be discharged today Insert denied from [facility] Denies any significant symptoms but noted to be hypotensive with ambulation 12/01/2019 The patient was seen and examined in medical telemetry unit He remains stable but generally weak and lethargic He complained to have dizziness when standing in order to have postural hypotension He is not ready to be discharged 12/02/2019 The patient was seen and examined in medical telemetry unit He looks brighter today but he still has dizziness on standing Denies any other symptoms 12/03/2019 The patient was seen and examined in medical telemetry unit He remains asymptomatic at rest but complains of dizziness on standing Remains in significant postural hypotensive state Review of Systems Review of Systems: All systems reviewed and are unremarkable except as noted below Cardiovascular: + lightheadedness (With standing and with ambulation) Neurologic: + dizziness (when changing position) Physical Exam Physical Exam: Lying in bed comfortably Constitutional: well developed, well nourished and + ill appearing; no acute distress Eyes: PERRL, conjunctivae normal, anicteric sclerae ENMT: external ear and nose normal, oropharynx normal Neck: trachea midline, no thyromegaly Respiratory: normal respiratory effort; no respiratory distress Auscultation: lungs clear to auscultation bilaterally Cardiovascular: Rate/Rhythm: regular rate and regular rhythm Heart Sounds: no murmur Extremities: no edema Gastrointestinal (Abdomen): Inspection/Auscultation: abdomen normal to inspection and normal bowel sounds; abdomen not distended Percussio n/Palpation: abdomen soft; abdomen nontender Neurologic: moves all extremities; no focal motor deficits Psychiatric: A+Ox3, euthymic affect Lymphatic: no cervical or axillary lymphadenopathy Results & Data Results & Data ([facility]) Vital Signs (Past 12 Hours) Vital Signs Temp Pulse Pulse Resp BP BP Pulse Ox 12/03/19 15:48 36.5 C 82 18 110/70 94 12/03/19 14:56 81 12/03/19 07:31 36.3 C L 80 16 134/69 96 12/03/19 07:25 82 Medications Administered Current Inpatient Medications Acetaminophen (Acetaminophen 325 Mg Tab) 650 mg PO Q4H PRN PRN Reason: Pain or Fever Stop: 12/22/19 19:38 Al Hydrox/Mg Hydrox/Simethicone (Aluminum/Magnesium Susp 30 Ml Udc) 15 ml PO Q4H PRN PRN Reason: Dyspepsia Stop: 12/22/19 19:38 Amiodarone HCl (Amiodarone 200 Mg Tab) 200 mg PO DAILY LORRAINE Stop: 12/23/19 08:59 Last Admin: 12/03/19 08:09 Dose: 200 mg Documented by: Apixaban (Apixaban 2.5 Mg Tab) 2.5 mg PO BID LORRAINE Stop: 12/22/19 20:59 Last Admin: 12/03/19 08:10 Dose: 2.5 mg Documented by: Ascorbic Acid (Ascorbic Acid 500 Mg Tab) 500 mg PO DAILY LORRAINE Stop: 12/23/19 08:59 Last Admin: 12/03/19 08:09 Dose: 500 mg Documented by: Atorvastatin Calcium (Atorvastatin 40 Mg Tab) 40 mg PO DAILY LORRAINE Stop: 12/23/19 08:59 Last Admin: 12/03/19 08:12 Dose: 40 mg Documented by: Finasteride (Finasteride 5 Mg Tab) 5 mg PO DAILY LORRAINE Stop: 12/23/19 08:59 Last Admin: 12/03/19 08:11 Dose: 5 mg Documented by: Folic Acid (Folic Acid 400 Mcg Tab) 400 mcg PO BID LORRAINE Stop: 12/22/19 20:59 Last Admin: 12/03/19 08:09 Dose: 400 mcg Documented by: Furosemide (Furosemide 40 Mg Tab) 40 mg PO DAILY LORRAINE Stop: 12/23/19 08:59 Last Admin: 11/30/19 10:13 Dose: 40 mg Documented by: Magnesium Hydroxide (Magnesium Hydroxide Susp 30 Ml Udc) 30 ml PO Q12H PRN PRN Reason: Constipation Stop: 12/22/19 19:38 Last Admin: 11/28/19 21:19 Dose: 30 ml Documented by: Metolazone (Metolazone 2.5 Mg Tablet) 2.5 mg PO DAILY LORRAINE Stop: 12/23/19 08:59 Last Admin: 11/30/19 10:14 Dose: 2.5 mg Documented by: Metoprolol Succinate (Metoprolol Succ 25mg Ext Rel Tab) 25 mg PO DAILY LORRAINE Stop: 12/31/19 08:59 Last Admin: 12/03/19 08:11 Dose: Not Given Documented by: Midodrine (Midodrine Hcl 2.5 Mg Tab) 2.5 mg PO TID@0800,1200,1700 [facility] Stop: 01/02/20 16:59 Ondansetron HCl (Ondansetron Inj 2 Mg/Ml 2 Ml Vial) 4 mg IV Q6H PRN PRN Reason: Nausea Stop: 12/22/19 19:38 Polyethylene Glycol (Polyethylene (Miralax) 17 Gm Pack) 17 gm PO DAILY PRN PRN Reason: Constipation Stop: 12/22/19 19:38 Polyethylene Glycol (Polyethylene (Miralax) 17 Gm Pack) 17 gm PO DAILY LORRAINE Stop: 12/23/19 08:59 Last Admin: 12/03/19 08:12 Dose: 17 gm Documented by: Sennosides (Senna 8.6 Mg Tab) 8.6 mg PO BID LORRAINE Stop: 12/22/19 20:59 Last Admin: 12/03/19 08:09 Dose: 8.6 mg Documented by: Silodosin (Silodosin) 1 ea PO QAM [place] Stop: 12/25/19 08:59 Last Admin: 12/03/19 08:10 Dose: 1 ea Documented by: Tamsulosin HCl (Tamsulosin Hcl 0.4 Mg Cap) 0.4 mg PO HS LOR[place]INE Stop: 12/22/19 20:59 Last Admin: 12/02/19 22:44 Dose: 0.4 mg Documented by: Vitamin B Complex (Vitamin B Complex Tab) 1 tab PO DAILY LORRAINE Stop: 12/23/19 08:59 Last Admin: 12/03/19 08:09 Dose: 1 tab Documented by: Vitamin D (Cholecalciferol 1,000 Units 25 Mcg Tab) 2,000 units PO DAILY LORRAINE Stop: 12/23/19 08:59 Last Admin: 12/03/19 08:11 Dose: 2,000 units Documented by: (1) Herpes zoster Herpes zoster complications: without complications Qualified Code(s): B02.9 - Zoster without complications (2) CKD (chronic kidney disease), stage III Chronic kidney disease stage 3 subtype: unspecified whether 3a or 3b Qualified Code(s): N18.30 - Chronic kidney disease, stage 3 unspecified
[2019-12-03] MEDS: MIDODRINE HCL 2.5 MG TAB PO SCH (16:58)
[2019-12-03] MEDS: TAMSULOSIN HCL 0.4 MG CAP PO SCH (20:54)
[2019-12-04] MEDS: SILODOSIN PO SCH (08:11)
[2019-12-04] MEDS: AMIODARONE 200 MG TAB PO SCH (08:12)
[2019-12-04] MEDS: FOLIC ACID 400 MCG TAB PO SCH ×2 (08:12→20:18)
[2019-12-04] MEDS: APIXABAN 2.5 MG TAB PO SCH ×2 (08:12→20:18)
[2019-12-04] MEDS: ATORVASTATIN 40 MG TAB PO SCH (08:12)
[2019-12-04] MEDS: ASCORBIC ACID 500 MG TAB PO SCH (08:13)
[2019-12-04] MEDS: SENNA 8.6 MG TAB PO SCH ×2 (08:14→20:13)
[2019-12-04] MEDS: VITAMIN B COMPLEX TAB PO SCH (08:14)
[2019-12-04] MEDS: MIDODRINE HCL 2.5 MG TAB PO SCH ×3 (08:15→17:06)
[2019-12-04] MEDS: CHOLECALCIFEROL 1,000 UNITS 25 MCG TAB PO SCH (08:16)
[2019-12-04] MEDS: FINASTERIDE 5 MG TAB PO SCH (08:16)
[2019-12-04] MEDS: POLYETHYLENE (MIRALAX) 17 GM PACK PO SCH (08:18)
[2019-12-04] MEDS: METOPROLOL SUCC 25MG EXT REL TAB PO SCH (08:46)
[2019-12-04 08:47] LABS: Basophils # (auto) 0.01 K/uL (0-0.2); Basophils % (auto) 0.2 %; Eosinophils # (auto) 0.07 K/uL (0-0.5); Eosinophils % (auto) 1.2 %; Hematocrit (blood only) 34.4 % (42-52); Hemoglobin 10.3 g/dL (14.0-18.0); Immature Granulocytes # (auto) 0.01 K/uL (0.00-0.02); Immature Granulocytes % (auto) 0.2 %; Lymphocytes # (auto) 0.87 K/uL (1.2-3.4); Lymphocytes % (auto) 15.5 %; Mean Corpuscular Hemoglobin 28.9 pg (25-34); Mean Corpuscular Hgb Conc 29.9 g/dL (32-36); Mean Corpuscular Volume 96.6 fL (80-100); Mean Platelet Volume 9.8 fL (7.4-10.4); Monocytes # (auto) 0.25 K/uL (0.11-0.59); Monocytes % (auto) 4.4 %; Neutrophils # (auto) 4.41 K/uL (1.4-6.5); Neutrophils % (auto) 78.5 %; Platelet Count 149 K/uL (130-400); RDW Standard Deviation 57.6 fL (36.4-46.3); Red Blood Count 3.56 M/uL (4.7-6.1); White Blood Count 5.62 K/uL (4.8-10.8)
[2019-12-04 09:05] LABS: BUN Creatinine Ratio 25.3 (10-20); Calcium 9.3 mg/dl (8.5-10.1); Creatinine Clr Calc Pharmacy 47.9 ml/min; Est GFR (African American) 76.2; Est GFR (Non-African American) 65.8; Magnesium 2.3 mg/dl (1.8-2.4); Phosphorus 2.8 mg/dl (2.5-4.9)
--- NOTE | 2019-12-04 11:53 | Hospitalist Progress Note ---
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 Valtrex treatment while inpt, finished course Discussed with ophthalmology at [facility] -recommended close monitoring for now and monitor for signs of conjunctivitis, foreign body sensation of eye (if this were to develop consider erythromycin ointment or lubricating eye ointment) Complains dizziness when standing and with ambulation Hypotension at presentation Patient was initially hypotensive in ED with blood pressure 90s over 60s with improvement with 1 L of IVF. Has been on oral Lasix and metolazone also metoprolol 50 mg daily Read to be very hypotensive during physical therapy today Received 500 mL of normal saline bolus and will hold off metolazone and Lasix Decrease metoprolol to 25 mg once a day Has significant postural hypotension Will give cautious amount of intravenous fluid Medically not stable to be discharged We will continue to hold diuretics for now Still remains symptomatic with postural hypotension We will add small dose of midodrine Was advised to drink more fluid Remains stable and will get another set of orthostatic vitals today (2) Left leg cellulitis: mild erythema and warmth to medial aspect left leg with scab inferiorly, resolved likely early development of cellulitis Started IV rocephin on admission, continued while inpt and finished course Unstageable pressure injury, left heel pressure injury, POA wound care consult as well for L heel (3) Chronic systolic CHF (congestive heart failure): Does not have any signs or symptoms of fluid overload He is rather try with increasing BUN Hold off oral Lasix and metolazone for now Continue PT and OT Will monitor for any fluid overload And/or symptoms of fluid overload-denies any shortness of breath at rest CXR tomorrow morning (4) CAD (coronary artery disease): (5) Ischemic cardiomyopathy: pt with hx of CAD and CABG x 6 in 1996 He had recent echo LVEF < 20%, left ventricular cavity severely dilated and diffuse hypokinesis to akinesis, right ventricular cavity moderately dilated, right ventricular systolic function moderately reduced, aortic valve heavily calcified with severe , Severe mitral regurg, severe tricuspid regurg continue amiodarone, metoprolol, atorvastatin, Eliquis, Lasix and metolazone defib in place - no known shocks Patient was on ramipril -this was recently discontinued at [facility] [place] during recent hospitalization secondary to hypotension His initial reason for coming to ED today was secondary to hypotension so will need to monitor blood pressure accordingly Daily weights, strict I's and O's (6) Chronic atrial fibrillation: Rate and rhythm controlled on amiodarone and metoprolol Continue Eliquis for thrombotic control Hold (7) CKD (chronic kidney disease), stage III: baseline cr 1.2 bun/cr 30 and 1.23 monitor closely (8) Ventricular tachycardia: s/p cardiac defibrillator in place (9) DVT prophylaxis: continue eliquis Disposition: admit to tele Per PT OT, recommend 24 hr care Follow up: PCP Dr. Guido upon discharge Admission and Anticipated Discharge Date Admission Date: November 22, 2019 Subjective 11/30/2019 Patient is seen and examined in medical telemetry unit Clinically stable and thinks that he will be discharged today Insert denied from [facility] Denies any significant symptoms but noted to be hypotensive with ambulation 12/01/2019 The patient was seen and examined in medical telemetry unit He remains stable but generally weak and lethargic He complained to have dizziness when standing in order to have postural hypotension He is not ready to be discharged 12/02/2019 The patient was seen and examined in medical telemetry unit He looks brighter today but he still has dizziness on standing Denies any other symptoms 12/03/2019 The patient was seen and examined in medical telemetry unit He remains asymptomatic at rest but complains of dizziness on standing Remains in significant postural hypotensive state 12/04/2019 The patient was seen and examined in medical telemetry unit Denies any symptoms at rest in bed He has been having dizziness on standing and with ambulation Review of Systems Review of Systems: All systems reviewed and are unremarkable except as noted below Cardiovascular: + lightheadedness (With standing and with ambulation) Neurologic: + dizziness (when changing position) Physical Exam 2 Physical Exam: Lying in bed comfortably Constitutional: well developed, well nourished and + ill appearing; no acute distress Eyes: PERRL, conjunctivae normal, anicteric sclerae ENMT: external ear and nose normal, oropharynx normal Neck: trachea midline, no thyromegaly Respiratory: normal respiratory effort; no respiratory distress Auscultation: lungs clear to auscultation bilaterally Cardiovascular: Rate/Rhythm: regular rate and regular rhythm Heart Sounds: no murmur Extremities: no edema Gastrointestinal (Abdomen): Inspection/Auscultation: abdomen normal to inspection and normal bowel sounds; abdomen not distended Percussion/Palpation: abdomen soft; abdomen nontender Musculoskeletal: No acute arthritis involving any joint Neurologic: moves all extremities; no focal motor deficits Psychiatric: A+Ox3, euthymic affect Lymphatic: no cervical or axillary lymphadenopathy Results & Data Results & Data ([facility]) Vital Signs (Past 12 Hours) Vital Signs Temp Pulse Pulse Resp BP Pulse Ox 12/04/19 11:29 36.7 C 80 16 105/61 95 12/04/19 07:15 36.9 C 80 16 101/55 L 94 12/04/19 07:11 102 H 12/04/19 03:00 36.5 C 83 18 117/61 90 Laboratory Results Short CBC 12/04/19 Range/Units 08:32 WBC 5.62 (4.8-10.8) K/uL Hgb 10.3 L (14.0-18.0) g/dL Hct 34.4 L (42-52) % Plt Count 149 (130-400) K/uL BMP 12/04/19 08:32 Sodium 138 Potassium 4.0 Chloride 96 L Carbon Dioxide 40 H BUN 27 H Creatinine 1.05 Glucose 149 H Calcium 9.3 Medications Administered Current Inpatient Medications Acetaminophen (Acetaminophen 325 Mg Tab) 650 mg PO Q4H PRN PRN Reason: Pain or Fever Stop: 12/22/19 19:38 Al Hydrox/Mg Hydrox/Simethicone (Aluminum/Magnesium Susp 30 Ml Udc) 15 ml PO Q4H PRN PRN Reason: Dyspepsia Stop: 12/22/19 19:38 Amiodarone HCl (Amiodarone 200 Mg Tab) 200 mg PO DAILY [facility] Stop: 12/23/19 08:59 Last Admin: 12/04/19 08:12 Dose: 200 mg Documented by: Apixaban (Apixaban 2.5 Mg Tab) 2.5 mg PO BID [facility] Stop: 12/22/19 20:59 Last Admin: 12/04/19 08:12 Dose: 2.5 mg Documented by: Ascorbic Acid (Ascorbic Acid 500 Mg Tab) 500 mg PO DAILY [facility] Stop: 12/23/19 08:59 Last Admin: 12/04/19 08:13 Dose: 500 mg Documented by: Atorvastatin Calcium (Atorvastatin 40 Mg Tab) 40 mg PO DAILY [facility] Stop: 12/23/19 08:59 Last Admin: 12/04/19 08:12 Dose: 40 mg Documented by: Finasteride (Finasteride 5 Mg Tab) 5 mg PO DAILY [facility] Stop: 12/23/19 08:59 Last Admin: 12/04/19 08:16 Dose: 5 mg Documented by: Folic Acid (Folic Acid 400 Mcg Tab) 400 mcg PO BID [facility] Stop: 12/22/19 20:59 Last Admin: 12/04/19 08:12 Dose: 400 mcg Documented by: Furosemide (Furosemide 40 Mg Tab) 40 mg PO DAILY [facility] Stop: 12/23/19 08:59 Last Admin: 11/30/19 10:13 Dose: 40 mg Documented by: Magnesium Hydroxide (Magnesium Hydroxide Susp 30 Ml Udc) 30 ml PO Q12H PRN PRN Reason: Constipation Stop: 12/22/19 19:38 Last Admin: 11/28/19 21:19 Dose: 30 ml Documented by: Metolazone (Metolazone 2.5 Mg Tablet) 2.5 mg PO DAILY [facility] Stop: 12/23/19 08:59 Last Admin: 11/30/19 10:14 Dose: 2.5 mg Documented by: Metoprolol Succinate (Metoprolol Succ 25mg Ext Rel Tab) 25 mg PO DAILY [facility] Stop: 12/31/19 08:59 Last Admin: 12/04/19 08:46 Dose: 25 mg Documented by: Midodrine (Midodrine Hcl 2.5 Mg Tab) 2.5 mg PO TID@0800,1200,1700 [facility] Stop: 01/02/20 16:59 Last Admin: 12/04/19 08:15 Dose: 2.5 mg Documented by: Ondansetron HCl (Ondansetron Inj 2 Mg/Ml 2 Ml Vial) 4 mg IV Q6H PRN PRN Reason: Nausea Stop: 12/22/19 19:38 Polyethylene Glycol (Polyethylene (Miralax) 17 Gm Pack) 17 gm PO DAILY PRN PRN Reason: Constipation Stop: 12/22/19 19:38 Polyethylene Glycol (Polyethylene (Miralax) 17 Gm Pack) 17 gm PO DAILY [facility] Stop: 12/23/19 08:59 Last Admin: 12/04/19 08:18 Dose: 17 gm Documented by: Sennosides (Senna 8.6 Mg Tab) 8.6 mg PO BID [facility] Stop: 12/22/19 20:59 Last Admin: 12/04/19 08:14 Dose: 8.6 mg Documented by: Silodosin (Silodosin) 1 ea PO QAM [facility] Stop: 12/25/19 08:59 Last Admin: 12/04/19 08:11 Dose: 1 ea Documented by: Tamsulosin HCl (Tamsulosin Hcl 0.4 Mg Cap) 0.4 mg PO HS [facility] Stop: 12/22/19 20:59 Last Admin: 12/03/19 20:54 Dose: 0.4 mg Documented by: Vitamin B Complex (Vitamin B Complex Tab) 1 tab PO DAILY [facility] Stop: 12/23/19 08:59 Last Admin: 12/04/19 08:14 Dose: 1 tab Documented by: Vitamin D (Cholecalciferol 1,000 Units 25 Mcg Tab) 2,000 units PO DAILY [facility] Stop: 12/23/19 08:59 Last Admin: 12/04/19 08:16 Dose: 2,000 units Documented by: (1) Herpes zoster Herpes zoster complications: without complications Qualified Code(s): B02.9 - Zoster without complications (2) CKD (chronic kidney disease), stage III Chronic kidney disease stage 3 subtype: unspecified whether 3a or 3b Qualified Code(s): N18.30 - Chronic kidney disease, stage 3 unspecified
[2019-12-04] MEDS: TAMSULOSIN HCL 0.4 MG CAP PO SCH (20:19)
[2019-12-05] MEDS: AMIODARONE 200 MG TAB PO SCH (08:45)
[2019-12-05] MEDS: CHOLECALCIFEROL 1,000 UNITS 25 MCG TAB PO SCH (08:45)
[2019-12-05] MEDS: FOLIC ACID 400 MCG TAB PO SCH ×2 (08:45→20:26)
[2019-12-05] MEDS: MIDODRINE HCL 2.5 MG TAB PO SCH ×3 (08:46→17:16)
[2019-12-05] MEDS: ASCORBIC ACID 500 MG TAB PO SCH (08:46)
[2019-12-05] MEDS: FINASTERIDE 5 MG TAB PO SCH (08:46)
[2019-12-05] MEDS: VITAMIN B COMPLEX TAB PO SCH (08:46)
[2019-12-05] MEDS: ATORVASTATIN 40 MG TAB PO SCH (08:46)
[2019-12-05] MEDS: SENNA 8.6 MG TAB PO SCH ×2 (08:46→20:26)
[2019-12-05] MEDS: POLYETHYLENE (MIRALAX) 17 GM PACK PO SCH (08:46)
[2019-12-05] MEDS: METOPROLOL SUCC 25MG EXT REL TAB PO SCH (08:46)
[2019-12-05] MEDS: SILODOSIN PO SCH (08:47)
--- NOTE | 2019-12-05 09:39 | XRay Report ---
XR chest 2V PA/lateral HISTORY: 84 years-old Male CHF acute shortness of breath with congestive heart failure COMPARISON: Chest radiograph 11/27/2019 TECHNIQUE: PA and lateral views of the chest FINDINGS: Moderate enlargement of the cardiac silhouette. Prior median sternotomy. Left subclavian pacer/AICD. Small pleural effusions. Patchy left lung base opacities. No pneumothorax. No overt pulmonary edema. Mild pulmonary vascular congestion. Surgical clips project over the upper abdomen. Degenerative duran es of the shoulders and spine. Numerous acute and mildly displaced left-sided rib fractures redemonst rated. IMPRESSION: 1. Cardiomegaly with mild pulmonary vascular congestion. 2. Small pleural effusions with asymmetric left lung base opacities suggestive of atelectasis versus pneumonia. 3. Multiple acute and mildly displaced left-sided rib fractures redemonstrated. 4. No pneumothorax. ACT 112: Negative or not required by law. The above report was generated using voice recognition software. It may contain grammatical, syntax o r spelling errors. Electronically signed by: Joaquin Haq M.D. 12/05/2019 9:38 AM
[2019-12-05] MEDS: APIXABAN 2.5 MG TAB PO SCH ×2 (09:44→20:26)
[2019-12-05] MEDS ORDERED: FUROSEMIDE 40 MG in SYRINGE 0 ML IV ONE (11:30)
--- NOTE | 2019-12-05 15:18 | Hospitalist Progress Note ---
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 Valtrex treatment while inpt, finished course Discussed with ophthalmology at [facility] -recommended close monitoring for now and monitor for signs of conjunctivitis, foreign body sensation of eye (if this were to develop consider erythromycin ointment or lubricating eye ointment) Complains dizziness when standing and with ambulation Hypotension at presentation Patient was initially hypotensive in ED with blood pressure 90s over 60s with improvement with 1 L of IVF. Has been on oral Lasix and metolazone also metoprolol 50 mg daily Read to be very hypotensive during physical therapy today Received 500 mL of normal saline bolus and will hold off metolazone and Lasix Decrease metoprolol to 25 mg once a day Has significant postural hypotension Will give cautious amount of intravenous fluid Medically not stable to be discharged We will continue to hold diuretics for now Still remains symptomatic with postural hypotension We will add small dose of midodrine Was advised to drink more fluid Remains stable and will get another set of orthostatic vitals today (2) Left leg cellulitis: mild erythema and warmth to medial aspect left leg with scab inferiorly, resolved likely early development of cellulitis Started IV rocephin on admission, continued while inpt and finished course Unstageable pressure injury, left heel pressure injury, POA wound care consult as well for L heel (3) Chronic systolic CHF (congestive heart failure): Does not have any signs or symptoms of fluid overload He is rather try with increasing BUN Hold off oral Lasix and metolazone for now Continue PT and OT Will monitor for any fluid overload And/or symptoms of fluid overload-denies any shortness of breath at rest CXR tomorrow morning-chest x-ray showed cardiomegaly and possible mild pulmonary congestion Will give 40 of Lasix intravenously and add his usual and diuretics from tomorrow No more orthostasis noted as of this morning Transfer to intermediate facility/rehab tomorrow (4) CAD (coronary artery disease): (5) Ischemic cardiomyopathy: pt with hx of CAD and CABG x 6 in 1996 He had recent echo LVEF < 20%, left ventricular cavity severely dilated and diffuse hypokinesis to akinesis, right ventricular cavity moderately dilated, r ight ventricular systolic function moderately reduced, aortic valve heavily calcified with severe , Severe mitral regurg, severe tricuspid regurg continue amiodarone, metoprolol, atorvastatin, Eliquis, Lasix and metolazone defib in place - no known shocks Patient was on ramipril -this was recently discontinued at [facility] [place] recent hospitalization secondary to hypotension His initial reason for coming to ED today was secondary to hypotension so will need to monitor blood pressure accordingly Daily weights, strict I's and O's (6) Chronic atrial fibrillation: Rate and rhythm controlled on amiodarone and metoprolol Continue Eliquis for thrombotic control Has been back on Eliquis (7) CKD (chronic kidney disease), stage III: baseline cr 1.2 bun/cr 30 and 1.23 monitor closely (8) Ventricular tachycardia: s/p cardiac defibrillator in place (9) DVT prophylaxis: continue eliquis Disposition: admit to tele Per PT OT, recommend 24 hr care Follow up: PCP Dr. Guido upon discharge Admission and Anticipated Discharge Date Admission Date: November 22, 2019 Subjective 11/30/2019 Patient is seen and examined in medical telemetry unit Clinically stable and thinks that he will be discharged today Insert denied from [facility] Denies any significant symptoms but noted to be hypotensive with ambulation 12/01/2019 The patient was seen and examined in medical telemetry unit He remains stable but generally weak and lethargic He complained to have dizziness when standing in order to have postural hypotension He is not ready to be discharged 12/02/2019 The patient was seen and examined in medical telemetry unit He looks brighter today but he still has dizziness on standing Denies any other symptoms 12/03/2019 The patient was seen and examined in medical telemetry unit He remains asymptomatic at rest but complains of dizziness on standing Remains in significant postural hypotensive state 12/04/2019 The patient was seen and examined in medical telemetry unit Denies any symptoms at rest in bed He has been having dizziness on standing and with ambulation 12/05/2019 The patient was seen and examined in medical telemetry unit He has been feeling little better today and complains to have some shortness of breath at rest He is dizziness on standing is improving though Denies any fever and/or chills, any nausea and/or vomiting Review of Systems Review of Systems: All systems reviewed and are unremarkable except as noted below Cardiovascular: + lightheadedness (With standing and with ambulation) Neurologic: no dizziness (when changing position) Physical Exam Physical Exam: Lying in bed comfortably Constitutional: well developed, well nourished and + ill appearing; no acute distress Eyes: PERRL, conjunctivae normal, anicteric sclerae ENMT: external ear and nose normal, oropharynx normal Neck: trachea midline, no thyromegaly Respiratory: normal respiratory effort; no respiratory distress Auscultation: lungs clear to auscultation bilaterally and + crackles (Minimal crackles at the bases) Cardiovascular: Rate/Rhythm: regular rate and regular rhythm Heart Sounds: no murmur Extremities: no edema Gastrointestinal (Abdomen): Inspection/Auscultation: abdomen normal to inspection and normal bowel sounds; abdomen not distended Percussion/Palpation: abdomen soft; abdomen nontender Musculoskeletal: No acute arthritis in any joint Neurologic: moves all extremities; no focal motor deficits Psychiatric: A+Ox3, euthymic affect Lymphatic: no cervical or axillary lymphadenopathy Results & Data Results & Data ([facility]) Vital Signs (Past 12 Hours) Vital Signs Temp Pulse Pulse Resp BP BP Pulse Ox 12/05/19 11:06 90/53 L 12/05/19 11:03 101/65 12/05/19 10:02 80 12/05/19 07:22 36.4 C L 81 20 107/58 L 97 12/05/19 03:20 36.7 C 80 18 102/62 97 Medications Administered Current Inpatient Medications Acetaminophen (Acetaminophen 325 Mg Tab) 650 mg PO Q4H PRN PRN Reason: Pain or Fever Stop: 12/22/19 19:38 Al Hydrox/Mg Hydrox/Simethicone (Aluminum/Magnesium Susp 30 Ml Udc) 15 ml PO Q4H PRN PRN Reason: Dyspepsia Stop: 12/22/19 19:38 Amiodarone HCl (Amiodarone 200 Mg Tab) 200 mg PO DAILY [facility] Stop: 12/23/19 08:59 Last Admin: 12/05/19 08:45 Dose: 200 mg Documented by: Apixaban (Apixaban 2.5 Mg Tab) 2.5 mg PO BID [facility] Stop: 12/22/19 20:59 Last Admin: 12/05/19 09:44 Dose: 2.5 mg Documented by: Ascorbic Acid (Ascorbic Acid 500 Mg Tab) 500 mg PO DAILY [facility] Stop: 12/23/19 08:59 Last Admin: 12/05/19 08:46 Dose: 500 mg Documented by: Atorvastatin Calcium (Atorvastatin 40 Mg Tab) 40 mg PO DAILY [facility] Stop: 12/23/19 08:59 Last Admin: 12/05/19 08:46 Dose: 40 mg Documented by: Finasteride (Finasteride 5 Mg Tab) 5 mg PO DAILY [facility] Stop: 12/23/19 08:59 Last Admin: 12/05/19 08:46 Dose: 5 mg Documented by: Folic Acid (Folic Acid 400 Mcg Tab) 400 mcg PO BID [facility] Stop: 12/22/19 20:59 Last Admin: 12/05/19 08:45 Dose: 400 mcg Documented by: Furosemide (Furosemide 40 Mg Tab) 40 mg PO DAILY [facility] Stop: 12/23/19 08:59 Last Admin: 11/30/19 10:13 Dose: 40 mg Documented by: Magnesium Hydroxide (Magnesium Hydroxide Susp 30 Ml Udc) 30 ml PO Q12H PRN PRN Reason: Constipation Stop: 12/22/19 19:38 Last Admin: 11/28/19 21:19 Dose: 30 ml Documented by: Metolazone (Metolazone 2.5 Mg Tablet) 2.5 mg PO DAILY [facility] Stop: 12/23/19 08:59 Last Admin: 11/30/19 10:14 Dose: 2.5 mg Documented by: Metoprolol Succinate (Metoprolol Succ 25mg Ext Rel Tab) 25 mg PO DAILY [facility] Stop: 12/31/19 08:59 Last Admin: 12/05/19 08:46 Dose: 25 mg Documented by: Midodrine (Midodrine Hcl 2.5 Mg Tab) 2.5 mg PO TID@0800,1200,1700 [facility] Stop: 01/02/20 16:59 Last Admin: 12/05/19 11:07 Dose: 2.5 mg Documented by: Ondansetron HCl (Ondansetron Inj 2 Mg/Ml 2 Ml Vial) 4 mg IV Q6H PRN PRN Reason: Nausea Stop: 12/22/19 19:38 Polyethylene Glycol (Polyethylene (Miralax) 17 Gm Pack) 17 gm PO DAILY PRN PRN Reason: Constipation Stop: 12/22/19 19:38 Polyethylene Glycol (Polyethylene (Miralax) 17 Gm Pack) 17 gm PO DAILY [facility] Stop: 12/23/19 08:59 Last Admin: 12/05/19 08:46 Dose: 17 gm Documented by: Sennosides (Senna 8.6 Mg Tab) 8.6 mg PO BID [facility] Stop: 12/22/19 20:59 Last Admin: 12/05/19 08:46 Dose: 8.6 mg Documented by: Silodosin (Silodosin) 1 ea PO QAM [facility] Stop: 12/25/19 08:59 Last Admin: 12/05/19 08:47 Dose: 1 ea Documented by: Tamsulosin HCl (Tamsulosin Hcl 0.4 Mg Cap) 0.4 mg PO HS [facility] Stop: 12/22/19 20:59 Last Admin: 12/04/19 20:19 Dose: 0.4 mg Documented by: Vitamin B Complex (Vitamin B Complex Tab) 1 tab PO DAILY [facility] Stop: 12/23/19 08:59 Last Admin: 12/05/19 08:46 Dose: 1 tab Documented by: Vitamin D (Cholecalciferol 1,000 Units 25 Mcg Tab) 2,000 units PO DAILY [facility] Stop: 12/23/19 08:59 Last Admin: 12/05/19 08:45 Dose: 2,000 units Documented by: (1) Herpes zoster Herpes zoster complications: without complications Qualified Code(s): B02.9 - Zoster without complications (2) CKD (chronic kidney disease), stage III Chronic kidney disease stage 3 subtype: unspecified whether 3a or 3b Qualified Code(s): N18.30 - Chronic kidney disease, stage 3 unspecified
[2019-12-05] MEDS: TAMSULOSIN HCL 0.4 MG CAP PO SCH (20:28)
[2019-12-06] MEDS: SENNA 8.6 MG TAB PO SCH ×2 (09:11→20:45)
[2019-12-06] MEDS: POLYETHYLENE (MIRALAX) 17 GM PACK PO SCH (09:11)
[2019-12-06] MEDS: METOPROLOL SUCC 25MG EXT REL TAB PO SCH (09:12)
[2019-12-06] MEDS: SILODOSIN PO SCH (09:12)
[2019-12-06] MEDS: VITAMIN B COMPLEX TAB PO SCH (09:14)
[2019-12-06] MEDS: CHOLECALCIFEROL 1,000 UNITS 25 MCG TAB PO SCH (09:14)
[2019-12-06] MEDS: ATORVASTATIN 40 MG TAB PO SCH (09:14)
[2019-12-06] MEDS: APIXABAN 2.5 MG TAB PO SCH ×2 (09:14→20:45)
[2019-12-06] MEDS: FOLIC ACID 400 MCG TAB PO SCH ×2 (09:15→20:45)
[2019-12-06] MEDS: FINASTERIDE 5 MG TAB PO SCH (09:15)
[2019-12-06] MEDS: AMIODARONE 200 MG TAB PO SCH (09:15)
[2019-12-06] MEDS: ASCORBIC ACID 500 MG TAB PO SCH (09:15)
[2019-12-06] MEDS: MIDODRINE HCL 2.5 MG TAB PO SCH ×3 (09:16→17:28)
--- NOTE | 2019-12-06 13:44 | Hospitalist Progress Note ---
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 Valtrex treatment while inpt, finished course Discussed with ophthalmology at [facility] -recommended close monitoring for now and monitor for signs of conjunctivitis, foreign body sensation of eye (if this were to develop consider erythromycin ointment or lubricating eye ointment) Complains dizziness when standing and with ambulation Hypotension at presentation Patient was initially hypotensive in ED with blood pressure 90s over 60s with improvement with 1 L of IVF. Has been on oral Lasix and metolazone also metoprolol 50 mg daily Read to be very hypotensive during physical therapy today Received 500 mL of normal saline bolus and will hold off metolazone and Lasix Decrease metoprolol to 25 mg once a day Has significant postural hypotension Will give cautious amount of intravenous fluid Medically not stable to be discharged We will continue to hold diuretics for now Still remains symptomatic with postural hypotension We will add small dose of midodrine Was advised to drink more fluid No more orthostatic changes Remains symptomatic when standing but the dizziness has been reasonably controlled Was advised to take extra time to start moving from sitting and/or lying position Medically stable to be discharged (2) Left leg cellulitis: mild erythema and warmth to medial aspect left leg with scab inferiorly, resolved likely early development of cellulitis Started IV rocephin on admission, continued while inpt and finished course Unstageable pressure injury, left heel pressure injury, POA wound care consult as well for L heel (3) Chronic systolic CHF (congestive heart failure): Does not have any signs or symptoms of fluid overload He is rather try with increasing BUN Hold off oral Lasix and metolazone for now Continue PT and OT Will monitor for any fluid overload And/or symptoms of fluid overload-denies any shortness of breath at rest CXR tomorrow morning-chest x-ray showed cardiomegaly and possible mild pulmonary congestion Will give 40 of Lasix intravenously and add his usual and diuretics from tomorrow No more orthostasis noted as of this morning Transfer to snf facility/rehab tomorrow No signs of fluid overload Continue with his usual diuretics but will limit to Lasix only (4) CAD (coronary artery disease): (5) Ischemic cardiomyopathy: pt with hx of CAD and CABG x 6 in 1996 He had recent echo LVEF < 20%, left ventricular cavity severely dilated and diffuse hypokinesis to akinesis, right ventricular cavity moderately dilated, right ventricular systolic function moderately reduced, aortic valve heavily calcified with severe , Severe mitral regurg, severe tricuspid regurg continue amiodarone, metoprolol, atorvastatin, Eliquis, Lasix and metolazone defib in place - no known shocks Patient was on ramipril -this was recently discontinued at [facility] during recent hospitalization secondary to hypotension His initial reason for coming to ED today was secondary to hypotension so will need to monitor blood pressure accordingly Daily weights, strict I's and O's (6) Chronic atrial fibrillation: Rate and rhythm controlled on amiodarone and metoprolol Continue Eliquis for thrombotic control Has been back on Eliquis (7) CKD (chronic kidney disease), stage III: baseline cr 1.2 bun/cr 30 and 1.23 monitor closely (8) Ventricular tachycardia: s/p cardiac defibrillator in place (9) DVT prophylaxis: continue eliquis Disposition: admit to tele Per PT OT, recommend 24 hr care Follow up: PCP Dr. Guido upon discharge Awaiting insurance authorization to go to facility Admission and Anticipated Discharge Date Admission Date: November 22, 2019 Subjective 11/30/2019 Patient is seen and examined in medical telemetry unit Clinically stable and thinks that he will be discharged today Insert denied from [facility] Denies any significant symptoms but noted to be hypotensive with ambulation 12/01/2019 The patient was seen and examined in medical telemetry unit He remains stable but generally weak and lethargic He complained to have dizziness when standing in order to have postural hypotension He is not ready to be discharged 12/02/2019 The patient was seen and examined in medical telemetry unit He looks brighter today but he still has dizziness on standing Denies any other symptoms 12/03/2019 The patient was seen and examined in medical telemetry unit He remains asymptomatic at rest but complains of dizziness on standing Remains in significant postural hypotensive state 12/04/2019 The patient was seen and examined in medical telemetry unit Denies any symptoms at rest in bed He has been having dizziness on standing and with ambulation 12/05/2019 The patient was seen and examined in medical telemetry unit He has been feeling little better today and complains to have some shortness of breath at rest He is dizziness on standing is improving though Denies any fever and/or chills, any nausea and/or vomiting 12/06/2019 The patient was seen and examined in medical telemetry unit He has been feeling a lot better today and he still has the dizziness but not so pronounced He denies any other symptoms and is ready to be discharged from the hospital Review of Systems Review of Systems: All systems reviewed and are unremarkable except as noted below Cardiovascular: + lightheadedness (No more postural drop of blood pressure. Dizziness has improved a lot) Physical Exam Physical Exam: Lying in bed comfortably Constitutional: well developed, well nourished and + ill appearing; no acute distress Eyes: PERRL, conjunctivae normal, anicteric sclerae ENMT: external ear and nose normal, oropharynx normal Neck: trachea midline, no thyromegaly Respiratory: normal respiratory effort; no respiratory distress Auscul tation: lungs clear to auscultation bilaterally and + crackles (Minimal crackles at the bases) Cardiovascular: Rate/Rhythm: regular rate and regular rhythm Heart Sounds: no murmur Extremities: no edema Gastrointestinal (Abdomen): Inspection/Auscultation: abdomen normal to inspection and normal bowel sounds; abdomen not distended Percussion/Palpation: abdomen soft; abdomen nontender Musculoskeletal: No acute arthritis in any joint Neurologic: moves all extremities; no focal motor deficits Psychiatric: A+Ox3, euthymic affect Lymphatic: no cervical or axillary lymphadenopathy Results & Data Results & Data ([facility]) Vital Signs (Past 12 Hours) Vital Signs Temp Pulse Pulse Pulse Resp BP BP 12/06/19 11:35 36.5 C 81 20 105/58 L 12/06/19 07:27 82 12/06/19 07:00 36.4 C L 81 18 106/64 12/06/19 03:00 36.4 C L 79 20 100/63 12/06/19 01:42 80 Pulse Ox 12/06/19 11:35 96 12/06/19 07:27 12/06/19 07:00 96 12/06/19 03:00 92 12/06/19 01:42 Medications Administered Current Inpatient Medications Acetaminophen (Acetaminophen 325 Mg Tab) 650 mg PO Q4H PRN PRN Reason: Pain or Fever Stop: 12/22/19 19:38 Al Hydrox/Mg Hydrox/Simethicone (Aluminum/Magnesium Susp 30 Ml Udc) 15 ml PO Q4H PRN PRN Reason: Dyspepsia Stop: 12/22/19 19:38 Amiodarone HCl (Amiodarone 200 Mg Tab) 200 mg PO DAILY LORRAINE Stop: 12/23/19 08:59 Last Admin: 12/06/19 09:15 Dose: 200 mg Documented by: Apixaban (Apixaban 2.5 Mg Tab) 2.5 mg PO BID LORRAINE Stop: 12/22/19 20:59 Last Admin: 12/06/19 09:14 Dose: 2.5 mg Documented by: Ascorbic Acid (Ascorbic Acid 500 Mg Tab) 500 mg PO DAILY LORRAINE Stop: 12/23/19 08:59 Last Admin: 12/06/19 09:15 Dose: 500 mg Documented by: Atorvastatin Calcium (Atorvastatin 40 Mg Tab) 40 mg PO DAILY LORRAINE Stop: 12/23/19 08:59 Last Admin: 12/06/19 09:14 Dose: 40 mg Documented by: Finasteride (Finasteride 5 Mg Tab) 5 mg PO DAILY LORRAINE Stop: 12/23/19 08:59 Last Admin: 12/06/19 09:15 Dose: 5 mg Documented by: Folic Acid (Folic Acid 400 Mcg Tab) 400 mcg PO BID LORRAINE Stop: 12/22/19 20:59 Last Admin: 12/06/19 09:15 Dose: 400 mcg Documented by: Furosemide (Furosemide 40 Mg Tab) 40 mg PO DAILY LORRAINE Stop: 12/23/19 08:59 Last Admin: 11/30/19 10:13 Dose: 40 mg Documented by: Magnesium Hydroxide (Magnesium Hydroxide Susp 30 Ml Udc) 30 ml PO Q12H PRN PRN Reason: Constipation Stop: 12/22/19 19:38 Last Admin: 11/28/19 21:19 Dose: 30 ml Documented by: Metolazone (Metolazone 2.5 Mg Tablet) 2.5 mg PO DAILY LORRAINE Stop: 12/23/19 08:59 Last Admin: 11/30/19 10:14 Dose: 2.5 mg Documented by: Metoprolol Succinate (Metoprolol Succ 25mg Ext Rel Tab) 25 mg PO DAILY LORRAINE Stop: 12/31/19 08:59 Last Admin: 12/06/19 09:12 Dose: 25 mg Documented by: Midodrine (Midodrine Hcl 2.5 Mg Tab) 2.5 mg PO TID@0800,1200,1700 LORRAINE Stop: 01/02/20 16:59 Last Admin: 12/06/19 12:35 Dose: 2.5 mg Documented by: Ondansetron HCl (Ondansetron Inj 2 Mg/Ml 2 Ml Vial) 4 mg IV Q6H PRN PRN Reason: Nausea Stop: 12/22/19 19:38 Polyethylene Glycol (Polyethylene (Miralax) 17 Gm Pack) 17 gm PO DAILY PRN PRN Reason: Constipation Stop: 12/22/19 19:38 Polyethylene Glycol (Polyethylene (Miralax) 17 Gm Pack) 17 gm PO DAILY LORRAINE Stop: 12/23/19 08:59 Last Admin: 12/06/19 09:11 Dose: 17 gm Documented by: Sennosides (Senna 8.6 Mg Tab) 8.6 mg PO BID LORRAINE Stop: 12/22/19 20:59 Last Admin: 12/06/19 09:11 Dose: 8.6 mg Documented by: Silodosin (Silodosin) 1 ea PO QAM LORRAINE Stop: 12/25/19 08:59 Last Admin: 12/06/19 09:12 Dose: 1 ea Documented by: Tamsulosin HCl (Tamsulosin Hcl 0.4 Mg Cap) 0.4 mg PO HS LORRAINE Stop: 12/22/19 20:59 Last Admin: 12/05/19 20:28 Dose: 0.4 mg Documented by: Vitamin B Complex (Vitamin B Complex Tab) 1 tab PO DAILY LORRAINE Stop: 12/23/19 08:59 Last Admin: 12/06/19 09:14 Dose: 1 tab Documented by: Vitamin D (Cholecalciferol 1,000 Units 25 Mcg Tab) 2,000 units PO DAILY LORRAINE Stop: 12/23/19 08:59 Last Admin: 12/06/19 09:14 Dose: 2,000 units Documented by: (1) Herpes zoster Herpes zoster complications: without complications Qualified Code(s): B02.9 - Zoster without complications (2) CKD (chronic kidney disease), stage III Chronic kidney disease stage 3 subtype: unspecified whether 3a or 3b Qu alified Code(s): N18.30 - Chronic kidney disease, stage 3 unspecified
[2019-12-06] MEDS: TAMSULOSIN HCL 0.4 MG CAP PO SCH (20:45)
[2019-12-07] MEDS: MIDODRINE HCL 2.5 MG TAB PO SCH ×3 (08:03→16:59)
[2019-12-07] MEDS: METOPROLOL SUCC 25MG EXT REL TAB PO SCH (08:04)
[2019-12-07] MEDS: SENNA 8.6 MG TAB PO SCH ×2 (08:04→20:39)
[2019-12-07] MEDS: SILODOSIN PO SCH (08:05)
[2019-12-07] MEDS: APIXABAN 2.5 MG TAB PO SCH ×2 (08:05→20:39)
[2019-12-07] MEDS: FINASTERIDE 5 MG TAB PO SCH (08:05)
[2019-12-07] MEDS: ATORVASTATIN 40 MG TAB PO SCH (08:05)
[2019-12-07] MEDS: POLYETHYLENE (MIRALAX) 17 GM PACK PO SCH (08:05)
[2019-12-07] MEDS: ASCORBIC ACID 500 MG TAB PO SCH (08:05)
[2019-12-07] MEDS: VITAMIN B COMPLEX TAB PO SCH (08:05)
[2019-12-07] MEDS: AMIODARONE 200 MG TAB PO SCH (08:06)
[2019-12-07] MEDS: FOLIC ACID 400 MCG TAB PO SCH ×2 (08:06→20:39)
[2019-12-07] MEDS: CHOLECALCIFEROL 1,000 UNITS 25 MCG TAB PO SCH (08:06)
[2019-12-07] MEDS: FUROSEMIDE 40 MG TAB PO SCH (08:07)
--- NOTE | 2019-12-07 17:19 | Hospitalist Progress Note ---
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 Discussed with ophthalmology at [facility] -recommended close monitoring for now and monitor for signs of conjunctivitis, foreign body sensation of eye (if this were to develop consider erythromycin ointment or lubricating eye ointment) Completed the course of Valtrex during the hospital course Stable Hypotension at presentation Patient was initially hypotensive in ED with blood pressure 90s over 60s with improvement with 1 L of IVF. Has been on oral Lasix and metolazone also metoprolol 50 mg daily Read to be very hypotensive during physical therapy today Received 500 mL of normal saline bolus and will hold off metolazone and Lasix Decrease metoprolol to 25 mg once a day Has significant postural hypotension Will give cautious amount of intravenous fluid Medically not stable to be discharged We will continue to hold diuretics for now Still remains symptomatic with postural hypotension We will add small dose of midodrine Was advised to drink more fluid No more orthostatic changes Remains symptomatic when standing but the dizziness has been reasonably controlled Was advised to take extra time to start moving from sitting and/or lying position Clinically improved fall precaution (2) Left leg cellulitis: mild erythema and warmth to medial aspect left leg with scab inferiorly, resolved likely early development of cellulitis Completed the course of IV abx during the hospital stay Unstageable pressure injury, left heel pressure injury, POA wound care consult as well for L heel Continue daily wound care (3) Chronic systolic CHF (congestive heart failure): Does not have any signs or symptoms of fluid overload He is rather try with increasing BUN Hold off oral Lasix and metolazone for now Continue PT and OT Will monitor for any fluid overload And/or symptoms of fluid overload-denies any shortness of breath at rest CXR tomorrow morning-chest x-ray showed cardiomegaly and possible mild pulmonary congestion Will give 40 of Lasix intravenously and add his usual and diuretics from tomorrow No more orthostasis noted as of this morning Transfer to residential facility/rehab tomorrow No signs of fluid overload Continue with his usual diuretics but will limit to Lasix only (4) CAD (coronary artery disease): (5) Ischemic cardiomyopathy: pt with hx of CAD and CABG x 6 in 1996 He had recent echo LVEF < 20%, left ventricular cavity severely dilated and diffuse hypokinesis to akinesis, right ventricular cavity moderately dilated, right ventricular systolic function moderately reduced, aortic valve heavily calcified with severe , Severe mitral regurg, severe tricuspid regurg continue amiodarone, metoprolol, atorvastatin, Eliquis, Lasix and metolazone defib in place - no known shocks Patient was on ramipril -this was recently discontinued at [facility] during recent hospitalization secondary to hypotension His initial reason for coming to ED today was secondary to hypotension so will need to monitor blood pressure accordingly Daily weights, strict I's and O's (6) Chronic atrial fibrillation: Rate and rhythm controlled on amiodarone and metoprolol Continue Eliquis for thrombotic control Has been back on Eliquis (7) CKD (chronic kidney disease), stage III: baseline cr 1.2 bun/cr 30 and 1.23 monitor closely (8) Ventricular tachycardia: s/p cardiac defibrillator in place (9) DVT prophylaxis: continue eliquis Follow up: PCP Dr. Guido upon discharge waiting for placement to rehab Continue PT/OT Admission and Anticipated Discharge Date Admission Date: November 22, 2019 Subjective Pt was seen and examined Lying in bed with no distress Pt said that he is feeling much better he said that his strength his better Denies any chest pain, palpitation, dizziness and SOB Physical Exam Physical Exam: General- No acute distress Head- atraumatic Eyes- PERRL, EOMI, ENT- oropharynx clear Neck- supple, no JVD Lungs- clear to auscultation Heart- regular rhythm; no murmur Abdomen- normal bowel sounds, soft, nontender Extremities- no calf tenderness Neuro- alert, oriented x 3; PERRL, EOMI; no facial palsy; no dysarthria Skin- warm & dry Results & Data Results & Data ([facility]) Vital Signs (Past 12 Hours) Vital Signs Temp Pulse Pulse Resp BP BP Pulse Ox 12/07/19 15:58 36.5 C 80 18 100/63 99 12/07/19 15:09 74 12/07/19 11:17 36.6 C 79 18 96/65 L 100 12/07/19 07:45 36.5 C 80 16 101/63 100 (1) Herpes zoster Herpes zoster complications: without complications Qualified Code(s): B02.9 - Zoster without complications (2) CKD (chronic kidney disease), stage III Chronic kidney disease stage 3 subtype: unspecified whether 3a or 3b Qualified Code(s): N18.30 - Chronic kidney disease, stage 3 unspecified
[2019-12-07] MEDS: TAMSULOSIN HCL 0.4 MG CAP PO SCH (20:39)
[2019-12-08] MEDS: FOLIC ACID 400 MCG TAB PO SCH ×2 (07:50→21:04)
[2019-12-08] MEDS: APIXABAN 2.5 MG TAB PO SCH ×2 (07:50→21:05)
[2019-12-08] MEDS: MIDODRINE HCL 2.5 MG TAB PO SCH ×3 (07:50→17:36)
[2019-12-08] MEDS: SILODOSIN PO SCH (07:51)
[2019-12-08] MEDS: POLYETHYLENE (MIRALAX) 17 GM PACK PO SCH (07:51)
[2019-12-08] MEDS: FUROSEMIDE 40 MG TAB PO SCH (07:53)
[2019-12-08] MEDS: FINASTERIDE 5 MG TAB PO SCH (07:54)
[2019-12-08] MEDS: CHOLECALCIFEROL 1,000 UNITS 25 MCG TAB PO SCH (07:54)
[2019-12-08] MEDS: SENNA 8.6 MG TAB PO SCH ×2 (07:54→21:05)
[2019-12-08] MEDS: ATORVASTATIN 40 MG TAB PO SCH (07:54)
[2019-12-08] MEDS: AMIODARONE 200 MG TAB PO SCH (07:54)
[2019-12-08] MEDS: VITAMIN B COMPLEX TAB PO SCH (07:54)
[2019-12-08] MEDS: ASCORBIC ACID 500 MG TAB PO SCH (07:54)
[2019-12-08] MEDS: METOPROLOL SUCC 25MG EXT REL TAB PO SCH (08:45)
--- NOTE | 2019-12-08 19:38 | Hospitalist Progress Note ---
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 Discussed with ophthalmology at [facility] -recommended close monitoring for now and monitor for signs of conjunctivitis, foreign body sensation of eye (if this were to develop consider erythromycin ointment or lubricating eye ointment) Completed the course of Valtrex during the hospital course Stable Hypotension at presentation Patient was initially hypotensive in ED with blood pressure 90s over 60s with improvement with 1 L of IVF. Has been on oral Lasix and metolazone also metoprolol 50 mg daily Read to be very hypotensive during physical therapy today Received 500 mL of normal saline bolus and will hold off metolazone and Lasix Decrease metoprolol to 25 mg once a day Has significant postural hypotension Will give cautious amount of intravenous fluid Medically not stable to be discharged We will continue to hold diuretics for now Still remains symptomatic with postural hypotension We will add small dose of midodrine Was advised to drink more fluid No more orthostatic changes Remains symptomatic when standing but the dizziness has been reasonably controlled Was advised to take extra time to start moving from sitting and/or lying position Clinically improved fall precaution (2) Left leg cellulitis: mild erythema and warmth to medial aspect left leg with scab inferiorly, resolved likely early development of cellulitis Completed the course of IV abx during the hospital stay Unstageable pressure injury, left heel pressure injury, POA wound care consult as well for L heel Continue daily wound care (3) Chronic systolic CHF (congestive heart failure): Does not have any signs or symptoms of fluid overload He is rather try with increasing BUN Hold off oral Lasix and metolazone for now Continue PT and OT Will monitor for any fluid overload And/or symptoms of fluid overload-denies any shortness of breath at rest CXR tomorrow morning-chest x-ray showed cardiomegaly and possible mild pulmonary congestion Will give 40 of Lasix intravenously and add his usual and diuretics from tomorrow No more orthostasis noted as of this morning Transfer to long-term facility/rehab tomorrow No signs of fluid overload Continue with his usual diuretics but will limit to Lasix only (4) CAD (coronary artery disease): (5) Ischemic cardiomyopathy: pt with hx of CAD and CABG x 6 in 1996 He had recent echo LVEF < 20%, left ventricular cavity severely dilated and diffuse hypokinesis to akinesis, right ventricular cavity moderately dilated, right ventricular systolic function moderately reduced, aortic valve heavily calcified with severe , Severe mitral regurg, severe tricuspid regurg continue amiodarone, metoprolol, atorvastatin, Eliquis, Lasix and metolazone defib in place - no known shocks Patient was on ramipril -this was recently discontinued at [facility] during recent hospitalization secondary to hypotension His initial reason for coming to ED today was secondary to hypotension so will need to monitor blood pressure accordingly Daily weights, strict I's and O's (6) Chronic atrial fibrillation: Rate and rhythm controlled on amiodarone and metoprolol Continue Eliquis for thrombotic control Has been back on Eliquis (7) CKD (chronic kidney disease), stage III: baseline cr 1.2 bun/cr 30 and 1.23 monitor closely (8) Ventricular tachycardia: s/p cardiac defibrillator in place (9) DVT prophylaxis: continue eliquis Follow up: PCP Dr. Guido upon discharge waiting for placement to rehab Continue PT/OT Admission and Anticipated Discharge Date Admission Date: November 22, 2019 Subjective Pt was seen and examined Sitting in chair with no distress Pt said that he feels much better He said that he is ready to be discharge He said that his strength improves Waiting for insurance approval for placement denies any chest pain, palpitation and SOB Physical Exam Physical Exam: General- No acute distress Head- atraumatic Eyes- PERRL, EOMI, ENT- oropharynx clear Neck- supple, no JVD Lungs- clear to auscultation Heart- regular rhythm; no murmur Abdomen- normal bowel sounds, soft, nontender Extremities- no calf tenderness Neuro- alert, oriented x 3; PERRL, EOMI; no facial palsy; no dysarthria Skin- warm & dry Results & Data Results & Data ([facility]) Vital Signs (Past 12 Hours) Vital Signs Temp Pulse Pulse Resp BP BP Pulse Ox 12/08/19 15:28 36.5 C 81 19 111/67 100 12/08/19 15:27 80 10/22/20 11:37 100 12/08/19 11:25 36.6 C 81 16 113/70 100 (1) Herpes zoster Herpes zoster complications: without complications Qualified Code(s): B02.9 - Zoster without complications (2) CKD (chronic kidney disease), stage III Chronic kidney disease stage 3 subtype: unspecified whether 3a or 3b Qualified Code(s): N18.30 - Chronic kidney disease, stage 3 unspecified
[2019-12-08] MEDS: TAMSULOSIN HCL 0.4 MG CAP PO SCH (21:05)
[2019-12-09] MEDS: APIXABAN 2.5 MG TAB PO SCH ×2 (08:43→21:09)
[2019-12-09] MEDS: FOLIC ACID 400 MCG TAB PO SCH ×2 (08:43→21:09)
[2019-12-09] MEDS: METOPROLOL SUCC 25MG EXT REL TAB PO SCH (08:43)
[2019-12-09] MEDS: MIDODRINE HCL 2.5 MG TAB PO SCH ×3 (08:44→17:01)
[2019-12-09] MEDS: SENNA 8.6 MG TAB PO SCH ×2 (08:45→21:09)
[2019-12-09] MEDS: CHOLECALCIFEROL 1,000 UNITS 25 MCG TAB PO SCH (08:45)
[2019-12-09] MEDS: FINASTERIDE 5 MG TAB PO SCH (08:45)
[2019-12-09] MEDS: VITAMIN B COMPLEX TAB PO SCH (08:46)
[2019-12-09] MEDS: FUROSEMIDE 40 MG TAB PO SCH (08:47)
[2019-12-09] MEDS: ATORVASTATIN 40 MG TAB PO SCH (08:47)
[2019-12-09] MEDS: AMIODARONE 200 MG TAB PO SCH (08:47)
[2019-12-09] MEDS: POLYETHYLENE (MIRALAX) 17 GM PACK PO SCH (08:48)
[2019-12-09] MEDS: SILODOSIN PO SCH (08:49)
[2019-12-09] MEDS: ASCORBIC ACID 500 MG TAB PO SCH (08:49)
--- NOTE | 2019-12-09 21:03 | Hospitalist Progress Note ---
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 Discussed with ophthalmology at [facility] -recommended close monitoring for now and monitor for signs of conjunctivitis, foreign body sensation of eye (if this were to develop consider erythromycin ointment or lubricating eye ointment) Completed the course of Valtrex during the hospital course Stable Hypotension at presentation Patient was initially hypotensive in ED with blood pressure 90s over 60s with improvement with 1 L of IVF. Has been on oral Lasix and metolazone also metoprolol 50 mg daily Read to be very hypotensive during physical therapy today Received 500 mL of normal saline bolus and will hold off metolazone and Lasix Decrease metoprolol to 25 mg once a day Has significant postural hypotension Will give cautious amount of intravenous fluid Medically not stable to be discharged We will continue to hold diuretics for now Still remains symptomatic with postural hypotension We will add small dose of midodrine Was advised to drink more fluid No more orthostatic changes Remains symptomatic when standing but the dizziness has been reasonably controlled Was advised to take extra time to start moving from sitting and/or lying position Clinically improved fall precaution (2) Left leg cellulitis: mild erythema and warmth to medial aspect left leg with scab inferiorly, resolved likely early development of cellulitis Completed the course of IV abx during the hospital stay Unstageable pressure injury, left heel pressure injury, POA wound care consult as well for L heel Continue daily wound care (3) Chronic systolic CHF (congestive heart failure): Does not have any signs or symptoms of fluid overload He is rather try with increasing BUN Hold off oral Lasix and metolazone for now Continue PT and OT Will monitor for any fluid overload And/or symptoms of fluid overload-denies any shortness of breath at rest CXR tomorrow morning-chest x-ray showed cardiomegaly and possible mild pulmonary congestion Will give 40 of Lasix intravenously and add his usual and diuretics from tomorrow No more orthostasis noted as of this morning Transfer to custodial facility/rehab tomorrow No signs of fluid overload Continue with his usual diuretics but will limit to Lasix only (4) CAD (coronary artery disease): (5) Ischemic cardiomyopathy: pt with hx of CAD and CABG x 6 in 1996 He had recent echo LVEF < 20%, left ventricular cavity severely dilated and diffuse hypokinesis to akinesis, right ventricular cavity moderately dilated, right ventricular systolic function moderately reduced, aortic valve heavily calcified with severe , Severe mitral regurg, severe tricuspid regurg continue amiodarone, metoprolol, atorvastatin, Eliquis, Lasix and metolazone defib in place - no known shocks Patient was on ramipril -this was recently discontinued at [facility] during recent hospitalization secondary to hypotension His initial reason for coming to ED today was secondary to hypotension so will need to monitor blood pressure accordingly Daily weights, strict I's and O's (6) Chronic atrial fibrillation: Rate and rhythm controlled on amiodarone and metoprolol Continue Eliquis for thrombotic control Has been back on Eliquis (7) CKD (chronic kidney disease), stage III: baseline cr 1.2 bun/cr 30 and 1.23 monitor closely (8) Ventricular tachycardia: s/p cardiac defibrillator in place Ambulatory dysfunction Continue PT/OT Fall precaution I informed the physician from [facility] that pt is not safe to go home due to risk of fall an injury (9) DVT prophylaxis: continue eliquis Follow up: PCP Dr. Guido upon discharge waiting for placement to rehab Continue PT/OT Admission and Anticipated Discharge Date Admission Date: November 22, 2019 Subjective Pt was seen and examined Lying in bed with no distress Pt said that early today he felt sick He said that he is doing much better today Peer to peer reviewed done with provider from [facility] Pt was not able to approve for inpatient rehab [facility] put his case on hold and asked to resubmit it when getting update note from therapy to prove that patient is not safe to go home Denies any chest pain, palpitation, dizziness and fever Physical Exam Physical Exam: General- No acute distress Head- atraumatic Eyes- PERRL, EOMI, ENT- oropharynx clear Neck- supple, no JVD Lungs- clear to auscultation Heart- regular rhythm; no murmur Abdomen- normal bowel sounds, soft, nontender Extremities- no calf tenderness Neuro- alert, oriented x 3; PERRL, EOMI; no facial palsy; no dysarthria Skin- warm & dry Results & Data Results & Data ([facility]) Vital Signs (Past 12 Hours) Vital Signs Temp Pulse Resp BP BP Pulse Ox 12/09/19 20:35 36.5 C 81 18 109/67 95 12/09/19 15:33 36.3 C L 80 17 117/71 99 12/09/19 11:55 36.6 C 82 16 102/72 100 (1) Herpes zoster Herpes zoster complications: without complications Qualified Code(s): B02.9 - Zoster without complications (2) CKD (chronic kidney disease), stage III Chronic kidney disease stage 3 subtype: unspecified whether 3a or 3b Qualified Code(s): N18.30 - Chronic kidney disease, stage 3 unspecified
[2019-12-09] MEDS: TAMSULOSIN HCL 0.4 MG CAP PO SCH (21:09)
[2019-12-09] MEDS: ACETAMINOPHEN 325 MG TAB PO PRN (21:09)
[2019-12-10 07:20] LABS: Hemoglobin 10.8 g/dL (14.0-18.0); Mean Corpuscular Hemoglobin 29.8 pg (25-34); Mean Corpuscular Hgb Conc 30.9 g/dL (32-36); Mean Corpuscular Volume 96.7 fL (80-100); Mean Platelet Volume 10.2 fL (7.4-10.4); Platelet Count 152 K/uL (130-400); RDW Coefficient of Variation 17.7 % (11.5-14.5); RDW Standard Deviation 61.9 fL (36.4-46.3); Red Blood Count 3.62 M/uL (4.7-6.1); White Blood Count 3.71 K/uL (4.8-10.8)
[2019-12-10 08:12] LABS: BUN Creatinine Ratio 22.4 (10-20); Calcium 9.2 mg/dl (8.5-10.1); Creatinine Clr Calc Pharmacy 51.8 ml/min; Est GFR (African American) 80.9; Est GFR (Non-African American) 69.8; Potassium 4.2 mmol/L (3.5-5.1)
[2019-12-10] MEDS: FOLIC ACID 400 MCG TAB PO SCH ×2 (08:16→20:15)
[2019-12-10] MEDS: SENNA 8.6 MG TAB PO SCH ×2 (08:16→20:15)
[2019-12-10] MEDS: ASCORBIC ACID 500 MG TAB PO SCH (08:16)
[2019-12-10] MEDS: FINASTERIDE 5 MG TAB PO SCH (08:16)
[2019-12-10] MEDS: CHOLECALCIFEROL 1,000 UNITS 25 MCG TAB PO SCH (08:16)
[2019-12-10] MEDS: FUROSEMIDE 40 MG TAB PO SCH (08:16)
[2019-12-10] MEDS: VITAMIN B COMPLEX TAB PO SCH (08:16)
[2019-12-10] MEDS: ATORVASTATIN 40 MG TAB PO SCH (08:16)
[2019-12-10] MEDS: AMIODARONE 200 MG TAB PO SCH (08:16)
[2019-12-10] MEDS: APIXABAN 2.5 MG TAB PO SCH ×2 (08:16→20:15)
[2019-12-10] MEDS: SILODOSIN PO SCH (08:17)
[2019-12-10] MEDS: MIDODRINE HCL 2.5 MG TAB PO SCH ×3 (08:17→16:04)
[2019-12-10] MEDS: METOPROLOL SUCC 25MG EXT REL TAB PO SCH (08:17)
[2019-12-10] MEDS: POLYETHYLENE (MIRALAX) 17 GM PACK PO SCH (08:17)
--- NOTE | 2019-12-10 17:12 | Hospitalist Progress Note ---
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 Discussed with ophthalmology at [facility] -recommended close monitoring for now and monitor for signs of conjunctivitis, foreign body sensation of eye (if this were to develop consider erythromycin ointment or lubricating eye ointment) Completed the course of Valtrex during the hospital course Stable Hypotension at presentation Patient was initially hypotensive in ED with blood pressure 90s over 60s with improvement with 1 L of IVF. Has been on oral Lasix and metolazone also metoprolol 50 mg daily Read to be very hypotensive during physical therapy today Received 500 mL of normal saline bolus and will hold off metolazone and Lasix Decrease metoprolol to 25 mg once a day Has significant postural hypotension Will give cautious amount of intravenous fluid Medically not stable to be discharged We will continue to hold diuretics for now Still remains symptomatic with postural hypotension We will add small dose of midodrine Was advised to drink more fluid No more orthostatic changes Remains symptomatic when standing but the dizziness has been reasonably controlled Was advised to take extra time to start moving from sitting and/or lying position Clinically improved fall precaution (2) Left leg cellulitis: mild erythema and warmth to medial aspect left leg with scab inferiorly, resolved likely early development of cellulitis Completed the course of IV abx during the hospital stay Unstageable pressure injury, left heel pressure injury, POA wound care consult as well for L heel Continue daily wound care (3) Chronic systolic CHF (congestive heart failure): Does not have any signs or symptoms of fluid overload He is rather try with increasing BUN Hold off oral Lasix and metolazone for now Continue PT and OT Will monitor for any fluid overload And/or symptoms of fluid overload-denies any shortness of breath at rest CXR tomorrow morning-chest x-ray showed cardiomegaly and possible mild pulmonary congestion Will give 40 of Lasix intravenously and add his usual and diuretics from tomorrow No more orthostasis noted as of this morning Transfer to senior care facility/rehab tomorrow No signs of fluid overload Continue with his usual diuretics but will limit to Lasix only (4) CAD (coronary artery disease): (5) Ischemic cardiomyopathy: pt with hx of CAD and CABG x 6 in 1996 He had recent echo LVEF < 20%, left ventricular cavity severely dilated and diffuse hypokinesis to akinesis, right ventricular cavity moderately dilated, right ventricular systolic function moderately reduced, aortic valve heavily calcified with severe , Severe mitral regurg, severe tricuspid regurg continue amiodarone, metoprolol, atorvastatin, Eliquis, Lasix and metolazone defib in place - no known shocks Patient was on ramipril -this was recently discontinued at [facility] during recent hospitalization secondary to hypotension His initial reason for coming to ED today was secondary to hypotension so will need to monitor blood pressure accordingly Daily weights, strict I's and O's (6) Chronic atrial fibrillation: Rate and rhythm controlled on amiodarone and metoprolol Continue Eliquis for thrombotic control Has been back on Eliquis (7) CKD (chronic kidney disease), stage III: baseline cr 1.2 bun/cr 30 and 1.23 monitor closely (8) Ventricular tachycardia: s/p cardiac defibrillator in place Ambulatory dysfunction Continue PT/OT Fall precaution I informed the physician from [facility] that pt is not safe to go home due to risk of fall an injury (9) DVT prophylaxis: continue eliquis Follow up: PCP Dr. Guido upon discharge waiting for placement to rehab Continue PT/OT Admission and Anticipated Discharge Date Admission Date: November 22, 2019 Subjective Pt was seen and examined Lying in bed with no distress Pt said that he feels good he said that once he started to walk after a few steps, his leg feels tired Denies any chest pain, palpitation, dizziness and SOB Physical Exam Physical Exam: General- No acute distress Head- atraumatic Eyes- PERRL, EOMI, ENT- oropharynx clear Neck- supple, no JVD Lungs- clear to auscultation Heart- regular rhythm; no murmur Abdomen- normal bowel sounds, soft, nontender Extremities- no calf tenderness Neuro- alert, oriented x 3; PERRL, EOMI; no facial palsy; no dysarthria Skin- warm & dry Results & Data Results & Data ([facility]) Vital Signs (Past 12 Hours) Vital Signs Temp Pulse Pulse Resp BP BP Pulse Ox 12/10/19 15:47 36.5 C 81 20 102/64 100 12/10/19 12:13 36.7 C 80 18 97/57 L 96 12/10/19 07:12 80 12/10/19 07:09 36.5 C 79 20 109/62 96 (1) Herpes zoster Herpes zoster complications: without complications Qualified Code(s): B02.9 - Zoster without complications (2) CKD (chronic kidney disease), stage III Chronic kidney disease stage 3 subtype: unspecified whether 3a or 3b Qualified Code(s): N18.30 - Chronic kidney disease, stage 3 unspecified
[2019-12-10] MEDS: TAMSULOSIN HCL 0.4 MG CAP PO SCH (20:15)
[2019-12-11] MEDS: APIXABAN 2.5 MG TAB PO SCH ×2 (07:58→20:29)
[2019-12-11] MEDS: SENNA 8.6 MG TAB PO SCH ×2 (07:58→20:28)
[2019-12-11] MEDS: FOLIC ACID 400 MCG TAB PO SCH ×2 (07:58→20:29)
[2019-12-11] MEDS: AMIODARONE 200 MG TAB PO SCH (07:59)
[2019-12-11] MEDS: FINASTERIDE 5 MG TAB PO SCH (07:59)
[2019-12-11] MEDS: MIDODRINE HCL 2.5 MG TAB PO SCH ×3 (07:59→16:14)
[2019-12-11] MEDS: FUROSEMIDE 40 MG TAB PO SCH (08:00)
[2019-12-11] MEDS: METOPROLOL SUCC 25MG EXT REL TAB PO SCH (08:00)
[2019-12-11] MEDS: CHOLECALCIFEROL 1,000 UNITS 25 MCG TAB PO SCH (08:00)
[2019-12-11] MEDS: ASCORBIC ACID 500 MG TAB PO SCH (08:01)
[2019-12-11] MEDS: ATORVASTATIN 40 MG TAB PO SCH (08:01)
[2019-12-11] MEDS: VITAMIN B COMPLEX TAB PO SCH (08:01)
[2019-12-11] MEDS: SILODOSIN PO SCH (08:02)
[2019-12-11] MEDS: POLYETHYLENE (MIRALAX) 17 GM PACK PO SCH (08:08)
--- NOTE | 2019-12-11 18:16 | Hospitalist Progress Note ---
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 Discussed with ophthalmology at [facility] -recommended close monitoring for now and monitor for signs of conjunctivitis, foreign body sensation of eye (if this were to develop consider erythromycin ointment or lubricating eye ointment) Completed the course of Valtrex during the hospital course Stable Hypotension at presentation Patient was initially hypotensive in ED with blood pressure 90s over 60s with improvement with 1 L of IVF. Has been on oral Lasix and metolazone also metoprolol 50 mg daily Read to be very hypotensive during physical therapy today Received 500 mL of normal saline bolus and will hold off metolazone and Lasix Decrease metoprolol to 25 mg once a day Has significant postural hypotension Will give cautious amount of intravenous fluid Medically not stable to be discharged We will continue to hold diuretics for now Still remains symptomatic with postural hypotension We will add small dose of midodrine Was advised to drink more fluid No more orthostatic changes Remains symptomatic when standing but the dizziness has been reasonably controlled Was advised to take extra time to start moving from sitting and/or lying position Clinically improved fall precaution (2) Left leg cellulitis: mild erythema and warmth to medial aspect left leg with scab inferiorly, resolved likely early development of cellulitis Completed the course of IV abx during the hospital stay Unstageable pressure injury, left heel pressure injury, POA wound care consult as well for L heel Continue daily wound care (3) Ambulatory dysfunction: Recent admission for fall with multiple left-sided rib fractures Very high risk of fall that can lead to more injury and fracture since patient lives alone Peer to peer done last Thursday I informed the physician from [facility] that pt is not safe to go home due to risk of fall an injury Continue PT/OT PT recommended inpatient therapy Fall precaution (4) Chronic systolic CHF (congestive heart failure): Does not have any signs or symptoms of fluid overload He is rather try with increasing BUN Hold off oral Lasix and metolazone for now Continue PT and OT Will monitor for any fluid overload And/or symptoms of fluid overload-denies any shortness of breath at rest CXR tomorrow morning-chest x-ray showed cardiomegaly and possible mild pulmonary congestion Will give 40 of Lasix intravenously and add his usual and diuretics from tomorrow No more orthostasis noted as of this morning Transfer to nursing home facility/rehab tomorrow No signs of fluid overload Continue with his usual diuretics but will limit to Lasix only (5) CAD (coronary artery disease): (6) Ischemic cardiomyopathy: pt with hx of CAD and CABG x 6 in 1996 He had recent echo LVEF < 20%, left ventricular cavity severely dilated and diffuse hypokinesis to akinesis, right ventricular cavity moderately dilated, right ventricular systolic function moderately reduced, aortic valve heavily calcified with severe , Severe mitral regurg, severe tricuspid regurg continue amiodarone, metoprolol, atorvastatin, Eliquis, Lasix and metolazone defib in place - no known shocks Patient was on ramipril -this was recently [place] [facility] [place] recent hospitalization secondary to hypotension His initial reason for coming to ED today was secondary to hypotension so will need to monitor blood pressure accordingly Daily weights, strict I's and O's (7) Chronic atrial fibrillation: Rate and rhythm controlled on amiodarone and metoprolol Continue Eliquis for thrombotic control Has been back on Eliquis (8) CKD (chronic kidney disease), stage III: baseline cr 1.2 bun/cr 30 and 1.23 monitor closely (9) Ventricular tachycardia: s/p cardiac defibrillator in place (10) DVT prophylaxis: continue eliquis Follow up: PCP Dr. Guido upon discharge waiting for placement to rehab Continue PT/OT Admission and Anticipated Discharge Date Admission Date: November 22, 2019 Subjective Pt was seen and examined sitting in the recliner with no distress Pt said that he feels ok He said that his legs get tired after walking for a short distance Pt is very high risk for fall due to ambulatory dysfunction Denies any chest pain, palpitation, dizziness and SOB Physical Exam Physical Exam: General- No acute distress Head- atraumatic Eyes- PERRL, EOMI, ENT- oropharynx clear Neck- supple, no JVD Lungs- clear to auscultation Heart- regular rhythm; no murmur Abdomen- normal bowel sounds, soft, nontender Extremities- no calf tenderness Neuro- alert, oriented x 3; PERRL, EOMI; no facial palsy; no dysarthria Skin- warm & dry Results & Data Results & Data ([facility]) Vital Signs (Past 12 Hours) Vital Signs Temp Pulse Pulse Resp BP BP Pulse Ox 12/11/19 15:29 36.4 C L 74 18 105/60 91 12/11/19 14:20 80 12/11/19 11:50 36.4 C L 82 20 98/59 L 100 12/11/19 08:13 36.7 C 79 18 105/66 98 12/11/19 07:44 80 (1) Herpes zoster Herpes zoster complications: without complications Qualified Code(s): B02.9 - Zoster without complications (2) CKD (chronic kidney disease), stage III Chronic kidney disease stage 3 subtype: unspecified whether 3a or 3b Qualified Code(s): N18.30 - Chronic kidney disease, stage 3 unspecified
[2019-12-11] MEDS: TAMSULOSIN HCL 0.4 MG CAP PO SCH (20:28)
[2019-12-12] MEDS: ACETAMINOPHEN 325 MG TAB PO PRN (00:56)
[2019-12-12] MEDS: MIDODRINE HCL 2.5 MG TAB PO SCH ×3 (07:56→16:28)
[2019-12-12] MEDS: FUROSEMIDE 40 MG TAB PO SCH (07:56)
[2019-12-12] MEDS: AMIODARONE 200 MG TAB PO SCH (07:56)
[2019-12-12] MEDS: ATORVASTATIN 40 MG TAB PO SCH (07:57)
[2019-12-12] MEDS: SENNA 8.6 MG TAB PO SCH ×2 (07:57→20:18)
[2019-12-12] MEDS: APIXABAN 2.5 MG TAB PO SCH ×2 (07:57→20:17)
[2019-12-12] MEDS: CHOLECALCIFEROL 1,000 UNITS 25 MCG TAB PO SCH (07:58)
[2019-12-12] MEDS: FINASTERIDE 5 MG TAB PO SCH (07:58)
[2019-12-12] MEDS: ASCORBIC ACID 500 MG TAB PO SCH (07:58)
[2019-12-12] MEDS: VITAMIN B COMPLEX TAB PO SCH (07:58)
[2019-12-12] MEDS: METOPROLOL SUCC 25MG EXT REL TAB PO SCH (07:58)
[2019-12-12] MEDS: SILODOSIN PO SCH (07:59)
[2019-12-12] MEDS: POLYETHYLENE (MIRALAX) 17 GM PACK PO SCH (07:59)
[2019-12-12] MEDS: FOLIC ACID 400 MCG TAB PO SCH ×2 (08:00→20:17)
--- NOTE | 2019-12-12 19:14 | Hospitalist Progress Note ---
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 Discussed with ophthalmology at [facility] -recommended close monitoring for now and monitor for signs of conjunctivitis, foreign body sensation of eye (if this were to develop consider erythromycin ointment or lubricating eye ointment) Completed the course of Valtrex during the hospital course Stable Hypotension at presentation Patient was initially hypotensive in ED with blood pressure 90s over 60s with improvement with 1 L of IVF. Has been on oral Lasix and metolazone also metoprolol 50 mg daily Read to be very hypotensive during physical therapy today Received 500 mL of normal saline bolus and will hold off metolazone and Lasix Decrease metoprolol to 25 mg once a day Has significant postural hypotension Will give cautious amount of intravenous fluid Medically not stable to be discharged We will continue to hold diuretics for now Still remains symptomatic with postural hypotension We will add small dose of midodrine Was advised to drink more fluid No more orthostatic changes Remains symptomatic when standing but the dizziness has been reasonably controlled Was advised to take extra time to start moving from sitting and/or lying position Clinically improved fall precaution (2) Left leg cellulitis: mild erythema and warmth to medial aspect left leg with scab inferiorly, resolved likely early development of cellulitis Completed the course of IV abx during the hospital stay Unstageable pressure injury, left heel pressure injury, POA wound care consult as well for L heel Continue daily wound care (3) Ambulatory dysfunction: Recent admission for fall with multiple left-sided rib fractures Very high risk of fall that can lead to more injury and fracture since patient lives alone Peer to peer done last Thursday I informed the physician from [facility] that pt is not safe to go home due to risk of fall an injury Continue PT/OT PT recommended inpatient therapy Fall precaution waiting for placement (4) Chronic systolic CHF (congestive heart failure): Does not have any signs or symptoms of fluid overload He is rather try with increasing BUN Hold off oral Lasix and metolazone for now Continue PT and OT Will monitor for any fluid overload And/or symptoms of fluid overload-denies any shortness of breath at rest CXR tomorrow morning-chest x-ray showed cardiomegaly and possible mild pulmonary congestion Will give 40 of Lasix intravenously and add his usual and diuretics from tomorrow No more orthostasis noted as of this morning Transfer [facility]rehab tomorrow No signs of fluid overload Continue with his usual diuretics but will limit to Lasix only (5) CAD (coronary artery disease): (6) Ischemic cardiomyopathy: pt with hx of CAD and CABG x 6 in 1996 He had recent echo LVEF < 20%, left ventricular cavity severely dilated and d iffuse hypokinesis to akinesis, right ventricular cavity moderately dilated, right ventricular systolic function moderately reduced, aortic valve heavily calcified with severe , Severe mitral regurg, severe tricuspid regurg continue amiodarone, metoprolol, atorvastatin, Eliquis, Lasix and metolazone defib in place - no known shocks Patient was on ramipril -this was recently discontinued at [facility] during recent hospitalization secondary to hypotension His initial reason for coming to ED today was secondary to hypotension so will need to monitor blood pressure accordingly Daily weights, strict I's and O's (7) Chronic atrial fibrillation: Rate and rhythm controlled on amiodarone and metoprolol Continue Eliquis for thrombotic control Has been back on Eliquis (8) CKD (chronic kidney disease), stage III: baseline cr 1.2 bun/cr 30 and 1.23 monitor closely (9) Ventricular tachycardia: s/p cardiac defibrillator in place (10) DVT prophylaxis: continue eliquis Follow up: PCP Dr. Guido upon discharge waiting for placement to rehab Continue PT/OT Will transfer to medical Admission and Anticipated Discharge Date Admission Date: November 22, 2019 Subjective Pt was seen and examined Lying in bed with no distress Pt said that he feels ok Denies any chest pain, palpitation, dizziness and SOB Physical Exam Physical Exam: General- No acute distress Head- atraumatic Eyes- PERRL, EOMI, ENT- oropharynx clear Neck- supple, no JVD Lungs- clear to auscultation Heart- regular rhythm; no murmur Abdomen- normal bowel sounds, soft, nontender Extremities- no calf tenderness Neuro- alert, oriented x 3; PERRL, EOMI; no facial palsy; no dysarthria Skin- warm & dry Results & Data Results & Data ([facility]) Vital Signs (Past 12 Hours) Vital Signs Temp Pulse Pulse Resp BP Pulse Ox 12/12/19 19:02 36.6 C 80 18 111/58 L 98 12/12/19 15:30 79 12/12/19 15:17 36.3 C L 73 18 119/68 97 12/12/19 11:36 36.6 C 81 16 110/69 100 12/12/19 07:14 36.6 C 84 80 16 107/71 98 (1) Herpes zoster Herpes zoster complications: without complications Qualified Code(s): B02.9 - Zoster without complications (2) CKD (chronic kidney disease), stage III Chronic kidney disease stage 3 subtype: unspecified whether 3a or 3b Qual ified Code(s): N18.30 - Chronic kidney disease, stage 3 unspecified
[2019-12-12] MEDS: TAMSULOSIN HCL 0.4 MG CAP PO SCH (20:17)
[2019-12-13] MEDS: SENNA 8.6 MG TAB PO SCH ×2 (08:04→21:21)
[2019-12-13] MEDS: AMIODARONE 200 MG TAB PO SCH (08:04)
[2019-12-13] MEDS: APIXABAN 2.5 MG TAB PO SCH ×2 (08:04→21:21)
[2019-12-13] MEDS: METOPROLOL SUCC 25MG EXT REL TAB PO SCH (08:04)
[2019-12-13] MEDS: FOLIC ACID 400 MCG TAB PO SCH ×2 (08:04→21:21)
[2019-12-13] MEDS: ATORVASTATIN 40 MG TAB PO SCH (08:04)
[2019-12-13] MEDS: FINASTERIDE 5 MG TAB PO SCH (08:04)
[2019-12-13] MEDS: FUROSEMIDE 40 MG TAB PO SCH (08:04)
[2019-12-13] MEDS: POLYETHYLENE (MIRALAX) 17 GM PACK PO SCH (08:04)
[2019-12-13] MEDS: MIDODRINE HCL 2.5 MG TAB PO SCH ×3 (08:04→17:03)
[2019-12-13] MEDS: ASCORBIC ACID 500 MG TAB PO SCH (08:05)
[2019-12-13] MEDS: VITAMIN B COMPLEX TAB PO SCH (08:05)
[2019-12-13] MEDS: CHOLECALCIFEROL 1,000 UNITS 25 MCG TAB PO SCH (08:05)
[2019-12-13] MEDS: SILODOSIN PO SCH (08:05)
--- NOTE | 2019-12-13 17:17 | Hospitalist Progress Note ---
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 D[facility] with ophthalmology [facility] -recommended close monitoring for now and monitor for signs of conjunctivitis, foreign body sensation of eye (if this were to develop consider erythromycin ointment or lubricating eye ointment) Completed the course of Valtrex during the hospital course Stable Hypotension at presentation Patient was initially hypotensive in ED with blood pressure 90s over 60s with improvement with 1 L of IVF. Has been on oral Lasix and metolazone also metoprolol 50 mg daily Read to be very hypotensive during physical therapy today Received 500 mL of normal saline bolus and will hold off metolazone and Lasix Decrease metoprolol to 25 mg once a day Has significant postural hypotension Will give cautious amount of intravenous fluid Medically not stable to be discharged We will continue to hold diuretics for now Still remains symptomatic with postural hypotension We will add small dose of midodrine Was advised to drink more fluid No more orthostatic changes Remains symptomatic when standing but the dizziness has been reasonably controlled Was advised to take extra time to start moving from sitting and/or lying position Clinically improved fall precaution (2) Left leg cellulitis: mild erythema and warmth to medial aspect left leg with scab inferiorly, resolved likely early development of cellulitis Completed the course of IV abx during the hospital stay Unstageable pressure injury, left heel pressure injury, POA wound care consult as well for L heel Continue daily wound care (3) Ambulatory dysfunction: Recent admission for fall with multiple left-sided rib fractures Very high risk of fall that can lead to more injury and fracture since patient lives alone Peer to peer done last Thursday I informed the physician from [facility] that pt is not safe to go home due to risk of fall an injury Continue PT/OT Pt knee lock up today where he was unable to move it Pt is not safe to go home due to risk of fall and injury Physical therapy recommended inpatient therapy Continue Fall precaution Waiting for placement (4) Chronic systolic CHF (congestive heart failure): Does not have any signs or symptoms of fluid overload He is rather try with increasing BUN Hold off oral Lasix and metolazone for now Continue PT and OT Will monitor for any fluid overload And/or symptoms of fluid overload-denies any shortness of breath at rest CXR tomorrow morning-chest x-ray showed cardiomegaly and possible mild pulmonary congestion Will give 40 of Lasix intravenously and add his usual and diuretics from tomorrow No more orthostasis noted as of this morning Transfer [facility]hab tomorrow No signs of fluid overload Continue with his usual diuretics but will limit to Lasix only (5) CAD (coronary artery disease): (6) Ischemic cardiomyopathy: pt with hx of CAD and CABG x 6 in 1996 He had recent echo LVEF < 20%, left ventricular cavity severely dilated and diffuse hypokinesis to akinesis, right ventricular cavity moderately dilated, right ventricular systolic function moderately reduced, aortic valve heavily calcified with severe , Severe mitral regurg, severe tricuspid regurg continue amiodarone, metoprolol, atorvastatin, Eliquis, Lasix and metolazone defib in place - no known shocks Patient was on ramipril -this was recently discontinued at [facility] during recent hospitalization secondary to hypotension His initial reason for coming to ED today was secondary to hypotension so will need to monitor blood pressure accordingly Daily weights, strict I's and O's (7) Chronic atrial fibrillation: Rate and rhythm controlled on amiodarone and metoprolol Continue Eliquis for thrombotic control Has been back on Eliquis (8) CKD (chronic kidney disease), stage III: baseline cr 1.2 bun/cr 30 and 1.23 monitor closely (9) Ventricular tachycardia: s/p cardiac defibrillator in place (10) DVT prophylaxis: continue eliquis Follow up: PCP Dr. Guido upon discharge waiting for placement to rehab Continue PT/OT Admission and Anticipated Discharge Date Admission Date: November 22, 2019 Subjective Pt was seen and examined. Sitting in chair with no distress Pt said that his left knee was locked today and was not able to bend his knee Nurse said that she had to move the leg for him to help him to move the left knee Pt continues to be unsteady on his feet and continue requiring therapy He is very high risk of fall due to his unsteady gait and not safe to go home Denies any chest pain, palpitation, dizziness and SOB Physical Exam Physical Exam: General- No acute distress Head- atraumatic Eyes- PERRL, EOMI, ENT- oropharynx clear Neck- supple, no JVD Lungs- clear to auscultation Heart- regular rhythm; no murmur Abdomen- normal bowel sounds, soft, nontender Extremities- no calf tenderness Neuro- alert, oriented x 3; PERRL, EOMI; no facial palsy; no dysarthria Skin- warm & dry Results & Data Results & Data ([facility]) Vital Signs (Past 12 Hours) Vital Signs Temp Pulse Resp BP BP Pulse Ox 12/13/19 11:00 36.5 C 82 18 117/61 97 12/13/19 07:00 36.4 C L 81 16 115/69 92 (1) Herpes zoster Herpes zoster complications: without complications Qualified Code(s): B02.9 - Zoster without complications (2) CKD (chronic kidney disease), stage III Chronic kidney disease stage 3 subtype: unspecified whether 3a or 3b Qualified Code(s): N18.30 - Chronic kidney disease, stage 3 unspecified
[2019-12-13] MEDS: TAMSULOSIN HCL 0.4 MG CAP PO SCH (21:21)
[2019-12-14] MEDS: SENNA 8.6 MG TAB PO SCH ×2 (08:34→20:06)
[2019-12-14] MEDS: CHOLECALCIFEROL 1,000 UNITS 25 MCG TAB PO SCH (08:34)
[2019-12-14] MEDS: VITAMIN B COMPLEX TAB PO SCH (08:34)
[2019-12-14] MEDS: AMIODARONE 200 MG TAB PO SCH (08:34)
[2019-12-14] MEDS: FINASTERIDE 5 MG TAB PO SCH (08:35)
[2019-12-14] MEDS: APIXABAN 2.5 MG TAB PO SCH ×2 (08:35→20:06)
[2019-12-14] MEDS: FUROSEMIDE 40 MG TAB PO SCH (08:35)
[2019-12-14] MEDS: FOLIC ACID 400 MCG TAB PO SCH ×2 (08:35→20:06)
[2019-12-14] MEDS: METOPROLOL SUCC 25MG EXT REL TAB PO SCH (08:36)
[2019-12-14] MEDS: MIDODRINE HCL 2.5 MG TAB PO SCH ×3 (08:36→17:55)
[2019-12-14] MEDS: ATORVASTATIN 40 MG TAB PO SCH (08:36)
[2019-12-14] MEDS: ASCORBIC ACID 500 MG TAB PO SCH (08:36)
[2019-12-14] MEDS: SILODOSIN PO SCH (08:37)
[2019-12-14] MEDS: POLYETHYLENE (MIRALAX) 17 GM PACK PO SCH (08:41)
--- NOTE | 2019-12-14 10:31 | Hospitalist Progress Note ---
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 Was found to have herpes zoster of left ophthalmic branch of trigeminal Previous Provider discussed with ophthalmology at [facility] who recommended close monitoring for now and monitor for signs of conjunctivitis, foreign body sensation of eye (if this were to develop consider erythromycin ointment or lubricating eye ointment) Completed the course of Valtrex during the hospital course Stable Hypotension at presentation Patient was initially hypotensive in ED with blood pressure 90s over 60s with improvement with 1 L of IVF. Had been on oral Lasix and metolazone also metoprolol 50 mg daily Metoprolol was decreased to 25 mg once a day Has significant postural hypotension Lasix has been resumed but metolazone still on hold Was started on low dose midodrine Was advised to drink more fluid No more orthostatic changes reported per Previous provider Remains symptomatic with dizziness especially when standing though slightly improved compared to on admission Orthostatic dizziness likely related to ischemic cardiomyopathy with reduced EF (+/- med effect) Was advised to take extra time to start moving from sitting and/or lying position Fall precaution BP currently controlled (2) Left leg cellulitis: Mild erythema and warmth to medial aspect left leg with scab inferiorly, resolved Likely early development of cellulitis Completed the course of IV abx during the hospital stay Unstageable pressure injury, left heel pressure injury, POA Continue wound care (3) Ambulatory dysfunction: Recent admission for fall with multiple left-sided rib fractures Very high risk of fall that can lead to more injury and fracture since patient lives alone Peer to peer done last Thursday Dr Blue informed the physician from [facility] that pt is not safe to go home due to risk of fall an injury Continue PT/OT Physical therapy recommended inpatient therapy Continue Fall precaution With patient's ambulatory dysfunction, dizziness, history of recurrent falls, I agree that this is very high risk for fall especially since he lives alone at home. BP is currently controlled (4) Chronic systolic CHF (congestive heart failure): Does not have any signs or symptoms of fluid overload Continue PT and OT Will monitor for any fluid overload And/or symptoms of fluid overload Continue lasix for now Metolazone still on hold No signs of fluid overload (5) CAD (coronary artery disease): (6) Ischemic cardiomyopathy: Hx of CAD and CABG x 6 in 1996 He had recent echo LVEF < 20%, left ventricular cavity severely dilated and diffuse hypokinesis to akinesis, right ventricular cavity moderately dilated, right ventricular systolic function moderately reduced, aortic valve heavily calcified with severe , Severe mitral regurg, severe tricuspid regurg continue amiodarone, metoprolol, atorvastatin, Eliquis, Lasix and metolazone defib in place - no known shocks Patient was on ramipril -this was recently discontinued at [facility] during recent hospitalization secondary to hypotension (7) Chronic atrial fibrillation: Rate and rhythm controlled on amiodarone and metoprolol Continue Eliquis for thrombotic control Has been back on Eliquis (8) CKD (chronic kidney disease), stage III: Baseline cr 1.2 Last Cr is 1 (9) Ventricular tachycardia: s/p cardiac defibrillator in place (10) DVT prophylaxis: continue eliquis Follow up: PCP Dr. Guido upon discharge waiting for placement to rehab Will do peer to peer today Continue PT/OT Admission and Anticipated Discharge Date Admission Date: November 22, 2019 Subjective Patient seen and examined Laying in bed without any distress. Still reports dizziness on walking Reported his knees and hip locked up yesterday and he could not get up from bed for sometime Denied any chest pain, SOB, cough Denied any diarrhea, abd pain, constipation, nausea, vomiting Denied any fevers, chills Denied any palpitations Denied any dysuria, freq, urgency Physical Exam Constitutional: + well hydrated; no acute distress Eyes: PERRL, conjunctivae normal, anicteric sclerae ENMT: external ear and nose normal, oropharynx normal Respiratory: normal respiratory effort, lungs clear to auscultation Cardiovascular: Rate/Rhythm: regular rate and regular rhythm S1 S2. No pedal edema Gastrointestinal (Abdomen): normal bowel sounds, soft, nontender, no hepatosplenomegaly Musculoskeletal: Normal passive ROM across both knees Neurologic: PERRL, EOMI, accommodation nl, no face palsy, no dysarthria Psychiatric: A+Ox3, euthymic affect Results & Data Results & Data ([facility]) Vital Signs (Past 12 Hours) Vital Signs Temp Pulse Resp BP Pulse Ox 12/14/19 07:22 36.4 C L 82 18 101/64 94 12/13/19 22:56 36.5 C 83 18 112/73 98 (1) Herpes zoster Herpes zoster complications: without complications Qualified Code(s): B02.9 - Zoster without complications (2) CKD (chronic kidney disease), stage III Chronic kidney disease stage 3 subtype: unspecified whether 3a or 3b Qualified Code(s): N18.30 - Chronic kidney disease, stage 3 unspecified
[2019-12-14] MEDS: TAMSULOSIN HCL 0.4 MG CAP PO SCH (20:06)
[2019-12-15] MEDS: FUROSEMIDE 40 MG TAB PO SCH (07:52)
[2019-12-15] MEDS: ATORVASTATIN 40 MG TAB PO SCH (07:53)
[2019-12-15] MEDS: MIDODRINE HCL 2.5 MG TAB PO SCH ×3 (07:53→17:14)
[2019-12-15] MEDS: VITAMIN B COMPLEX TAB PO SCH (07:53)
[2019-12-15] MEDS: ASCORBIC ACID 500 MG TAB PO SCH (07:54)
[2019-12-15] MEDS: CHOLECALCIFEROL 1,000 UNITS 25 MCG TAB PO SCH (07:54)
[2019-12-15] MEDS: AMIODARONE 200 MG TAB PO SCH (07:54)
[2019-12-15] MEDS: FINASTERIDE 5 MG TAB PO SCH (07:55)
[2019-12-15] MEDS: METOPROLOL SUCC 25MG EXT REL TAB PO SCH (07:55)
[2019-12-15] MEDS: SENNA 8.6 MG TAB PO SCH ×2 (07:55→20:10)
[2019-12-15] MEDS: FOLIC ACID 400 MCG TAB PO SCH ×2 (07:56→20:11)
[2019-12-15] MEDS: APIXABAN 2.5 MG TAB PO SCH ×2 (07:56→20:11)
[2019-12-15] MEDS: SILODOSIN PO SCH (07:56)
[2019-12-15] MEDS: POLYETHYLENE (MIRALAX) 17 GM PACK PO SCH (07:59)
--- NOTE | 2019-12-15 10:16 | Hospitalist Progress Note ---
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 Was found to have herpes zoster of left ophthalmic branch of trigeminal Previous Provider discussed with ophthalmology at [facility] who recommended close monitoring for now and monitor for signs of conjunctivitis, foreign body sensation of eye (if this were to develop consider erythromycin ointment or lubricating eye ointment) Completed the course of Valtrex during the hospital course Stable Hypotension at presentation Patient was initially hypotensive in ED with blood pressure 90s over 60s with improvement with 1 L of IVF. Had been on oral Lasix and metolazone also metoprolol 50 mg daily Metoprolol was decreased to 25 mg once a day Has significant postural hypotension Lasix has been resumed but metolazone still on hold Was started on low dose midodrine Was advised to drink more fluid No more orthostatic changes reported per Previous provider Remains symptomatic with dizziness especially when standing though slightly improved compared to on admission Orthostatic dizziness likely related to ischemic cardiomyopathy with reduced EF (+/- med effect) Continue to advise on fall mitigation strategies such as taking extra time to start moving from sitting and/or lying position Fall precaution BP currently runs in 90s -100s systolic (2) Left leg cellulitis: Mild erythema and warmth to medial aspect left leg with scab inferiorly, resolved Likely early development of cellulitis Completed the course of IV abx during the hospital stay Unstageable pressure injury, left heel pressure injury, POA Continue wound care (3) Ambulatory dysfunction: Recent admission for fall with multiple left-sided rib fractures Very high risk of fall that can lead to more injury and fracture since patient lives alone Peer to peer done last Thursday Dr Blue informed the physician from [facility] that pt is not safe to go home due to risk of fall an injury Continue PT/OT Physical therapy recommended inpatient therapy Continue Fall precaution With patient's ambulatory dysfunction, dizziness, history of recurrent falls, I agree that this is very high risk for fall especially since he lives alone at home. (4) Chronic systolic CHF (congestive heart failure): Does not have any signs or symptoms of fluid overload Continue PT and OT Will monitor for any fluid overload And/or symptoms of fluid overload Continue lasix for now Metolazone still on hold No signs of fluid overload (5) CAD (coronary artery disease): (6) Ischemic cardiomyopathy: Hx of CAD and CABG x 6 in 1996 He had recent echo LVEF < 20%, left ventricular cavity severely dilated and diffuse hypokinesis to akinesis, right ventricular cavity moderately dilated, right ventricular systolic function moderately reduced, aortic valve heavily calcified with severe , Severe mitral regurg, severe tricuspid regurg continue amiodarone, metoprolol, atorvastatin, Eliquis defib in place - no known shocks Patient was on ramipril -this was recently discontinued at [facility] during recent hospitalization secondary to hypotension Continue lasix. Appears euvolemic right now. Continue to hold metolazone (7) Chronic atrial fibrillation: Rate and rhythm controlled on amiodarone and metoprolol Continue Eliquis for thrombotic control Has been back on Eliquis (8) CKD (chronic kidney disease), stage III: Baseline cr 1.2 Last Cr is 1 (9) Ventricular tachycardia: s/p cardiac defibrillator in place (10) DVT prophylaxis: continue eliquis Follow up: PCP Dr. Guido upon discharge Did peer to peer yesterday. Rehab request was denied. I informed the patient's daughter yesterday Updated CM today who informed me that daughter appealed the decision Will continue hospital care until outcome of appeal Admission and Anticipated Discharge Date Admission Date: November 22, 2019 Subjective Patient seen and examined Patient reports no new complaints Reported mild dizziness only when he went to use the rest room earlier today Physical Exam Constitutional: + well hydrated; no acute distress Eyes: PERRL, conjunctivae normal, anicteric sclerae ENMT: external ear and nose normal, oropharynx normal Respiratory: normal respiratory effort, lungs clear to auscultation Cardiovascular: Rate/Rhythm: regular rate and regular rhythm S1 S2. No pedal edema Gastrointestinal (Abdomen): normal bowel sounds, soft, nontender, no hepatosplenomegaly Musculoskeletal: Unstageable ulcer on left heel with clean dressing Neurologic: PERRL, EOMI, accommodation nl, no face palsy, no dysarthria Psychiatric: A+Ox3, euthymic affect Results & Data Results & Data ([facility]) Vital Signs (Past 12 Hours) Vital Signs Temp Pulse Resp BP Pulse Ox 12/15/19 08:27 36.7 C 80 18 96/61 L 97 12/14/19 23:39 36.6 C 80 18 104/56 L 99 (1) Herpes zoster Herpes zoster complications: without complications Qualified Code(s): B02.9 - Zoster without complications (2) CKD (chronic kidney disease), stage III Chronic kidney disease stage 3 subtype: unspecified whether 3a or 3b Qualified Code(s): N18.30 - Chronic kidney disease, stage 3 unspecified
[2019-12-15] MEDS: TAMSULOSIN HCL 0.4 MG CAP PO SCH (20:11)
[2019-12-16 07:50] LABS: BUN Creatinine Ratio 30.8 (10-20); Calcium 9.2 mg/dl (8.5-10.1); Creatinine Clr Calc Pharmacy 53.6 ml/min; Est GFR (African American) 87.2; Est GFR (Non-African American) 75.2
[2019-12-16] MEDS: MIDODRINE HCL 2.5 MG TAB PO SCH ×3 (09:11→17:30)
[2019-12-16] MEDS: CHOLECALCIFEROL 1,000 UNITS 25 MCG TAB PO SCH (09:12)
[2019-12-16] MEDS: ASCORBIC ACID 500 MG TAB PO SCH (09:12)
[2019-12-16] MEDS: METOPROLOL SUCC 25MG EXT REL TAB PO SCH (09:12)
[2019-12-16] MEDS: VITAMIN B COMPLEX TAB PO SCH (09:12)
[2019-12-16] MEDS: ATORVASTATIN 40 MG TAB PO SCH (09:13)
[2019-12-16] MEDS: APIXABAN 2.5 MG TAB PO SCH ×2 (09:13→20:49)
[2019-12-16] MEDS: FINASTERIDE 5 MG TAB PO SCH (09:13)
[2019-12-16] MEDS: AMIODARONE 200 MG TAB PO SCH (09:13)
[2019-12-16] MEDS: FUROSEMIDE 40 MG TAB PO SCH (09:13)
[2019-12-16] MEDS: SENNA 8.6 MG TAB PO SCH ×2 (09:14→20:49)
[2019-12-16] MEDS: SILODOSIN PO SCH (09:14)
[2019-12-16] MEDS: FOLIC ACID 400 MCG TAB PO SCH ×2 (09:14→20:49)
[2019-12-16] MEDS: POLYETHYLENE (MIRALAX) 17 GM PACK PO SCH (09:20)
--- NOTE | 2019-12-16 10:09 | Hospitalist Progress Note ---
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 Was found to have herpes zoster of left ophthalmic branch of trigeminal Previous Provider discussed with ophthalmology at [facility] who recommended close monitoring for now and monitor for signs of conjunctivitis, foreign body sensation of eye (if this were to develop consider erythromycin ointment or lubricating eye ointment) Completed the course of Valtrex during the hospital course Stable Hypotension at presentation Patient was initially hypotensive in ED with blood pressure 90s over 60s with improvement with 1 L of IVF. Had been on oral Lasix and metolazone also metoprolol 50 mg daily Metoprolol was decreased to 25 mg once a day Has significant postural hypotension Lasix has been resumed but metolazone still on hold Was started on low dose midodrine Was advised to drink more fluid No more orthostatic changes reported per Previous provider Remains symptomatic with dizziness especially when standing though slightly improved compared to on admission Orthostatic dizziness likely related to ischemic cardiomyopathy with reduced EF (+/- med effect) Continue to advise on fall mitigation strategies such as taking extra time to start moving from sitting and/or lying position Fall precaution BP currently runs in 90s -100s systolic (2) Left leg cellulitis: Mild erythema and warmth to medial aspect left leg with scab inferiorly, resolved Likely early development of cellulitis Completed the course of IV abx during the hospital stay Unstageable pressure injury, left heel pressure injury, POA Continue wound care (3) Ambulatory dysfunction: Recent admission for fall with multiple left-sided rib fractures Very high risk of fall that can lead to more injury and fracture since patient lives alone Peer to peer done last Thursday Dr Blue informed the physician from [facility] that pt is not safe to go home due to risk of fall an injury Continue PT/OT while inpatient Physical therapy recommended inpatient therapy Continue Fall precaution With patient's ambulatory dysfunction, dizziness, history of recurrent falls, I agree that this is very high risk for fall especially since he lives alone at home. (4) Chronic systolic CHF (congestive heart failure): Does not have any signs or symptoms of fluid overload Continue PT and OT Will monitor for any fluid overload And/or symptoms of fluid overload Continue lasix for now Metolazone still on hold No signs of fluid overload (5) CAD (coronary artery disease): (6) Ischemic cardiomyopathy: Hx of CAD and CABG x 6 in 1996 He had recent echo LVEF < 20%, left ventricular cavity severely dilated and diffuse hypokinesis to akinesis, right ventricular cavity moderately dilated, right ventricular systolic function moderately reduced, aortic valve heavily calcified with severe , Severe mitral regurg, severe tricuspid regurg continue amiodarone, metoprolol, atorvastatin, Eliquis defib in place - no known shocks Patient was on ramipril -this was recently discontinued at [facility] during recent hospitalization secondary to hypotension Continue lasix. Appears euvolemic right now. Continue to hold metolazone (7) Chronic atrial fibrillation: Rate and rhythm controlled on amiodarone and metoprolol Continue Eliquis (8) CKD (chronic kidney disease), stage III: Baseline cr 1.2 Cr is 0.94 (9) Ventricular tachycardia: s/p cardiac defibrillator in place (10) DVT prophylaxis: continue eliquis Follow up: PCP Dr. Guido upon discharge Did peer to peer on 12/13. Rehab request was denied. I informed the patient's daughter Daughter appealed the decision Waiting on appeal outcome Will continue hospital care Admission and Anticipated Discharge Date Admission Date: November 22, 2019 Subjective Patient seen and examined Patient has no new complaints today Physical Exam Constitutional: + well hydrated; no acute distress Eyes: PERRL, conjunctivae normal, anicteric sclerae ENMT: external ear and nose normal, oropharynx normal Respiratory: normal respiratory effort, lungs clear to auscultation Cardiovascular: Rate/Rhythm: regular rate and regular rhythm Gastrointestinal (Abdomen): normal bowel sounds, soft, nontender, no hepatosplenomegaly Musculoskeletal: Unstageable ulcer on left heel with clean dressing Neurologic: PERRL, EOMI, accommodation nl, no face palsy, no dysarthria Psychiatric: A+Ox3, euthymic affect Results & Data Results & Data ([facility]) Vital Signs (Past 12 Hours) Vital Signs Temp Pulse Resp BP Pulse Ox 12/16/19 09:11 106/58 L 12/16/19 07:31 36.5 C 80 18 99/58 L 95 12/16/19 04:35 36.5 C 83 18 110/63 96 Laboratory Results Laboratory Results - last 24 hr 12/16/19 06:17 Sodium 139 Potassium 4.0 Chloride 97 L Carbon Dioxide 42 H* Anion Gap 0 L BUN 29 H Creatinine 0.94 Est Cr Clr Drug Dosing 53.6 Est GFR ( Amer) 87.2 Est GFR (Non-Af Amer) 75.2 BUN/Creatinine Ratio 30.8 H Glucose 80 Calcium 9.2 (1) Herpes zoster Herpes zoster complications: without complications Qualified Code(s): B02.9 - Zoster without complications (2) CKD (chronic kidney disease), stage III Chronic kidney disease stage 3 subtype: unspecified whether 3a or 3b Qualified Code(s): N18.30 - Chronic kidney disease, stage 3 unspecified
[2019-12-16] MEDS: TAMSULOSIN HCL 0.4 MG CAP PO SCH (20:49)
[2019-12-17] MEDS: FUROSEMIDE 40 MG TAB PO SCH (09:05)
[2019-12-17] MEDS: SENNA 8.6 MG TAB PO SCH ×2 (09:06→21:14)
[2019-12-17] MEDS: FOLIC ACID 400 MCG TAB PO SCH ×2 (09:06→21:15)
[2019-12-17] MEDS: APIXABAN 2.5 MG TAB PO SCH ×2 (09:07→21:14)
[2019-12-17] MEDS: VITAMIN B COMPLEX TAB PO SCH (09:07)
[2019-12-17] MEDS: AMIODARONE 200 MG TAB PO SCH (09:07)
[2019-12-17] MEDS: FINASTERIDE 5 MG TAB PO SCH (09:07)
[2019-12-17] MEDS: MIDODRINE HCL 2.5 MG TAB PO SCH ×3 (09:07→16:56)
[2019-12-17] MEDS: METOPROLOL SUCC 25MG EXT REL TAB PO SCH (09:08)
[2019-12-17] MEDS: ASCORBIC ACID 500 MG TAB PO SCH (09:08)
[2019-12-17] MEDS: CHOLECALCIFEROL 1,000 UNITS 25 MCG TAB PO SCH (09:08)
[2019-12-17] MEDS: ATORVASTATIN 40 MG TAB PO SCH (09:08)
[2019-12-17] MEDS: SILODOSIN PO SCH (09:09)
[2019-12-17] MEDS: POLYETHYLENE (MIRALAX) 17 GM PACK PO SCH (09:13)
--- NOTE | 2019-12-17 09:59 | Hospitalist Progress Note ---
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 Was found to have herpes zoster of left ophthalmic branch of trigeminal Previous Provider discussed with ophthalmology at [facility] who recommended close monitoring for now and monitor for signs of conjunctivitis, foreign body sensation of eye (if this were to develop consider erythromycin ointment or lubricating eye ointment) Completed the course of Valtrex during the hospital course Stable Hypotension at presentation Patient was initially hypotensive in ED with blood pressure 90s over 60s with improvement with 1 L of IVF. Had been on oral Lasix and metolazone also metoprolol 50 mg daily Metoprolol was decreased to 25 mg once a day Has significant postural hypotension Lasix has been resumed but metolazone still on hold Was started on low dose midodrine Was advised to drink more fluid No more orthostatic changes reported with BP Remains symptomatic with dizziness especially when standing though slightly improved compared to on admission Orthostatic dizziness likely related to ischemic cardiomyopathy with reduced EF (+/- med effect) Continue to advise on fall mitigation strategies such as taking extra time to start moving from sitting and/or lying position Fall precaution BP currently runs in 90s -100s systolic (2) Left leg cellulitis: Mild erythema and warmth to medial aspect left leg with scab inferiorly, resolved Likely early development of cellulitis Completed the course of IV abx during the hospital stay Unstageable pressure injury, left heel pressure injury, POA Continue wound care (3) Ambulatory dysfunction: Recent admission for fall with multiple left-sided rib fractures Very high risk of fall that can lead to more injury and fracture since patient lives alone Peer to peer done last Thursday Dr Blue informed the physician from [facility] that pt is not safe to go home due to risk of fall an injury Continue PT/OT while inpatient Physical therapy recommended inpatient therapy Continue Fall precaution With patient's ambulatory dysfunction, dizziness, history of recurrent falls, I agree that this is very high risk for fall especially since he lives alone at home. (4) Chronic systolic CHF (congestive heart failure): Does not have any signs or symptoms of fluid overload Continue PT and OT Will monitor for any fluid overload And/or symptoms of fluid overload Continue lasix for now Metolazone still on hold. May continue to hold this on discharge until follow up with his instructional developer No signs of fluid overload (5) CAD (coronary artery disease): (6) Ischemic cardiomyopathy: Hx of CAD and CABG x 6 in 1996 He had recent echo LVEF < 20%, left ventricular cavity severely dilated and diffuse hypokinesis to akinesis, right ventricular cavity moderately dilated, right ventricular systolic function moderately reduced, aortic valve heavily calcified with severe , Severe mitral regurg, severe tricuspid regurg continue amiodarone, metoprolol, atorvastatin, Eliquis defib in place - no known shocks Patient was on ramipril [place] [facility] secondary to hypotension Continue lasix. Appears euvolemic right now. Continue to hold metolazone (7) Chronic atrial fibrillation: Rate and rhythm controlled on amiodarone and metoprolol Continue Eliquis (8) CKD (chronic kidney disease), stage III: Baseline cr 1.2 Last Cr is 0.94 (9) Ventricular tachycardia: s/p cardiac defibrillator in place (10) DVT prophylaxis: continue eliquis Follow up: PCP Dr. Guido upon discharge Did peer to peer on 12/13. Rehab request was denied. I informed the patient's daughter Daughter appealed the decision Still awaiting result of appeal Admission and Anticipated Discharge Date Admission Date: November 22, 2019 Subjective Patient seen and examined Has no new complaints Still reports occasional dizziness with walking unchanged Physical Exam Constitutional: + well hydrated; no acute distress Eyes: PERRL, conjunctivae normal, anicteric sclerae ENMT: external ear and nose normal, oropharynx normal Respiratory: normal respiratory effort, lungs clear to auscultation Cardiovascular: Rate/Rhythm: regular rate and regular rhythm Extremities: no pedal edema S1 S2 Gastrointestinal (Abdomen): normal bowel sounds, soft, nontender, no hepatosplenomegaly Musculoskeletal: Unstageable ulcer on left heel with clean dressing Neurologic: PERRL, EOMI, accommodation nl, no face palsy, no dysarthria Psychiatric: A+Ox3, euthymic affect Results & Data Results & Data ([facility]) Vital Signs (Past 12 Hours) Vital Signs Temp Pulse Resp BP Pulse Ox 12/17/19 07:53 36.6 C 82 20 107/65 98 12/16/19 23:30 36.5 C 80 16 95/57 L 96 (1) Herpes zoster Herpes zoster complications: without complications Qualified Code(s): B02.9 - Zoster without complications (2) CKD (chronic kidney disease), stage III Chronic kidney disease stage 3 subtype: unspecified whether 3a or 3b Qualified Code(s): N18.30 - Chronic kidney disease, stage 3 unspecified
[2019-12-17] MEDS: TAMSULOSIN HCL 0.4 MG CAP PO SCH (21:15)
--- NOTE | 2019-12-18 09:00 | Discharge Summary ---
Date of Service December 18, 2019 Admission HPI Per Admitting Provider This is an 84-year-old male who has significant past medical history chronic systolic CHF with EF 20 to 24%, ischemic cardiomyopathy, CAD with history of CABG x6, chronic atrial fibrillation anticoagulated on Eliquis, bilateral pleural effusions, hyperlipidemia, CKD stage III who presents to ED at the referral of home health secondary to hypotension. Of significance patient was recently hospitalized at [facility] 10/25-11/09 secondary to fall, multiple left-sided rib fractures, TATE, uremia, fracture of transverse process, traumatic flank hematoma and was discharged to [facility]. He was discharged to home from rehab on Thursday and had his first home health visit today. She was concerned because blood pressure was 80s over 60s and he was dizzy with standing. A call was placed to PCP who recommended he come to ER. Overall patient does complain of generalized malaise, weakness, poor appetite, lightheadedness and dizziness with standing. He states his lightheadedness and dizziness with standing is not unusual for him. He also has a rash on the left side of his face that developed approximately 3 days ago. He denies any pain. He denies any further trauma. He denies any documented fever, chills, sweats, syncope, chest pain, cough, hemoptysis, nausea, vomiting, abdominal pain. He admits to decreased appetite and overall poor p.o. intake over the past 24 hours. In ED his initial BP was 90 over 60s which did respond to gentle IV hydration. In ED initially patient was hypotensive. He received a total of 1 L of IVF. Lab abnormalities notable for H&H 11.5 and 37.9, WBC 4.45k, platelet 150, BUN 30, creatinine 1.23, AST 88. Ischemic cardiomyopathy, chronic chest x-ray reveals small bilateral pleural effusions, left basilar opacity which may reflect consolidation. In ED he received 1 g oral Valtrex secondary to zoster ophthalmicus and 1 L IVF. Admission Exam Per Admitting Provider Constitutional: WD/WN, M, vitals as above, NAD, sitting up in bed, pleasant, conversing easily Head: Normocephalic, Atraumatic + Herpes Zoster rash in dermatomal distribution of ophthalmologic bigeminal nerve Eyes: PERRL, conjunctivae normal, anicteric sclerae ENMT: external ear and nose normal, oropharynx normal Neck: trachea midline, no thyromegaly normal visual inspection Respiratory: normal respiratory effort, lungs clear to auscultation but diminished at bases b/l, no wheeze, rales, rhonchi. Normal insp/exp effort, no accessory muscle use Cardiovascular: RRR, no murmur, no edema, b/l venous stasis changes, Vessels: no JVD or carotid bruit Chest: normal inspection of chest Abdomen: normal bowel sounds, soft, nontender, no hepatosplenomegaly Musculoskeletal: no cyanosis or clubbing, extremities motor strength 5/5 Skin: +Zoster Rash erythematous maculopapular rash extended from top of head to Medial aspect of L nose, 2 crusted lesions noted, Also LLE medial pre tibial erythema, warmth, b/l venous stasis changes, warm and dry normal turgor Neurologic: PERRL, EOMI, accommodation nl, no face palsy, no dysarthria CN's II-XI intact bilaterally and moves all extremities Psychiatric: A+Ox3, euthymic affect Lymphatic: no cervical or axillary lymphadenopathy : deferred Principal Diagnosis Herpes zooster Left leg cellulitis and pressure injury Ambulatory dysfunction Hypotension Discharge Exam Constitutional + well hydrated; no acute distress Eyes PERRL, conjunctivae normal, anicteric sclerae ENMT external ear and nose normal, oropharynx normal Respiratory normal respiratory effort, lungs clear to auscultation Cardiovascular Rate/Rhythm: regular rate and regular rhythm Extremities: no pedal edema Gastrointestinal (Abdomen) normal bowel sounds, soft, nontender, no hepatosplenomegaly Musculoskeletal Unstageable ulcer on left heel with clean dressing Neurologic PERRL, EOMI, accommodation nl, no face palsy, no dysarthria Psychiatric A+Ox3, euthymic affect Discharge Data Allergies Allergy/AdvReac Type Severity Reaction Status Date / Time disopyramide Allergy Intermediate SWELLING, Verified 11/22/19 13:43 RED SKIN Consultations 11/22/19 14:43 ED Decision to Admit Stat 11/22/19 19:39 Consult Case Management - Discharge Planning Routine 11/23/19 10:11 Consult Case Management - Discharge Planning Routine 12/18/19 07:57 Consult Nephrology Routine Ordered Studies 11/22/19 14:43 CT head/brain wo con Stat Hospital Course (1) Herpes zoster: 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 Was found to have herpes zoster of left ophthalmic branch of trigeminal Previous Provider discussed with ophthalmology at [facility] who recommended close monitoring for now and monitor for signs of conjunctivitis, foreign body sensation of eye (if this were to develop consider erythromycin ointment or lubricating eye ointment) Completed the course of Valtrex during the hospital course Stable Hypotension at presentation Patient was initially hypotensive in ED with blood pressure 90s over 60s with improvement with 1 L of IVF. Had been on oral Lasix and metolazone also metoprolol 50 mg daily Metoprolol was decreased to 25 mg once a day Has significant postural hypotension Lasix was initially held but later resumed but metolazone discontinued even on discharge Was started on low dose midodrine No more orthostatic changes reported with BP Remains symptomatic with dizziness especially when standing though improved compared to on admission Orthostatic dizziness likely related to ischemic cardiomyopathy with reduced EF (+/- med effect) Continue to advise on fall mitigation strategies such as taking extra time to start moving from sitting and/or lying position Fall precautions Silodosin discontinued (2) Left leg cellulitis: Mild erythema and warmth to medial aspect left leg with scab inferiorly, resolved Likely early development of cellulitis Completed the course of IV abx during the hospital stay Unstageable pressure injury, left heel pressure injury, POA Continue wound care at rehab (3) Ambulatory dysfunction: Recent admission for fall with multiple left-sided rib fractures Very high risk of fall that can lead to more injury and fracture since patient lives alone Physical therapy recommended inpatient therapy Continue Fall precaution With patient's ambulatory dysfunction, dizziness, history of recurrent falls, I agree that this is very high risk for fall especially since he lives alone at home. 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 No signs of fluid overload (5) CAD (coronary artery disease): (6) Ischemic cardiomyopathy: Hx of CAD and CABG x 6 in 1996 He had recent echo LVEF < 20%, left ventricular cavity severely dilated and diffuse hypokinesis to akinesis, right ventricular cavity moderately dilated, right ventricular systolic function moderately reduced, aortic valve heavily calcified with severe , Severe mitral regurg, severe tricuspid regurg Continue amiodarone, metoprolol, atorvastatin, Eliquis Patient was on ramipril -this was recently discontinued at [facility] [place] during recent hospitalization secondary to hypotension Continue lasix. Appears euvolemic right now. Continue to hold metolazone (7) Chronic atrial fibrillation: Rate and rhythm controlled on amiodarone and metoprolol Continue Eliquis (8) CKD (chronic kidney disease), stage III: Baseline cr 1.2 Last Cr is 0.94 (9) Ventricular tachycardia: s/p cardiac defibrillator in situ Total Time Total Time Spent Total Time Spent (In Minutes): 40 Total Time Includes: Examination of the Patient, Discharge Planning, Medication Reconciliation and Other (Discussing discharge plans with daughter over the phone) Discharge Plan Discharge Items Patient Disposition: Transfer Care Home Fac Reason For Visit: HERPES ZOSTER, CELLULITIS Discharge Diagnosis: Herpes zooster Left leg cellulitis and pressure injury Ambulatory dysfunction Hypotension Activity: As commented below Activity Comment: Per Physical therapy instructions Non-emergency contact: Primary Care Provider and Bank Courier Call non-emergency contact if: you have any medication questions and your symptoms worsen Follow-up/Referrals: Anival Guido MD [Primary Care Provider] - Diet: Heart Healthy and Low Sodium (2gm) Fluids: 1800ml (7 cups) Addtl Attending Provider Instructions: Mr Restrepo You came to the hospital for hypotension and worsening dizziness. You were found to have herpes zooster and completed treatment for these. You were evaluated and managed in the hospital for the above mentioned diagnoses. Adjustments were made to your medications as shown on discharge medication list. Dose of metoprolol succinate was reduced. Certain medications were discontinued for now (silodon, metolazone) and new medication midodrine was started Please take medications as prescribed and follow up with your Primary Doctor and Bank Courier. It was a pleasure taking care of you. Pending Studies at Discharge: No Stand-Alone Forms: My [facility] Skilled Items Patient informed of condition?: Yes DNR: No Discharge Level of Care: Skilled Communicable Disease: No Discharge Prognosis: Stable Lines: None Urinary Catheter: No Medications and DC Order Prescriptions: New midodrine 2.5 mg Tablet 2.5 mg PO TID@0800,1200,1700 30 Days Qty: 90 RF: 0 metoprolol succinate 25 mg Tablet Extended Release 24 Hr 25 mg PO DAILY 30 Days Qty: 30 RF: 0 atorvastatin [Lipitor] 40 mg tablet 40 mg PO DAILY 30 Days Qty: 30 RF: 0 sennosides [senna] 8.6 mg tablet 8.6 mg PO BID Qty: 60 RF: 0 polyethylene glycol 3350 [Miralax] 17 gram Powder In Packet 17 g PO DAILY 30 Days Qty: 30 RF: 0 amiodarone [Pacerone] 200 mg tablet 200 mg PO DAILY 30 Days Qty: 30 RF: 0 folic acid 400 mcg Tablet 0.4 mg PO BID Qty: 60 RF: 0 ascorbic acid (vitamin C) [Vitamin C] 500 mg Tablet 500 mg PO DAILY Qty: 30 RF: 0 tamsulosin 0.4 mg Capsule 0.4 mg PO HS 30 Days Qty: 30 RF: 0 furosemide [Lasix] 20 mg tablet 40 mg PO DAILY 30 Days Qty: 60 RF: 0 finasteride [Proscar] 5 mg tablet 5 mg PO DAILY 30 Days Qty: 30 RF: 0 cholecalciferol (vitamin D3) [Vitamin D3] 50 mcg (2,000 unit) Tablet 50 mcg PO DAILY Qty: 30 RF: 0 Eliquis 2.5 mg tablet 2.5 mg PO BID 30 Days Qty: 60 RF: 0 Continued vitamin B complex Tablet 1 tab PO DAILY RF: 0 Discontinued metolazone 2.5 mg tablet 2.5 mg PO DAILY RF: 0 metoprolol succinate [Toprol XL] 50 mg tablet extended release 24 hr 50 mg PO DAILY RF: 0 silodosin 4 mg capsule 4 mg PO DAILY RF: 0 Discharge Orders: Discharge Order (Routine); Ordered 12/18/19 Ordered By: Dee Dee Ragsdale Admission Data Admit Date/Time: 11/22/19 15:19 Attending Provider: Dee Dee Ragsdale I. Admit Provider: Abner Jones Primary Care Provider: Anival Guido Other Providers: [facility] ; [facility] ; Gideon Vidal ; Harrison Dowell ; Na Jarquin [facility] ; Kelly Nelson ; bAner Jones ; Reagan Blue Other Interventions: Discharge Summary Assessment (RN) Last Done: 12/18/19 10:24
[2019-12-18] MEDS: FINASTERIDE 5 MG TAB PO SCH (10:05)
[2019-12-18] MEDS: ASCORBIC ACID 500 MG TAB PO SCH (10:06)
[2019-12-18] MEDS: VITAMIN B COMPLEX TAB PO SCH (10:06)
[2019-12-18] MEDS: ATORVASTATIN 40 MG TAB PO SCH (10:07)
[2019-12-18] MEDS: FUROSEMIDE 40 MG TAB PO SCH (10:08)
[2019-12-18] MEDS: FOLIC ACID 400 MCG TAB PO SCH (10:08)
[2019-12-18] MEDS: METOPROLOL SUCC 25MG EXT REL TAB PO SCH (10:08)
[2019-12-18] MEDS: MIDODRINE HCL 2.5 MG TAB PO SCH (10:09)
[2019-12-18] MEDS: CHOLECALCIFEROL 1,000 UNITS 25 MCG TAB PO SCH (10:09)
[2019-12-18] MEDS: APIXABAN 2.5 MG TAB PO SCH (10:10)
[2019-12-18] MEDS: POLYETHYLENE (MIRALAX) 17 GM PACK PO SCH ×2 (10:10→10:13)
[2019-12-18] MEDS: AMIODARONE 200 MG TAB PO SCH (10:10)
[2019-12-18] MEDS: SENNA 8.6 MG TAB PO SCH (10:10)
== END 2019-12-18 10:52 | DRG 125 ==
LOC: ED 12:30 → EDUNIT# 12:30 → SUATTDRO 15:19 → 2W 15:19 → 3N 12-16 04:32

== ENCOUNTER 2022-03-05 07:54 | Inpatient (IN) ==
[2022-03-05] MEDS ORDERED: SODIUM CHLORIDE 0.9% 500 ML IV ONE (08:32)
--- NOTE | 2022-03-05 08:32 | Emergency Department Note ---
Impression & Plan Choledocholithiasis, Influenza A, Transaminitis, Sepsis ED Provider Note NAME: BLAKE RIBEIRO AGE: 86 SEX: M : 1935 ARRIVES VIA: Walk-In INFORMANT: Patient ED PROVIDER(S): Kurt Casillas DO CHIEF COMPLAINT: fall weakness HPI: Patient is an 86-year-old male with a past medical history of of hypertension, CKD, A. fib, ischemic cardiomyopathy, CHF with defibrillator the p resents the ER feeling weak and rundown. He was to cough, congestion, runny nose, and sore throat which started on Thursday. He has been getting weaker since then. He has fallen twice but has not hit his head. No headache or neck pain. He admits to some midthoracic back pain. No tingling or numbness in the legs. No other exacerbating or remitting factors. No dysuria. Urgency or frequency. PAST MEDICAL HISTORY:See Below PAST SURGICAL HISTORY:See Below FAMILY HISTORY:See Below SOCIAL HISTORY:See Below HOME MEDICATIONS:See Below ALLERGIES:See Below VITALS:See Below PHYSICAL EXAMINATION: GENERAL: Sitting up in bed, alert, conically ill-appearing, disheveled with a cough EYE EXAM: normal conjunctiva. OROPHARYNX: no exudate, no erythema, lips, buccal mucosa, and tongue normal and mucous membranes are moist NECK: supple, no nuchal rigidity, no adenopathy, non-tender LUNGS: Clear to auscultation. Normal chest wall mechanics HEART: no murmurs, S1 normal and S2 normal ABDOMEN: abdomen soft, non-tender, normo-active bowel sounds, no masses, no rebound or guarding. BACK: Back is symmetrical on inspection and there is no deformity, mild midline tenderness in the midthoracic region UPPER EXTREMITIES: upper extremities are grossly normal. LOWER EXTREMITIES: No pitting edema. NEURO EXAM: Normal sensorium, cranial nerves II-XII grossly intact, normal speech, no gross weakness of arms, no gross weakness of legs. MEDICAL DECISION MAKING: Patient is an 86-year-old male who presents ER for above-stated complaint. IV was established blood work was obtained. Labs showed no significant leukocytosis or anemia. BMP with a creatinine 1.5. Transaminitis of 300 and T bili 1.7. Troponin elevated 57. Lipase is unremarkable. UA was clean. He was COVID-positive. Chest x-ray was clean. Patient was hypoxic febrile and tachycardic with cough and congestion. Initially given Rocephin in case he had a concrement pneumonia. CT abdomen pelvis confirmed choledocholithiasis and as Zosyn was added on. Discussed with Abbey dooley admit to the hospital service for further evaluation. Remained on 2 L nasal cannula while in the ER. external records were reviewed. Triage Nursing notes reviewed. Limited review of prior medical records performed Vital Signs: reviewed and remarkable for no significant abnormalities Differential diagnosis: Infection, dehydration, metabolic abnormality, hypo/hyperglycemia, electrolyte disturbance, anemia, hypoxia, cardiac sources, intracerebral event, toxicologic, neurologic, as well as other pathologies. ER treatment provided: See below Diagnostics interpreted by me include EKG and cardiac monitoring as listed below: -Cardiac Monitoring: An order was placed for continuous cardiac monitoring. The monitor shows a rate of 80 with sinus rhythm. -ECG: Ventricularly paced Normal axis No PVCs QTC 558 -Laboratory studies:Interpreted by me as stated above in MDM and shown below. Imaging studies: Xrays: As interpreted by me: Portable AP upright 1 view of the chest unremarkable X-rays thoracic spine showed no acute fractures CTs show: CT head and abdomen pelvis as described above Consultation(s): Discussed with Abbey dooley for further evaluation and admission Procedures:none Critical Care: I have personally spent 32 minutes of critical care time in the direct management of this patient. This includes bedside care, interpretation of diagnostic studies, and testing, discussion with consultants, patient, and family members, and other required patient management activities. This 32 minutes is in excess of all separately billable procedures. Past Med/Surg History Medical History (Updated 03/05/22 @ 13:49 by Kurt Casillas DO) Aortic stenosis Echo 10/2021-aortic valve is heavily calcified with severely reduced leaflet excursion either due to pseudo stenosis from severe LV dysfunction or some degree of underlying CAD (coronary artery disease) Cardiac defibrillator in place Prior pacemaker insertion, upgrade to an implantable cardio defibrillator in 2004, with upgrade to biventricular defibrillator in 2016 Chronic atrial fibrillation Chronic systolic CHF (congestive heart failure) CKD (chronic kidney disease), stage III Hyperlipidemia Ischemic cardiomyopathy Severe tricuspid regurgitation Ventricular tachycardia Surgical History 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 History of hernia repair History of implantable cardiac defibrillator (ICD) Family History Brother Cancer Mother Pulmonary fibrosis Social History Smoking Status: Never smoker Hx Alcohol Use: Yes Alcohol type: beer Alcohol Intake Frequency: Monthly or Less Hx Substance Use: No Preferred Language: Yakut Communication Ability: Effective Beliefs That Will Affect Care: None marital status: Current Living Situation: Family current occupation: [employer] Feels Safe at Home: Yes Assistive Devices: Oxygen - Continuous Allergies Allergies Allergy/AdvReac Type Severity Reaction Status Date / Time disopyramide Allergy Intermediate SWELLING, Verified 03/05/22 12:16 RED SKIN Home Meds Home Medications Medication Instructions Recorded Confirmed vitamin B complex 1 tab PO DAILY 10/26/19 03/05/22 diclofenac sodium 1 % topical gel 2 g topical AMHS PRN Pain 03/05/22 03/05/22 metoprolol succinate 25 mg 25 mg PO HS 03/05/22 03/05/22 tablet,extended release 24 hr midodrine 5 mg tablet 5 mg PO TID 03/05/22 03/05/22 zinc sulfate 50 mg zinc (220 mg) 50 mg PO DAILY 03/05/22 03/05/22 capsule Previous Rx's Medication Instructions Recorded amiodarone 200 mg tablet (Pacerone) 200 mg PO DAILY 30 days #30 tabs 12/18/19 apixaban 2.5 mg tablet (Eliquis) 2.5 mg PO BID 30 days #60 tabs 12/18/19 ascorbic acid (vitamin C) 500 mg 500 mg PO DAILY #30 tabs 12/18/19 tablet (Vitamin C) atorvastatin 40 mg tablet (Lipitor) 40 mg PO DAILY 30 days #30 tabs 12/18/19 cholecalciferol (vitamin D3) 50 50 mcg PO DAILY #30 tabs 12/18/19 mcg (2,000 unit) tablet (Vitamin D3) finasteride 5 mg tablet (Proscar) 5 mg PO DAILY 30 days #30 tabs 12/18/19 folic acid 400 mcg tablet 0.4 mg PO BID #60 tabs 12/18/19 furosemide 20 mg tablet (Lasix) 40 mg PO DAILY 30 days #60 tabs 12/18/19 polyethylene glycol 3350 17 gram 17 g PO DAILY 30 days #30 ea 12/18/19 oral powder packet (Miralax) sennosides 8.6 mg tablet (senna) 8.6 mg PO BID #60 tabs 12/18/19 tamsulosin 0.4 mg capsule 0.4 mg PO HS 30 days #30 caps 12/18/19 Results & Data (ED) Vital Signs Vital Signs - 24 hr 03/05/22 07:59 03/05/22 09:05 03/05/22 09:05 Temperature 36.4 C L Temperature Source Temporal Artery Scan Pulse Rate 80 81 Pulse Rate [Right Finger] 81 Pulse Rhythm Regular Pulse Rhythm [Right Finger] Regular Respiratory Rate 18 18 18 Respiratory Effort / Characteristics Non-Labored Spontaneous Non-Labored Spontaneous Respiratory Depth Normal Normal Respiratory Pattern Regular Regular Blood Pressure 98/58 L Blood Pressure [Right Arm] 96/58 L Blood Pressure Mean 71 Blood Pressure Mean [Right Arm] 70 Blood Pressure Position Sitting Blood Pressure Position [Right Arm] Lying Pulse Oximetry 98 95 95 Oxygen Delivery Method Room Air Room Air Room Air Oxygen Flow Rate Sepsis Recent Fever Within 48 Hours No Sepsis New/Unexplained Change in Mental Status N/A Sepsis Action Taken by Nursing No Action Required Oxygen Flow Rate - Titration Pulse Oximetry Post Tiitration 03/05/22 09:23 03/05/22 09:33 03/05/22 10:55 Temperature 39.4 C H 37.0 C Temperature Source Oral Oral Pulse Rate Pulse Rate [Right Finger] 80 82 Pulse Rhythm Pulse Rhythm [Right Finger] Regular Respiratory Rate 18 20 Respiratory Effort / Characteristics Non-Labored Spontaneous Respiratory Depth Normal Respiratory Pattern Regular Blood Pressure Blood Pressure [Right Arm] 118/81 94/53 L Blood Pressure Mean Blood Pressure Mean [Right Arm] 93 66 Blood Pressure Position Blood Pressure Position [Right Arm] Lying Lying Pulse Oximetry 92 88 L 96 Oxygen Delivery Method Room Air Room Air Nasal Cannula Oxygen Flow Rate 3 Sepsis Recent Fever Within 48 Hours Sepsis New/Unexplained Change in Mental Status Sepsis Action Taken by Nursing Oxygen Flow Rate - Titration 2 Pulse Oximetry Post Tiitration 92 Laboratory Data 01/18/23 09:00 03/05/22 09:00 Lab Results 03/05/22 03/05/22 03/05/22 Range/Units 09:00 09:00 09:00 WBC 7.30 (4.8-10.8) K/ul RBC 4.10 L (4.63-6.08) M/uL Hgb 12.7 L (14.0-18.0) g/dl Hct 38.9 L (40.1-51.0) % MCV 94.9 (80.0-100.0) fL MCH 31.0 (25.0-34.0) pg MCHC 32.6 (32.0-36.0) g/dL RDW Std Deviation 51.0 H (36.4-46.3) fL RDW Coeff of [place] 14.6 H (11.5-14.5) % Plt Count 114 L (130-400) K/uL MPV 10.1 (9.4-12.4) fL Immature Gran % (Auto) 0.3 % Neut % (Auto) 84.0 % Lymph % (Auto) 9.0 % [place] % (Auto) 6.6 % Eos % (Auto) 0.0 % Baso % (Auto) 0.1 % Neut # (Auto) 6.13 (1.4-6.5) K/uL Lymph # (Auto) 0.66 L (1.2-3.4) K/uL [place] # (Auto) 0.48 (0.24-0.82) K/uL Eos # (Auto) 0.00 (0-0.50) K/uL Baso # (Auto) 0.01 (0-0.2) K/uL Immature Gran # (Auto) 0.02 (0.00-0.02) K/uL Echinocytes 1+ Sodium 136 (136-145) mmol/L Potassium 3.6 (3.5-5.1) mmol/L Chloride 96 L (98-107) mmol/L Carbon Dioxide 34 H (21-32) mmol/L Anion Gap 6 (3-11) BUN 29 H (6-23) mg/dl Creatinine 1.50 H (0.6-1.4) mg/dl Est Cr Clr Drug Dosing 34.3 ml/min Est GFR ( Amer) 48.8 ml/min Est GFR (Non-Af Amer) 42.1 ml/min BUN/Creatinine Ratio 19.3 (10-20) Glucose 108 H (70-99(Fasting)) mg/dl Calcium 9.0 (8.5-10.1) mg/dl Total Bilirubin 1.7 H (0.2-1.0) mg/dl AST 312 H (13-39) U/L ALT 338 H (7-52) U/L Alkaline Phosphatase 63 (34-104) U/L Troponin I High Sens 57.2 H* (0-20) pg/ml Total Protein 6.6 (6.0-8.3) gm/dl Albumin 3.3 L (3.4-5.0) gm/dl Globulin 3.3 (2.5-4.0) gm/dl Albumin/Globulin Ratio 1.0 (0.9-2) Lipase 15 (11-82) U/L Urine Color Dark Yellow Urine Appearance Clear (Clear) Urine pH 5.0 (4.5-7.5) Ur Specific [place] 1.018 (1.000-1.030) Urine Protein Trace H (Negative) Urine Glucose (UA) Negative (Negative) Urine Ketones Negative (Negative) Urine Blood Negative (Negative) Urine Nitrite Negative (Negative) Urine Bilirubin Negative (Negative) Urine Urobilinogen Negative (Negative) Ur Leukocyte Esterase Negative (Negative) Urine WBC (Auto) 1-5 (0-5) /hpf Urine RBC (Auto) 0-4 (0-4) /hpf U Hyaline Cast (Auto) 5-10 H (0-5) /lpf U Epithel Cells (Auto) 5-10 H (0-5) /lpf Urine Bacteria (Auto) Negative (Negative) SARS-CoV-2 (PCR) (Negative) Influenza Type A (PCR) (Neg) Influenza Type B (PCR) (Neg) RSV (RT-PCR) (Neg) 03/05/22 Range/Units 09:00 WBC (4.8-10.8) K/ul RBC (4.63-6.08) M/uL Hgb (14.0-18.0) g/dl Hct (40.1-51.0) % MCV (80.0-100.0) fL MCH (25.0-34.0) pg MCHC (32.0-36.0) g/dL RDW Std Deviation (36.4-46.3) fL RDW Coeff of [place] (11.5-14.5) % Plt Count (130-400) K/uL MPV (9.4-12.4) fL Immature Gran % (Auto) % Neut % (Auto) % Lymph % (Auto) % [place] % (Auto) % Eos % (Auto) % Baso % (Auto) % Neut # (Auto) (1.4-6.5) K/uL Lymph # (Auto) (1.2-3.4) K/uL [place] # (Auto) (0.24-0.82) K/uL Eos # (Auto) (0-0.50) K/uL Baso # (Auto) (0-0.2) K/uL Immature Gran # (Auto) (0.00-0.02) K/uL Echinocytes Sodium (136-145) mmol/L Potassium (3.5-5.1) mmol/L Chloride (98-107) mmol/L Carbon Dioxide (21-32) mmol/L Anion Gap (3-11) BUN (6-23) mg/dl Creatinine (0.6-1.4) mg/dl Est Cr Clr Drug Dosing ml/min Est GFR ( Amer) ml/min Est GFR (Non-Af Amer) ml/min BUN/Creatinine Ratio (10-20) Glucose (70-99(Fasting)) mg/dl Calcium (8.5-10.1) mg/dl Total Bilirubin (0.2-1.0) mg/dl AST (13-39) U/L ALT (7-52) U/L Alkaline Phosphatase (34-104) U/L Troponin I High Sens (0-20) pg/ml Total Protein (6.0-8.3) gm/dl Albumin (3.4-5.0) gm/dl Globulin (2.5-4.0) gm/dl Albumin/Globulin Ratio (0.9-2) Lipase (11-82) U/L Urine Color Urine Appearance (Clear) Urine pH (4.5-7.5) Ur Specific [place] (1.000-1.030) Urine Protein (Negative) Urine Glucose (UA) (Negative) Urine Ketones (Negative) Urine Blood (Negative) Urine Nitrite (Negative) Urine Bilirubin (Negative) Urine Urobilinogen (Negative) Ur Leukocyte Esterase (Negative) Urine WBC (Auto) (0-5) /hpf Urine RBC (Auto) (0-4) /hpf U Hyaline Cast (Auto) (0-5) /lpf U Epithel Cells (Auto) (0-5) /lpf Urine Bacteria (Auto) (Negative) SARS-CoV-2 (PCR) NEGATIVE (Negative) Influenza Type A (PCR) Positive A* (Neg) Influenza Type B (PCR) Negative (Neg) RSV (RT-PCR) Negative (Neg) Administered Medications Heparin Sodium/Dextrose (Heparin Sodium/Dextrose) 25,000 units in 500 mls @ 24 mls/hr IV .[id number] [facility]; Protocol Stop: 04/04/22 12:59 Last Admin: 03/05/22 13:27 Dose: 1,200 units/hr, 24 mls/hr Documented By: JAH Co-signed By: KAYLA Discontinued Medications Acetaminophen (Acetaminophen 325 Mg Tab) 650 mg PO NOW STA Stop: 03/05/22 09:36 Last Admin: 03/05/22 09:52 Dose: 650 mg Documented By: JAH Sodium Chloride (Nss) 500 mls @ 999 mls/hr IV .Q31M ONE Stop: 03/05/22 09:02 Last Infusion: 03/05/22 09:37 Dose: 0 mls/hr Documented By: Admin: 03/05/22 09:03 Dose: 999 mls/hr Documented By: JAH Ceftriaxone Sodium (Rocephin) 2,000 mg in 70 mls @ 140 mls/hr IV NOW STA Stop: 03/05/22 10:04 Last Infusion: 03/05/22 10:30 Dose: 0 mls/hr Documented By: Admin: 03/05/22 09:51 Dose: 140 mls/hr Documented By: JAH Piperacillin Sod/Tazobactam Sod (Zosyn) 4.5 gm in 120 mls @ 240 mls/hr IV NOW ONE Stop: 03/05/22 12:35 Last Infusion: 03/05/22 13:22 Dose: 0 mls/hr Documented By: Admin: 03/05/22 12:33 Dose: 240 mls/hr Documented By: JAH Imaging Data Radiologist's Impression: Chest X-Ray 03/05/22 08:28 XR chest 1V portable CLINICAL HISTORY: cp TECHNIQUE: Single frontal radiograph of the chest was obtained. Comparison: Comparison is made to chest radiograph 03/06/2019 FINDINGS: Pacemaker defibrillator is seen. Median sternotomy wires are again seen. Cardiomegaly is noted. The lungs are clear. No evidence of pleural effusion or pneumothorax. IMPRESSION: No acute chest disease. Cardiomegaly is noted. ACT 112: Negative or not required by law. Electronically signed by: Moises Lugo M.D. 03/05/2022 9:59 AM Thoracic Spine X-Ray 03/05/22 08:28 THORACIC SPINE 3 VIEWS CLINICAL HISTORY: Fall. Thoracic back pain. FINDINGS: AP, lateral, and swimmer's views of the thoracic spine are correlated with thoracic spinal CT dated 10/26/2019. The skeletal structures are heterogeneously osteopenic. There is no radiographic evidence of acute fracture or malalignment. Vertebral body height and alignment are maintained. Anterior osteophytes are seen throughout and there is evidence of DISH. Hyperkyphosis is observed. There is mild multilevel degenerative disc space narrowing. The transverse processes and pedicles are grossly intact as seen on the frontal view. Spondylotic changes noted in the lower cervical spine on the swimmer's view. The patient is status post midline sternotomy. A cardiac ICD is in place. The heart is enlarged noting atherosclerotic calcification of the thoracic aorta. The lung parenchyma is clear as imaged. Numerous surgical clips are present in the upper abdomen. IMPRESSION: 1. There is no radiographic evidence of acute fracture or malalignment involving the thoracic spine. 2. Osteopenia with degenerative change, DISH, and hyperkyphosis as above. Electronically signed by: Pb Gregory M.D. 03/05/2022 11:[address] 03/05/22 08:30 CT head/brain wo con CLINICAL HISTORY: fall Technique: Contiguous axial CT images of the head were acquired from the base of the skull to the vertex without intravenous contrast administration. Images were viewed in brain, subdural and bone windows. Automated dose lowering techniques and/or adjustment according to patient size were utilized for this exam. Comparison: Comparison is made to CT head 11/22/2019 Findings: Areas of decreased attenuation are present in the periventricular and subcortical white matter bilaterally consistent with small vessel ischemic disease. Generalized cerebral atrophy with commensurate enlargement of the ventricles, sulci, and cisterns is also present. There is no acute intracranial hemorrhage or evidence of acute territorial infarction. No shift of the midline structures, mass effect, or extra-axial abnormalities are shown. Atherosclerotic calcifications are present in the intracranial segments of the internal carotid arteries. Imaged portions of the paranasal sinuses and mastoid air cells are clear. The orbits appear normal. There are no acute fractures of the calvaria or scalp swelling. Impression: No acute intracranial hemorrhage, no evidence of acute territorial infarction or other acute intracranial disease process. ACT 112: Negative or not required by law. Electronically signed by: Moises Lugo M.D. 03/05/2022 9:30 AM Discharge Plan Visit Data Chief Complaint: Illness Stated Complaint: FELL TWICE, UNABLE TO EAT ED Provider: Kurt Casillas Discharge Problem: Choledocholithiasis, Influenza A, Transaminitis, Sepsis Discharge Instructions Interventions: ED Discharge Assessment Last Done: 03/05/22 11:57
[2022-03-05 09:31] LABS: Appearance Urine Clear (Clear); Bacteria Urine Automated Negative (Negative); Bilirubin Urine Negative (Negative); Blood Urine Negative (Negative); Color Urine Dark Yellow; Glucose Urine UA Negative (Negative); Ketones Urine Negative (Negative); Leukocyte Esterase Urine Negative (Negative); Nitrite Urine Negative (Negative); Protein Urine Trace (Negative); RBC Urine Automated 0-4 /hpf (0-4); Specific Gravity Urine 1.018 (1.000-1.030); Urobilinogen Urine Negative (Negative)
--- NOTE | 2022-03-05 09:31 | CT Scan Report ---
CT head/brain wo con CLINICAL HISTORY: fall Technique: Contiguous axial CT images of the head were acquired from the base of the skull to the antolin pablo without intravenous contrast administration. Images were viewed in brain, subdural and [facility]. Automated dose lowering techniques and/or adjustment according to patient size were utilized for this exam. Comparison: Comparison is made to CT head 11/22/2019 Findings: Areas of decreased attenuation are present in the periventricular and subcortical white matter bilate rally consistent with small vessel ischemic disease. Generalized cerebral atrophy with commensurate e nlargement of the ventricles, sulci, and cisterns is also present. There is no acute intracranial hem orrhage or evidence of acute territorial infarction. No shift of the midline structures, mass effect, or extra-axial abnormalities are shown. Atherosclerotic calcifications are present in the intracran ial segments of the internal carotid arteries. Imaged portions of the paranasal sinuses and mastoid air cells are clear. The orbits appear normal. There are no acute fractures of the calvaria or scalp swelling. Impression: No acute intracranial hemorrhage, no evidence of acute territorial infarction or other acute intracra nial disease process. ACT 112: Negative or not required by law. Electronically signed by: Moises Lugo M.D. 03/05/2022 9:30 AM
[2022-03-05] MEDS ORDERED: cefTRIAXone SODIUM 2,000 MG/70 ML BAG IV STA (09:35)
[2022-03-05] MEDS ORDERED: ACETAMINOPHEN 325 MG TAB PO STA (09:35)
[2022-03-05 10:00] LABS: Basophils # (auto) 0.01 K/uL (0-0.2); Basophils % (auto) 0.1 %; Echinocytes 1+; Hematocrit (blood only) 38.9 % (40.1-51.0); Hemoglobin 12.7 g/dl (14.0-18.0); Immature Granulocytes # (auto) 0.02 K/uL (0.00-0.02); Immature Granulocytes % (auto) 0.3 %; Lymphocytes # (auto) 0.66 K/uL (1.2-3.4); Mean Corpuscular Hgb Conc 32.6 g/dL (32.0-36.0); Mean Corpuscular Volume 94.9 fL (80.0-100.0); Mean Platelet Volume 10.1 fL (9.4-12.4); Monocytes # (auto) 0.48 K/uL (0.24-0.82); Monocytes % (auto) 6.6 %; Neutrophils # (auto) 6.13 K/uL (1.4-6.5); Platelet Count 114 K/uL (130-400); RDW Coefficient of Variation 14.6 % (11.5-14.5)
--- NOTE | 2022-03-05 10:00 | XRay Report ---
XR chest 1V portable CLINICAL HISTORY: cp TECHNIQUE: Single frontal radiograph of the chest was obtained. Comparison: Comparison is made to chest radiograph 03/06/2019 FINDINGS: Pacemaker defibrillator is seen. Median sternotomy wires are again seen. Cardiomegaly is noted. The l ungs are clear. No evidence of pleural effusion or pneumothorax. IMPRESSION: No acute chest disease. Cardiomegaly is noted. ACT 112: Negative or not required by law. Electronically signed by: Moises Lugo M.D. 03/05/2022 9:59 AM
[2022-03-05 10:15] LABS: Influenza B virus by PCR Negative (Neg); RSV by PCR Negative (Neg); SARS CoV2 RNA(COVID-19) Ceph NEGATIVE (Negative)
[2022-03-05 10:16] LABS: Albumin Level 3.3 gm/dl (3.4-5.0); BUN Creatinine Ratio 19.3 (10-20); Bilirubin,Total 1.7 mg/dl (0.2-1.0); Creatinine Clr Calc Pharmacy 34.3 ml/min; Est GFR (African American) 48.8 ml/min; Est GFR (Non-African American) 42.1 ml/min; Globulin 3.3 gm/dl (2.5-4.0); Potassium 3.6 mmol/L (3.5-5.1); Total Protein 6.6 gm/dl (6.0-8.3)
[2022-03-05 10:24] LABS: Influenza A virus by PCR Positive (Neg)
[2022-03-05 10:27] LABS: Troponin I High Sensitivity 57.2 pg/ml (0-20)
--- NOTE | 2022-03-05 11:11 | XRay Report ---
THORACIC SPINE 3 VIEWS CLINICAL HISTORY: Fall. Thoracic back pain. FINDINGS: AP, lateral, and swimmer's views of the thoracic spine are correlated with thoracic spinal CT dated 10/26/2019. The skeletal structures are heterogeneously osteopenic. There is no radiographic e vidence of acute fracture or malalignment. Vertebral body height and alignment are maintained. Anteri or osteophytes are seen throughout and there is evidence of DISH. Hyperkyphosis is observed. There is mild multilevel degenerative disc space narrowing. The transverse processes and pedicles are grossly intact as seen on the frontal view. Spondylotic changes noted in the lower cervical spine on the swi mmer's view. The patient is status post midline sternotomy. A cardiac ICD is in place. The heart is e nlarged noting atherosclerotic calcification of the thoracic aorta. The lung parenchyma is clear as i jessica. Numerous surgical clips are present in the upper abdomen. IMPRESSION: 1. There is no radiographic evidence of acute fracture or malalignment involving the thoracic spine. 2. Osteopenia with degenerative change, DISH, and hyperkyphosis as above. Electronically signed by: Pb Gregory M.D. 03/05/2022 11:10 AM
--- NOTE | 2022-03-05 11:45 | CT Scan Report ---
ABDOMEN AND PELVIS CT WITHOUT CONTRAST CT DOSE: 319.73 mGy.cm HISTORY: Acutely elevated LFTs transaminitis TECHNIQUE: Multiaxial CT images of the abdomen and pelvis were performed without contrast. A dose lo wering technique was utilized adhering to the principles of ALARA. COMPARISON STUDY: Thoracic spine radiographs of same day, CT abdomen and pelvis 10/26/2019 FINDINGS: Marked cardiomegaly. Prior median sternotomy with partially imaged pacer/AICD leads. Dilate d pulmonary artery may represent pulmonary arterial hypertension. Small pleural effusions. Bronchial wall thickening with bibasilar mucous plugging. Dependent bibasilar patchy groundglass and consolidat litzy opacities. No pneumatosis or pneumoperitoneum. The unenhanced spleen, pancreas and adrenal glands are unremarkable. Increased attenuation of the korey er parenchyma on this noncontrast study, [place] of 85. No hepatic mass identified. Cholecystectom y. There are several hyperdense foci within the common bile duct measuring up to 1.4 cm which in retr ospect are unchanged from the prior study. Mild dilation of the biliary tree is similar to prior. Mild cortical thinning of the kidneys. Unchanged probable cyst of the interpolar right kidney. No hyd ronephrosis. Partial distention of the urinary bladder with mild wall thickening. Prostatectomy. Prio r left inguinal herniorrhaphy. Extensive atherosclerotic plaque of the abdominal aorta and branch ves sels. No lymphadenopathy. Duodenal diverticulosis. No bowel obstruction or bowel wall thickening. Scattered colonic air-fluid l evels. No CT evidence of acute cholecystitis. Degenerative changes of the spine, pelvis and hips. Scl erotic focus of S1 is unchanged. Healed chronic left-sided rib fractures. IMPRESSION: 1. Cholecystectomy with mild biliary ductal dilation. There are several hyperdense foci within the co mmon bile duct measuring up to 1.4 cm suggestive of choledocholithiasis. Correlation with serum bilir ubin recommended. 2. Cardiomegaly with suggested pulmonary arterial hypertension. 3. Small pleural effusions with bibasilar mucous plugging and dependent lower lobe opacities suggesti ve of atelectasis versus an infectious or inflammatory pneumonitis. 4. No bowel obstruction or bowel wall thickening. 5. Increased attenuation of the liver which can be seen in numerous causes including amiodarone toxic ity. ACT 112: Negative or not required by law. The above report was generated using voice recognition software. It may contain grammatical, syntax o r spelling errors. Electronically signed by: Ha Haq M.D. 03/05/2022 11:43 AM
[2022-03-05] MEDS ORDERED: PIPERACILLIN/TAZOBACTAM 4.5 GM/120 ML BAG IV ONE (12:06)
[2022-03-05] MEDS ORDERED: Heparin IV Adult Wt-Based Standard *NO* Bolus Protocol IV STA (12:38)
[2022-03-05] MEDS ORDERED: ACETAMINOPHEN 325 MG TAB PO PRN (13:20)
[2022-03-05] MEDS ORDERED: SODIUM CHLORIDE 0.9% 1000ML 1,000 ML IV SCH (13:20)
[2022-03-05] MEDS: HEPARIN SODIUM/DEXTROSE 25,000 UNITS/500 ML BAG IV SCH (13:27)
--- NOTE | 2022-03-05 13:38 | History & Physical Report ---
Date of Service March 05, 2022 Assessment & Plan (1) Acute respiratory failure with hypoxia: (2) Influenza A: Plan: Admit to [facility] with telemetry Patient presenting from home with reports of generalized weakness, poor appetite, cough In the ED, hypoxic on room air at 88%, currently requiring 2 L of oxygen via nasal cannula and tested positive for influenza A No clear infiltrate on CXR, CT ABD/pelvis showing Small pleural effusions with bibasilar mucous plugging and dependent lower lobe opacities suggestive of atelectasis versus an infectious or inflammatory pneumonitis Given onset of symptoms > 48h, will hold on Tamiflu Continue supportive care with IVF, nebs, flutter valve, incentive spirometer (3) Transaminitis: (4) Choledocholithiasis: Plan: T bili 1.7, AST 312, ALT 338, alk phos 63 CT ABD/pelvis showing several hyperdense foci within the common bile duct measuring up to 1.4 cm suggestive of choledocholithiasis Febrile on presentation (influenza likely contributing), no leukocytosis. Lactate 0.7. Blood culture sent. S/p Zosyn in the ED, continue with GI consult, case discussed with BETH Hernandez -tentative plan for ERCP on 03/07. Hold Eliquis, will bridge with IV heparin. Okay for regular diet today, clear liquids from tomorrow. (5) Elevated troponin: Plan: Likely due to demand ischemia in the setting of acute illness/hypoxia HS troponin 57.2, EKG demonstrates a paced rhythm, no reports of chest pain Trend troponin (6) Chronic atrial fibrillation: Plan: Rate controlled on metoprolol, rhythm controlled on amiodarone Typically anticoagulated on Eliquis however holding due to tentative ERCP. Will bridge with IV heparin. (7) Ischemic cardiomyopathy: (8) Ventricular tachycardia: (9) Cardiac defibrillator in place: Plan: EF < 20% Holding diuretics due to clinical signs of dehydration, resume as able (10) DVT prophylaxis: Plan: On IV heparin I spent a total of 50 minutes coordinating, documenting, and providing care for this patient excluding time spent in the performance of separately billed services. This included personally reviewing all current laboratories and imaging studies, medication reconciliation, outpatient chart review, and discussion with specialists. Admission and Anticipated Discharge Date Admission Date: March 05, 2022 History of Present Illness Chief Complaint: Generalized weakness, cough, poor appetite Primary Care Provider: Anival Guido MD 86-year-old male with complex medical history including ischemic cardiomyopathy s/p biventricular ICD, CAD s/p CABG x 6, chronic atrial fibrillation on Eliquis, history of ventricular tachycardia on amiodarone therapy, CKD stage III, orthostatic hypotension on midodrine, and other problems listed below who presents to the ED for evaluation of generalized weakness, cough, poor appetite. Patient has been ill for the past 6 days. Reports that his daughter and son-in-law whom he lives with were diagnosed with influenza last week. Patient reports generalized weakness and two mechanical falls. Patient reports he did not strike his head. Reports a cough productive for yellow/green sputum. Denies shortness of breath. Reports feeling generally weak. He has also had a very poor appetite. Patient reports 2 episodes of vomiting yesterday. Denies hematemesis or coffee-ground emesis. No diarrhea. Reports chronic lightheadedness and dizziness with standing which is unchanged from baseline. No syncopal events. Denies fevers and chills. No urinary symptoms. In the ED, patient was hypoxic on room air at 88%. Febrile 39.4, improved after Tylenol. Otherwise hemodynamically stable. Currently requiring 2 L of oxygen via nasal cannula. Patient has a positive for influenza A. Also found to have transaminitis prompting CT ABD/pelvis which is showing evidence of choledocholithiasis. Patient received IV ceftriaxone, IV Zosyn, IVF. Allergies Allergy/AdvReac Type Severity Reaction Status Date / Time disopyramide Allergy Intermediate SWELLING, Verified 03/05/22 12:16 RED SKIN Home Medications Medication Instructions Recorded Confirmed Type vitamin B complex 1 tab PO DAILY 10/26/19 03/05/22 History amiodarone 200 mg tablet (Pacerone) 200 mg PO DAILY 30 days #30 tabs 12/18/19 03/05/22 Rx apixaban 2.5 mg tablet (Eliquis) 2.5 mg PO BID 30 days #60 tabs 12/18/19 03/05/22 Rx ascorbic acid (vitamin C) 500 mg 500 mg PO DAILY #30 tabs 12/18/19 03/05/22 Rx tablet (Vitamin C) atorvastatin 40 mg tablet (Lipitor) 40 mg PO DAILY 30 days #30 tabs 12/18/19 03/05/22 Rx cholecalciferol (vitamin D3) 50 50 mcg PO DAILY #30 tabs 12/18/19 03/05/22 Rx mcg (2,000 unit) tablet (Vitamin D3) finasteride 5 mg tablet (Proscar) 5 mg PO DAILY 30 days #30 tabs 12/18/19 03/05/22 Rx folic acid 400 mcg tablet 0.4 mg PO BID #60 tabs 12/18/19 03/05/22 Rx furosemide 20 mg tablet (Lasix) 40 mg PO DAILY 30 days #60 tabs 12/18/19 03/05/22 Rx polyethylene glycol 3350 17 gram 17 g PO DAILY 30 days #30 ea 12/18/19 03/05/22 Rx oral powder packet (Miralax) sennosides 8.6 mg tablet (senna) 8.6 mg PO BID #60 tabs 12/18/19 03/05/22 Rx tamsulosin 0.4 mg capsule 0.4 mg PO HS 30 days #30 caps 12/18/19 03/05/22 Rx diclofenac sodium 1 % topical gel 2 g topical AMHS PRN Pain 03/05/22 03/05/22 History metoprolol succinate 25 mg 25 mg PO HS 03/05/22 03/05/22 History tablet,extended release 24 hr midodrine 5 mg tablet 5 mg PO TID 03/05/22 03/05/22 History zinc sulfate 50 mg zinc (220 mg) 50 mg PO DAILY 03/05/22 03/05/22 History capsule Past Med/Surg History Medical History (Updated 03/05/22 @ 13:49 by Kurt Casillas DO) Aortic stenosis Echo 10/2021-aortic valve is heavily calcified with severely reduced leaflet excursion either due to pseudo stenosis from severe LV dysfunction or some degree of underlying CAD (coronary artery disease) Cardiac defibrillator in place Prior pacemaker insertion, upgrade to an implantable cardio defibrillator in 2004, with upgrade to biventricular defibrillator in 2016 Chronic atrial fibrillation Chronic systolic CHF (congestive heart failure) CKD (chronic kidney disease), stage III Hyperlipidemia Ischemic cardiomyopathy Severe tricuspid regurgitation Ventricular tachycardia Surgical History 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 History of hernia repair History of implantable cardiac defibrillator (ICD) Family History Brother Cancer Mother Pulmonary fibrosis Social History Smoking Status: Never smoker Hx Alcohol Use: Yes Alcohol type: beer Alcohol Intake Frequency: Monthly or Less Hx Substance Use: No Preferred Language: Montenegrin Communication Ability: Effective Pre Kindergarten Teacher Required: No Beliefs That Will Affect Care: None marital status: Current Living Situation: Family current occupation: [employer] Other Information That Helps Us Care for You: No Feels Safe at Home: Yes Assistive Devices: Cane Review of Systems Review of Systems: ROS per HPI, all other systems reviewed and negative Physical Exam Constitutional: WD/WN, vitals as above no acute distress Eyes: PERRL, conjunctivae normal, anicteric sclerae ENMT: external ear and nose normal, oropharynx normal Ears: + hearing impairment Respiratory: normal respiratory effort and + cough (Moist, nonproductive); no respiratory distress Auscultation: + diminished lung sounds and + crackles (Faint, bilateral bases) Cardiovascular: Rate/Rhythm: regular rate and regular rhythm Vessels: normal peripheral pulses Extremities: no edema Chest (Breasts): Chest: + pacemaker Gastrointestinal (Abdomen): normal bowel sounds, soft, nontender, no hepatosplenomegaly Musculoskeletal: no cyanosis or clubbing, extremities motor strength 5/5 Skin: no rashes, warm and dry Neurologic: PERRL, EOMI, accommodation nl, no face palsy, no dysarthria Psychiatric: A+Ox3, euthymic affect Results & Data Results & Data ([facility]) Vital Signs (Past 12 Hours) Vital Signs Temp Pulse Pulse Resp BP BP Pulse Ox 03/05/22 12:13 80 18 90/51 L 96 03/05/22 10:55 37.0 C 82 20 94/53 L 96 03/05/22 09:33 88 L 03/05/22 09:23 39.4 C H 80 18 118/81 92 03/05/22 09:05 81 18 95 03/05/22 09:05 81 18 96/58 L 95 03/05/22 07:59 36.4 C L 80 18 98/58 L 98 O2 Del Method O2 Flow Rate 03/05/22 12:13 Room Air 03/05/22 10:55 Nasal Cannula 3 03/05/22 09:33 Room Air 03/05/22 09:23 Room Air 03/05/22 09:05 Room Air 03/05/22 09:05 Room Air 03/05/22 07:59 Room Air Laboratory Results Short CBC 03/05/22 Range/Units 09:00 WBC 7.30 (4.8-10.8) K/ul Hgb 12.7 L (14.0-18.0) g/dl Hct 38.9 L (40.1-51.0) % Plt Count 114 L (130-400) K/uL BMP 03/05/22 09:00 Sodium 136 Potassium 3.6 Chloride 96 L Carbon Dioxide 34 H BUN 29 H Creatinine 1.50 H Glucose 108 H Calcium 9.0 Liver Function 03/05/22 Range/Units 09:00 Total Bilirubin 1.7 H (0.2-1.0) mg/dl AST 312 H (13-39) U/L ALT 338 H (7-52) U/L Alkaline Phosphatase 63 (34-104) U/L Albumin 3.3 L (3.4-5.0) gm/dl Urine 03/05/22 Range/Units 09:00 Urine Color Dark Yellow Urine Appearance Clear (Clear) Urine pH 5.0 (4.5-7.5) Ur Specific [place] 1.018 (1.000-1.030) Urine Protein Trace H (Negative) Urine Glucose (UA) Negative (Negative) Diagnostic Findings Chest X-Ray 03/05/22 08:28 XR chest 1V portable CLINICAL HISTORY: cp TECHNIQUE: Single frontal radiograph of the chest was obtained. Comparison: Comparison is made to chest radiograph 03/06/2019 FINDINGS: Pacemaker defibrillator is seen. Median sternotomy wires are again seen. Cardiomegaly is noted. The lungs are clear. No evidence of pleural effusion or pneumothorax. IMPRESSION: No acute chest disease. Cardiomegaly is noted. ACT 112: Negative or not required by law. Electronically signed by: Moises Lugo M.D. 03/05/2022 9:59 AM Thoracic Spine X-Ray 03/05/22 08:28 THORACIC SPINE 3 VIEWS CLINICAL HISTORY: Fall. Thoracic back pain. FINDINGS: AP, lateral, and swimmer's views of the thoracic spine are correlated with thoracic spinal CT dated 10/26/2019. The skeletal structures are heterogeneously osteopenic. There is no radiographic evidence of acute fracture or malalignment. Vertebral body height and alignment are maintained. Anterior osteophytes are seen throughout and there is evidence of DISH. Hyperkyphosis is observed. There is mild multilevel degenerative disc space narrowing. The transverse processes and pedicles are grossly intact as seen on the frontal view. Spondylotic changes noted in the lower cervical spine on the swimmer's view. The patient is status post midline sternotomy. A cardiac ICD is in place. The heart is enlarged noting atherosclerotic calcification of the thoracic aorta. The lung parenchyma is clear as imaged. Numerous surgical clips are present in the upper abdomen. IMPRESSION: 1. There is no radiographic evidence of acute fracture or malalignment involving the thoracic spine. 2. Osteopenia with degenerative change, DISH, and hyperkyphosis as above. Electronically signed by: Pb Gregory M.D. 03/05/2022 11:[address] 03/05/22 08:30 CT head/brain wo con CLINICAL HISTORY: fall Technique: Contiguous axial CT images of the head were acquired from the base of the skull to the vertex without intravenous contrast administration. Images were viewed in brain, subdural and bone windows. Automated dose lowering techniques and/or adjustment according to patient size were utilized for this exam. Comparison: Comparison is made to CT head 11/22/2019 Findings: Areas of decreased attenuation are present in the periventricular and subcortical white matter bilaterally consistent with small vessel ischemic disease. Generalized cerebral atrophy with commensurate enlargement of the ventricles, sulci, and cisterns is also present. There is no acute intracranial hemorrhage or evidence of acute territorial infarction. No shift of the midline structures, mass effect, or extra-axial abnormalities are shown. Atherosclerotic calcifications are present in the intracranial segments of the internal carotid arteries. Imaged portions of the paranasal sinuses and mastoid air cells are clear. The orbits appear normal. There are no acute fractures of the calvaria or scalp swelling. Impression: No acute intracranial hemorrhage, no evidence of acute territorial infarction or other acute intracranial disease process. ACT 112: Negative or not required by law. Electronically signed by: Moises Lugo M.D. 03/05/2022 9:30 AM Abdomen/Pelvis CT 03/05/22 10:[address] WITHOUT CONTRAST CT DOSE: 319.73 mGy.cm HISTORY: Acutely elevated LFTs transaminitis TECHNIQUE: Multiaxial CT images of the abdomen and pelvis were performed without contrast. A dose lowering technique was utilized adhering to the principles of ALARA. COMPARISON STUDY: Thoracic spine radiographs of same day, CT abdomen and pelvis 10/26/2019 FINDINGS: Marked cardiomegaly. Prior median sternotomy with partially imaged pacer/AICD leads. Dilated pulmonary artery may represent pulmonary arterial hypertension. Small pleural effusions. Bronchial wall thickening with bibasilar mucous plugging. Dependent bibasilar patchy groundglass and consolidative opacities. No pneumatosis or pneumoperitoneum. The unenhanced spleen, pancreas and adrenal glands are unremarkable. Increased attenuation of the liver parenchyma on this noncontrast study, [place] of 85. No hepatic mass identified. Cholecystectomy. There are several hyperdense foci within the common bile duct measuring up to 1.4 cm which in retrospect are unchanged from the prior study. Mild dilation of the biliary tree is similar to prior. Mild cortical thinning of the kidneys. Unchanged probable cyst of the interpolar right kidney. No hydronephrosis. Partial distention of the urinary bladder with mild wall thickening. Prostatectomy. Prior left inguinal herniorrhaphy. Extensive atherosclerotic plaque of the abdominal aorta and branch vessels. No lymphadenopathy. Duodenal diverticulosis. No bowel obstruction or bowel wall thickening. Scattered colonic air-fluid levels. No CT evidence of acute cholecystitis. Degenerative changes of the spine, pelvis and hips. Sclerotic focus of S1 is unchanged. Healed chronic left-sided rib fractures. IMPRESSION: 1. Cholecystectomy with mild biliary ductal dilation. There are several hyperdense foci within the common bile duct measuring up to 1.4 cm suggestive of choledocholithiasis. Correlation with serum bilirubin recommended. 2. Cardiomegaly with suggested pulmonary arterial hypertension. 3. Small pleural effusions with bibasilar mucous plugging and dependent lower lobe opacities suggestive of atelectasis versus an infectious or inflammatory pneumonitis. 4. No bowel obstruction or bowel wall thickening. 5. Increased attenuation of the liver which can be seen in numerous causes including amiodarone toxicity. ACT 112: Negative or not required by law. The above report was generated using voice recognition software. It may contain grammatical, syntax or spelling errors. Electronically signed by: Ha Haq M.D. 03/05/2022 11:43 AM Code Status & VTE Plan Code Status Patient is a DNR as per my discussion with him. VTE Prophylaxis Plan VTE Prophylaxis will be ordered: No Supervising Physician Co-Signing Physician Notes I have seen and examined the patient and have discussed the case with the provider above. I agree with the assessment and plan as stated with the following exceptions. The patient is an 86-year-old man presenting with generalized weakness cough and hypoxia. He has had flulike symptoms since Thursday, approximately 5 days ago, which he likely acquired from his 2 children who are also sick with flu. He was hypoxic in the ER at 88% on room air requiring 2 L of oxygen via nasal cannula. He is oriented and otherwise denies any abdominal pain changes in stool or urinary issues or other symptoms. He reports not eating any food for the past 3 days but states his appetite has now returned. He does report at least 2 falls and some vomiting yesterday. On physical exam he is ill-appearing but in no acute distress and is answering questions appropriately. Skin is warm with an increased temperature than normal but dry. HEENT exam reveals moist oral mucous membranes. Pulmonary auscultation reveals clear lungs to auscultation throughout. Deep breaths cause him to cough rather excessively. Cardiac exam reveals S1-S2 heard with no murmurs gallops or rubs. He has a regular rate and rhythm. Abdomen is nontender nondistended and soft. He has no gross neurologic deficits. Work-up today includes a normal CBC with an improved H&H from 2019 currently 12.7/39. Platelet count is 114 which is lower than normal. Chemistry reveals metabolic alkalosis within increased creatinine of 1.5, baseline 0.94. Lactate is 0.7. Liver panel is abnormal with a total bilirubin of 1.7, AST 312 and ALT 338. Alk phos is normal. Highly sensitive troponin was 57 with repeat pending. Lipase was normal. Urinalysis is unremarkable. Imaging including a CT of the abdomen pelvis without contrast reveals several hyperdense foci within the common bile duct suggestive of choledocholithiasis. There is pulmonary arterial hypertension present as well as small pleural effusions with bibasilar mucous plugging and dependent lower lobe opacities. With a history of fall a CT head was ordered which revealed no acute intracranial hemorrhage or other intracranial disease process. Thoracic spine x-ray was also ordered with no evidence of acute fracture. Degenerative changes were seen. A chest x-ray revealed no acute chest disease. EKG reveals atrial fibrillation (known to be chronic) with a V paced rhythm. This is an 86-year-old man with a history of ischemic cardiomyopathy who pre sents with influenza, acute renal failure, metabolic alkalosis in the setting of decreased p.o. intake and daily diuretic usage. He also has chronic hypotension and is on midodrine 3 times daily. Increased LFTs and hyperbilirubinemia may indicate some type of obstructive choledocholithiasis, however, there is no persistent symptom of abdominal pain, vomiting or other indication that this is an issue. Ongoing fever and illness is likely secondary to influenza. It is possible that diuretic use and decreased p.o. intake caused a dehydrated state and poor perfusion to his liver. Agree with rehydrating cautiously given poor EF, continuing with broad-spectrum antibiotics, consulting GI for thoughts on obstructive pathology as a possibility here, and trending lab work. Although there are bibasilar infiltrates noted at the bases of the lungs bilaterally, this may just be related to flu, atelectasis and not a bacterial pneumonia per se. However, Zosyn is covering for both abdominal and pulmonary sources as a possibility for now pending clinical improvement. Doubt ACS given lack of symptoms. Elevated troponin more likely demand ischemia in the setting of known cardiomyopathy with active illness. DO Booker
[2022-03-05 13:58] LABS: Partial Thromboplastin Ratio 1.2; Partial Thromboplastin Time 31.8 Seconds (21.0-31.0)
[2022-03-05] MEDS: MIDODRINE HCL 2.5 MG TAB PO SCH (18:34)
[2022-03-05] MEDS: PIPERACILLIN/TAZOBACTAM 3.375 GM in DEXTROSE 5% 100 ML IV SCH (18:34)
[2022-03-05] MEDS: ALBUT/IPRATROP 3MG/0.5MG NEB 3 ML VIAL NEB SCH (19:20)
[2022-03-05 23:51] LABS: Partial Thromboplastin Ratio 4.6
[2022-03-06] MEDS: METOPROLOL SUCC 25MG EXT REL TAB PO SCH ×2 (00:09→20:53)
[2022-03-06] MEDS: TAMSULOSIN HCL 0.4 MG CAP PO SCH ×2 (00:09→20:53)
[2022-03-06 00:16] LABS: Partial Thromboplastin Time 125.7 Seconds (21.0-31.0)
[2022-03-06] MEDS: PIPERACILLIN/TAZOBACTAM 3.375 GM in DEXTROSE 5% 100 ML IV SCH ×3 (01:40→18:12)
[2022-03-06] MEDS ORDERED: HEPARIN SODIUM/DEXTROSE 25,000 UNITS/500 ML BAG IV SCH (02:15)
[2022-03-06] MEDS: ALBUT/IPRATROP 3MG/0.5MG NEB 3 ML VIAL NEB SCH ×2 (07:21→20:14)
[2022-03-06 08:51] LABS: Partial Thromboplastin Ratio 2.8
[2022-03-06 08:57] LABS: Hematocrit (blood only) 34.7 % (40.1-51.0); Hemoglobin 11.6 g/dl (14.0-18.0); Mean Corpuscular Hemoglobin 30.7 pg (25.0-34.0); Mean Corpuscular Hgb Conc 33.4 g/dL (32.0-36.0); Mean Corpuscular Volume 91.8 fL (80.0-100.0); Mean Platelet Volume 10.2 fL (9.4-12.4); Platelet Count 98 K/uL (130-400); RDW Coefficient of Variation 14.2 % (11.5-14.5); RDW Standard Deviation 48.1 fL (36.4-46.3); Red Blood Count 3.78 M/uL (4.63-6.08); White Blood Count 6.01 K/ul (4.8-10.8)
[2022-03-06 09:01] LABS: Partial Thromboplastin Time 78.3 Seconds (21.0-31.0)
[2022-03-06] MEDS: MIDODRINE HCL 2.5 MG TAB PO SCH ×3 (09:10→18:31)
[2022-03-06] MEDS: AMIODARONE 200 MG TAB PO SCH (09:10)
[2022-03-06] MEDS: FINASTERIDE 5 MG TAB PO SCH (09:10)
--- NOTE | 2022-03-06 09:25 | Gastrointestinal Consultation ---
Date of Consultation March 06, 2022 Assessment & Plan (1) Choledocholithiasis: 86 year old male with history of ischemic cardiomyopathy s/p biventricular ICD, CAD s/p CABG x 6, chronic atrial fibrillation on Eliquis, history of ventricular tachycardia on amiodarone therapy, CKDadmitted with flu-a with elevated Tbili, transaminases and imaging showing CBD stones Hold AC Will need to turn of heparin gtt at midnight in anticipation for ERCP in the AM Can continue liquids today NPO after midnight Trend LFTs Agree with IV ABX Plan for ERCP Thursday Thank you for allowing us to participate in the care of this patient. Please call with any acute changes, questions or concerns. Please see addendum below wi th additional recommendation from my supervising physician. Supervising Physician Co-Signing Physician Notes I have seen and examined the patient with BETH Vidal whose note reflects our findings and plan. Patient with multiple comorbidities including ICM, CAD, AF on chronic anticoagulation admitted with resp symptoms found to have flu-A. Labs showed elevated LFTs which lead to imaging showing filling defects in the CBD. H/o cholecystectomy. Anticoagulant being held in prep for ERCP tomorrow provided resp status remains good. History of Present Illness Reason for Consultation: cbd stone Requesting Physician: Jn Attending Physician: Dee Dee Ragsdale MD History of Present Illness 86 year old male with history of ischemic cardiomyopathy s/p biventricular ICD, CAD s/p CABG x 6, chronic atrial fibrillation on Eliquis, history of ventricular tachycardia on amiodarone therapy, CKD stage III, orthostatic hypotension on midodrine admitted through the ED with weakness, fevers, hypoxia, nausea/vomiting, positive for Flu-A. GI was asked to evaluate given his elevated LFTs and imaging showing CBD stones. He suggests s/p CCY about 10 years ago. Was feeling well until about 1-2 months ago developed intermittent nausea/vomiting. No associated pain. Denies black or bloody emesis. No change in bowel habits. No black or bloody stools. No weight loss. Afebrile overnight WBC 6 TB 1.7, AST 312, ALT 338. ALKP 63 CTAP 2022: Cholecystectomy with mild biliary ductal dilation. There are several hyperdense foci within the common bile duct measuring up to 1.4 cm suggestive of choledocholithiasis. Correlation with serum bilirubin recommended. Cardiomegaly with suggested pulmonary arterial hypertension.. Small pleural effusions with bibasilar mucous plugging and dependent lower lobe opacities suggestive of atelectasis versus an infectious or inflammatory pneumonitis.No bowel obstruction or bowel wall thickening.. Increased attenuation of the liver which can be seen in numerous causes including amiodarone toxicity. Allergies Allergy/AdvReac Type Severity Reaction Status Date / Time disopyramide Allergy Intermediate SWELLING, Verified 03/05/22 12:16 RED SKIN Home Medications Medication Instructions Recorded Confirmed Type vitamin B complex 1 tab PO DAILY 10/26/19 03/05/22 History amiodarone 200 mg tablet (Pacerone) 200 mg PO DAILY 30 days #30 tabs 12/18/19 03/05/22 Rx apixaban 2.5 mg tablet (Eliquis) 2.5 mg PO BID 30 days #60 tabs 12/18/19 03/05/22 Rx ascorbic acid (vitamin C) 500 mg 500 mg PO DAILY #30 tabs 12/18/19 03/05/22 Rx tablet (Vitamin C) atorvastatin 40 mg tablet (Lipitor) 40 mg PO DAILY 30 days #30 tabs 12/18/19 03/05/22 Rx cholecalciferol (vitamin D3) 50 50 mcg PO DAILY #30 tabs 12/18/19 03/05/22 Rx mcg (2,000 unit) tablet (Vitamin D3) finasteride 5 mg tablet (Proscar) 5 mg PO DAILY 30 days #30 tabs 12/18/19 03/05/22 Rx folic acid 400 mcg tablet 0.4 mg PO BID #60 tabs 12/18/19 03/05/22 Rx furosemide 20 mg tablet (Lasix) 40 mg PO DAILY 30 days #60 tabs 12/18/19 03/05/22 Rx polyethylene glycol 3350 17 gram 17 g PO DAILY 30 days #30 ea 12/18/19 03/05/22 Rx oral powder packet (Miralax) sennosides 8.6 mg tablet (senna) 8.6 mg PO BID #60 tabs 12/18/19 03/05/22 Rx tamsulosin 0.4 mg capsule 0.4 mg PO HS 30 days #30 caps 12/18/19 03/05/22 Rx diclofenac sodium 1 % topical gel 2 g topical AMHS PRN Pain 03/05/22 03/05/22 History metoprolol succinate 25 mg 25 mg PO HS 03/05/22 03/05/22 History tablet,extended release 24 hr midodrine 5 mg tablet 5 mg PO TID 03/05/22 03/05/22 History zinc sulfate 50 mg zinc (220 mg) 50 mg PO DAILY 03/05/22 03/05/22 History capsule Patient History Medical History (Updated 03/05/22 @ 13:49 by Kurt Casillas DO) Aortic stenosis Echo 10/2021-aortic valve is heavily calcified with severely reduced leaflet excursion either due to pseudo stenosis from severe LV dysfunction or some degree of underlying CAD (coronary artery disease) Cardiac defibrillator in place Prior pacemaker insertion, upgrade to an implantable cardio defibrillator in 2004, with upgrade to biventricular defibrillator in 2016 Chronic atrial fibrillation Chronic systolic CHF (congestive heart failure) CKD (chronic kidney disease), stage III Hyperlipidemia Ischemic cardiomyopathy Severe tricuspid regurgitation Ventricular tachycardia Surgical History 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 History of hernia repair History of implantable cardiac defibrillator (ICD) Family History Brother Cancer Mother Pulmonary fibrosis Social History Smoking Status: Never smoker Hx Alcohol Use: Yes Alcohol type: beer Alcohol Intake Frequency: Monthly or Less Hx Substance Use: No Preferred Language: Yoruba Communication Ability: Effective Production Control Clerk Required: No Beliefs That Will Affect Care: None marital status: Current Living Situation: Family current occupation: [employer] Other Information That Helps Us Care for You: No Feels Safe at Home: Yes Assistive Devices: Cane Review of Systems Review of Systems: All systems reviewed & are unremarkable except as noted in HPI & below Physical Exam Constitutional: WD/WN, vitals as above Respiratory: normal respiratory effort, lungs clear to auscultation Cardiovascular: Rate/Rhythm: regular rate Gastrointestinal (Abdomen): normal bowel sounds, soft, nontender, no hepatosplenomegaly Skin: no rashes, warm and dry Results & Data ([facility]) Vital Signs (Past 12 Hours) Vital Signs Temp Pulse Pulse Resp BP Pulse Ox O2 Del Method 03/06/22 07:34 36.6 C 80 20 120/70 98 Room Air, Nebulizer 03/06/22 07:27 84 20 91 Nasal Cannula 03/06/22 03:23 36.8 C 80 18 122/65 93 Nasal Cannula 03/05/22 22:05 83 O2 Flow Rate 03/06/22 07:34 03/06/22 07:27 1 03/06/22 03:23 1 03/05/22 22:05 Laboratory Results 03/06/22 03/06/22 03/05/22 Range/Units 07:55 07:55 23:04 WBC 6.01 (4.8-10.8) K/ul RBC 3.78 L (4.63-6.08) M/uL Hgb 11.6 L (14.0-18.0) g/dl Hct 34.7 L (40.1-51.0) % MCV 91.8 (80.0-100.0) fL MCH 30.7 (25.0-34.0) pg MCHC 33.4 (32.0-36.0) g/dL RDW Std Deviation 48.1 H (36.4-46.3) fL RDW Coeff of [place] 14.2 (11.5-14.5) % Plt Count 98 L (130-400) K/uL MPV 10.2 (9.4-12.4) fL Immature Gran % (Auto) % Neut % (Auto) % Lymph % (Auto) % [place] % (Auto) % Eos % (Auto) % Baso % (Auto) % Neut # (Auto) (1.4-6.5) K/uL Lymph # (Auto) (1.2-3.4) K/uL [place] # (Auto) (0.24-0.82) K/uL Eos # (Auto) (0-0.50) K/uL Baso # (Auto) (0-0.2) K/uL Immature Gran # (Auto) (0.00-0.02) K/uL Echinocytes APTT 78.3 H* 125.7 H* (21.0-31.0) Seconds PTT Ratio 2.8 4.6 Sodium (136-145) mmol/L Potassium (3.5-5.1) mmol/L Chloride (98-107) mmol/L Carbon Dioxide (21-32) mmol/L Anion Gap (3-11) BUN (6-23) mg/dl Creatinine (0.6-1.4) mg/dl Est Cr Clr Drug Dosing ml/min Est GFR ( Amer) ml/min Est GFR (Non-Af Amer) ml/min BUN/Creatinine Ratio (10-20) Glucose (70-99(Fasting)) mg/dl Lactate (0.4-2.0) mmol/L Calcium (8.5-10.1) mg/dl Total Bilirubin (0.2-1.0) mg/dl AST (13-39) U/L ALT (7-52) U/L Alkaline Phosphatase (34-104) U/L Troponin I High Sens (0-20) pg/ml Total Protein (6.0-8.3) gm/dl Albumin (3.4-5.0) gm/dl Globulin (2.5-4.0) gm/dl Albumin/Globulin Ratio (0.9-2) Lipase (11-82) U/L Urine Color Urine Appearance (Clear) Urine pH (4.5-7.5) Ur Specific [place] (1.000-1.030) Urine Protein (Negative) Urine Glucose (UA) (Negative) Urine Ketones (Negative) Urine Blood (Negative) Urine Nitrite (Negative) Urine Bilirubin (Negative) Urine Urobilinogen (Negative) Ur Leukocyte Esterase (Negative) Urine WBC (Auto) (0-5) /hpf Urine RBC (Auto) (0-4) /hpf U Hyaline Cast (Auto) (0-5) /lpf U Epithel Cells (Auto) (0-5) /lpf Urine Bacteria (Auto) (Negative) SARS-CoV-2 (PCR) (Negative) Influenza Type A (PCR) (Neg) Influenza Type B (PCR) (Neg) RSV (RT-PCR) (Neg) 03/05/22 03/05/22 03/05/22 Range/Units 23:04 15:17 13:28 WBC (4.8-10.8) K/ul RBC (4.63-6.08) M/uL Hgb (14.0-18.0) g/dl Hct (40.1-51.0) % MCV (80.0-100.0) fL MCH (25.0-34.0) pg MCHC (32.0-36.0) g/dL RDW Std Deviation (36.4-46.3) fL RDW Coeff of [place] (11.5-14.5) % Plt Count (130-400) K/uL MPV (9.4-12.4) fL Immature Gran % (Auto) % Neut % (Auto) % Lymph % (Auto) % [place] % (Auto) % Eos % (Auto) % Baso % (Auto) % Neut # (Auto) (1.4-6.5) K/uL Lymph # (Auto) (1.2-3.4) K/uL [place] # (Auto) (0.24-0.82) K/uL Eos # (Auto) (0-0.50) K/uL Baso # (Auto) (0-0.2) K/uL Immature Gran # (Auto) (0.00-0.02) K/uL Echinocytes APTT 31.8 H (21.0-31.0) Seconds PTT Ratio 1.2 Sodium (136-145) mmol/L Potassium (3.5-5.1) mmol/L Chloride (98-107) mmol/L Carbon Dioxide (21-32) mmol/L Anion Gap (3-11) BUN (6-23) mg/dl Creatinine (0.6-1.4) mg/dl Est Cr Clr Drug Dosing ml/min Est GFR ( Amer) ml/min Est GFR (Non-Af Amer) ml/min BUN/Creatinine Ratio (10-20) Glucose (70-99(Fasting)) mg/dl Lactate (0.4-2.0) mmol/L Calcium (8.5-10.1) mg/dl Total Bilirubin (0.2-1.0) mg/dl AST (13-39) U/L ALT (7-52) U/L Alkaline Phosphatase (34-104) U/L Troponin I High Sens 78.3 H* D 59.1 H* (0-20) pg/ml Total Protein (6.0-8.3) gm/dl Albumin (3.4-5.0) gm/dl Globulin (2.5-4.0) gm/dl Albumin/Globulin Ratio (0.9-2) Lipase (11-82) U/L Urine Color Urine Appearance (Clear) Urine pH (4.5-7.5) Ur Specific [place] (1.000-1.030) Urine Protein (Negative) Urine Glucose (UA) (Negative) Urine Ketones (Negative) Urine Blood (Negative) Urine Nitrite (Negative) Urine Bilirubin (Negative) Urine Urobilinogen (Negative) Ur Leukocyte Esterase (Negative) Urine WBC (Auto) (0-5) /hpf Urine RBC (Auto) (0-4) /hpf U Hyaline Cast (Auto) (0-5) /lpf U Epithel Cells (Auto) (0-5) /lpf Urine Bacteria (Auto) (Negative) SARS-CoV-2 (PCR) (Negative) Influenza Type A (PCR) (Neg) Influenza Type B (PCR) (Neg) RSV (RT-PCR) (Neg) 03/05/22 03/05/22 03/05/22 Range/Units 12:10 09:00 09:00 WBC (4.8-10.8) K/ul RBC (4.63-6.08) M/uL Hgb (14.0-18.0) g/dl Hct (40.1-51.0) % MCV (80.0-100.0) fL MCH (25.0-34.0) pg MCHC (32.0-36.0) g/dL RDW Std Deviation (36.4-46.3) fL RDW Coeff of [place] (11.5-14.5) % Plt Count (130-400) K/uL MPV (9.4-12.4) fL Immature Gran % (Auto) % Neut % (Auto) % Lymph % (Auto) % [place] % (Auto) % Eos % (Auto) % Baso % (Auto) % Neut # (Auto) (1.4-6.5) K/uL Lymph # (Auto) (1.2-3.4) K/uL [place] # (Auto) (0.24-0.82) K/uL Eos # (Auto) (0-0.50) K/uL Baso # (Auto) (0-0.2) K/uL Immature Gran # (Auto) (0.00-0.02) K/uL Echinocytes APTT (21.0-31.0) Seconds PTT Ratio Sodium (136-145) mmol/L Potassium (3.5-5.1) mmol/L Chloride (98-107) mmol/L Carbon Dioxide (21-32) mmol/L Anion Gap (3-11) BUN (6-23) mg/dl Creatinine (0.6-1.4) mg/dl Est Cr Clr Drug Dosing ml/min Est GFR ( Amer) ml/min Est GFR (Non-Af Amer) ml/min BUN/Creatinine Ratio (10-20) Glucose (70-99(Fasting)) mg/dl Lactate 0.7 (0.4-2.0) mmol/L Calcium (8.5-10.1) mg/dl Total Bilirubin (0.2-1.0) mg/dl AST (13-39) U/L ALT (7-52) U/L Alkaline Phosphatase (34-104) U/L Troponin I High Sens (0-20) pg/ml Total Protein (6.0-8.3) gm/dl Albumin (3.4-5.0) gm/dl Globulin (2.5-4.0) gm/dl Albumin/Globulin Ratio (0.9-2) Lipase (11-82) U/L Urine Color Dark Yellow Urine Appearance Clear (Clear) Urine pH 5.0 (4.5-7.5) Ur Specific [place] 1.018 (1.000-1.030) Urine Protein Trace H (Negative) Urine Glucose (UA) Negative (Negative) Urine Ketones Negative (Negative) Urine Blood Negative (Negative) Urine Nitrite Negative (Negative) Urine Bilirubin Negative (Negative) Urine Urobilinogen Negative (Negative) Ur Leukocyte Esterase Negative (Negative) Urine WBC (Auto) 1-5 (0-5) /hpf Urine RBC (Auto) 0-4 (0-4) /hpf U Hyaline Cast (Auto) 5-10 H (0-5) /lpf U Epithel Cells (Auto) 5-10 H (0-5) /lpf Urine Bacteria (Auto) Negative (Negative) SARS-CoV-2 (PCR) NEGATIVE (Negative) Influenza Type A (PCR) Positive A* (Neg) Influenza Type B (PCR) Negative (Neg) RSV (RT-PCR) Negative (Neg) 03/05/22 03/05/22 Range/Units 09:00 09:00 WBC 7.30 (4.8-10.8) K/ul RBC 4.10 L (4.63-6.08) M/uL Hgb 12.7 L (14.0-18.0) g/dl Hct 38.9 L (40.1-51.0) % MCV 94.9 (80.0-100.0) fL MCH 31.0 (25.0-34.0) pg MCHC 32.6 (32.0-36.0) g/dL RDW Std Deviation 51.0 H (36.4-46.3) fL RDW Coeff of [place] 14.6 H (11.5-14.5) % Plt Count 114 L (130-400) K/uL MPV 10.1 (9.4-12.4) fL Immature Gran % (Auto) 0.3 % Neut % (Auto) 84.0 % Lymph % (Auto) 9.0 % [place] % (Auto) 6.6 % Eos % (Auto) 0.0 % Baso % (Auto) 0.1 % Neut # (Auto) 6.13 (1.4-6.5) K/uL Lymph # (Auto) 0.66 L (1.2-3.4) K/uL [place] # (Auto) 0.48 (0.24-0.82) K/uL Eos # (Auto) 0.00 (0-0.50) K/uL Baso # (Auto) 0.01 (0-0.2) K/uL Immature Gran # (Auto) 0.02 (0.00-0.02) K/uL Echinocytes 1+ APTT (21.0-31.0) Seconds PTT Ratio Sodium 136 (136-145) mmol/L Potassium 3.6 (3.5-5.1) mmol/L Chloride 96 L (98-107) mmol/L Carbon Dioxide 34 H (21-32) mmol/L Anion Gap 6 (3-11) BUN 29 H (6-23) mg/dl Creatinine 1.50 H (0.6-1.4) mg/dl Est Cr Clr Drug Dosing 34.3 ml/min Est GFR ( Amer) 48.8 ml/min Est GFR (Non-Af Amer) 42.1 ml/min BUN/Creatinine Ratio 19.3 (10-20) Glucose 108 H (70-99(Fasting)) mg/dl Lactate (0.4-2.0) mmol/L Calcium 9.0 (8.5-10.1) mg/dl Total Bilirubin 1.7 H (0.2-1.0) mg/dl AST 312 H (13-39) U/L ALT 338 H (7-52) U/L Alkaline Phosphatase 63 (34-104) U/L Troponin I High Sens 57.2 H* (0-20) pg/ml Total Protein 6.6 (6.0-8.3) gm/dl Albumin 3.3 L (3.4-5.0) gm/dl Globulin 3.3 (2.5-4.0) gm/dl Albumin/Globulin Ratio 1.0 (0.9-2) Lipase 15 (11-82) U/L Urine Color Urine Appearance (Clear) Urine pH (4.5-7.5) Ur Specific [place] (1.000-1.030) Urine Protein (Negative) Urine Glucose (UA) (Negative) Urine Ketones (Negative) Urine Blood (Negative) Urine Nitrite (Negative) Urine Bilirubin (Negative) Urine Urobilinogen (Negative) Ur Leukocyte Esterase (Negative) Urine WBC (Auto) (0-5) /hpf Urine RBC (Auto) (0-4) /hpf U Hyaline Cast (Auto) (0-5) /lpf U Epithel Cells (Auto) (0-5) /lpf Urine Bacteria (Auto) (Negative) SARS-CoV-2 (PCR) (Negative) Influenza Type A (PCR) (Neg) Influenza Type B (PCR) (Neg) RSV (RT-PCR) (Neg)
[2022-03-06] MEDS ORDERED: BENZONATATE 100 MG CAPSULE PO PRN (09:29)
--- NOTE | 2022-03-06 09:30 | Hospitalist Progress Note ---
Date of Service March 06, 2022 Assessment & Plan (1) Acute respiratory failure with hypoxia: (2) Influenza A: Plan: Patient presenting from home with reports of generalized weakness, poor appetite, cough In the ED, hypoxic on room air at 88% Currently on 2 L of oxygen via nasal cannula Tested positive for influenza A No clear infiltrate on CXR CT ABD/pelvis showing Small pleural effusions with bibasilar mucous plugging and dependent lower lobe opacities suggestive of atelectasis versus an infectious or inflammatory pneumonitis No Tamiflu right now as symptoms started a week ago Continue supportive care with antitussives, nebs, flutter valve, incentive spirometer Wean off oxyggen (3) Transaminitis: (4) Choledocholithiasis: Plan: On admission, T bili 1.7, AST 312, ALT 338, alk phos 63 CT ABD/pelvis showing several hyperdense foci within the common bile duct measuring up to 1.4 cm suggestive of choledocholithiasis Febrile on presentation (influenza likely contributing), no leukocytosis. Lactate 0.7. Blood culture sent. Low likelihood for cholangitis based on presentation However, will keep empirical zosyn for now pending ERCP tomorrow Continue to hold home eliquis Continue heparin drip for now. Will need to hold overnight prior to ERCP tomorrow NPO PMN GI on board Trend LFTs (5) Elevated troponin: Plan: Likely due to demand ischemia in the setting of acute illness/hypoxia HS troponin 57.2, EKG demonstrates a paced rhythm Denies chest pain (6) Chronic atrial fibrillation: Plan: Rate controlled on metoprolol Rhythm controlled on amiodarone Typically anticoagulated on Eliquis however holding due to planned ERCP. Continue heparin for now. Plan to hold overnight prior to ERCP (7) Ischemic cardiomyopathy: (8) Ventricular tachycardia: (9) Cardiac defibrillator in place: Plan: EF < 20% Holding diuretics for today since patient will be NPO PMN (10) DVT prophylaxis: Plan: On IV heparin Admission and Anticipated Discharge Date Admission Date: March 05, 2022 Subjective Patient seen and examined Reports cough, productive Reports weakness Denied abd pain. Reports intermittent nausea and vomiting over the past several months Denied fever, chills. Denied ches pain, palpitations Denied dysuria, freq, urgency Physical Exam Constitutional: + well hydrated; no acute distress Elderly man Eyes: PERRL, conjunctivae normal, anicteric sclerae ENMT: external ear and nose normal, oropharynx normal Respiratory: normal respiratory effort, lungs clear to auscultation Cardiovascular: Rate/Rhythm: regular rate and regular rhythm S1 S2 Gastrointestinal (Abdomen): normal bowel sounds, soft, nontender, no hepatosplenomegaly Musculoskeletal: No pedal edema Neurologic: PERRL, EOMI, accommodation nl, no face palsy, no dysarthria Results & Data Results & Data ([facility]) Vital Signs (Past 12 Hours) Vital Signs Temp Pulse Pulse Resp BP Pulse Ox O2 Del Method 03/06/22 07:34 36.6 C 80 20 120/70 98 Room Air, Nebulizer 03/06/22 07:27 84 20 91 Nasal Cannula 03/06/22 03:23 36.8 C 80 18 122/65 93 Nasal Cannula 03/05/22 22:05 83 O2 Flow Rate 03/06/22 07:34 03/06/22 07:27 1 03/06/22 03:23 1 03/05/22 22:05 Laboratory Results Abnormal lab results 03/05/22 03/05/22 03/05/22 Range/Units 09:00 09:00 09:00 RBC 4.10 L (4.63-6.08) M/uL Hgb 12.7 L (14.0-18.0) g/dl Hct 38.9 L (40.1-51.0) % RDW Std Deviation 51.0 H (36.4-46.3) fL RDW Coeff of [place] 14.6 H (11.5-14.5) % Plt Count 114 L (130-400) K/uL Lymph # (Auto) 0.66 L (1.2-3.4) K/uL APTT (21.0-31.0) Seconds Chloride 96 L (98-107) mmol/L Carbon Dioxide 34 H (21-32) mmol/L BUN 29 H (6-23) mg/dl Creatinine 1.50 H (0.6-1.4) mg/dl Glucose 108 H (70-99(Fasting)) mg/dl Total Bilirubin 1.7 H (0.2-1.0) mg/dl AST 312 H (13-39) U/L ALT 338 H (7-52) U/L Troponin I High Sens 57.2 H* (0-20) pg/ml Albumin 3.3 L (3.4-5.0) gm/dl Urine Protein Trace H (Negative) U Hyaline Cast (Auto) 5-10 H (0-5) /lpf U Epithel Cells (Auto) 5-10 H (0-5) /lpf Influenza Type A (PCR) (Neg) 03/05/22 03/05/22 03/05/22 Range/Units 09:00 13:28 15:17 RBC (4.63-6.08) M/uL Hgb (14.0-18.0) g/dl Hct (40.1-51.0) % RDW Std Deviation (36.4-46.3) fL RDW Coeff of [place] (11.5-14.5) % Plt Count (130-400) K/uL Lymph # (Auto) (1.2-3.4) K/uL APTT 31.8 H (21.0-31.0) Seconds Chloride (98-107) mmol/L Carbon Dioxide (21-32) mmol/L BUN (6-23) mg/dl Creatinine (0.6-1.4) mg/dl Glucose (70-99(Fasting)) mg/dl Total Bilirubin (0.2-1.0) mg/dl AST (13-39) U/L ALT (7-52) U/L Troponin I High Sens 59.1 H* (0-20) pg/ml Albumin (3.4-5.0) gm/dl Urine Protein (Negative) U Hyaline Cast (Auto) (0-5) /lpf U Epithel Cells (Auto) (0-5) /lpf Influenza Type A (PCR) Positive A* (Neg) 03/05/22 03/05/22 03/06/22 Range/Units 23:04 23:04 07:55 RBC 3.78 L (4.63-6.08) M/uL Hgb 11.6 L (14.0-18.0) g/dl Hct 34.7 L (40.1-51.0) % RDW Std Deviation 48.1 H (36.4-46.3) fL RDW Coeff of [place] (11.5-14.5) % Plt Count 98 L (130-400) K/uL Lymph # (Auto) (1.2-3.4) K/uL APTT 125.7 H* (21.0-31.0) Seconds Chloride (98-107) mmol/L Carbon Dioxide (21-32) mmol/L BUN (6-23) mg/dl Creatinine (0.6-1.4) mg/dl Glucose (70-99(Fasting)) mg/dl Total Bilirubin (0.2-1.0) mg/dl AST (13-39) U/L ALT (7-52) U/L Troponin I High Sens 78.3 H* D (0-20) pg/ml Albumin (3.4-5.0) gm/dl Urine Protein (Negative) U Hyaline Cast (Auto) (0-5) /lpf U Epithel Cells (Auto) (0-5) /lpf Influenza Type A (PCR) (Neg) 03/06/22 Range/Units 07:55 RBC (4.63-6.08) M/uL Hgb (14.0-18.0) g/dl Hct (40.1-51.0) % RDW Std Deviation (36.4-46.3) fL RDW Coeff of [place] (11.5-14.5) % Plt Count (130-400) K/uL Lymph # (Auto) (1.2-3.4) K/uL APTT 78.3 H* (21.0-31.0) Seconds Chloride (98-107) mmol/L Carbon Dioxide (21-32) mmol/L BUN (6-23) mg/dl Creatinine (0.6-1.4) mg/dl Glucose (70-99(Fasting)) mg/dl Total Bilirubin (0.2-1.0) mg/dl AST (13-39) U/L ALT (7-52) U/L Troponin I High Sens (0-20) pg/ml Albumin (3.4-5.0) gm/dl Urine Protein (Negative) U Hyaline Cast (Auto) (0-5) /lpf U Epithel Cells (Auto) (0-5) /lpf Influenza Type A (PCR) (Neg)
[2022-03-06 09:37] LABS: Acanthocytes 2+; Basophils # (auto) 0.01 K/uL (0-0.2); Basophils % (auto) 0.2 %; Echinocytes 1+; Immature Granulocytes # (auto) 0.03 K/uL (0.00-0.02); Immature Granulocytes % (auto) 0.5 %; Lymphocytes # (auto) 1.34 K/uL (1.2-3.4); Lymphocytes % (auto) 22.3 %; Monocytes # (auto) 0.46 K/uL (0.24-0.82); Monocytes % (auto) 7.7 %; Neutrophils # (auto) 4.17 K/uL (1.4-6.5); Neutrophils % (auto) 69.3 %; Platelet Estimate Decreased (Normal)
[2022-03-06 10:07] LABS: Albumin Globulin Ratio 1.1 (0.9-2); Albumin Level 2.8 gm/dl (3.4-5.0); BUN Creatinine Ratio 18.5 (10-20); Bilirubin,Total 1.1 mg/dl (0.2-1.0); Creatinine Clr Calc Pharmacy 41.5 ml/min; Est GFR (African American) 61.5 ml/min; Est GFR (Non-African American) 53.1 ml/min; Globulin 2.6 gm/dl (2.5-4.0); Potassium 3.3 mmol/L (3.5-5.1); Total Protein 5.4 gm/dl (6.0-8.3)
[2022-03-06] MEDS: guaiFENesin 600 MG TABCR PO SCH ×2 (11:07→21:24)
[2022-03-06] MEDS: HEPARIN SODIUM/DEXTROSE 25,000 UNITS/500 ML BAG IV SCH ×2 (13:33→17:33)
[2022-03-06 15:58] LABS: Partial Thromboplastin Ratio 3.4
[2022-03-06 16:20] LABS: Partial Thromboplastin Time 92.2 Seconds (21.0-31.0)
[2022-03-07] MEDS: PIPERACILLIN/TAZOBACTAM 3.375 GM in DEXTROSE 5% 100 ML IV SCH ×3 (00:45→19:52)
[2022-03-07 01:50] LABS: Partial Thromboplastin Ratio 1.9
[2022-03-07 02:09] LABS: Partial Thromboplastin Time 51.7 Seconds (21.0-31.0)
--- NOTE | 2022-03-07 05:29 | Electrocardiogram Report ---
Test Reason : Blood Pressure : / mmHG Vent. Rate : 080 BPM Atrial Rate : 079 BPM P-R Int : 000 ms QRS Dur : 180 ms QT Int : 484 ms P-R-T Axes : 000 268 074 degrees QTc Int : 558 ms Poor data quality, interpretation may be adversely affected Ventricular-paced rhythm Biventricular pacemaker detected Abnormal ECG When compared with ECG of 22-NOV-2019 12:33, Premature ventricular complexes are no longer Present Vent. rate has decreased BY 3 BPM Confirmed by Fitz Irizarry ([id number]) on 03/07/2022 5:29:17 AM Referred By: REFERRED SELF Confirmed By:Fitz Irizarry
[2022-03-07] MEDS: ALBUT/IPRATROP 3MG/0.5MG NEB 3 ML VIAL NEB SCH ×2 (07:28→20:15)
[2022-03-07] MEDS: MIDODRINE HCL 2.5 MG TAB PO SCH ×3 (08:44→19:53)
[2022-03-07 08:49] LABS: Hematocrit (blood only) 35.3 % (40.1-51.0); Hemoglobin 11.8 g/dl (14.0-18.0); Mean Corpuscular Hemoglobin 30.5 pg (25.0-34.0); Mean Corpuscular Hgb Conc 33.4 g/dL (32.0-36.0); Mean Corpuscular Volume 91.2 fL (80.0-100.0); Mean Platelet Volume 10.5 fL (9.4-12.4); Platelet Count 92 K/uL (130-400); RDW Coefficient of Variation 13.7 % (11.5-14.5); Red Blood Count 3.87 M/uL (4.63-6.08); White Blood Count 4.84 K/ul (4.8-10.8)
--- NOTE | 2022-03-07 08:49 | Gastroenterology Progress Note ---
Date of Service March 07, 2022 Assessment & Plan (1) Choledocholithiasis: Plan: 86 year old male with history of ischemic cardiomyopathy s/p biventricular ICD, CAD s/p CABG x 6, chronic atrial fibrillation on Eliquis, history of ventricular tachycardia on amiodarone therapy, CKDadmitted with flu-a with elevated Tbili, transaminases and imaging showing CBD stones Hold AC Hold heparin NPO ERCP today Trend LFTs Agree with IV ABX Admission and Anticipated Discharge Date Admission Date: March 05, 2022 Supervising Physician Co-Signing Physician Notes I performed a history and physical examination of the patient today, including specifically on physical exam - soft abdomen. I have discussed the patient's ma nagement with the advanced practitioner. Please refer to the nurse practitioner's note for the documented findings and plan of care. ERCP Patient was explained in detail regarding risks, benefits, limitations and alternatives of the above endoscopic procedure. Risks of intravenous sedation used for procedure were also explained. Risks include, but not limited to perforation, bleeding, infection, respiratory distress, cardiac arrest and . Patient is also aware about the possibility of missed lesion. Patient's questions were answered. The patient verbalized understanding the information an d agreed to undergo the procedure. Subjective Pt was seen and evaluated, chart reviewed. Remains on room air. NPO for ERCP today. Review of Systems Review of Systems: All systems reviewed & are unremarkable except as noted in HPI & below Physical Exam Constitutional: WD/WN, vitals as above Neck: trachea midline, no thyromegaly Respiratory: normal respiratory effort Cardiovascular: Rate/Rhythm: regular rate Gastrointestinal (Abdomen): normal bowel sounds, soft, nontender, no hepatosplenomegaly Results & Data ([facility]) Vital Signs (Past 12 Hours) Vital Signs Temp Pulse Pulse Resp BP Pulse Ox O2 Del Method 03/07/22 07:30 80 18 94 Room Air 03/07/22 07:25 80 03/07/22 07:18 36.4 C L 80 20 122/74 96 Room Air 03/07/22 02:46 36.6 C 80 18 112/63 94 Room Air 03/06/22 21:59 80 Laboratory Results 03/07/22 03/07/22 03/07/22 Range/Units 08:11 08:11 01:13 WBC Pending (4.8-10.8) K/ul RBC Pending (4.63-6.08) M/uL Hgb Pending (14.0-18.0) g/dl Hct Pending (40.1-51.0) % MCV Pending (80.0-100.0) fL MCH Pending (25.0-34.0) pg MCHC Pending (32.0-36.0) g/dL RDW Std Deviation (36.4-46.3) fL RDW Coeff of [place] (11.5-14.5) % Plt Count Pending (130-400) K/uL MPV (9.4-12.4) fL Immature Gran % (Auto) % Neut % (Auto) % Lymph % (Auto) % Carter % (Auto) % Eos % (Auto) % Baso % (Auto) % Neut # (Auto) (1.4-6.5) K/uL Lymph # (Auto) (1.2-3.4) K/uL Carter # (Auto) (0.24-0.82) K/uL Eos # (Auto) (0-0.50) K/uL Baso # (Auto) (0-0.2) K/uL Immature Gran # (Auto) (0.00-0.02) K/uL Platelet Estimate (Normal) Echinocytes Acanthocytes (Spur) APTT 51.7 H* (21.0-31.0) Seconds PTT Ratio 1.9 Sodium Pending (136-145) mmol/L Potassium Pending (3.5-5.1) mmol/L Chloride Pending (98-107) mmol/L Carbon Dioxide Pending (21-32) mmol/L Anion Gap Pending (3-11) BUN Pending (6-23) mg/dl Creatinine Pending (0.6-1.4) mg/dl Est Cr Clr Drug Dosing Pending ml/min Est GFR ( Amer) Pending ml/min Est GFR (Non-Af Amer) Pending ml/min BUN/Creatinine Ratio Pending (10-20) Glucose Pending (70-99(Fasting)) mg/dl Calcium Pending (8.5-10.1) mg/dl Total Bilirubin Pending (0.2-1.0) mg/dl AST Pending (13-39) U/L ALT Pending (7-52) U/L Alkaline Phosphatase Pending (34-104) U/L Total Protein Pending (6.0-8.3) gm/dl Albumin Pending (3.4-5.0) gm/dl Globulin Pending (2.5-4.0) gm/dl Albumin/Globulin Ratio Pending (0.9-2) 03/06/22 03/06/22 03/06/22 Range/Units 15:19 09:27 07:55 WBC (4.8-10.8) K/ul RBC (4.63-6.08) M/uL Hgb (14.0-18.0) g/dl Hct (40.1-51.0) % MCV (80.0-100.0) fL MCH (25.0-34.0) pg MCHC (32.0-36.0) g/dL RDW Std Deviation (36.4-46.3) fL RDW Coeff of [place] (11.5-14.5) % Plt Count (130-400) K/uL MPV (9.4-12.4) fL Immature Gran % (Auto) % Neut % (Auto) % Lymph % (Auto) % Carter % (Auto) % Eos % (Auto) % Baso % (Auto) % Neut # (Auto) (1.4-6.5) K/uL Lymph # (Auto) (1.2-3.4) K/uL Carter # (Auto) (0.24-0.82) K/uL Eos # (Auto) (0-0.50) K/uL Baso # (Auto) (0-0.2) K/uL Immature Gran # (Auto) (0.00-0.02) K/uL Platelet Estimate (Normal) Echinocytes Acanthocytes (Spur) APTT 92.2 H* 78.3 H* (21.0-31.0) Seconds PTT Ratio 3.4 2.8 Sodium 135 L (136-145) mmol/L Potassium 3.3 L (3.5-5.1) mmol/L Chloride 100 (98-107) mmol/L Carbon Dioxide 30 (21-32) mmol/L Anion Gap 5 (3-11) BUN 23 (6-23) mg/dl Creatinine 1.24 (0.6-1.4) mg/dl Est Cr Clr Drug Dosing 41.5 ml/min Est GFR ( Amer) 61.5 ml/min Est GFR (Non-Af Amer) 53.1 ml/min BUN/Creatinine Ratio 18.5 (10-20) Glucose 92 (70-99(Fasting)) mg/dl Calcium 8.0 L (8.5-10.1) mg/dl Total Bilirubin 1.1 H (0.2-1.0) mg/dl AST 216 H (13-39) U/L ALT 231 H (7-52) U/L Alkaline Phosphatase 48 (34-104) U/L Total Protein 5.4 L (6.0-8.3) gm/dl Albumin 2.8 L (3.4-5.0) gm/dl Globulin 2.6 (2.5-4.0) gm/dl Albumin/Globulin Ratio 1.1 (0.9-2) 03/06/22 Range/Units 07:55 WBC 6.01 (4.8-10.8) K/ul RBC 3.78 L (4.63-6.08) M/uL Hgb 11.6 L (14.0-18.0) g/dl Hct 34.7 L (40.1-51.0) % MCV 91.8 (80.0-100.0) fL MCH 30.7 (25.0-34.0) pg MCHC 33.4 (32.0-36.0) g/dL RDW Std Deviation 48.1 H (36.4-46.3) fL RDW Coeff of [place] 14.2 (11.5-14.5) % Plt Count 98 L (130-400) K/uL MPV 10.2 (9.4-12.4) fL Immature Gran % (Auto) 0.5 % Neut % (Auto) 69.3 % Lymph % (Auto) 22.3 % Carter % (Auto) 7.7 % Eos % (Auto) 0.0 % Baso % (Auto) 0.2 % Neut # (Auto) 4.17 (1.4-6.5) K/uL Lymph # (Auto) 1.34 (1.2-3.4) K/uL Carter # (Auto) 0.46 (0.24-0.82) K/uL Eos # (Auto) 0.00 (0-0.50) K/uL Baso # (Auto) 0.01 (0-0.2) K/uL Immature Gran # (Auto) 0.03 H (0.00-0.02) K/uL Platelet Estimate Decreased L (Normal) Echinocytes 1+ Acanthocytes (Spur) 2+ APTT (21.0-31.0) Seconds PTT Ratio Sodium (136-145) mmol/L Potassium (3.5-5.1) mmol/L Chloride (98-107) mmol/L Carbon Dioxide (21-32) mmol/L Anion Gap (3-11) BUN (6-23) mg/dl Creatinine (0.6-1.4) mg/dl Est Cr Clr Drug Dosing ml/min Est GFR ( Amer) ml/min Est GFR (Non-Af Amer) ml/min BUN/Creatinine Ratio (10-20) Glucose (70-99(Fasting)) mg/dl Calcium (8.5-10.1) mg/dl Total Bilirubin (0.2-1.0) mg/dl AST (13-39) U/L ALT (7-52) U/L Alkaline Phosphatase (34-104) U/L Total Protein (6.0-8.3) gm/dl Albumin (3.4-5.0) gm/dl Globulin (2.5-4.0) gm/dl Albumin/Globulin Ratio (0.9-2)
[2022-03-07 09:07] LABS: Albumin Globulin Ratio 1.1 (0.9-2); Albumin Level 2.8 gm/dl (3.4-5.0); BUN Creatinine Ratio 14.9 (10-20); Bilirubin,Total 1.1 mg/dl (0.2-1.0); Calcium 8.2 mg/dl (8.5-10.1); Creatinine Clr Calc Pharmacy 42.5 ml/min; Est GFR (African American) 63.3 ml/min; Est GFR (Non-African American) 54.6 ml/min; Globulin 2.6 gm/dl (2.5-4.0); Potassium 3.2 mmol/L (3.5-5.1); Total Protein 5.4 gm/dl (6.0-8.3)
[2022-03-07] MEDS: POTASSIUM CHLORIDE / WTR 10 MEQ/100 ML PLCT IV SCH ×4 (09:41→13:02)
[2022-03-07] MEDS: AMIODARONE 200 MG TAB PO SCH (09:44)
[2022-03-07] MEDS: guaiFENesin 600 MG TABCR PO SCH ×2 (09:44→21:03)
[2022-03-07] MEDS: FINASTERIDE 5 MG TAB PO SCH (09:44)
--- NOTE | 2022-03-07 10:01 | Hospitalist Progress Note ---
Date of Service March 07, 2022 Assessment & Plan (1) Acute respiratory failure with hypoxia: (2) Influenza A: Plan: Patient presenting from home with reports of generalized weakness, poor appetite, cough In the ED, hypoxic on room air at 88% Required oxygen 2 L on admission Tested positive for influenza A No clear infiltrate on CXR CT ABD/pelvis showing Small pleural effusions with bibasilar mucous plugging and dependent lower lobe opacities suggestive of atelectasis versus an infectious or inflammatory pneumonitis No Tamiflu right now as symptoms started a week ago Continue supportive care with antitussives, nebs, flutter valve, incentive spirometer Weaned off oxygen (3) Transaminitis: (4) Choledocholithiasis: Plan: On admission, T bili 1.7, AST 312, ALT 338, alk phos 63 CT ABD/pelvis showing several hyperdense foci within the common bile duct measuring up to 1.4 cm suggestive of choledocholithiasis Febrile on presentation (influenza likely contributing), no leukocytosis. Lactate 0.7. Blood culture sent. Low likelihood for cholangitis based on presentation However, will keep empirical zosyn for now pending ERCP today Continue to hold home eliquis Continue to hold anticoagulation till after ERCP NPO for ERCP today GI on board Trend LFTs (5) Elevated troponin: Plan: Likely due to demand ischemia in the setting of acute illness/hypoxia HS troponin 57.2, EKG demonstrates a paced rhythm Denies chest pain (6) Chronic atrial fibrillation: Plan: Rate controlled on metoprolol Rhythm controlled on amiodarone Typically anticoagulated on Eliquis however holding due to planned ERCP. (7) Ischemic cardiomyopathy: (8) Ventricular tachycardia: (9) Cardiac defibrillator in place: Plan: EF < 20% Holding diuretics for today since patient is awaiting procedure Hypokalemia today Replete potassium (10) DVT prophylaxis: Plan: Anticoagulation on hold Admission and Anticipated Discharge Date Admission Date: March 05, 2022 Subjective Patient seen and examined Reports feeling better today Reports cough, productive Denied abd pain, nausea or vomiting today Denied fever, chills. Denied ches pain, palpitations Denied dysuria, freq, urgency Physical Exam Constitutional: + well hydrated; no acute distress Eyes: PERRL, conjunctivae normal, anicteric sclerae ENMT: external ear and nose normal, oropharynx normal Respiratory: normal respiratory effort, lungs clear to auscultation Cardiovascular: Rate/Rhythm: regular rate and regular rhythm S1 S2 Gastrointestinal (Abdomen): normal bowel sounds, soft, nontender, no hepatosplenomegaly Musculoskeletal: No pedal edema Neurologic: PERRL, EOMI, accommodation nl, no face palsy, no dysarthria Results & Data Results & Data ([facility]) Vital Signs (Past 12 Hours) Vital Signs Temp Pulse Pulse Resp BP Pulse Ox O2 Del Method 03/07/22 07:30 80 18 94 Room Air 03/07/22 07:25 80 03/07/22 07:18 36.4 C L 80 20 122/74 96 Room Air 03/07/22 02:46 36.6 C 80 18 112/63 94 Room Air Laboratory Results Abnormal lab results 03/06/22 03/07/22 03/07/22 Range/Units 15:19 01:13 08:11 RBC 3.87 L (4.63-6.08) M/uL Hgb 11.8 L (14.0-18.0) g/dl Hct 35.3 L (40.1-51.0) % Plt Count 92 L (130-400) K/uL APTT 92.2 H* 51.7 H* (21.0-31.0) Seconds Potassium (3.5-5.1) mmol/L Chloride (98-107) mmol/L Carbon Dioxide (21-32) mmol/L Calcium (8.5-10.1) mg/dl Total Bilirubin (0.2-1.0) mg/dl AST (13-39) U/L ALT (7-52) U/L Total Protein (6.0-8.3) gm/dl Albumin (3.4-5.0) gm/dl 03/07/22 Range/Units 08:11 RBC (4.63-6.08) M/uL Hgb (14.0-18.0) g/dl Hct (40.1-51.0) % Plt Count (130-400) K/uL APTT (21.0-31.0) Seconds Potassium 3.2 L (3.5-5.1) mmol/L Chloride 97 L (98-107) mmol/L Carbon Dioxide 33 H (21-32) mmol/L Calcium 8.2 L (8.5-10.1) mg/dl Total Bilirubin 1.1 H (0.2-1.0) mg/dl AST 172 H (13-39) U/L ALT 201 H (7-52) U/L Total Protein 5.4 L (6.0-8.3) gm/dl Albumin 2.8 L (3.4-5.0) gm/dl
[2022-03-07] MEDS ORDERED: LIDOCAINE 2% MPF LOCAL 5 ML VIAL INFIL ONE (15:04)
[2022-03-07] MEDS ORDERED: PROPOFOL IV EMULSION 10 MG/ML 20 ML VIAL IV ONE (15:04)
[2022-03-07] MEDS ORDERED: ATROPINE SULFATE 0.1 MG/ML 10ML SYR IV PRN (16:27)
[2022-03-07] MEDS ORDERED: ONDANSETRON INJ 2 MG/ML 2 ML VIAL IV PRN (16:27)
[2022-03-07] MEDS ORDERED: ePHEDrine sulfate 50 MG/ML AMP IV PRN (16:27)
[2022-03-07] MEDS ORDERED: fentaNYL citrate 100 MCG/2 ML VIAL IV PRN (16:27)
--- NOTE | 2022-03-07 16:27 | Anesthesiology Consultation ---
Date of Service March 07, 2022 Assessment & Plan Chart Review Chart Review: Acceptable Risk for Surgery and Patient NOT seen in Pre Admission Testing Consults Requested none ASA ASA4 Proposed Anesthesia Anesthesia Type: General Risk / Benefits Reviewed With: PT / POA / Parent / Guardian, Accepts Plan and Informed Consent Obtained History Surgery Operation Date: 03/07/22 14:15 Proposed Procedures p Endoscopic Retrograde Cholangiopancreatogram - Deena Veronica MD Height/Weight Height: 5 ft 7 in Weight: 66.6 kg Allergies Allergy/AdvReac Type Severity Reaction Status Date / Time disopyramide Allergy Intermediate SWELLING, Verified 03/05/22 12:16 RED SKIN Medications Home Medications Medication Instructions Recorded Confirmed Last Taken vitamin B complex 1 tab PO DAILY 10/26/19 03/05/22 Unknown amiodarone 200 mg tablet (Pacerone) 200 mg PO DAILY 30 days #30 tabs 12/18/19 03/05/22 Unknown apixaban 2.5 mg tablet (Eliquis) 2.5 mg PO BID 30 days #60 tabs 12/18/19 03/05/22 Unknown ascorbic acid (vitamin C) 500 mg 500 mg PO DAILY #30 tabs 12/18/19 03/05/22 Unknown tablet (Vitamin C) atorvastatin 40 mg tablet (Lipitor) 40 mg PO DAILY 30 days #30 tabs 12/18/19 03/05/22 Unknown cholecalciferol (vitamin D3) 50 50 mcg PO DAILY #30 tabs 12/18/19 03/05/22 Unknown mcg (2,000 unit) tablet (Vitamin D3) finasteride 5 mg tablet (Proscar) 5 mg PO DAILY 30 days #30 tabs 12/18/19 03/05/22 Unknown folic acid 400 mcg tablet 0.4 mg PO BID #60 tabs 12/18/19 03/05/22 Unknown furosemide 20 mg tablet (Lasix) 40 mg PO DAILY 30 days #60 tabs 12/18/19 03/05/22 Unknown polyethylene glycol 3350 17 gram 17 g PO DAILY 30 days #30 ea 12/18/19 03/05/22 Unknown oral powder packet (Miralax) sennosides 8.6 mg tablet (senna) 8.6 mg PO BID #60 tabs 12/18/19 03/05/22 Unknown tamsulosin 0.4 mg capsule 0.4 mg PO HS 30 days #30 caps 12/18/19 03/05/22 Unknown diclofenac sodium 1 % topical gel 2 g topical AMHS PRN Pain 03/05/22 03/05/22 Unknown metoprolol succinate 25 mg 25 mg PO HS 03/05/22 03/05/22 Unknown tablet,extended release 24 hr midodrine 5 mg tablet 5 mg PO TID 03/05/22 03/05/22 Unknown zinc sulfate 50 mg zinc (220 mg) 50 mg PO DAILY 03/05/22 03/05/22 Unknown capsule Active Medications Generic Name Dose Route Start Last Admin Trade Name Freq PRN Reason Stop Dose Admin Albuterol 3 ml 03/05/22 19:00 03/07/22 07:28 Albut/Ipratrop 3mg/0.5mg Neb 3 Ml Vial NEB 04/04/22 18:59 3 ml BIDR LORRAINE Administration Protocol Amiodarone HCl 200 mg 03/06/22 09:00 03/07/22 09:44 Amiodarone 200 Mg Tab PO 04/05/22 08:59 200 mg DAILY LORRAINE Administration Finasteride 5 mg 03/06/22 09:00 03/07/22 09:44 Finasteride 5 Mg Tab PO 04/05/22 08:59 5 mg DAILY LORRAINE Administration Guaifenesin 1,200 mg 03/06/22 09:30 03/07/22 09:44 Guaifenesin 600 Mg Tabcr PO 04/05/22 09:29 1,200 mg Q12 LORRAINE Administration Heparin Sodium/Dextrose 25,000 units in 500 mls @ 15 mls/hr 03/05/22 13:00 03/07/22 00:15 Heparin Sodium/Dextrose IV 04/04/22 12:59 Infused .Q24H LORRAINE Titration Protocol 750 UNITS/HR Piperacillin Sod/Tazobactam 115 mls @ 28.75 mls/hr 03/05/22 17:00 03/07/22 13:45 Sod 3.375 gm/ Dextrose IV 03/15/22 16:59 Infused Q8H LORRAINE Infusion Protocol Metoprolol Succinate 25 mg 03/05/22 21:00 03/06/22 20:53 Metoprolol Succ 25mg Ext Rel Tab PO 04/04/22 20:59 Not Given HS [facility] Midodrine 5 mg 03/05/22 17:00 03/07/22 12:39 Midodrine Hcl 2.5 Mg Tab PO 04/04/22 16:59 5 mg TID@0800,1200,1700 LORRAINE Administration Tamsulosin HCl 0.4 mg 03/05/22 21:00 03/06/22 20:53 Tamsulosin Hcl 0.4 Mg Cap PO 04/04/22 20:59 0.4 mg HS LORRAINE Administration NPO Date Last Intake of Fluids: 03/06/22 Time Last Intake of Fluids: 19:00 Date Last Intake of Solids: 03/06/22 Time Last Intake of Solids: 19:00 Past Medical History Medical History (Updated 03/05/22 @ 13:49 by Kurt Casillas DO) Aortic stenosis Echo 10/2021-aortic valve is heavily calcified with severely reduced leaflet excursion either due to pseudo stenosis from severe LV dysfunction or some degree of underlying CAD (coronary artery disease) Cardiac defibrillator in place Prior pacemaker insertion, upgrade to an implantable cardio defibrillator in 2004, with upgrade to biventricular defibrillator in 2015 Chronic atrial fibrillation Chronic systolic CHF (congestive heart failure) CKD (chronic kidney disease), stage III Hyperlipidemia Ischemic cardiomyopathy Severe tricuspid regurgitation Ventricular tachycardia Exercise / Class Metabolic Activity II 4-5 Yardwork/Stairs/Walk up hill Past Family History Family History Brother Cancer Mother Pulmonary fibrosis Past Surgical History Surgical History 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 History of hernia repair History of implantable cardiac defibrillator (ICD) Past Anesthesia History No Hx of Anesthesia Complications and No Family Hx of Anesthesia Complications History of PONV No Hx of PONV and No Hx of Motion Sickness Social History Smoking Status: Never smoker Hx Alcohol Use: Yes Alcohol type: beer alcohol intake frequency: holidays/special occasions only Hx Substance Use: No substance use type: does not use Physical Exam Vital Signs Last Vital Signs Temp 36.6 C 03/07/22 16:15 Pulse 76 01/20/23 16:15 Resp 20 03/07/22 16:15 BP 106/66 03/07/22 16:15 Pulse Ox 95 03/07/22 16:15 O2 Del Method 03/07/22 16:15 O2 Flow Rate 2 03/06/22 20:00 ENMT Mouth: no dentition abnormality Thyromental Distance: > or= 3.5 Finger Breadths Mallampati Class: II Neck normal visual inspection and + limited neck extension Respiratory normal respiratory effort Auscultation: lungs clear to auscultation bilaterally Cardiovascular Rate/Rhythm: regular rate and regular rhythm Chest (Breasts) Chest: + pacemaker Psychiatric Orientation: alert Testing Laboratory Results 03/07/22 08:11 03/07/22 08:11 APTT 51.7 Seconds (21.0-31.0) H* 03/07/22 01:13 Urine Color Dark Yellow 03/05/22 09:00 Urine Appearance Clear (Clear) 03/05/22 09:00 Urine pH 5.0 (4.5-7.5) 03/05/22 09:00 Ur Specific [place] 1.018 (1.000-1.030) 03/05/22 09:00 Urine Protein Trace (Negative) H 03/05/22 09:00 Urine Glucose (UA) Negative (Negative) 03/05/22 09:00 Urine Ketones Negative (Negative) 03/05/22 09:00 Urine Nitrite Negative (Negative) 03/05/22 09:00 Ur Leukocyte Esterase Negative (Negative) 03/05/22 09:00 Urine WBC (Auto) 1-5 /hpf (0-5) 03/05/22 09:00 Urine RBC (Auto) 0-4 /hpf (0-4) 03/05/22 09:00 U Hyaline Cast (Auto) 5-10 /lpf (0-5) H 03/05/22 09:00 U Epithel Cells (Auto) 5-10 /lpf (0-5) H 03/05/22 09:00 Urine Bacteria (Auto) Negative (Negative) 03/05/22 09:00 03/05/22 12:21 Aerobic Blood Culture - Preliminary Blood No growth in Aerobic bottle after 48 hours. Anaerobic Blood Culture - Preliminary No growth in Anaerobic bottle after 48 hours. 03/05/22 12:10 Aerobic Blood Culture - Preliminary Blood No growth in Aerobic bottle after 48 hours. Anaerobic Blood Culture - Preliminary No growth in Anaerobic bottle after 48 hours.
[2022-03-07] MEDS ORDERED: fentaNYL citrate 100 MCG/2 ML VIAL ONE (17:13)
[2022-03-07] MEDS ORDERED: INDOMETHACIN 50 MG SUPP PR ONE (17:35)
[2022-03-07] MEDS ORDERED: NEOSTIGMINE METHYLSULFATE 1 MG/ML 10ML VIAL ONE (17:52)
[2022-03-07] MEDS ORDERED: ONDANSETRON INJ 2 MG/ML 2 ML VIAL ONE (17:52)
[2022-03-07] MEDS ORDERED: GLYCOPYRROLATE 0.2 MG/ML VIAL ONE (17:52)
--- NOTE | 2022-03-07 18:09 | Operative Report ---
Post Operative Report Pre & Post Diagnosis Operation Date: 03/07/22 14:15 Pre-Op Diagnosis: Choledocholithiasis: Post-Op Diagnosis: Choledocholithiasis: I identified the patient and participated in the time-out.: Yes Procedure Operation Date: 03/07/22 14:15 Actual Procedures p Endoscopic Retrograde Cholangiopancreatogram(Not Applicable) - Deena Veronica MD Surgeon Deena Veronica MD Systems Planner None Estimated Blood Loss 0 Findings See Below (CBD stones removed, stent placed) Specimens None Description of Procedure ERCP I attest to the content of the Intraoperative Record and any orders documented therein. Any exceptions are noted below.
--- NOTE | 2022-03-07 18:17 | GI REPORT ---
Patient Name: Chano Restrepo Procedure Date: 03/07/2022 5:21 PM Date of : 1935 Admit Type: Inpatient Age: 86 Gender: Male Attending MD: Deena Veronica MD, Procedure: ERCP Providers: Deena Veronica MD Referring MD: Dee Dee Ragsdale Md Indications: For therapy of bile duct stone(s) Medicines: General Anesthesia Complications: No immediate complications. Estimated Blood Loss: Estimated blood loss: none. Procedure: Pre-Anesthesia Assessment: - Prior to the procedure, a History and Physical was performed, and patient medications, allergies and sensitivities were reviewed. The patient's tolerance of previous anesthesia was reviewed. - The risks and benefits of the procedure and the sedation options and risks were discussed with the patient. All questions were answered and informed consent was obtained. - Patient identification and proposed procedure were verified prior to the procedure by the physician and the nurse. The procedure was verified in the procedure room. - Pre-procedure physical examination revealed no contraindications to sedation. After obtaining informed consent, the scope was passed under direct vision. Throughout the procedure, the patient's blood pressure, pulse, and oxygen saturations were monitored continuously. The Duodenoscope was introduced through the mouth, and advanced to the duodenum and used to inject contrast into the bile duct. The ERCP was accomplished without difficulty. The patient tolerated the procedure well. Findings: A electroplater apprentice film of the abdomen was obtained. Surgical clips, consistent with a previous cholecystectomy, were seen in the area of the right upper quadrant of the abdomen. The esophagus was successfully intubated under direct vision. The scope was advanced to a normal major papilla in the descending duodenum without detailed examination of the pharynx, larynx and associated structures, and upper GI tract. The upper GI tract was grossly normal. The major papilla was located entirely within a diverticulum. A 0.025 inch x 270 cm angled Visiglide wire was passed into the biliary tree. The short-nosed traction sphincterotome was passed over the guidewire and the bile duct was then deeply cannulated. Contrast was injected. I personally interpreted the bile duct images. Ductal flow of contrast was adequate. Image quality was adequate. Contrast extended to the main bile duct. Opacification of the entire biliary tree except for the gallbladder was successful. The maximum diameter of the ducts was 12 mm. Biliary sphincterotomy was made with a monofilament traction (standard) sphincterotome using ERBE electrocautery. There was no post-sphincterotomy bleeding. Dilation of the common bile duct with an 8 mm balloon dilator was successful. The biliary tree was swept with a 15 mm balloon starting at the bifurcation. Many stones were removed. No stones remained. There was bleeding after extraction of the stones. One 10 mm by 6 cm covered metal biliary stent was placed into the common bile duct to tamponade the bleeding. Bile flowed through the stent. The stent was in good position. Impression: - Choledocholithiasis was found. Complete removal was accomplished by biliary sphincterotomy and balloon extraction. - One covered metal biliary stent was placed into the common bile duct. Recommendation: - Return patient to [facility] for ongoing care. - Repeat ERCP in 2 months to remove stent. - Resume Eliquis (apixaban) at prior dose in 3 days. Deena Veronica MD 03/07/2022 6:16:32 PM This report has been signed electronically. Note Initiated On: 03/07/2022 5:21 PM Number of Addenda: 0 I attest to the content of the Intraoperative Record and orders documented therein, exceptions below {[id number]}
--- NOTE | 2022-03-07 18:31 | Fluoroscopy Report ---
[place] ERCP biliary ductal CLINICAL HISTORY: EXPLORE DUCTSacute right upper quadrant abdominal pain COMPARISON STUDY: CT abdomen pelvis 03/05/2022 FLUOROSCOPY TIME: 84.6 seconds FLUOROSCOPY IMAGES: 13 EXPOSURE DOSE: 33.58 mGy FINDINGS: Endoscope noted within the duodenum. Cannulation of the common bile duct with retrograde in jection of contrast. Subsequent images demonstrate balloon sweep with placement of a common bile duct stent. Residual contrast noted within the biliary tree on the final images. IMPRESSION: Fluoroscopic assistance as above. ACT 112: Negative or not required by law. Electronically signed by: Ha Haq M.D. 03/07/2022 6:29 PM
--- NOTE | 2022-03-07 19:19 | Anesthesiology Progress Note ---
Date of Service March 07, 2022 Anesthesia Post Procedure Vital Signs Vital Signs: Temp Pulse Pulse Pulse Resp BP Pulse Ox 03/07/22 18:55 36.4 C L 80 21 127/62 99 03/07/22 18:45 80 24 116/64 98 03/07/22 18:35 87 18 117/60 93 03/07/22 18:26 36.0 C L 80 15 109/52 L 94 03/07/22 16:15 36.6 C 76 20 106/66 95 03/07/22 14:46 36.6 C 81 20 137/91 94 03/07/22 13:59 03/07/22 10:46 36.8 C 81 18 125/72 95 03/07/22 07:30 80 18 94 03/07/22 07:25 80 03/07/22 07:18 36.4 C L 80 20 122/74 96 03/07/22 02:46 36.6 C 80 18 112/63 94 03/06/22 21:59 80 03/06/22 20:00 03/06/22 20:15 80 20 94 03/06/22 19:36 36.5 C 80 18 95/53 L 94 O2 Del Method O2 Flow Rate 03/07/22 18:55 Nasal Cannula 2 03/07/22 18:45 Nasal Cannula 2 03/07/22 18:35 Oxymask 4 03/07/22 18:26 Oxymask 6 03/07/22 16:15 Room Air 03/07/22 14:46 Room Air 03/07/22 13:59 Room Air 03/07/22 10:46 Room Air 03/07/22 07:30 Room Air 03/07/22 07:25 03/07/22 07:18 Room Air 03/07/22 02:46 Room Air 03/06/22 21:59 03/06/22 20:00 Nasal Cannula 2 03/06/22 20:15 Room Air 03/06/22 19:36 Room Air Transfer of Care Handoff Completed per policy Notes Mental Status: alert / awake / arousable Patient Amnestic to Procedure: Yes Nausea / Vomiting: adequately controlled Pain: adequately controlled Airway Patency, RR, SpO2: stable & adequate BP & HR: stable & adequate Hydration State: stable & adequate Anesthetic Complications: no major complications apparent
[2022-03-07] MEDS: HEPARIN SODIUM/DEXTROSE 25,000 UNITS/500 ML BAG IV SCH (20:00)
[2022-03-07] MEDS: METOPROLOL SUCC 25MG EXT REL TAB PO SCH (21:00)
[2022-03-07] MEDS: TAMSULOSIN HCL 0.4 MG CAP PO SCH (21:03)
[2022-03-08] MEDS: PIPERACILLIN/TAZOBACTAM 3.375 GM in DEXTROSE 5% 100 ML IV SCH (01:21)
[2022-03-08] MEDS: ALBUT/IPRATROP 3MG/0.5MG NEB 3 ML VIAL NEB SCH (07:34)
[2022-03-08] MEDS ORDERED: POTASSIUM CHLORIDE CRTAB 20 MEQ TABCR PO STA (08:27)
[2022-03-08] MEDS: guaiFENesin 600 MG TABCR PO SCH (08:52)
[2022-03-08] MEDS: AMIODARONE 200 MG TAB PO SCH (08:53)
[2022-03-08] MEDS: FINASTERIDE 5 MG TAB PO SCH (08:54)
[2022-03-08] MEDS: MIDODRINE HCL 2.5 MG TAB PO SCH (08:55)
[2022-03-08] MEDS ORDERED: APIXABAN 2.5 MG TAB PO SCH (09:00)
--- NOTE | 2022-03-08 09:41 | Discharge Summary ---
Discharge Summary Date of Service March 08, 2022 Notes For Next Care Provider Needs to follow up with Gastroenterology outpatient for repeat ERCP in 2 months to remove stent. Check BMP on follow up to determine if further need for po potassium Medication Changes From Visit Potassium po 10mEq daily Admission HPI Per Admitting Provider 86-year-old male with complex medical history including ischemic cardiomyopathy s/p biventricular ICD, CAD s/p CABG x 6, chronic atrial fibrillation on Eliquis, history of ventricular tachycardia on amiodarone therapy, CKD stage III, orthostatic hypotension on midodrine, and other problems listed below who presents to the ED for evaluation of generalized weakness, cough, poor appetite. Patient has been ill for the past 6 days. Reports that his daughter and son-in-law whom he lives with were diagnosed with influenza last week. Patient reports generalized weakness and two mechanical falls. Patient reports he did not strike his head. Reports a cough productive for yellow/green sputum. Denies shortness of breath. Reports feeling generally weak. He has also had a very poor appetite. Patient reports 2 episodes of vomiting yesterday. Denies hematemesis or coffee-ground emesis. No diarrhea. Reports chronic lightheadedness and dizziness with standing which is unchanged from baseline. No syncopal events. Denies fevers and chills. No urinary symptoms. In the ED, patient was hypoxic on room air at 88%. Febrile 39.4, improved after Tylenol. Otherwise hemodynamically stable. Currently requiring 2 L of oxygen via nasal cannula. Patient has a positive for influenza A. Also found to have transaminitis prompting CT ABD/pelvis which is showing evidence of choledocholithiasis. Patient received IV ceftriaxone, IV Zosyn, IVF. Admission Exam Per Admitting Provider Constitutional: WD/WN, vitals as above no acute distress Eyes: PERRL, conjunctivae normal, anicteric sclerae ENMT: external ear and nose normal, oropharynx normal Ears: + hearing impairment Respiratory: normal respiratory effort and + cough (Moist, nonproductive); no respiratory distress Auscultation: + diminished lung sounds and + crackles (Faint, bilateral bases) Cardiovascular: Rate/Rhythm: regular rate and regular rhythm Vessels: normal peripheral pulses Extremities: no edema Chest (Breasts): Chest: + pacemaker Gastrointestinal (Abdomen): normal bowel sounds, soft, nontender, no hepatosplenomegaly Musculoskeletal: no cyanosis or clubbing, extremities motor strength 5/5 Skin: no rashes, warm and dry Neurologic: PERRL, EOMI, accommodation nl, no face palsy, no dysarthria Psychiatric: A+Ox3, euthymic affect Principal Dx & Hospital Course #1 = Principal Diagnosis (1) Acute respiratory failure with hypoxia: (2) Influenza A: Patient presented from home with reports of generalized weakness, poor appetite, cough In the ED, hypoxic on room air at 88% Required oxygen 2 L on admission Tested positive for influenza A No clear infiltrate on CXR CT ABD/pelvis showing Small pleural effusions with bibasilar mucous plugging and dependent lower lobe opacities suggestive of atelectasis versus an infectious or inflammatory pneumonitis No Tamiflu as symptoms started a week ago Was managed with supportive care with antitussives, nebs, flutter valve, incentive spirometer Successfully weaned off oxygen Reports symptoms are almost resolved (3) Transaminitis: (4) Choledocholithiasis: On admission, T bili 1.7, AST 312, ALT 338, alk phos 63 CT ABD/pelvis showing several hyperdense foci within the common bile duct measuring up to 1.4 cm suggestive of choledocholithiasis Febrile on presentation (influenza likely contributing), no leukocytosis. Lactate 0.7. Was put on empirical antibiotics initially Blood cultures negative Had ERCP which showed choledocholithiasis which was removed and stent placed Patient needs to follow up with GI for repeat ERCP with stent removal in 2 months Liver enzymes trending down (5) Elevated troponin: Likely due to demand ischemia in the setting of acute illness/hypoxia HS troponin 57.2, EKG demonstrates a paced rhythm Denies chest pain (6) Chronic atrial fibrillation: Rate controlled on metoprolol Rhythm controlled on amiodarone Continue home eliquis (7) Ischemic cardiomyopathy: (8) Ventricular tachycardia: (9) Cardiac defibrillator in place: EF < 20% Continue home diuretics Discharged on po potassium 10 mEq daily for hypokalemia inpatient PCP can check BMP on follow up I called daughter and updated her on plans, findings and recommendations Discharge Exam Constitutional + well hydrated; no acute distress Eyes PERRL, conjunctivae normal, anicteric sclerae ENMT external ear and nose normal, oropharynx normal Respiratory normal respiratory effort, lungs clear to auscultation Cardiovascular Rate/Rhythm: regular rate and regular rhythm S1 S2 Gastrointestinal (Abdomen) normal bowel sounds, soft, nontender, no hepatosplenomegaly Musculoskeletal no cyanosis or clubbing, extremities motor strength 5/5 Neurologic PERRL, EOMI, accommodation nl, no face palsy, no dysarthria Psychiatric A+Ox3, euthymic affect Updated Medication List Medication Instructions Recorded Confirmed Type vitamin B complex 1 tab PO DAILY 10/26/19 03/05/22 History amiodarone 200 mg tablet (Pacerone) 200 mg PO DAILY 30 days #30 tabs 12/18/19 03/05/22 Rx apixaban 2.5 mg tablet (Eliquis) 2.5 mg PO BID 30 days #60 tabs 12/18/19 03/05/22 Rx ascorbic acid (vitamin C) 500 mg 500 mg PO DAILY #30 tabs 12/18/19 03/05/22 Rx tablet (Vitamin C) atorvastatin 40 mg tablet (Lipitor) 40 mg PO DAILY 30 days #30 tabs 12/18/19 03/05/22 Rx cholecalciferol (vitamin D3) 50 50 mcg PO DAILY #30 tabs 12/18/19 03/05/22 Rx mcg (2,000 unit) tablet (Vitamin D3) finasteride 5 mg tablet (Proscar) 5 mg PO DAILY 30 days #30 tabs 12/18/19 03/05/22 Rx folic acid 400 mcg tablet 0.4 mg PO BID #60 tabs 12/18/19 03/05/22 Rx furosemide 20 mg tablet (Lasix) 40 mg PO DAILY 30 days #60 tabs 12/18/19 03/05/22 Rx polyethylene glycol 3350 17 gram 17 g PO DAILY 30 days #30 ea 12/18/19 03/05/22 Rx oral powder packet (Miralax) sennosides 8.6 mg tablet (senna) 8.6 mg PO BID #60 tabs 12/18/19 03/05/22 Rx tamsulosin 0.4 mg capsule 0.4 mg PO HS 30 days #30 caps 12/18/19 03/05/22 Rx diclofenac sodium 1 % topical gel 2 g topical AMHS PRN Pain 03/05/22 03/05/22 History metoprolol succinate 25 mg 25 mg PO HS 03/05/22 03/05/22 History tablet,extended release 24 hr midodrine 5 mg tablet 5 mg PO TID 03/05/22 03/05/22 History zinc sulfate 50 mg zinc (220 mg) 50 mg PO DAILY 03/05/22 03/05/22 History capsule potassium chloride 10 mEq 10 meq PO DAILY #30 caps 03/08/22 Rx capsule,extended release Hospital Stay Data Consultations 03/05/22 10:27 ED Decision to Admit Stat 03/05/22 13:20 Consult Gastroenterology Routine Procedures Performed Operation Date: 03/07/22 14:15 Actual Procedures p Endoscopic Retrograde Cholangiopancreatogram(Not Applicable) - Deena Veronica MD Diagnostic Imagining Performed 03/05/22 08:30 CT head/brain wo con Stat 03/05/22 10:59 CT abd pelvis wo con Stat 03/07/22 14:00 FL ERCP biliary ductal Routine Pending Results Patient Have Any Pending Studies at Discharge: No Discharge Instructions Given to Patient (Per Discharging Provider) Mr Kaye Hanson came to the hospital complaining of cough, weakness and shortness of breath. You were evaluated and managed for the flu. You required oxygen briefly You were also found to have elevated liver enzymes and concern for bile duct stones. You had ERCP (Endoscopic retrograde cholangiopancreatogram) which confirmed bile duct stone which was removed and a bile duct stent placed. It is very important to follow up with Gastroenterology outpatient as you will need a repeat ERCP in 2 months to remove stent. You were started on potassium tablets due to low potassium levels. Please ensure follow up with your Primary Doctor It was a pleasure taking care of you. Total Time Total Time Spent Total Time Spent (In Minutes): 50 Total Time Includes: Examination of the Patient, Discharge Planning, Medication Reconciliation and Other
== END 2022-03-08 12:00 | disposition home or self-care (01) | DRG 193 ==
LOC: ED 07:54 → EDINP 10:58 → SUATTDRO 10:58 → EDINP 20:49 → 2N 21:57

== ENCOUNTER 2022-03-26 12:32 | Inpatient (IN) ==
--- NOTE | 2022-03-26 13:25 | XRay Report ---
TWO VIEW CHEST CLINICAL HISTORY: Dyspnea. FINDINGS: PA and lateral chest radiographs are compared to study dated 03/06/2022 and correlated with chest CT dated 10/26/2019. The patient is status post midline sternotomy. A 2-lead cardiac AICD is unch anged in position and largely obscures the left mid chest. The heart is enlarged noting atherosclerot ic calcification of the thoracic aorta. The pulmonary vasculature is noncongested. Chronic interstiti al thickening is similar to previous. Scarring/atelectasis is noted at the lung bases. No airspace co nsolidation or pleural effusion is identified. There is no pneumothorax. The skeletal structures are osteopenic. There are healed left-sided rib fractures. Degenerative change is noted in the shoulders and spine. Surgical clips are seen in the upper abdomen. IMPRESSION: 1. Cardiomegaly and AICD without radiographic evidence of congestive failure. 2. No airspace consolidation or pleural effusion is identified. ACT 112: Negative or not required by law. Electronically signed by: Pb Gregory M.D. 03/26/2022 1:23 PM
--- NOTE | 2022-03-26 14:20 | Electrocardiogram Report ---
Test Reason : Blood Pressure : / mmHG Vent. Rate : 080 BPM Atrial Rate : 078 BPM P-R Int : 000 ms QRS Dur : 182 ms QT Int : 532 ms P-R-T Axes : 000 -82 070 degrees QTc Int : 613 ms Poor data quality, interpretation may be adversely affected Ventricular-paced rhythm Biventricular pacemaker detected Abnormal ECG When compared with ECG of 05-MAR-2022 09:19, No significant change was found Confirmed by Anival Ramirez ([id number]) on 03/26/2022 2:20:24 PM Referred By: Confirmed By:Anival Ramirez
[2022-03-26] MEDS ORDERED: SODIUM CHLORIDE 0.9% 500 ML IV ONE ×2 (14:41→18:17)
[2022-03-26 14:44] LABS: Basophils # (auto) 0.03 K/uL (0-0.2); Basophils % (auto) 0.4 %; Eosinophils # (auto) 0.02 K/uL (0-0.50); Eosinophils % (auto) 0.3 %; Hematocrit (blood only) 39.8 % (42.0-52.0); Hemoglobin 12.8 g/dl (14.0-18.0); Immature Granulocytes # (auto) 0.02 K/uL (0.01-0.20); Immature Granulocytes % (auto) 0.3 %; Lymphocytes # (auto) 0.97 K/uL (1.2-3.4); Lymphocytes % (auto) 14.1 %; Mean Corpuscular Hemoglobin 30.5 pg (25.0-34.0); Mean Corpuscular Hgb Conc 32.2 g/dL (32.0-36.0); Mean Corpuscular Volume 94.8 fL (80.0-100.0); Mean Platelet Volume 10.6 fL (9.4-12.4); Monocytes % (auto) 8.7 %; Neutrophils # (auto) 5.24 K/uL (1.40-6.50); Neutrophils % (auto) 76.2 %; Platelet Count 160 K/uL (130-400); RDW Coefficient of Variation 15.1 % (11.5-14.5); RDW Standard Deviation 52.1 fL (36.4-46.3); White Blood Count 6.88 K/ul (4.8-10.8)
[2022-03-26 15:08] LABS: INR 1.3 (0.9-1.1); Partial Thromboplastin Ratio 1.1; Prothrombin Time 13.5 Seconds (9.0-12.0)
--- NOTE | 2022-03-26 15:37 | CT Scan Report ---
HEAD CT NONCONTRAST CT DOSE: 881.47 mGy.cm HISTORY: syncope, headstrike TECHNIQUE: Multiaxial CT images of the head were performed without the use of intravenous contrast. A utomated exposure control was utilized for this study. A dose lowering technique was utilized adheri ng to the principles of ALARA. Comparison: Head CT 03/05/2022. Findings: The paranasal sinuses and mastoid air cells are clear. The calvarium and skull base are int act. There is no mass, hematoma, midline shift, acute infarct. White matter hypodensity is nonspecifi c but suggestive of microvascular ischemic change. The ventricles and sulci demonstrate mild age-rela atilio involutional changes. Mild frontal scalp swelling. Impression: No acute intracranial abnormality. Mild frontal scalp swelling. ACT 112: Negative or not required by law. Electronically signed by: Leobardo Tolliver M.D. 03/26/2022 3:36 PM
[2022-03-26 15:48] LABS: Alanine Aminotransferase 59 U/L (7-52); Albumin Globulin Ratio 0.9 (0.9-2); Albumin Level 3.4 gm/dl (3.4-5.0); Alkaline Phosphatase 97 U/L (34-104); Anion Gap 5 (3-11); Aspartate Aminotransferase 76 U/L (13-39); BUN Creatinine Ratio 18.5 (10-20); Bilirubin,Total 1.4 mg/dl (0.2-1.0); Blood Urea Nitrogen 31 mg/dl (6-23); Calcium 9.1 mg/dl (8.5-10.1); Carbon Dioxide 36 mmol/L (21-32); Chloride 95 mmol/L (98-107); Est GFR (African American) 42.6 ml/min; Est GFR (Non-African American) 36.7 ml/min; Globulin 3.8 gm/dl (2.5-4.0); Glucose 156 mg/dl (70-99(Fasting)); Magnesium 2.3 mg/dl (1.7-2.4); Potassium 4.4 mmol/L (3.5-5.1); Sodium 136 mmol/L (136-145); Total Protein 7.2 gm/dl (6.0-8.3)
--- NOTE | 2022-03-26 16:10 | Emergency Department Note ---
Impression & Plan Syncope, Chronic systolic CHF (congestive heart failure), Orthostatic hypotension, Renal insufficiency, Cardiac defibrillator in place, Forehead contusion ED Provider Note NAME: BLAKE RIBEIRO AGE: 86 SEX: M ARRIVES VIA: Walk-In INFORMANT: Patient ED PROVIDER(S): Spike Wood MD CHIEF COMPLAINT: Syncope, Fall PLAN: Disposition: Admit MEDICAL DECISION MAKING: The patient is a pleasant 86-year-old gentleman with a past medical history of cardiomyopathy status post AICD, BPH, afib on Eliquis, CKD who presents to the emergency department, accompanied by his granddaughter via walk-in for evaluation of unwitnessed fall/syncopal episode that occurred last night when the patient was going to the bathroom to urinate. He reports he has been mostly lying in bed for the past several days because she has been feeling sick. His granddaughter reports that his urine has appeared dark and is foul-smelling. The patient denies any cough, congestion, vomiting or diarrhea. He is a poor historian and reports that he has been hydrating even though he reports lying in bed all day. His granddaughter reports she does not feel he is drinking. The patient was admitted to this facility last month after having a fall. The patient refused to come to emergency department last night but family finally convinced him to come today. On arrival patient is in acute distress, afebrile with blood pressure 70s/50s though mentating at his baseline and vital signs otherwise stable. He appears clinically dry. He has no focal logic deficits. He has a 3 cm right forehead contusion without laceration or bony crepitus. No midline CTL spine tenderness to palpation or step-offs. There is no chest wall tenderness to palpation. He does have resolving subacute ecchymosis over the right lateral chest wall from his fall in February. EKG is paced. No overt acute ischemia. Chest x-ray negative for acute cardiopulmonary process. CT of the head was negative for acute abnormalities. WBC and platelets within normal limits. H/H similar to prior values. Chemistry without metabolic acidosis. Bicarbonate is 36, similar to prior range values. Creatinine 1.68 increased from recent but within prior range of values and consistent with the patient's dehydration/dry appearance. LFTs similar to prior range values. High-sensitivity troponin 36.6. COVID-19 RNA, NAAT test was negative. Interrogation of the patient's AICD did not demonstrate any concerning events. Upon reevaluation the patient did feel some improvement following IV fluid hydration however still orthostatic upon attempting to ambulate to the bathroom and required 2 person assist which is not his recent baseline. Thus, we did agree to proceed with referral for admission for further management. Case was discussed with Luz Bailey PAC, with Luz Blair hospitalist who will evaluate the patient for admission. Triage Nursing notes reviewed and agree them. Prior/outside medical records reviewed Vital Signs: reviewed Differential diagnosis: Vasovagal event, dehydration, infection, hypoglycemia, electrolyte abnormalities, cardiac sources, intracerebral event, pulmonary embolism, seizure, toxicologic, neurologic, as well as other pathologies. ER treatment provided: See below. Diagnostics interpreted by me: ECG: Ventricular paced rhythm, 80 bpm, no ectopy, no overt acute ischemia. Cardiac Monitoring: An order for continuous cardiac monitoring was placed and demonstrated Ventricular paced rhythm, 80 bpm, no ectopy Laboratory studies: See below Imaging studies: See below Consultation(s): Luz Bailey [facility], with Luz Blair hospitalist HPI: The patient is a pleasant 86-year-old gentleman with a past medical history of cardiomyopathy status post AICD, BPH, afib on Eliquis, CKD who presents to the emergency department, accompanied by his granddaughter via walk-in for evaluation of unwitnessed fall/syncopal episode that occurred last night when the patient was going to the bathroom to urinate. He reports he has been mostly lying in bed for the past several days because she has been feeling sick. His granddaughter reports that his urine has appeared dark and is foul-smelling. The patient denies any cough, congestion, vomiting or diarrhea. He is a poor historian and reports that he has been hydrating even though he reports lying in bed all day. His granddaughter reports she does not feel he is drinking. The patient was admitted to this facility last month after having a fall. The patient refused to come to emergency department last night but family finally convinced him to come today. ROS: See above HPI for pertinent positives & negatives. A total of 10 systems reviewed and were otherwise negative. VITALS:See Below PHYSICAL EXAMINATION: GENERAL: Awake, alert, fatigued-appearing, in no distress HENT: Normocephalic, 3cm right forehead contusion. Oropharynx with dry mucous membranes and otherwise unremarkable. EYES: Normal conjunctiva. Sclera non-icteric. EOMI. No nystamgus. PEARRL. NECK: Supple. No nuchal rigidity. FROM. No JVD. RESPIRATORY: Clear to auscultation. CARDIAC: Regular rate, normal rhythm. Extremities warm and well perfused. Pulses equal. ABDOMEN: Soft, non-distended. No tenderness to palpation. No rebound or guarding. No masses. RECTAL: Deferred. MUSCULOSKELETAL: Chest examination reveals no tenderness. Right sided resolving subacute ecchymosis. The back is symmetrical on inspection without obvious abnormality. There is no CVA tenderness to palpation. No joint edema. LOWER EXTREMITIES: Calves are equal size bilaterally and non-tender. No edema. No discoloration. NEURO: No focal sensory or motor deficits noted. 5/5 strength and SILT x 4 extremities. Intact finger to nose. SKIN: No rash or jaundice noted. Spike Wood MD Past Med/Surg History Medical History Aortic stenosis Echo 10/2021-aortic valve is heavily calcified with severely reduced leaflet excursion either due to pseudo stenosis from severe LV dysfunction or some degree of underlying CAD (coronary artery disease) Cardiac defibrillator in place Prior pacemaker insertion, upgrade to an implantable cardio defibrillator in 2004, with upgrade to biventricular defibrillator in 2016 Chronic atrial fibrillation Chronic systolic CHF (congestive heart failure) CKD (chronic kidney disease), stage III Hyperlipidemia Ischemic cardiomyopathy Severe tricuspid regurgitation Ventricular tachycardia Surgical History 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 History of hernia repair History of implantable cardiac defibrillator (ICD) Family History Brother Cancer Mother Pulmonary fibrosis Social History Smoking Status: Never smoker Hx Alcohol Use: Yes Alcohol type: beer Alcohol Intake Frequency: Monthly or Less Hx Substance Use: No Preferred Language: Maori Communication Ability: Effective Homeopathic Doctor Required: No Beliefs That Will Affect Care: None marital status: Current Living Situation: Family current occupation: [employer] Feels Safe at Home: Yes Assistive Devices: Cane and Walker Allergies Allergies Allergy/AdvReac Type Severity Reaction Status Date / Time disopyramide Allergy Intermediate SWELLING, Verified 03/26/22 17:07 RED SKIN Home Meds Home Medications Medication Instructions Recorded Confirmed vitamin B complex 1 tab PO DAILY 10/26/19 03/26/22 diclofenac sodium 1 % topical gel 2 g topical AMHS PRN Pain 03/05/22 03/26/22 metoprolol succinate 25 mg 25 mg PO HS 03/05/22 03/26/22 tablet,extended release 24 hr midodrine 5 mg tablet 5 mg PO TID 03/05/22 03/26/22 zinc sulfate 50 mg zinc (220 mg) 50 mg PO DAILY 03/05/22 03/26/22 capsule Previous Rx's Medication Instructions Recorded amiodarone 200 mg tablet (Pacerone) 200 mg PO DAILY 30 days #30 tabs 12/18/19 apixaban 2.5 mg tablet (Eliquis) 2.5 mg PO BID 30 days #60 tabs 12/18/19 ascorbic acid (vitamin C) 500 mg 500 mg PO DAILY #30 tabs 12/18/19 tablet (Vitamin C) atorvastatin 40 mg tablet (Lipitor) 40 mg PO DAILY 30 days #30 tabs 12/18/19 cholecalciferol (vitamin D3) 50 50 mcg PO DAILY #30 tabs 12/18/19 mcg (2,000 unit) tablet (Vitamin D3) finasteride 5 mg tablet (Proscar) 5 mg PO DAILY 30 days #30 tabs 12/18/19 folic acid 400 mcg tablet 0.4 mg PO BID #60 tabs 12/18/19 furosemide 20 mg tablet (Lasix) 40 mg PO DAILY 30 days #60 tabs 12/18/19 polyethylene glycol 3350 17 gram 17 g PO DAILY 30 days #30 ea 12/18/19 oral powder packet (Miralax) sennosides 8.6 mg tablet (senna) 8.6 mg PO BID #60 tabs 12/18/19 tamsulosin 0.4 mg capsule 0.4 mg PO HS 30 days #30 caps 12/18/19 potassium chloride 10 mEq 10 meq PO DAILY #30 caps 03/08/22 capsule,extended release Results & Data (ED) Vital Signs Vital Signs - 24 hr 03/26/22 12:34 03/26/22 14:58 03/26/22 16:00 Temperature 36.8 C Temperature Source Temporal Artery Scan Pulse Rate 80 Pulse Rate [Right Finger] 81 82 Pulse Rhythm [Right Finger] Regular Regular Pulse Strength [Right Finger] Normal Normal Respiratory Rate 18 16 18 Respiratory Effort / Characteristics Non-Labored Non-Labored Respiratory Depth Normal Normal Respiratory Pattern Regular Regular Blood Pressure 79/53 L Blood Pressure [Right Arm] 131/74 108/74 Blood Pressure Mean 61 Blood Pressure Mean [Right Arm] 93 85 Blood Pressure Position [Right Arm] Lying Lying Pulse Oximetry 95 95 96 Oxygen Delivery Method Room Air Room Air Room Air Sepsis Recent Fever Within 48 Hours No Sepsis New/Unexplained Change in Mental Status No Sepsis Action Taken by Nursing No Action Required 03/26/22 18:24 Temperature Temperature Source Pulse Rate Pulse Rate [Right Finger] 81 Pulse Rhythm [Right Finger] Regular Pulse Strength [Right Finger] Respiratory Rate 16 Respiratory Effort / Characteristics Respiratory Depth Respiratory Pattern Blood Pressure Blood Pressure [Right Arm] 101/53 L Blood Pressure Mean Blood Pressure Mean [Right Arm] 69 Blood Pressure Position [Right Arm] Pulse Oximetry 97 Oxygen Delivery Method Room Air Sepsis Recent Fever Within 48 Hours Sepsis New/Unexplained Change in Mental Status Sepsis Action Taken by Nursing Laboratory Data Attestation: I reviewed the patient's lab results. 03/26/22 13:55 03/26/22 13:55 Lab Results 03/26/22 03/26/22 03/26/22 Range/Units 13:55 13:55 13:55 WBC 6.88 (4.8-10.8) K/ul RBC 4.20 L (4.70-6.10) M/uL Hgb 12.8 L (14.0-18.0) g/dl Hct 39.8 L (42.0-52.0) % MCV 94.8 (80.0-100.0) fL MCH 30.5 (25.0-34.0) pg MCHC 32.2 (32.0-36.0) g/dL RDW Std Deviation 52.1 H (36.4-46.3) fL RDW Coeff of [place] 15.1 H (11.5-14.5) % Plt Count 160 (130-400) K/uL MPV 10.6 (9.4-12.4) fL Immature Gran % (Auto) 0.3 % Neut % (Auto) 76.2 % Lymph % (Auto) 14.1 % [place] % (Auto) 8.7 % Eos % (Auto) 0.3 % Baso % (Auto) 0.4 % Neut # (Auto) 5.24 (1.40-6.50) K/uL Lymph # (Auto) 0.97 L (1.2-3.4) K/uL [place] # (Auto) 0.60 H (0.11-0.59) K/uL Eos # (Auto) 0.02 (0-0.50) K/uL Baso # (Auto) 0.03 (0-0.2) K/uL Immature Gran # (Auto) 0.02 (0.01-0.20) K/uL PT 13.5 H (9.0-12.0) Seconds INR 1.3 H (0.9-1.1) APTT 31.0 (21.0-31.0) Seconds PTT Ratio 1.1 Sodium 136 (136-145) mmol/L Potassium 4.4 (3.5-5.1) mmol/L Chloride 95 L (98-107) mmol/L Carbon Dioxide 36 H (21-32) mmol/L Anion Gap 5 (3-11) BUN 31 H (6-23) mg/dl Creatinine 1.68 H (0.6-1.4) mg/dl Est Cr Clr Drug Dosing Not Reportable Est GFR ( Amer) 42.6 ml/min Est GFR (Non-Af Amer) 36.7 ml/min BUN/Creatinine Ratio 18.5 (10-20) Glucose 156 H (70-99(Fasting)) mg/dl Calcium 9.1 (8.5-10.1) mg/dl Phosphorus 3.2 (2.5-4.9) mg/dl Magnesium 2.3 (1.7-2.4) mg/dl Total Bilirubin 1.4 H (0.2-1.0) mg/dl AST 76 H (13-39) U/L ALT 59 H (7-52) U/L Alkaline Phosphatase 97 (34-104) U/L Troponin I High Sens 36.6 H (0-20) pg/ml Total Protein 7.2 (6.0-8.3) gm/dl Albumin 3.4 (3.4-5.0) gm/dl Globulin 3.8 (2.5-4.0) gm/dl Albumin/Globulin Ratio 0.9 (0.9-2) Urine Color Urine Appearance (Clear) Urine pH (4.5-7.5) Ur Specific [place] (1.000-1.030) Urine Protein (Negative) Urine Glucose (UA) (Negative) Urine Ketones (Negative) Urine Blood (Negative) Urine Nitrite (Negative) Urine Bilirubin (Negative) Urine Urobilinogen (Negative) Ur Leukocyte Esterase (Negative) 03/26/22 Range/Units 16:10 WBC (4.8-10.8) K/ul RBC (4.70-6.10) M/uL Hgb (14.0-18.0) g/dl Hct (42.0-52.0) % MCV (80.0-100.0) fL MCH (25.0-34.0) pg MCHC (32.0-36.0) g/dL RDW Std Deviation (36.4-46.3) fL RDW Coeff of [place] (11.5-14.5) % Plt Count (130-400) K/uL MPV (9.4-12.4) fL Immature Gran % (Auto) % Neut % (Auto) % Lymph % (Auto) % [place] % (Auto) % Eos % (Auto) % Baso % (Auto) % Neut # (Auto) (1.40-6.50) K/uL Lymph # (Auto) (1.2-3.4) K/uL [place] # (Auto) (0.11-0.59) K/uL Eos # (Auto) (0-0.50) K/uL Baso # (Auto) (0-0.2) K/uL Immature Gran # (Auto) (0.01-0.20) K/uL PT (9.0-12.0) Seconds INR (0.9-1.1) APTT (21.0-31.0) Seconds PTT Ratio Sodium (136-145) mmol/L Potassium (3.5-5.1) mmol/L Chloride (98-107) mmol/L Carbon Dioxide (21-32) mmol/L Anion Gap (3-11) BUN (6-23) mg/dl Creatinine (0.6-1.4) mg/dl Est Cr Clr Drug Dosing Est GFR ( Amer) ml/min Est GFR (Non-Af Amer) ml/min BUN/Creatinine Ratio (10-20) Glucose (70-99(Fasting)) mg/dl Calcium (8.5-10.1) mg/dl Phosphorus (2.5-4.9) mg/dl Magnesium (1.7-2.4) mg/dl Total Bilirubin (0.2-1.0) mg/dl AST (13-39) U/L ALT (7-52) U/L Alkaline Phosphatase (34-104) U/L Troponin I High Sens (0-20) pg/ml Total Protein (6.0-8.3) gm/dl Albumin (3.4-5.0) gm/dl Globulin (2.5-4.0) gm/dl Albumin/Globulin Ratio (0.9-2) Urine Color Yellow Urine Appearance Clear (Clear) Urine pH 6.5 (4.5-7.5) Ur Specific [place] 1.011 (1.000-1.030) Urine Protein Negative (Negative) Urine Glucose (UA) Negative (Negative) Urine Ketones Negative (Negative) Urine Blood Negative (Negative) Urine Nitrite Negative (Negative) Urine Bilirubin Negative (Negative) Urine Urobilinogen Negative (Negative) Ur Leukocyte Esterase Negative (Negative) Administered Medications Discontinued Medications Sodium Chloride (Nss) 500 mls @ 500 mls/hr IV .Q1H ONE Stop: 03/26/22 15:40 Last Infusion: 03/26/22 16:09 Dose: 0 mls/hr Documented By: Admin: 03/26/22 14:53 Dose: 500 mls/hr Documented By: OSMAN Sodium Chloride (Nss) 500 mls @ 500 mls/hr IV .Q1H ONE Stop: 03/26/22 19:16 Last Admin: 03/26/22 18:41 Dose: 500 mls/hr Documented By: KV Imaging Data Radiologist's Impression: Chest X-Ray 03/26/22 12:39 TWO VIEW CHEST CLINICAL HISTORY: Dyspnea. FINDINGS: PA and lateral chest radiographs are compared to study dated 03/06/2022 and correlated with chest CT dated 10/26/2019. The patient is status post midline sternotomy. A 2-lead cardiac AICD is unchanged in position and largely obscures the left mid chest. The heart is enlarged noting atherosclerotic calcification of the thoracic aorta. The pulmonary vasculature is noncongested. Chronic in terstitial thickening is similar to previous. Scarring/atelectasis is noted at the lung bases. No airspace consolidation or pleural effusion is identified. There is no pneumothorax. The skeletal structures are osteopenic. There are healed left-sided rib fractures. Degenerative change is noted in the shoulders and spine. Surgical clips are seen in the upper abdomen. IMPRESSION: 1. Cardiomegaly and AICD without radiographic evidence of congestive failure. 2. No airspace consolidation or pleural effusion is identified. ACT 112: Negative or not required by law. Electronically signed by: Pb Gregory M.D. 03/26/2022 1:[address] 03/26/22 14:[address] DOSE: 881.47 mGy.cm HISTORY: syncope, headstrike TECHNIQUE: Multiaxial CT images of the head were performed without the use of intravenous contrast. Automated exposure control was utilized for this study. A dose lowering technique was utilized adhering to the principles of ALARA. Comparison: Head CT 03/05/2022. Findings: The paranasal sinuses and mastoid air cells are clear. The calvarium and skull base are intact. There is no mass, hematoma, midline shift, acute infarct. White matter hypodensity is nonspecific but suggestive of microvascular ischemic change. The ventricles and sulci demonstrate mild age-related involutional changes. Mild frontal scalp swelling. Impression: No acute intracranial abnormality. Mild frontal scalp swelling. ACT 112: Negative or not required by law. Electronically signed by: Leobardo Tolliver M.D. 03/26/2022 3:36 PM Discharge Plan Visit Data Chief Complaint: Fall Stated Complaint: FALL, HIT HEAD ED Provider: Spike Wood Discharge Problem: Syncope, Chronic systolic CHF (congestive heart failure), Orthostatic hypotension, Renal insufficiency, Cardiac defibrillator in place, Forehead contusion Forms Stand Alone Forms: [facility] Prescriptions Prescriptions: No Action vitamin B complex Tablet 1 tab PO DAILY atorvastatin [Lipitor] 40 mg tablet 40 mg PO DAILY 30 Days Qty: 30 0RF sennosides [senna] 8.6 mg tablet 8.6 mg PO BID Qty: 60 0RF polyethylene glycol 3350 [Miralax] 17 gram Powder In Packet 17 g PO DAILY 30 Days Qty: 30 0RF amiodarone [Pacerone] 200 mg tablet 200 mg PO DAILY 30 Days Qty: 30 0RF folic acid 400 mcg Tablet 0.4 mg PO BID Qty: 60 0RF ascorbic acid (vitamin C) [Vitamin C] 500 mg Tablet 500 mg PO DAILY Qty: 30 0RF tamsulosin 0.4 mg Capsule 0.4 mg PO HS 30 Days Qty: 30 0RF furosemide [Lasix] 20 mg tablet 40 mg PO DAILY 30 Days Qty: 60 0RF finasteride [Proscar] 5 mg tablet 5 mg PO DAILY 30 Days Qty: 30 0RF cholecalciferol (vitamin D3) [Vitamin D3] 50 mcg (2,000 unit) Tablet 50 mcg PO DAILY Qty: 30 0RF Eliquis 2.5 mg tablet 2.5 mg PO BID 30 Days Qty: 60 0RF midodrine 5 mg tablet 5 mg PO TID metoprolol succinate 25 mg tablet extended release 24 hr 25 mg PO HS zinc sulfate 50 mg zinc (220 mg) capsule 50 mg PO DAILY diclofenac sodium 1 % gel 2 g TOPICAL AMHS PRN (Reason: Pain) Rx Instructions: apply to affected area potassium chloride 10 mEq capsule, extended release 10 meq PO DAILY Qty: 30 0RF Referrals Referrals: Anival Guido MD [Primary Care Provider] -
[2022-03-26 16:21] LABS: Appearance Urine Clear (Clear); Bilirubin Urine Negative (Negative); Blood Urine Negative (Negative); Color Urine Yellow; Glucose Urine UA Negative (Negative); Ketones Urine Negative (Negative); Leukocyte Esterase Urine Negative (Negative); Nitrite Urine Negative (Negative); Protein Urine Negative (Negative); Specific Gravity Urine 1.011 (1.000-1.030); Urobilinogen Urine Negative (Negative); pH Urine 6.5 (4.5-7.5)
[2022-03-26 16:22] LABS: Phosphorus 3.2 mg/dl (2.5-4.9)
[2022-03-26 16:44] LABS: Troponin I High Sensitivity 36.6 pg/ml (0-20)
--- NOTE | 2022-03-26 19:17 | History & Physical Report ---
Date of Service March 26, 2022 Assessment & Plan (1) Syncope: Plan: DEHYDRATION HYPOTENSION Patient is a 86-year-old male with PMH CAD s/p CABG in 1996, ischemic cardiomyopathy, EF <20%, history of V-fib, s/p biventricular defibrillator, chronic atrial fibrillation, HLD, CKD III, orthostatic hypotension on midodrine, BPH presented to ER for fall and possible syncope yesterday after getting up out of bed. Not eating or drinking well. Denies chest pain, shortness of breath. In ER patient afebrile, initial hypotensive 79/53 up to 131/74, other vitals stable. No leukocytosis. High-sensitivity troponin: 36 (was 57-78 on 03/05/2022) CT head: No acute intracranial findings CXR: No acute infiltrate Possible related to orthostatic hypotension, dehydration In ER given 1L NSS with improvement of BP Monitor on telemetry Orthostatic vital signs Hold on further IVF secondary to cardiomyopathy Hold Lasix and reassess tomorrow Continue midodrine Echo PT/OT eval Fall precautions (2) Orthostatic hypotension: Plan: Chronic orthostatic hypotension Continue midodrine (3) CKD (chronic kidney disease), stage III: Plan: Cr: 1.68. Baseline~1.5 Monitor renal functions, avoid nephrotoxic agents if possible (4) Choledocholithiasis: Plan: Recent transaminitis, choledocholithiasis s/p ERCP Liver functions improved from recent hospitalization on 03/05/2022 We will need to continue outpatient GI follow up (5) Chronic atrial fibrillation: Plan: Continue metoprolol, amiodarone, Eliquis (6) Ischemic cardiomyopathy: (7) Ventricular tachycardia: (8) Cardiac defibrillator in place: Plan: 2019 echo: EF <20% Hold Lasix as above. Reassess (9) BPH (benign prostatic hyperplasia): Plan: Continue tamsulosin, finasteride DVT Prophylaxis On Eliquis DNR/DNI as per discussion with pt Follows with Dr Guido for routine care Pt was seen and care coordinated with Dr Celeste. See addendum History of Present Illness Chief Complaint: Syncope, fall Primary Care Provider: Anival Guido MD Patient is a 86-year-old male with PMH CAD s/p CABG in 1996, ischemic cardiomyopathy, EF <20%, history of V-fib, s/p biventricular defibrillator, chronic atrial fibrillation, HLD, CKD III, orthostatic hypotension on midodrine, BPH presented to ER for fall and possible syncope yesterday. history obtained fr om patient and inpatient and outpatient chart review. Recent [facility] hospitalization 03/05/2022-03/08/2022 for weakness, acute respiratory failure secondary to influenza A, transaminitis, choledocholithiasis s/p ERCP and stent placement. Patient states has had continued cough productive of clear sputum. He also has had continued generalized weakness. He has been using a cane to ambulate. States has not been eating or drinking much. Patient with chronic orthostatic hypotension on midodrine. reports chronic dizziness with standing. States yesterday got up out of bed to walk to bathroom and next thing he remembers is being on floor. Patient unsure what happened. States happened so quickly, is unsure if had any prior symptoms. He is unsure if he had LOC. Patient's son-in-law heard the fall and responded to patient within minutes to help patient up. Family wanted patient to be seen at hospital at that time however patient refused. Patient had noted bruise to right forehead. Family convinced patient to be seen today. Denies fever/chills, diaphoresis, N/V/D/C, HANSON, vision changes, neck pain, CP, SOB, orthopnea, palpitations, cough, sore throat, choking, otalgia, rhinorrhea, abdominal pain, paresthesias, extremity edema, rashes, dysuria, hematuria. Allergies Allergy/AdvReac Type Severity Reaction Status Date / Time disopyramide Allergy Intermediate SWELLING, Verified 03/26/22 17:07 RED SKIN Home Medications Medication Instructions Recorded Confirmed Type vitamin B complex 1 tab PO DAILY 10/26/19 03/26/22 History amiodarone 200 mg tablet (Pacerone) 200 mg PO DAILY 30 days #30 tabs 12/18/19 03/26/22 Rx apixaban 2.5 mg tablet (Eliquis) 2.5 mg PO BID 30 days #60 tabs 12/18/19 03/26/22 Rx ascorbic acid (vitamin C) 500 mg 500 mg PO DAILY #30 tabs 12/18/19 03/26/22 Rx tablet (Vitamin C) atorvastatin 40 mg tablet (Lipitor) 40 mg PO DAILY 30 days #30 tabs 12/18/19 03/26/22 Rx cholecalciferol (vitamin D3) 50 50 mcg PO DAILY #30 tabs 12/18/19 03/26/22 Rx mcg (2,000 unit) tablet (Vitamin D3) finasteride 5 mg tablet (Proscar) 5 mg PO DAILY 30 days #30 tabs 12/18/19 03/26/22 Rx folic acid 400 mcg tablet 0.4 mg PO BID #60 tabs 12/18/19 03/26/22 Rx furosemide 20 mg tablet (Lasix) 40 mg PO DAILY 30 days #60 tabs 12/18/19 03/26/22 Rx polyethylene glycol 3350 17 gram 17 g PO DAILY 30 days #30 ea 12/18/19 03/26/22 Rx oral powder packet (Miralax) sennosides 8.6 mg tablet (senna) 8.6 mg PO BID #60 tabs 12/18/19 03/26/22 Rx tamsulosin 0.4 mg capsule 0.4 mg PO HS 30 days #30 caps 12/18/19 03/26/22 Rx diclofenac sodium 1 % topical gel 2 g topical AMHS PRN Pain 03/05/22 03/26/22 History metoprolol succinate 25 mg 25 mg PO HS 03/05/22 03/26/22 History tablet,extended release 24 hr midodrine 5 mg tablet 5 mg PO TID 03/05/22 03/26/22 History zinc sulfate 50 mg zinc (220 mg) 50 mg PO DAILY 03/05/22 03/26/22 History capsule potassium chloride 10 mEq 10 meq PO DAILY #30 caps 03/08/22 03/26/22 Rx capsule,extended release Past Med/Surg History Medical History Aortic stenosis Echo 10/2021-aortic valve is heavily calcified with severely reduced leaflet e xcursion either due to pseudo stenosis from severe LV dysfunction or some degree of underlying BPH (benign prostatic hyperplasia) CAD (coronary artery disease) Cardiac defibrillator in place Prior pacemaker insertion, upgrade to an implantable cardio defibrillator in 2004, with upgrade to biventricular defibrillator in 2016 Chronic atrial fibrillation Chronic systolic CHF (congestive heart failure) CKD (chronic kidney disease), stage III Hyperlipidemia Ischemic cardiomyopathy Severe tricuspid regurgitation Ventricular tachycardia Surgical History 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 History of hernia repair History of implantable cardiac defibrillator (ICD) Family History Brother Cancer Mother Pulmonary fibrosis Social History Smoking Status: Never smoker Hx Alcohol Use: Yes Alcohol type: beer Alcohol Intake Frequency: Monthly or Less Hx Substance Use: No Preferred Language: [place] Communication Ability: Effective Tape Transferrer Required: No Beliefs That Will Affect Care: None marital status: Current Living Situation: Family current occupation: [employer] Feels Safe at Home: Yes Assistive Devices: Cane and Walker Review of Systems Review of Systems: All systems reviewed & are unremarkable except as noted in HPI & below Physical Exam Physical Exam: General: no distress, WDWN, elderly male Head: normocephalic, +ecchymosis right forehead Eyes: PERRL, EOM's intact, conjunctiva non-injected, anicteric ENT: hard of hearing, normal inspection external ears, nose, mucous membranes dry Neck: supple, trachea midline Lungs: clear, no respiratory distress, no wheezing/rhonchi/rales CV: RRR, + murmur, no pretibial edema Abd: normal BS, soft, non-tender Ext: no cyanosis, no calf tenderness Neuro: A&O x 3, no focal deficits noted, normal affect Skin: warm, dry, +multiple skin tears to right forearm Results & Data Results & Data ([facility]) Vital Signs (Past 12 Hours) Vital Signs Temp Pulse Pulse Resp BP BP Pulse Ox 03/26/22 18:24 81 16 101/53 L 97 03/26/22 16:00 82 18 108/74 96 03/26/22 14:58 81 16 131/74 95 03/26/22 12:34 36.8 C 80 18 79/53 L 95 O2 Del Method 03/26/22 18:24 Room Air 03/26/22 16:00 Room Air 03/26/22 14:58 Room Air 03/26/22 12:34 Room Air Laboratory Results Short CBC 03/26/22 Range/Units 13:55 WBC 6.88 (4.8-10.8) K/ul Hgb 12.8 L (14.0-18.0) g/dl Hct 39.8 L (42.0-52.0) % Plt Count 160 (130-400) K/uL BMP 03/26/22 13:55 Sodium 136 Potassium 4.4 Chloride 95 L Carbon Dioxide 36 H BUN 31 H Creatinine 1.68 H Glucose 156 H Calcium 9.1 Liver Function 03/26/22 Range/Units 13:55 Total Bilirubin 1.4 H (0.2-1.0) mg/dl AST 76 H (13-39) U/L ALT 59 H (7-52) U/L Alkaline Phosphatase 97 (34-104) U/L Albumin 3.4 (3.4-5.0) gm/dl Urine 03/26/22 Range/Units 16:10 Urine Color Yellow Urine Appearance Clear (Clear) Urine pH 6.5 (4.5-7.5) Ur Specific [place] 1.011 (1.000-1.030) Urine Protein Negative (Negative) Urine Glucose (UA) Negative (Negative) Diagnostic Findings Chest X-Ray 03/26/22 12:39 TWO VIEW CHEST CLINICAL HISTORY: Dyspnea. FINDINGS: PA and lateral chest radiographs are compared to study dated 03/06/2022 and correlated with chest CT dated 10/26/2019. The patient is status post midline sternotomy. A 2-lead cardiac AICD is unchanged in position and largely obscures the left mid chest. The heart is enlarged noting atherosclerotic calcification of the thoracic aorta. The pulmonary vasculature is noncongested. Chronic interstitial thickening is similar to previous. Scarring/atelectasis is noted at the lung bases. No airspace consolidation or pleural effusion is identified. There is no pneumothorax. The skeletal structures are osteopenic. There are healed left-sided rib fractures. Degenerative change is noted in the shoulders and spine. Surgical clips are seen in the upper abdomen. IMPRESSION: 1. Cardiomegaly and AICD without radiographic evidence of congestive failure. 2. No airspace consolidation or pleural effusion is identified. ACT 112: Negative or not required by law. Electronically signed by: Pb Gregory M.D. 03/26/2022 1:[address] 03/26/22 14:[address] DOSE: 881.47 mGy.cm HISTORY: syncope, headstrike TECHNIQUE: Multiaxial CT images of the head were performed without the use of intravenous contrast. Automated exposure control was utilized for this study. A dose lowering technique was utilized adhering to the principles of ALARA. Comparison: Head CT 03/05/2022. Findings: The paranasal sinuses and mastoid air cells are clear. The calvarium and skull base are intact. There is no mass, hematoma, midline shift, acute infarct. White matter hypodensity is nonspecific but suggestive of microvascular ischemic change. The ventricles and sulci demonstrate mild age-related involutional changes. Mild frontal scalp swelling. Impression: No acute intracranial abnormality. Mild frontal scalp swelling. ACT 112: Negative or not required by law. Electronically signed by: Leobardo Tolliver M.D. 03/26/2022 3:36 PM ECG Rate (beats per minute): 80 Findings: + paced rhythm Code Status & VTE Plan VTE Prophylaxis Plan VTE Prophylaxis will be ordered: Yes Supervising Physician Co-Signing Physician Notes I have seen and examined the patient and have discussed the case with the provider above. I agree with the assessment and plan as stated with the following exceptions. The patient is an 86-year-old man who was recently admitted for influenza. He reports he fell today but did not feel it coming on. He woke up on the floor after passing out and having hit his face but was clear. He was thinking that his ICD possibly fired. Interrogation is pending. He was hypotensive on arrival but denies any feelings of being hypotensive at home. He does report that when he was discharged from the hospital and went home he did not feel well secondary to weakness that is not improving. Notably PT and OT evaluated the patient and agreed with him returning home at the time of previous discharge. He denies any pain except around his right eye where there is trauma and in his left neck. Physical exam reveals an elderly man in no acute distress. He has trauma to his face in the form of an abrasion. He has multiple skin tears on his right arm. Lungs are clear throughout. Cardiac exam reveals S1/2 heard without murmurs. There is no peripheral edema. He is mentating clearly and abdomen is benign. +ICD in place. Workup includes CBC with mild anemia that is at his baseline, INR of 1.3, chemistry revealing normal sodium and potassium with a chloride of 95, bicarb of 36, BUN 31 and creatinine 1.68. His outpatient baseline creatinine is 1.5. He was recently discharged in the hospital on 03/07 with a creatinine of 1.21. Glucose is 156. Total bilirubin is 1.4 and this has been elevated historically. LFTs are elevated but trending down from recent discharge and are 76 from 172 and ALT 59 from 201. Highly sensitive troponin is 36.6. He denies any chest pain. EKG reveals ventricular paced rhythm with no evidence of acute ischemia. Urinalysis is negative. COVID swab is negative. Imaging includes a head CT which reveals no acute intracranial abnormality and a chest x-ray is negative. 1. syncope and collapse 2. chronic hypotension on midodrine 3. ongoing weakness after recent hospitalization for influenza 4. traumatic right scalp swelling 5. ischemic cardiomyopathy with ICD in place. 6. transaminitis/hyperbilirubinemia 7. acute on chronic kidney failure The patient was hypotensive on arrival to the hospital today with improvement after IVF resuscitation. He is known to be orthostatic at home and is on midodrine. He states that his appetite has been poor but he has been hydrating. He has been weak since discharge from a hospital a couple of weeks ago. PT/OT reordered now. LFTs are trending down. Troponin is trending down. No further workup at this time for these and will just monitor. Will add a CT c-spine for traumatic fall with neck pain to ensure no fracture. ICD interrogation ordered. Repeat BMP in am and renally dose meds as needed. Dispo pending clinical improvement and PT/OT recommendations. DO Booker (1) CKD (chronic kidney disease), stage III Chronic kidney disease stage 3 subtype: unspecified whether 3a or 3b Qualified Code(s): N18.30 - Chronic kidney disease, stage 3 unspecified
[2022-03-27] MEDS ORDERED: ACETAMINOPHEN 325 MG TAB PO PRN (03:37)
[2022-03-27] MEDS: METOPROLOL SUCC 25MG EXT REL TAB PO SCH ×2 (04:19→21:28)
[2022-03-27] MEDS: APIXABAN 2.5 MG TAB PO SCH ×3 (04:19→21:27)
[2022-03-27] MEDS: FOLIC ACID 400 MCG TAB PO SCH ×3 (04:19→21:28)
[2022-03-27] MEDS: MIDODRINE HCL 2.5 MG TAB PO SCH ×2 (04:20→08:53)
[2022-03-27] MEDS: SENNA 8.6 MG TAB PO SCH ×3 (04:20→21:27)
[2022-03-27] MEDS: TAMSULOSIN HCL 0.4 MG CAP PO SCH ×2 (04:20→21:27)
[2022-03-27 05:14] LABS: Hematocrit (blood only) 34.2 % (42.0-52.0); Hemoglobin 11.3 g/dl (14.0-18.0); Platelet Count 138 K/uL (130-400); RDW Coefficient of Variation 14.9 % (11.5-14.5); Red Blood Count 3.64 M/uL (4.70-6.10); White Blood Count 6.14 K/ul (4.8-10.8)
[2022-03-27 05:15] LABS: Platelet Estimate Normal (Normal)
[2022-03-27 05:31] LABS: Albumin Globulin Ratio 0.9 (0.9-2); Albumin Level 2.8 gm/dl (3.4-5.0); BUN Creatinine Ratio 18.2 (10-20); Bilirubin,Total 1.1 mg/dl (0.2-1.0); Calcium 8.6 mg/dl (8.5-10.1); Est GFR (African American) 45.5 ml/min; Est GFR (Non-African American) 39.3 ml/min; Globulin 3.2 gm/dl (2.5-4.0); Potassium 3.5 mmol/L (3.5-5.1)
--- NOTE | 2022-03-27 06:41 | CT Scan Report ---
CT cervical spine wo con CT DOSE: 272.61 mGy.cm CLINICAL HISTORY: 86 years-old Male with Fall. Acute neck injury status post fall COMPARISON: Head CT of same day, chest CT 10/26/2019 TECHNIQUE: Multiple axial CT images of the cervical spine were obtained without contrast. A dose low ering technique was utilized adhering to the principles of ALARA. FINDINGS: Multilevel degenerative changes. Large bridging osteophytes with ossification of the regional account manager ior longitudinal ligament. Partially calcified pannus posterior to the dens. Multilevel central canal and neural foraminal narrowing. No acute fracture or subluxation identified. The cervical soft tissues appear unremarkable. Calcified plaque of the carotid bulbs. The visualized lung apices appear clear. IMPRESSION: No acute fracture or subluxation identified. ACT 112: Negative or not required by law. The above report was generated using voice recognition software. It may contain grammatical, syntax o r spelling errors. Electronically signed by: Ha Haq M.D. 03/27/2022 6:40 AM
[2022-03-27] MEDS: CHOLECALCIFEROL 1,000 UNITS 25 MCG TAB PO SCH (08:50)
[2022-03-27] MEDS: ATORVASTATIN 40 MG TAB PO SCH (08:50)
[2022-03-27] MEDS: ASCORBIC ACID 500 MG TAB PO SCH (08:50)
[2022-03-27] MEDS: FINASTERIDE 5 MG TAB PO SCH (08:50)
[2022-03-27] MEDS: AMIODARONE 200 MG TAB PO SCH (08:53)
[2022-03-27] MEDS: POTASSIUM CHLORIDE 10 MEQ TABCR PO SCH (08:53)
[2022-03-27] MEDS ORDERED: ZINC SULFATE 220 MG CAPSULE PO SCH (09:00)
[2022-03-27] MEDS: ZINC SULFATE 220 MG CAPSULE PO SCH (09:18)
--- NOTE | 2022-03-27 12:17 | Electrocardiogram Report ---
Test Reason : Blood Pressure : / mmHG Vent. Rate : 080 BPM Atrial Rate : 288 BPM P-R Int : 000 ms QRS Dur : 162 ms QT Int : 506 ms P-R-T Axes : 000 -55 038 degrees QTc Int : 583 ms Ventricular-paced rhythm Biventricular pacemaker detected Abnormal ECG When compared with ECG of 26-MAR-2022 13:47, No significant change was found Confirmed by Anival Ramirez ([id number]) on 03/27/2022 12:17:07 PM Referred By: REFERRED SELF Confirmed By:Anival Ramirez
--- NOTE | 2022-03-27 14:31 | Hospitalist Progress Note ---
Date of Service March 27, 2022 Assessment & Plan (1) Syncope: Plan: Patient is a 86-year-old male with PMH CAD s/p CABG in 1996, ischemic cardiomyopathy, EF <20%, history of V-fib, s/p biventricular defibrillator, chronic atrial fibrillation, HLD, CKD III, orthostatic hypotension on midodrine, BPH presented to ER for fall and possible syncope yesterday after getting up out of bed. Not eating or drinking well. Denies chest pain, shortness of breath. Syncope Likely due to Orthostatic Hypotension Fall due to above Dehydration could have contributed as well --CT Head:No acute intracranial abnormality. Mild frontal scalp swelling. --Neck CT:No acute fracture or subluxation identified. --ECHO: Left ventricle is mildly dilated. Left ventricle systolic function is moderately reduced. EF 35 to 40%. Apical wall motion abnormality may reflect pacemaker activation. Basal posterior, lateral nguyen severely hypokinetic to akinetic. Basal anterior wall is hypokinetic. Left atrium is severely dilated. Aortic valve is moderately calcified. Mild aortic valve stenosis versus surgical aortic valve stenosis in the setting of reduced EF. Mild aortic regurgitation. Moderate to severe mitral regurgitation. Mild tricuspid regurgitation. --EF better when compared to prior ECHO. Wall hypokinesis also noted on prior echo -- Pacemaker interrogation completed: No issues noted --Positive orthostatic hypotension --- Increase midodrine to 10 mg daily Fall precautions PT OT We will consider cardiology evaluation as outpatient Hold diuretics for now Received gentle IV fluids Will obtain MRI brain if pacemaker compatible (2) Orthostatic hypotension: Plan: Chronic orthostatic hypotension Continue midodrine--Increased to 10mg TID (3) CKD (chronic kidney disease), stage III: Plan: Cr: 1.68. Baseline~1.5 Monitor renal functions Avoid nephrotoxic agents if possible (4) Choledocholithiasis: Plan: Recent transaminitis, choledocholithiasis s/p ERCP Liver functions improved from recent hospitalization on 03/05/2022 Will need to continue outpatient GI follow up (5) Chronic atrial fibrillation: Plan: Continue metoprolol, amiodarone, Eliquis (6) Ischemic cardiomyopathy: (7) Ventricular tachycardia: (8) Cardiac defibrillator in place: Plan: 2019 echo: EF <20% 2022 EF 35 to 40% Hold Lasix for now (9) BPH (benign prostatic hyperplasia): Plan: Continue tamsulosin, finasteride DVT Px On Eliquis Code Status DNR/DNI Admission and Anticipated Discharge Date Admission Date: March 27, 2022 Review of Systems Review of Systems: All systems reviewed & are unremarkable except as noted in Subjective Physical Exam Physical Exam: Physical Exam: Vitals signs as noted above General Appearance:Moderately built and nourished, no apparent distress Head: normocephalic, +traumatic, Right frontal ecchymosis Eyes: normal inspection, EOMI Neck: supple, Trachea midline Respiratory/Chest: Normal breath sounds, CTA, No accessory muscle use Cardiovascular: S1, S2, + murmur Abdomen/GI:Soft, Non tender, Bowel sounds present Extremities/Musculoskeletal:normal inspection, no edema Neurologic/Psych:AAOX3, grossly no focal neurological deficits, ? Chronic mild facial droop Skin: normal color, warm Results & Data Results & Data ([facility]) Vital Signs (Past 12 Hours) Vital Signs Temp Pulse Resp BP Pulse Ox Pulse Ox O2 Del Method 03/27/22 12:00 36.4 C L 80 12 107/61 98 Room Air 03/27/22 09:30 Room Air 03/27/22 08:57 99 03/27/22 08:00 82 106/66 99 Nasal Cannula 03/27/22 07:00 80 14 118/69 100 Nasal Cannula 03/27/22 05:17 80 16 110/82 96 Room Air 03/27/22 04:56 83 18 110/62 94 Room Air 03/27/22 03:30 80 18 94/61 L 95 Room Air O2 Del Method O2 Flow Rate O2 Flow Rate 03/27/22 12:00 03/27/22 09:30 03/27/22 08:57 Nasal Cannula 2 03/27/22 08:00 2 03/27/22 07:00 2 03/27/22 05:17 03/27/22 04:56 03/27/22 03:30 Laboratory Results Short CBC 03/26/22 03/27/22 Range/Units 13:55 04:26 WBC 6.88 6.14 (4.8-10.8) K/ul Hgb 12.8 L 11.3 L (14.0-18.0) g/dl Hct 39.8 L 34.2 L (42.0-52.0) % Plt Count 160 138 (130-400) K/uL BMP 03/26/22 03/27/22 13:55 04:26 Sodium 136 138 Potassium 4.4 3.5 D Chloride 95 L 100 Carbon Dioxide 36 H 34 H BUN 31 H 29 H Creatinine 1.68 H 1.59 H Glucose 156 H 111 H Calcium 9.1 8.6 Liver Function 03/26/22 03/27/22 Range/Units 13:55 04:26 Total Bilirubin 1.4 H 1.1 H (0.2-1.0) mg/dl AST 76 H 59 H (13-39) U/L ALT 59 H 48 (7-52) U/L Alkaline Phosphatase 97 69 (34-104) U/L Albumin 3.4 2.8 L (3.4-5.0) gm/dl Urine 03/26/22 Range/Units 16:10 Urine Color Yellow Urine Appearance Clear (Clear) Urine pH 6.5 (4.5-7.5) Ur Specific [place] 1.011 (1.000-1.030) Urine Protein Negative (Negative) Urine Glucose (UA) Negative (Negative) (1) CKD (chronic kidney disease), stage III Chronic kidney disease stage 3 subtype: unspecified whether 3a or 3b Qualified Code(s): N18.30 - Chronic kidney disease, stage 3 unspecified
[2022-03-27] MEDS: MIDODRINE HCL 10 MG TAB PO SCH ×2 (14:35→18:30)
[2022-03-28 05:36] LABS: Albumin Level 2.9 gm/dl (3.4-5.0); Bilirubin Direct 0.3 mg/dl (0-0.2); Calcium 8.7 mg/dl (8.5-10.1); Magnesium 2.1 mg/dl (1.7-2.4); Potassium 3.9 mmol/L (3.5-5.1)
[2022-03-28 05:42] LABS: BUN Creatinine Ratio 18.5 (10-20); Creatinine Clr Calc Pharmacy 36.5 ml/min; Est GFR (African American) 55.5 ml/min; Est GFR (Non-African American) 47.9 ml/min; Total Protein 6.2 gm/dl (6.0-8.3)
--- NOTE | 2022-03-28 08:05 | XRay Report ---
XR chest 1V portable HISTORY: 86 years-old Male low o2 acute hypoxia COMPARISON: Chest radiograph 03/26/2022 TECHNIQUE: AP view of the chest FINDINGS: Cardiac silhouette is enlarged. Prior median sternotomy. Left subclavian pacer/AICD. No pneumothorax, large pleural effusion or overt pulmonary edema. Degenerative changes of the shoulders and spine. Ch ronic appearing lateral left rib fractures. IMPRESSION: Cardiomegaly without acute process. ACT 112: Negative or not required by law. The above report was generated using voice recognition software. It may contain grammatical, syntax o r spelling errors. Electronically signed by: Ha Haq M.D. 03/28/2022 8:03 AM
[2022-03-28] MEDS: ZINC SULFATE 220 MG CAPSULE PO SCH (08:20)
[2022-03-28] MEDS: FOLIC ACID 400 MCG TAB PO SCH ×2 (08:20→21:00)
[2022-03-28] MEDS: FINASTERIDE 5 MG TAB PO SCH (08:21)
[2022-03-28] MEDS: CHOLECALCIFEROL 1,000 UNITS 25 MCG TAB PO SCH (08:21)
[2022-03-28] MEDS: ASCORBIC ACID 500 MG TAB PO SCH (08:21)
[2022-03-28] MEDS: MIDODRINE HCL 10 MG TAB PO SCH ×3 (08:21→16:43)
[2022-03-28] MEDS: SENNA 8.6 MG TAB PO SCH ×2 (08:21→21:01)
[2022-03-28] MEDS: APIXABAN 2.5 MG TAB PO SCH ×2 (08:21→20:58)
[2022-03-28] MEDS: ATORVASTATIN 40 MG TAB PO SCH (08:21)
[2022-03-28] MEDS: POTASSIUM CHLORIDE 10 MEQ TABCR PO SCH (08:25)
[2022-03-28] MEDS: AMIODARONE 200 MG TAB PO SCH (08:26)
--- NOTE | 2022-03-28 17:54 | Hospitalist Progress Note ---
Date of Service March 28, 2022 Assessment & Plan (1) Syncope: Plan: Patient is a 86-year-old male with PMH CAD s/p CABG in 1996, ischemic cardiomyopathy, EF <20%, history of V-fib, s/p biventricular defibrillator, chronic atrial fibrillation, HLD, CKD III, orthostatic hypotension on midodrine, BPH presented to ER for fall and possible syncope yesterday after getting up out of bed. Not eating or drinking well. Denies chest pain, shortness of breath. Syncope Likely due to Orthostatic Hypotension Fall due to above Dehydration could have contributed as well --CT Head:No acute intracranial abnormality. Mild frontal scalp swelling. --Neck CT:No acute fracture or subluxation identified. --ECHO: Left ventricle is mildly dilated. Left ventricle systolic function is moderately reduced. EF 35 to 40%. Apical wall motion abnormality may reflect pacemaker activation. Basal posterior, lateral nguyen severely hypokinetic to akinetic. Basal anterior wall is hypokinetic. Left atrium is severely dilated. Aortic valve is moderately calcified. Mild aortic valve stenosis versus surgical aortic valve stenosis in the setting of reduced EF. Mild aortic regurgitation. Moderate to severe mitral regurgitation. Mild tricuspid regurgitation. --EF better when compared to prior ECHO. Wall hypokinesis also noted on prior echo -- Pacemaker interrogation completed: No issues noted --Positive orthostatic hypotension --Could not get MRI brain due to incompatibility with pacemaker --- Increased midodrine to 10 mg daily Fall precautions PT OT--Needs Rehab We will consider cardiology evaluation as outpatient Resume diuretics as able Needs Placement (2) Orthostatic hypotension: Plan: Chronic orthostatic hypotension Continue midodrine--Increased to 10mg TID (3) CKD (chronic kidney disease), stage III: Plan: Cr: 1.68. Baseline~1.5 Monitor renal functions Avoid nephrotoxic agents if possible (4) Choledocholithiasis: Plan: Recent transaminitis, choledocholithiasis s/p ERCP Liver functions improved from recent hospitalization on 03/05/2022 Will need to continue outpatient GI follow up (5) Chronic atrial fibrillation: Plan: Continue metoprolol, amiodarone, Eliquis (6) Ischemic cardiomyopathy: (7) Ventricular tachycardia: (8) Cardiac defibrillator in place: Plan: 2019 echo: EF <20% 2022 EF 35 to 40% Hold Lasix for now (9) BPH (benign prostatic hyperplasia): Plan: Continue tamsulosin, finasteride DVT Px On Eliquis Code Status DNR/DNI Disposition SNF as able Admission and Anticipated Discharge Date Admission Date: March 27, 2022 Subjective Patient is seen and examined at bedside Having breakfast during my encounter Denies any chest pain, shortness of breath, dizziness, nausea, abdominal pain Offers no complaints Review of Systems Review of Systems: All systems reviewed & are unremarkable except as noted in Subjective Physical Exam Physical Exam: Physical Exam: Vitals signs as noted above General Appearance:Moderately built and nourished, no apparent distress Head: normocephalic, +traumatic, Right frontal ecchymosis Eyes: normal inspection, EOMI Neck: supple, Trachea midline Respiratory/Chest: Normal breath sounds, CTA, No accessory muscle use Cardiovascular: S1, S2, + murmur Abdomen/GI:Soft, Non tender, Bowel sounds present Extremities/Musculoskeletal:normal inspection, no edema Neurologic/Psych:AAOX3, grossly no focal neurological deficits, Chronic mild facial droop Skin: normal color, warm Results & Data Results & Data ([facility]) Vital Signs (Past 12 Hours) Vital Signs Temp Pulse Resp BP Pulse Ox O2 Del Method O2 Flow Rate 03/28/22 12:00 36.6 C 80 18 96/52 L 98 Nasal Cannula 2 03/28/22 08:00 Room Air Laboratory Results [facility] 03/28/22 04:37 Sodium 139 Potassium 3.9 Chloride 101 Carbon Dioxide 34 H BUN 25 H Creatinine 1.35 Glucose 84 Calcium 8.7 Liver Function 03/28/22 Range/Units 04:37 Total Bilirubin 1.0 (0.2-1.0) mg/dl Direct Bilirubin 0.3 H (0-0.2) mg/dl AST 50 H (13-39) U/L ALT 43 (7-52) U/L Alkaline Phosphatase 80 (34-104) U/L Albumin 2.9 L (3.4-5.0) gm/dl (1) CKD (chronic kidney disease), stage III Chronic kidney disease stage 3 subtype: unspecified whether 3a or 3b Qualified Code(s): N18.30 - Chronic kidney disease, stage 3 unspecified
[2022-03-28] MEDS: TAMSULOSIN HCL 0.4 MG CAP PO SCH (20:59)
[2022-03-28] MEDS: METOPROLOL SUCC 25MG EXT REL TAB PO SCH (21:00)
[2022-03-29 06:03] LABS: BUN Creatinine Ratio 19.6 (10-20); Calcium 8.5 mg/dl (8.5-10.1); Creatinine Clr Calc Pharmacy 46.1 ml/min; Est GFR (African American) 73.5 ml/min; Est GFR (Non-African American) 63.4 ml/min; Potassium 4.3 mmol/L (3.5-5.1)
[2022-03-29] MEDS: MIDODRINE HCL 10 MG TAB PO SCH ×3 (08:27→16:43)
[2022-03-29] MEDS: APIXABAN 2.5 MG TAB PO SCH ×2 (08:27→21:33)
[2022-03-29] MEDS: CHOLECALCIFEROL 1,000 UNITS 25 MCG TAB PO SCH (08:28)
[2022-03-29] MEDS: AMIODARONE 200 MG TAB PO SCH (08:28)
[2022-03-29] MEDS: FINASTERIDE 5 MG TAB PO SCH (08:28)
[2022-03-29] MEDS: ASCORBIC ACID 500 MG TAB PO SCH (08:28)
[2022-03-29] MEDS: ATORVASTATIN 40 MG TAB PO SCH (08:28)
[2022-03-29] MEDS: FOLIC ACID 400 MCG TAB PO SCH ×2 (08:29→21:33)
[2022-03-29] MEDS: SENNA 8.6 MG TAB PO SCH ×2 (08:29→21:33)
[2022-03-29] MEDS: POTASSIUM CHLORIDE 10 MEQ TABCR PO SCH (08:29)
[2022-03-29] MEDS: ZINC SULFATE 220 MG CAPSULE PO SCH (08:29)
[2022-03-29] MEDS: POLYETHYLENE (MIRALAX) 17 GM PACK PO PRN (08:36)
--- NOTE | 2022-03-29 17:13 | Hospitalist Progress Note ---
Date of Service March 29, 2022 Assessment & Plan (1) Syncope: Plan: Patient is a 86-year-old male with PMH CAD s/p CABG in 1996, ischemic cardiomyopathy, EF <20%, history of V-fib, s/p biventricular defibrillator, chronic atrial fibrillation, HLD, CKD III, orthostatic hypotension on midodrine, BPH presented to ER for fall and possible syncope yesterday after getting up out of bed. Not eating or drinking well. Denies chest pain, shortness of breath. Syncope Likely due to Orthostatic Hypotension Fall due to above Dehydration could have contributed as well --CT Head:No acute intracranial abnormality. Mild frontal scalp swelling. --Neck CT:No acute fracture or subluxation identified. --ECHO: Left ventricle is mildly dilated. Left ventricle systolic function is moderately reduced. EF 35 to 40%. Apical wall motion abnormality may reflect pacemaker activation. Basal posterior, lateral nguyen severely hypokinetic to akinetic. Basal anterior wall is hypokinetic. Left atrium is severely dilated. Aortic valve is moderately calcified. Mild aortic valve stenosis versus surgical aortic valve stenosis in the setting of reduced EF. Mild aortic regurgitation. Moderate to severe mitral regurgitation. Mild tricuspid regurgitation. --EF better when compared to prior ECHO. Wall hypokinesis also noted on prior echo -- Pacemaker interrogation completed: No issues noted --Positive orthostatic hypotension --Could not get MRI brain due to incompatibility with pacemaker --- Increased midodrine to 10 mg daily Fall precautions PT OT--Needs Rehab Will consider cardiology evaluation as outpatient Resume diuretics when BP more stable --consider to decrease dose of lasix Rehab as able Nocturnal hypoxia Oximetry study--qualifies for supplemental oxygen at bedtime Continue supplemental oxygen at bedtime Recommended polysomnography as outpatient (2) Orthostatic hypotension: Plan: Chronic orthostatic hypotension Continue midodrine--Increased to 10mg TID (3) CKD (chronic kidney disease), stage III: Plan: Cr: 1.68. Baseline~1.5 Monitor renal functions Avoid nephrotoxic agents if possible (4) Choledocholithiasis: Plan: Recent transaminitis, choledocholithiasis s/p ERCP Liver functions improved from recent hospitalization on 03/05/2022 Will need to continue outpatient GI follow up (5) Chronic atrial fibrillation: Plan: Continue metoprolol, amiodarone, Eliquis (6) Ischemic cardiomyopathy: (7) Ventricular tachycardia: (8) Cardiac defibrillator in place: Plan: 2019 echo: EF <20% 2022 EF 35 to 40% Hold Lasix for now--likely resume tomorrow if blood pressure stable (9) BPH (benign prostatic hyperplasia): Plan: Continue tamsulosin, finasteride DVT Px On Eliquis Code Status DNR/DNI Disposition SNF as able Admission and Anticipated Discharge Date Admission Date: March 27, 2022 Subjective Patient is seen and examined at bedside States feeling well today Offers no complaints Denies any chest pain, shortness of breath, dizziness, nausea, abdominal pain Needs placement Review of Systems Review of Systems: All systems reviewed & are unremarkable except as noted in Subjective Physical Exam Physical Exam: Physical Exam: Vitals signs as noted above General Appearance:Moderately built and nourished, no apparent distress Head: normocephalic, +traumatic, Right frontal ecchymosis Eyes: normal inspection, EOMI Neck: supple, Trachea midline Respiratory/Chest: Normal breath sounds, CTA, No accessory muscle use Cardiovascular: S1, S2, + murmur Abdomen/GI:Soft, Non tender, Bowel sounds present Extremities/Musculoskeletal:normal inspection, no edema Neurologic/Psych:AAOX3, grossly no focal neurological deficits, Chronic mild facial droop Skin: normal color, warm Results & Data Results & Data ([facility]) Vital Signs (Past 12 Hours) Vital Signs Temp Pulse Pulse Resp BP Pulse Ox Pulse Ox 03/29/22 15:20 36.8 C 82 18 105/61 93 03/29/22 11:43 36.6 C 80 18 112/70 97 03/29/22 08:00 03/29/22 06:17 73 94 03/29/22 05:17 86 96 O2 Del Method O2 Del Method 03/29/22 15:20 Room Air 03/29/22 11:43 Room Air 03/29/22 08:00 Room Air 03/29/22 06:17 Room Air 03/29/22 05:17 Room Air Laboratory Results [facility] 03/29/22 05:23 Sodium 139 Potassium 4.3 Chloride 103 Carbon Dioxide 34 H BUN 21 Creatinine 1.07 Glucose 98 Calcium 8.5 (1) CKD (chronic kidney disease), stage III Chronic kidney disease stage 3 subtype: unspecified whether 3a or 3b Qualified Code(s): N18.30 - Chronic kidney disease, stage 3 unspecified
[2022-03-29] MEDS: TAMSULOSIN HCL 0.4 MG CAP PO SCH (21:34)
[2022-03-29] MEDS: METOPROLOL SUCC 25MG EXT REL TAB PO SCH (21:34)
[2022-03-29] MEDS ORDERED: BENZONATATE 100 MG CAPSULE PO PRN (22:19)
[2022-03-30 07:38] LABS: BUN Creatinine Ratio 19.8 (10-20); Calcium 8.7 mg/dl (8.5-10.1); Est GFR (African American) 78.8 ml/min; Potassium 4.5 mmol/L (3.5-5.1)
[2022-03-30] MEDS: MIDODRINE HCL 10 MG TAB PO SCH ×3 (08:11→17:40)
[2022-03-30] MEDS: AMIODARONE 200 MG TAB PO SCH (08:11)
[2022-03-30] MEDS: CHOLECALCIFEROL 1,000 UNITS 25 MCG TAB PO SCH (08:12)
[2022-03-30] MEDS: APIXABAN 2.5 MG TAB PO SCH ×2 (08:12→19:50)
[2022-03-30] MEDS: ASCORBIC ACID 500 MG TAB PO SCH (08:12)
[2022-03-30] MEDS: ATORVASTATIN 40 MG TAB PO SCH (08:12)
[2022-03-30] MEDS: FINASTERIDE 5 MG TAB PO SCH (08:13)
[2022-03-30] MEDS: FOLIC ACID 400 MCG TAB PO SCH ×2 (08:13→19:50)
[2022-03-30] MEDS: ZINC SULFATE 220 MG CAPSULE PO SCH (08:13)
[2022-03-30] MEDS: SENNA 8.6 MG TAB PO SCH ×2 (08:13→19:52)
[2022-03-30] MEDS: POLYETHYLENE (MIRALAX) 17 GM PACK PO PRN (08:16)
[2022-03-30] MEDS: POTASSIUM CHLORIDE 10 MEQ TABCR PO SCH (08:16)
[2022-03-30] MEDS ORDERED: busPIRone 5 MG TAB PO PRN (12:51)
--- NOTE | 2022-03-30 16:54 | Hospitalist Progress Note ---
Date of Service March 30, 2022 Assessment & Plan (1) Syncope: Plan: Patient is a 86-year-old male with PMH CAD s/p CABG in 1996, ischemic cardiomyopathy, EF <20%, history of V-fib, s/p biventricular defibrillator, chronic atrial fibrillation, HLD, CKD III, orthostatic hypotension on midodrine, BPH presented to ER for fall and possible syncope yesterday after getting up out of bed. Not eating or drinking well. Denies chest pain, shortness of breath. Syncope Likely due to Orthostatic Hypotension Fall due to above Dehydration could have contributed as well --CT Head:No acute intracranial abnormality. Mild frontal scalp swelling. --Neck CT:No acute fracture or subluxation identified. --ECHO: Left ventricle is mildly dilated. Left ventricle systolic function is moderately reduced. EF 35 to 40%. Apical wall motion abnormality may reflect pacemaker activation. Basal posterior, lateral nguyen severely hypokinetic to akinetic. Basal anterior wall is hypokinetic. Left atrium is severely dilated. Aortic valve is moderately calcified. Mild aortic valve stenosis versus surgical aortic valve stenosis in the setting of reduced EF. Mild aortic regurgitation. Moderate to severe mitral regurgitation. Mild tricuspid regurgitation. --EF better when compared to prior ECHO. Wall hypokinesis also noted on prior echo -- Pacemaker interrogation completed: No issues noted --Positive orthostatic hypotension --Could not get MRI brain due to incompatibility with pacemaker --- Increased midodrine to 10 mg daily --Added Compression stockings Fall precautions PT OT--Needs Rehab Will consider cardiology evaluation as outpatient Resume diuretics when BP more stable --consider to decrease dose of Lasix Rehab as able Continue current management Nocturnal hypoxia Oximetry study--qualifies for supplemental oxygen at bedtime Continue supplemental oxygen at bedtime Recommended polysomnography as outpatient (2) Orthostatic hypotension: Plan: Chronic orthostatic hypotension Continue midodrine--Increased to 10mg TID (3) CKD (chronic kidney disease), stage III: Plan: Cr: 1.68. Baseline~1.5 Monitor renal functions Avoid nephrotoxic agents if possible (4) Choledocholithiasis: Plan: Recent transaminitis, choledocholithiasis s/p ERCP Liver functions improved from recent hospitalization on 03/05/2022 Will need to continue outpatient GI follow up (5) Chronic atrial fibrillation: Plan: Continue metoprolol, amiodarone, Eliquis (6) Ischemic cardiomyopathy: (7) Ventricular tachycardia: (8) Cardiac defibrillator in place: Plan: 2019 echo: EF <20% 2022 EF 35 to 40% Hold Lasix for now--likely resume tomorrow if blood pressure stable (9) BPH (benign prostatic hyperplasia): Plan: Continue tamsulosin, finasteride DVT Px On Eliquis Code Status DNR/DNI Disposition SNF as able Admission and Anticipated Discharge Date Admission Date: March 27, 2022 Subjective Patient is seen and examined at bedside Still has dizziness with standing No other complaints Denies any chest pain, shortness of breath, dizziness, nausea, abdominal pain Review of Systems Review of Systems: All systems reviewed & are unremarkable except as noted in Subjective Physical Exam Physical Exam: Physical Exam: Vitals signs as noted above General Appearance:Moderately built and nourished, no apparent distress Head: normocephalic, +traumatic, Right frontal ecchymosis Eyes: normal inspection, EOMI Neck: supple, Trachea midline Respiratory/Chest: Normal breath sounds, CTA, No accessory muscle use Cardiovascular: S1, S2, + murmur Abdomen/GI:Soft, Non tender, Bowel sounds present Extremities/Musculoskeletal:normal inspection, no edema Neurologic/Psych:AAOX3, grossly no focal neurological deficits, Chronic mild facial droop Skin: normal color, warm Results & Data Results & Data ([facility]) Vital Signs (Past 12 Hours) Vital Signs Temp Pulse Resp BP Pulse Ox O2 Del Method 03/30/22 16:45 36.4 C L 81 19 85/50 L 95 Room Air 03/30/22 12:00 36.7 C 80 18 101/59 L 96 Room Air 03/30/22 08:00 Room Air 03/30/22 08:22 36.7 C 83 18 104/62 97 Room Air Laboratory Results [facility] 03/30/22 06:42 Sodium 138 Potassium 4.5 Chloride 104 Carbon Dioxide 30 BUN 20 Creatinine 1.01 Glucose 96 Calcium 8.7 (1) CKD (chronic kidney disease), stage III Chronic kidney disease stage 3 subtype: unspecified whether 3a or 3b Qualified Code(s): N18.30 - Chronic kidney disease, stage 3 unspecified
[2022-03-30] MEDS: METOPROLOL SUCC 25MG EXT REL TAB PO SCH (19:51)
[2022-03-30] MEDS: TAMSULOSIN HCL 0.4 MG CAP PO SCH (19:51)
[2022-03-31] MEDS: APIXABAN 2.5 MG TAB PO SCH ×2 (08:21→20:58)
[2022-03-31] MEDS: SENNA 8.6 MG TAB PO SCH ×2 (08:21→20:58)
[2022-03-31] MEDS: AMIODARONE 200 MG TAB PO SCH (08:22)
[2022-03-31] MEDS: ZINC SULFATE 220 MG CAPSULE PO SCH (08:22)
[2022-03-31] MEDS: ATORVASTATIN 40 MG TAB PO SCH (08:22)
[2022-03-31] MEDS: FOLIC ACID 400 MCG TAB PO SCH ×2 (08:22→20:58)
[2022-03-31] MEDS: ASCORBIC ACID 500 MG TAB PO SCH (08:22)
[2022-03-31] MEDS: CHOLECALCIFEROL 1,000 UNITS 25 MCG TAB PO SCH (08:22)
[2022-03-31] MEDS: FINASTERIDE 5 MG TAB PO SCH (08:22)
[2022-03-31] MEDS: MIDODRINE HCL 10 MG TAB PO SCH ×3 (08:23→17:06)
[2022-03-31] MEDS: POTASSIUM CHLORIDE 10 MEQ TABCR PO SCH (08:29)
[2022-03-31] MEDS ORDERED: FUROSEMIDE 20 MG TAB PO SCH ×2 (09:00)
--- NOTE | 2022-03-31 14:25 | Hospitalist Progress Note ---
Date of Service March 31, 2022 Assessment & Plan (1) Syncope: Plan: Patient is a 86-year-old male with PMH CAD s/p CABG in 1996, ischemic cardiomyopathy, EF <20%, history of V-fib, s/p biventricular defibrillator, chronic atrial fibrillation, HLD, CKD III, orthostatic hypotension on midodrine, BPH presented to ER for fall and possible syncope yesterday after getting up out of bed. Not eating or drinking well. Denies chest pain, shortness of breath. Syncope Likely due to Orthostatic Hypotension Fall due to above Dehydration could have contributed as well --CT Head:No acute intracranial abnormality. Mild frontal scalp swelling. --Neck CT:No acute fracture or subluxation identified. --ECHO: Left ventricle is mildly dilated. Left ventricle systolic function is moderately reduced. EF 35 to 40%. Apical wall motion abnormality may reflect pacemaker activation. Basal posterior, lateral nguyen severely hypokinetic to akinetic. Basal anterior wall is hypokinetic. Left atrium is severely dilated. Aortic valve is moderately calcified. Mild aortic valve stenosis versus surgical aortic valve stenosis in the setting of reduced EF. Mild aortic regurgitation. Moderate to severe mitral regurgitation. Mild tricuspid regurgitation. --EF better when compared to prior ECHO. Wall hypokinesis also noted on prior echo -- Pacemaker interrogation completed: No issues noted --Positive orthostatic hypotension --Could not get MRI brain due to incompatibility with pacemaker --- Increased midodrine to 10 mg daily --Added Compression stockings Fall precautions PT OT--Needs Rehab Decreased Metoprolol to 12.5mg Daily Resumed lasix at lower dose 20mg twice per week Plan to discharge to Rehab facility when accepted Nocturnal hypoxia Oximetry study--qualifies for supplemental oxygen at bedtime Continue supplemental oxygen at bedtime Recommended polysomnography as outpatient (2) Orthostatic hypotension: Plan: Chronic orthostatic hypotension Continue midodrine--Increased to 10mg TID (3) CKD (chronic kidney disease), stage III: Plan: Cr: 1.68. Baseline~1.5 Monitor renal functions Avoid nephrotoxic agents if possible (4) Choledocholithiasis: Plan: Recent transaminitis, choledocholithiasis s/p ERCP Liver functions improved from recent hospitalization on 03/05/2022 Will need to continue outpatient GI follow up (5) Chronic atrial fibrillation: Plan: Continue metoprolol, amiodarone, Eliquis (6) Ischemic cardiomyopathy: (7) Ventricular tachycardia: (8) Cardiac defibrillator in place: Plan: 2019 echo: EF <20% 2022 EF 35 to 40% Resumed Lasix at lower dose as above (9) BPH (benign prostatic hyperplasia): Plan: Continue tamsulosin, finasteride DVT Px On Eliquis Code Status DNR/DNI Disposition SNF as able Admission and Anticipated Discharge Date Admission Date: March 27, 2022 Subjective Patient is seen and examined at bedside Feels better today Intermittent dizziness with standing No new complaints Denies any chest pain, shortness of breath, dizziness, nausea, abdominal pain Waiting for placement Review of Systems Review of Systems: All systems reviewed & are unremarkable except as noted in Subjective Physical Exam Physical Exam: Physical Exam: Vitals signs as noted above General Appearance:Moderately built and nourished, no apparent distress Head: normocephalic, +traumatic, Right frontal ecchymosis Eyes: normal inspection, EOMI Neck: supple, Trachea midline Respiratory/Chest: Normal breath sounds, CTA, No accessory muscle use Cardiovascular: S1, S2, + murmur Abdomen/GI:Soft, Non tender, Bowel sounds present Extremities/Musculoskeletal:normal inspection, no edema Neurologic/Psych:AAOX3, grossly no focal neurological deficits, Chronic mild facial droop Skin: normal color, warm Results & Data Results & Data ([facility]) Vital Signs (Past 12 Hours) Vital Signs Temp Pulse Pulse Resp BP Pulse Ox O2 Del Method 03/31/22 11:17 36.4 C L 80 17 100/58 L 94 Room Air 03/31/22 07:48 83 03/31/22 07:48 Room Air 03/31/22 07:44 36.4 C L 79 18 111/67 98 Room Air 03/31/22 03:42 36.6 C 80 16 111/69 94 Room Air (1) CKD (chronic kidney disease), stage III Chronic kidney disease stage 3 subtype: unspecified whether 3a or 3b Qualified Code(s): N18.30 - Chronic kidney disease, stage 3 unspecified
[2022-03-31] MEDS: TAMSULOSIN HCL 0.4 MG CAP PO SCH (20:57)
[2022-03-31] MEDS: METOPROLOL SUCC 25MG EXT REL TAB PO SCH (20:58)
[2022-04-01 08:05] LABS: BUN Creatinine Ratio 20.6 (10-20); Calcium 9.3 mg/dl (8.5-10.1); Creatinine Clr Calc Pharmacy 39.3 ml/min; Est GFR (African American) 60.3 ml/min; Potassium 4.6 mmol/L (3.5-5.1)
[2022-04-01] MEDS: APIXABAN 2.5 MG TAB PO SCH ×2 (08:42→21:21)
[2022-04-01] MEDS: FOLIC ACID 400 MCG TAB PO SCH ×2 (08:42→21:20)
[2022-04-01] MEDS: ATORVASTATIN 40 MG TAB PO SCH (08:42)
[2022-04-01] MEDS: MIDODRINE HCL 10 MG TAB PO SCH ×3 (08:42→15:51)
[2022-04-01] MEDS: SENNA 8.6 MG TAB PO SCH ×2 (08:42→21:20)
[2022-04-01] MEDS: FINASTERIDE 5 MG TAB PO SCH (08:42)
[2022-04-01] MEDS: CHOLECALCIFEROL 1,000 UNITS 25 MCG TAB PO SCH (08:43)
[2022-04-01] MEDS: ASCORBIC ACID 500 MG TAB PO SCH (08:43)
[2022-04-01] MEDS: ZINC SULFATE 220 MG CAPSULE PO SCH (08:44)
[2022-04-01] MEDS: AMIODARONE 200 MG TAB PO SCH (08:44)
[2022-04-01] MEDS: POTASSIUM CHLORIDE 10 MEQ TABCR PO SCH ×2 (08:56→09:15)
[2022-04-01] MEDS: FLUTICASONE PROPIONATE NA SPR 16 GM BTL SCH (13:07)
--- NOTE | 2022-04-01 14:52 | Hospitalist Progress Note ---
Date of Service April 01, 2022 Assessment & Plan (1) Syncope: Plan: Patient is a 86-year-old male with PMH CAD s/p CABG in 1996, ischemic cardiomyopathy, EF <20%, history of V-fib, s/p biventricular defibrillator, chronic atrial fibrillation, HLD, CKD III, orthostatic hypotension on midodrine, BPH presented to ER for fall and possible syncope yesterday after getting up out of bed. Not eating or drinking well. Denies chest pain, shortness of breath. Syncope Likely due to Orthostatic Hypotension Fall due to above Dehydration could have contributed as well --CT Head:No acute intracranial abnormality. Mild frontal scalp swelling. --Neck CT:No acute fracture or subluxation identified. --ECHO: Left ventricle is mildly dilated. Left ventricle systolic function is moderately reduced. EF 35 to 40%. Apical wall motion abnormality may reflect pacemaker activation. Basal posterior, lateral nguyen severely hypokinetic to akinetic. Basal anterior wall is hypokinetic. Left atrium is severely dilated. Aortic valve is moderately calcified. Mild aortic valve stenosis versus surgical aortic valve stenosis in the setting of reduced EF. Mild aortic regurgitation. Moderate to severe mitral regurgitation. Mild tricuspid regurgitation. --EF better when compared to prior ECHO. Wall hypokinesis also noted on prior echo -- Pacemaker interrogation completed: No issues noted --Positive orthostatic hypotension --Could not get MRI brain due to incompatibility with pacemaker --- Increased midodrine to 10 mg daily --Added Compression stockings Fall precautions PT OT--Needs Rehab Decreased Metoprolol to 12.5mg Daily Resumed lasix at lower dose 20mg twice per week Plan to discharge to Rehab facility when accepted Waiting for placement Nocturnal hypoxia Oximetry study--qualifies for supplemental oxygen at bedtime Continue supplemental oxygen at bedtime Recommended polysomnography as outpatient (2) Orthostatic hypotension: Plan: Chronic orthostatic hypotension Continue midodrine--Increased to 10mg TID (3) CKD (chronic kidney disease), stage III: Plan: Cr: 1.68. Baseline~1.5 Monitor renal functions Avoid nephrotoxic agents if possible (4) Choledocholithiasis: Plan: Recent transaminitis, choledocholithiasis s/p ERCP Liver functions improved from recent hospitalization on 03/05/2022 Will need outpatient GI follow up (5) Chronic atrial fibrillation: Plan: Continue metoprolol, amiodarone, Eliquis (6) Ischemic cardiomyopathy: (7) Ventricular tachycardia: (8) Cardiac defibrillator in place: Plan: 2019 echo: EF <20% 2022 EF 35 to 40% Resumed Lasix at lower dose as above (9) BPH (benign prostatic hyperplasia): Plan: Continue tamsulosin, finasteride DVT Px On Eliquis Code Status DNR/DNI Disposition SNF as able Admission and Anticipated Discharge Date Admission Date: March 27, 2022 Subjective Patient is seen and examined at bedside Reports sinus congestion BP stable No other complaints Dizziness better Denies any chest pain, shortness of breath, dizziness, nausea, abdominal pain Waiting for placement Review of Systems Review of Systems: All systems reviewed & are unremarkable except as noted in Subjective Physical Exam Physical Exam: Physical Exam: Vitals signs as noted above General Appearance:Moderately built and nourished, no apparent distress Head: normocephalic, +traumatic, Right frontal ecchymosis Eyes: normal inspection, EOMI Neck: supple, Trachea midline Respiratory/Chest: Normal breath sounds, CTA, No accessory muscle use Cardiovascular: S1, S2, + murmur Abdomen/GI:Soft, Non tender, Bowel sounds present Extremities/Musculoskeletal:normal inspection, no edema Neurologic/Psych:AAOX3, grossly no focal neurological deficits, Chronic mild facial droop Skin: normal color, warm Results & Data Results & Data ([facility]) Vital Signs (Past 12 Hours) Vital Signs Temp Pulse Pulse Resp BP Pulse Ox O2 Del Method 04/01/22 11:58 36.5 C 82 19 102/62 96 Room Air 04/01/22 07:53 36.4 C L 84 19 103/61 96 Room Air 04/01/22 07:46 8 L 04/01/22 07:46 Room Air 04/01/22 04:03 36.7 C 83 20 111/69 96 Room Air Laboratory Results [facility] 04/01/22 06:50 Sodium 139 Potassium 4.6 Chloride 103 Carbon Dioxide 37 H BUN 26 H Creatinine 1.26 Glucose 96 Calcium 9.3 (3) CKD (chronic kidney disease), stage III Chronic kidney disease stage 3 subtype: unspecified whether 3a or 3b Qualified Code(s): N18.30 - Chronic kidney disease, stage 3 unspecified
[2022-04-01] MEDS: METOPROLOL SUCC 25MG EXT REL TAB PO SCH (21:20)
[2022-04-01] MEDS: TAMSULOSIN HCL 0.4 MG CAP PO SCH (21:20)
[2022-04-02] MEDS: MIDODRINE HCL 10 MG TAB PO SCH ×3 (08:03→16:57)
[2022-04-02] MEDS: ASCORBIC ACID 500 MG TAB PO SCH (08:03)
[2022-04-02] MEDS: SENNA 8.6 MG TAB PO SCH ×2 (08:03→20:49)
[2022-04-02] MEDS: APIXABAN 2.5 MG TAB PO SCH ×2 (08:04→20:49)
[2022-04-02] MEDS: CHOLECALCIFEROL 1,000 UNITS 25 MCG TAB PO SCH (08:04)
[2022-04-02] MEDS: FOLIC ACID 400 MCG TAB PO SCH ×2 (08:04→20:49)
[2022-04-02] MEDS: FINASTERIDE 5 MG TAB PO SCH (08:04)
[2022-04-02] MEDS: AMIODARONE 200 MG TAB PO SCH (08:04)
[2022-04-02] MEDS: FLUTICASONE PROPIONATE NA SPR 16 GM BTL SCH (08:04)
[2022-04-02] MEDS: ATORVASTATIN 40 MG TAB PO SCH (08:04)
[2022-04-02] MEDS: ZINC SULFATE 220 MG CAPSULE PO SCH (08:05)
--- NOTE | 2022-04-02 16:55 | Hospitalist Progress Note ---
Date of Service April 02, 2022 Assessment & Plan (1) Syncope: Plan: Patient is a 86-year-old male with PMH CAD s/p CABG in 1996, ischemic cardiomyopathy, EF <20%, history of V-fib, s/p biventricular defibrillator, chronic atrial fibrillation, HLD, CKD III, orthostatic hypotension on midodrine, BPH presented to ER for fall and possible syncope yesterday after getting up out of bed. Not eating or drinking well. Denies chest pain, shortness of breath. Syncope Likely due to Orthostatic Hypotension Fall due to above Dehydration could have contributed as well --CT Head:No acute intracranial abnormality. Mild frontal scalp swelling. --Neck CT:No acute fracture or subluxation identified. --ECHO: Left ventricle is mildly dilated. Left ventricle systolic function is moderately reduced. EF 35 to 40%. Apical wall motion abnormality may reflect pacemaker activation. Basal posterior, lateral nguyen severely hypokinetic to akinetic. Basal anterior wall is hypokinetic. Left atrium is severely dilated. Aortic valve is moderately calcified. Mild aortic valve stenosis versus surgical aortic valve stenosis in the setting of reduced EF. Mild aortic regurgitation. Moderate to severe mitral regurgitation. Mild tricuspid regurgitation. --EF better when compared to prior ECHO. Wall hypokinesis also noted on prior echo -- Pacemaker interrogation completed: No issues noted --Positive orthostatic hypotension --Could not get MRI brain due to incompatibility with pacemaker --Tamsulosin held --- Increased midodrine to 10 mg daily --Added Compression stockings Fall precautions PT OT--Needs Rehab Decreased Metoprolol to 12.5mg Daily Resumed lasix at lower dose 20mg twice per week Plan to discharge to Rehab facility when accepted Waiting for placement Nocturnal hypoxia Oximetry study--qualifies for supplemental oxygen at bedtime Continue supplemental oxygen at bedtime Recommended polysomnography as outpatient BPH Tamsulosin held Monitor bladder scan to monitor for urinary retention (2) Orthostatic hypotension: Plan: Chronic orthostatic hypotension Continue midodrine--Increased to 10mg TID Flomax discontinued (3) CKD (chronic kidney disease), stage III: Plan: Cr: 1.68. Baseline~1.5 Monitor renal functions Avoid nephrotoxic agents if possible (4) Choledocholithiasis: Plan: Recent transaminitis, choledocholithiasis s/p ERCP Liver functions improved from recent hospitalization on 03/05/2022 Will need outpatient GI follow up (5) Chronic atrial fibrillation: Plan: Continue metoprolol, amiodarone, Eliquis (6) Ischemic cardiomyopathy: (7) Ventricular tachycardia: (8) Cardiac defibrillator in place: Plan: 2019 echo: EF <20% 2022 EF 35 to 40% Resumed Lasix at lower dose as above (9) BPH (benign prostatic hyperplasia): Plan: Continue tamsulosin, finasteride DVT Px On Eliquis Code Status DNR/DNI Disposition SNF as able Admission and Anticipated Discharge Date Admission Date: March 27, 2022 Subjective Patient is seen and examined at bedside States feeling well today Sinus congestion, dizziness resolved No new complaints Waiting for placement Denies any chest pain, shortness of breath, dizziness, nausea, abdominal pain Review of Systems Review of Systems: All systems reviewed & are unremarkable except as noted in Subjective Physical Exam Physical Exam: Physical Exam: Vitals signs as noted above General Appearance:Moderately built and nourished, no apparent distress Head: normocephalic, +traumatic, Right frontal ecchymosis Eyes: normal inspection, EOMI Neck: supple, Trachea midline Respiratory/Chest: Normal breath sounds, CTA, No accessory muscle use Cardiovascular: S1, S2, + murmur Abdomen/GI:Soft, Non tender, Bowel sounds present Extremities/Musculoskeletal:normal inspection, no edema Neurologic/Psych:AAOX3, grossly no focal neurological deficits, Chronic mild facial droop Skin: normal color, warm Results & Data Results & Data ([facility]) Vital Signs (Past 12 Hours) Vital Signs Temp Pulse Resp BP Pulse Ox O2 Del Method 04/02/22 16:27 36.6 C 80 18 119/73 96 Room Air 04/02/22 11:26 36.6 C 80 18 115/65 93 Room Air 04/02/22 08:23 36.3 C L 80 18 118/82 93 Room Air (3) CKD (chronic kidney disease), stage III Chronic kidney disease stage 3 subtype: unspecified whether 3a or 3b Qualified Code(s): N18.30 - Chronic kidney disease, stage 3 unspecified
[2022-04-02] MEDS: METOPROLOL SUCC 25MG EXT REL TAB PO SCH (20:49)
[2022-04-03] MEDS: ZINC SULFATE 220 MG CAPSULE PO SCH (08:15)
[2022-04-03] MEDS: SENNA 8.6 MG TAB PO SCH ×2 (08:16→20:07)
[2022-04-03] MEDS: FINASTERIDE 5 MG TAB PO SCH (08:17)
[2022-04-03] MEDS: FOLIC ACID 400 MCG TAB PO SCH ×2 (08:17→20:07)
[2022-04-03] MEDS: ATORVASTATIN 40 MG TAB PO SCH (08:18)
[2022-04-03] MEDS: CHOLECALCIFEROL 1,000 UNITS 25 MCG TAB PO SCH (08:18)
[2022-04-03] MEDS: MIDODRINE HCL 10 MG TAB PO SCH ×3 (08:18→15:36)
[2022-04-03] MEDS: AMIODARONE 200 MG TAB PO SCH (08:19)
[2022-04-03] MEDS: ASCORBIC ACID 500 MG TAB PO SCH (08:19)
[2022-04-03] MEDS: APIXABAN 2.5 MG TAB PO SCH ×2 (08:19→20:07)
[2022-04-03] MEDS: FLUTICASONE PROPIONATE NA SPR 16 GM BTL SCH (08:20)
[2022-04-03] MEDS ORDERED: FUROSEMIDE 20 MG TAB PO SCH (14:45)
[2022-04-03] MEDS ORDERED: SODIUM CHLORIDE 0.9% 500 ML IV ONE (15:15)
--- NOTE | 2022-04-03 16:53 | Hospitalist Progress Note ---
Date of Service April 03, 2022 Assessment & Plan (1) Syncope: Plan: Patient is a 86-year-old male with PMH CAD s/p CABG in 1996, ischemic cardiomyopathy, EF <20%, history of V-fib, s/p biventricular defibrillator, chronic atrial fibrillation, HLD, CKD III, orthostatic hypotension on midodrine, BPH presented to ER for fall and possible syncope yesterday after getting up out of bed. Not eating or drinking well. Denies chest pain, shortness of breath. Syncope Likely due to Orthostatic Hypotension Fall due to above Dehydration could have contributed as well --CT Head:No acute intracranial abnormality. Mild frontal scalp swelling. --Neck CT:No acute fracture or subluxation identified. --ECHO: Left ventricle is mildly dilated. Left ventricle systolic function is moderately reduced. EF 35 to 40%. Apical wall motion abnormality may reflect pacemaker activation. Basal posterior, lateral nguyen severely hypokinetic to akinetic. Basal anterior wall is hypokinetic. Left atrium is severely dilated. Aortic valve is moderately calcified. Mild aortic valve stenosis versus surgical aortic valve stenosis in the setting of reduced EF. Mild aortic regurgitation. Moderate to severe mitral regurgitation. Mild tricuspid regurgitation. --EF better when compared to prior ECHO. Wall hypokinesis also noted on prior echo -- Pacemaker interrogation completed: No issues noted --Positive orthostatic hypotension --Could not get MRI brain due to incompatibility with pacemaker --Tamsulosin held --- Increased midodrine to 10 mg daily --Added Compression stockings -- Liberalize salt in diet -- Hold Lasix for now Fall precautions PT OT--Needs Rehab Decreased Metoprolol to 12.5mg Daily Check cortisol level in a.m. Consider cardiology evaluation if needed Plan to discharge to rehab facility as able Nocturnal hypoxia Oximetry study--qualifies for supplemental oxygen at bedtime Continue supplemental oxygen at bedtime Recommended polysomnography as outpatient BPH Tamsulosin discontinued secondary to orthostatic hypotension Continue finasteride Monitor bladder scan to monitor for urinary retention (2) Orthostatic hypotension: Plan: Chronic orthostatic hypotension Continue midodrine--Increased to 10mg TID Flomax discontinued (3) CKD (chronic kidney disease), stage III: Plan: Cr: 1.68. Baseline~1.5 Monitor renal functions Avoid nephrotoxic agents if possible (4) Choledocholithiasis: Plan: Recent transaminitis, choledocholithiasis s/p ERCP Liver functions improved from recent hospitalization on 03/05/2022 Will need outpatient GI follow up (5) Chronic atrial fibrillation: Plan: Continue metoprolol, amiodarone, Eliquis (6) Ischemic cardiomyopathy: (7) Ventricular tachycardia: (8) Cardiac defibrillator in place: Plan: 2019 echo: EF <20% 2022 EF 35 to 40% Resumed Lasix at lower dose as able (9) BPH (benign prostatic hyperplasia): Plan: Continue finasteride DVT Px On Eliquis Code Status DNR/DNI Disposition SNF as able Admission and Anticipated Discharge Date Admission Date: March 27, 2022 Subjective Patient is seen and examined at bedside Offers no complaints this morning Had significant orthostatic hypotension while having PT today Sinus congestion, dizziness resolved Waiting for placement Denies any chest pain, shortness of breath, nausea, abdominal pain Review of Systems Review of Systems: All systems reviewed & are unremarkable except as noted in Subjective Physical Exam Physical Exam: Physical Exam: Vitals signs as noted above General Appearance:Moderately built and nourished, no apparent distress Head: normocephalic, +traumatic, Right frontal ecchymosis Eyes: normal inspection, EOMI Neck: supple, Trachea midline Respiratory/Chest: Normal breath sounds, CTA, No accessory muscle use Cardiovascular: S1, S2, + murmur Abdomen/GI:Soft, Non tender, Bowel sounds present Extremities/Musculoskeletal:normal inspection, no edema Neurologic/Psych:AAOX3, grossly no focal neurological deficits, Chronic mild facial droop Skin: normal color, warm Results & Data Results & [facility] ([facility]) Vital Signs (Past 12 Hours) Vital Signs Temp Pulse Resp BP Pulse Ox O2 Del Method O2 Flow Rate 04/03/22 15:15 80 109/62 96 Room Air 04/03/22 08:25 Room Air 04/03/22 08:05 36.6 C 84 16 113/70 98 Nasal Cannula 2 (3) CKD (chronic kidney disease), stage III Chronic kidney disease stage 3 subtype: unspecified whether 3a or 3b Qualified Code(s): N18.30 - Chronic kidney disease, stage 3 unspecified
[2022-04-03] MEDS: METOPROLOL SUCC 25MG EXT REL TAB PO SCH (20:08)
[2022-04-03] MEDS: POLYETHYLENE (MIRALAX) 17 GM PACK PO PRN (20:15)
[2022-04-04 08:02] LABS: BUN Creatinine Ratio 21.4 (10-20); Calcium 8.9 mg/dl (8.5-10.1); Creatinine Clr Calc Pharmacy 45.1 ml/min; Est GFR (African American) 69.5 ml/min; Potassium 4.9 mmol/L (3.5-5.1)
[2022-04-04] MEDS: FOLIC ACID 400 MCG TAB PO SCH ×2 (08:40→21:22)
[2022-04-04] MEDS: ZINC SULFATE 220 MG CAPSULE PO SCH (08:40)
[2022-04-04] MEDS: SENNA 8.6 MG TAB PO SCH ×2 (08:40→21:22)
[2022-04-04] MEDS: FINASTERIDE 5 MG TAB PO SCH (08:41)
[2022-04-04] MEDS: CHOLECALCIFEROL 1,000 UNITS 25 MCG TAB PO SCH (08:41)
[2022-04-04] MEDS: ATORVASTATIN 40 MG TAB PO SCH (08:41)
[2022-04-04] MEDS: APIXABAN 2.5 MG TAB PO SCH ×2 (08:42→21:22)
[2022-04-04] MEDS: ASCORBIC ACID 500 MG TAB PO SCH (08:42)
[2022-04-04] MEDS: MIDODRINE HCL 10 MG TAB PO SCH ×3 (08:43→16:03)
[2022-04-04] MEDS: AMIODARONE 200 MG TAB PO SCH (08:43)
[2022-04-04] MEDS: FLUTICASONE PROPIONATE NA SPR 16 GM BTL SCH (08:43)
--- NOTE | 2022-04-04 18:06 | Hospitalist Progress Note ---
Date of Service April 04, 2022 Assessment & Plan (1) Syncope: Plan: Patient is a 86-year-old male with PMH CAD s/p CABG in 1996, ischemic cardiomyopathy, EF <20%, history of V-fib, s/p biventricular defibrillator, chronic atrial fibrillation, HLD, CKD III, orthostatic hypotension on midodrine, BPH presented to ER for fall and possible syncope yesterday after getting up out of bed. Not eating or drinking well. Denies chest pain, shortness of breath. Syncope Likely due to Orthostatic Hypotension Fall due to above Dehydration could have contributed as well --CT Head:No acute intracranial abnormality. Mild frontal scalp swelling. --Neck CT:No acute fracture or subluxation identified. --ECHO: Left ventricle is mildly dilated. Left ventricle systolic function is moderately reduced. EF 35 to 40%. Apical wall motion abnormality may reflect pacemaker activation. Basal posterior, lateral nguyen severely hypokinetic to akinetic. Basal anterior wall is hypokinetic. Left atrium is severely dilated. Aortic valve is moderately calcified. Mild aortic valve stenosis versus surgical aortic valve stenosis in the setting of reduced EF. Mild aortic regurgitation. Moderate to severe mitral regurgitation. Mild tricuspid regurgitation. --EF better when compared to prior ECHO. Wall hypokinesis also noted on prior echo -- Pacemaker interrogation completed: No issues noted --Positive orthostatic hypotension --Could not get MRI brain due to incompatibility with pacemaker --Tamsulosin held --- Increased midodrine to 10 mg daily --Added Compression stockings -- Liberalize salt in diet -- Hold Lasix for now Fall precautions PT OT--Needs Rehab Decreased Metoprolol to 12.5mg Daily Cortisol level in a.m. within normal limit Might consider to start on a low-dose of fludrocortisone if continue to have orthostatic hypotension Continue midodrine 10 mg 3 times daily we will asked nurse to check for orthostatic BP Plan to discharge to rehab facility as able Nocturnal hypoxia Oximetry study--qualifies for supplemental oxygen at bedtime Continue supplemental oxygen at bedtime Recommended polysomnography as outpatient BPH Tamsulosin discontinued secondary to orthostatic hypotension Continue finasteride Monitor bladder scan to monitor for urinary retention (2) Orthostatic hypotension: Plan: Chronic orthostatic hypotension Continue midodrine 10mg TID Flomax discontinued (3) CKD (chronic kidney disease), stage III: Plan: Cr: 1.68. Baseline~1.5 Monitor renal functions Avoid nephrotoxic agents if possible (4) Choledocholithiasis: Plan: Recent transaminitis, choledocholithiasis s/p ERCP Liver functions improved from recent hospitalization on 03/05/2022 Will need outpatient GI follow up (5) Chronic atrial fibrillation: Plan: Continue metoprolol, amiodarone, Eliquis (6) Ischemic cardiomyopathy: (7) Ventricular tachycardia: (8) Cardiac defibrillator in place: Plan: 2019 echo: EF <20% 2022 EF 35 to 40% Resumed Lasix at lower dose as able (9) BPH (benign prostatic hyperplasia): Plan: Continue finasteride DVT Px On Eliquis Code Status DNR/DNI Disposition SNF as able Admission and Anticipated Discharge Date Admission Date: March 27, 2022 Subjective Patient was seen and evaluated for follow-up of dizziness Lying in bed with no acute distress Pt said that he fees ok He said that he has not been getting up to see if he continue to be dizzy t Denies any chest pain, shortness of breath, nausea, abdominal pain Review of Systems Review of Systems: All systems reviewed & are unremarkable except as noted in Subjective Physical Exam Physical Exam: General Appearance:Moderately built and nourished, no apparent distress Head: normocephalic, +traumatic, Right frontal ecchymosis Eyes: normal inspection, EOMI Neck: supple, Trachea midline Respiratory/Chest: Normal breath sounds, CTA, No accessory muscle use Cardiovascular: S1, S2, + murmur Abdomen/GI:Soft, Non tender, Bowel sounds present Extremities/Musculoskeletal:normal inspection, no edema Neurologic/Psych:AAOX3, grossly no focal neurological deficits, Chronic mild facial droop Skin: normal color, warm Results & Data Results & Data ([facility]) Vital Signs (Past 12 Hours) Vital Signs O2 Del Method 04/04/22 08:52 Room Air (3) CKD (chronic kidney disease), stage III Chronic kidney disease stage 3 subtype: unspecified whether 3a or 3b Qualified Code(s): N18.30 - Chronic kidney disease, stage 3 unspecified
[2022-04-04] MEDS: METOPROLOL SUCC 25MG EXT REL TAB PO SCH (21:22)
[2022-04-05] MEDS: MIDODRINE HCL 10 MG TAB PO SCH ×3 (08:38→15:52)
[2022-04-05] MEDS: ASCORBIC ACID 500 MG TAB PO SCH (08:40)
[2022-04-05] MEDS: FOLIC ACID 400 MCG TAB PO SCH ×2 (08:40→20:10)
[2022-04-05] MEDS: ZINC SULFATE 220 MG CAPSULE PO SCH (08:40)
[2022-04-05] MEDS: CHOLECALCIFEROL 1,000 UNITS 25 MCG TAB PO SCH (08:40)
[2022-04-05] MEDS: ATORVASTATIN 40 MG TAB PO SCH (08:40)
[2022-04-05] MEDS: SENNA 8.6 MG TAB PO SCH ×2 (08:40→20:10)
[2022-04-05] MEDS: APIXABAN 2.5 MG TAB PO SCH ×2 (08:40→20:10)
[2022-04-05] MEDS: AMIODARONE 200 MG TAB PO SCH (08:41)
[2022-04-05] MEDS: FINASTERIDE 5 MG TAB PO SCH (08:41)
[2022-04-05] MEDS: FLUTICASONE PROPIONATE NA SPR 16 GM BTL SCH (08:41)
[2022-04-05] MEDS: POLYETHYLENE (MIRALAX) 17 GM PACK PO PRN (09:16)
[2022-04-05] MEDS: FLUDROCORTISONE ACETATE 0.1 MG TAB PO SCH (11:17)
--- NOTE | 2022-04-05 15:59 | Hospitalist Progress Note ---
Date of Service April 05, 2022 Assessment & Plan (1) Syncope: Plan: Patient is a 86-year-old male with PMH CAD s/p CABG in 1996, ischemic cardiomyopathy, EF <20%, history of V-fib, s/p biventricular defibrillator, chronic atrial fibrillation, HLD, CKD III, orthostatic hypotension on midodrine, BPH presented to ER for fall and possible syncope yesterday after getting up out of bed. Not eating or drinking well. Denies chest pain, shortness of breath. Syncope Likely due to Orthostatic Hypotension Fall due to above Dehydration could have contributed as well --CT Head:No acute intracranial abnormality. Mild frontal scalp swelling. --Neck CT:No acute fracture or subluxation identified. --ECHO: Left ventricle is mildly dilated. Left ventricle systolic function is moderately reduced. EF 35 to 40%. Apical wall motion abnormality may reflect pacemaker activation. Basal posterior, lateral nguyen severely hypokinetic to akinetic. Basal anterior wall is hypokinetic. Left atrium is severely dilated. Aortic valve is moderately calcified. Mild aortic valve stenosis versus surgical aortic valve stenosis in the setting of reduced EF. Mild aortic regurgitation. Moderate to severe mitral regurgitation. Mild tricuspid regurgitation. --EF better when compared to prior ECHO. Wall hypokinesis also noted on prior echo -- Pacemaker interrogation completed: No issues noted --Positive orthostatic hypotension --Could not get MRI brain due to incompatibility with pacemaker --Tamsulosin held --- Increased midodrine to 10 mg daily --Added Compression stockings -- Liberalize salt in diet -- Hold Lasix for now Fall precautions PT OT--Needs Rehab Decreased Metoprolol to 12.5mg Daily Cortisol level in a.m. within normal limit Starting on Low-dose of fludrocortisone 0.05mg today will consider to increase fludrocortisone every 3 days if continue to experience symptoms of orthostatic hypotension ( no more than 0.2 mg daily) Continue midodrine 10 mg 3 times daily; but if BP starts to elevate, will consider to reduce the dose of midodrine slowly Continue monitor closely Nocturnal hypoxia Oximetry study--qualifies for supplemental oxygen at bedtime Continue supplemental oxygen at bedtime Recommended polysomnography as outpatient BPH Tamsulosin discontinued secondary to orthostatic hypotension Continue finasteride Monitor bladder scan to monitor for urinary retention (2) Orthostatic hypotension: Plan: Chronic orthostatic hypotension Continue midodrine 10mg TID Starting on Low-dose of fludrocortisone 0.05mg today Flomax discontinued (3) CKD (chronic kidney disease), stage III: Plan: Cr: 1.68. Baseline~1.5 Monitor renal functions Avoid nephrotoxic agents if possible (4) Choledocholithiasis: Plan: Recent transaminitis, choledocholithiasis s/p ERCP Liver functions improved from recent hospitalization on 03/05/2022 Will need outpatient GI follow up (5) Chronic atrial fibrillation: Plan: Continue metoprolol, amiodarone, Eliquis (6) Ischemic cardiomyopathy: (7) Ventricular tachycardia: (8) Cardiac defibrillator in place: Plan: 2019 echo: EF <20% 2022 EF 35 to 40% Resumed Lasix at lower dose as able (9) BPH (benign prostatic hyperplasia): Plan: Continue finasteride DVT Px On Eliquis Code Status DNR/DNI Disposition SNF as able Admission and Anticipated Discharge Date Admission Date: March 27, 2022 Subjective Patient was seen and evaluated for follow-up of dizziness Lying in bed with no acute distress Pt said that he fees ok This morning he was orthostatic hypotension with standing BP 77/48 Denies any chest pain, shortness of breath, nausea, abdominal pain Review of Systems Review of Systems: All systems reviewed & are unremarkable except as noted in Subjective Physical Exam Physical Exam: General Appearance:Moderately built and nourished, no apparent distress Head: normocephalic, +traumatic, Right frontal ecchymosis Eyes: normal inspection, EOMI Neck: supple, Trachea midline Respiratory/Chest: Normal breath sounds, CTA, No accessory muscle use Cardiovascular: S1, S2, + murmur Abdomen/GI:Soft, Non tender, Bowel sounds present Extremities/Musculoskeletal:normal inspection, no edema Neurologic/Psych:AAOX3, grossly no focal neurological deficits, Chronic mild facial droop Skin: normal color, warm Results & Data Results & Data ([facility]) Vital Signs (Past 12 Hours) Vital Signs Temp Pulse Resp Pulse Ox O2 Del Method 04/05/22 14:55 80 16 96 Room Air 04/05/22 06:30 36.4 C L 17 95 Room Air (3) CKD (chronic kidney disease), stage III Chronic kidney disease stage 3 subtype: unspecified whether 3a or 3b Qualified Code(s): N18.30 - Chronic kidney disease, stage 3 unspecified
[2022-04-05] MEDS: METOPROLOL SUCC 25MG EXT REL TAB PO SCH (22:18)
[2022-04-06 06:35] LABS: Hematocrit (blood only) 35.5 % (42.0-52.0); Hemoglobin 11.7 g/dl (14.0-18.0); Mean Corpuscular Hemoglobin 30.9 pg (25.0-34.0); Mean Corpuscular Volume 93.7 fL (80.0-100.0); Mean Platelet Volume 9.6 fL (9.4-12.4); Platelet Count 219 K/uL (130-400); RDW Coefficient of Variation 15.3 % (11.5-14.5); RDW Standard Deviation 52.7 fL (36.4-46.3); Red Blood Count 3.79 M/uL (4.70-6.10); White Blood Count 5.68 K/ul (4.8-10.8)
[2022-04-06 06:51] LABS: BUN Creatinine Ratio 23.2 (10-20); Calcium 9.5 mg/dl (8.5-10.1); Creatinine Clr Calc Pharmacy 40.4 ml/min; Est GFR (African American) 60.9 ml/min; Est GFR (Non-African American) 52.5 ml/min; Potassium 4.7 mmol/L (3.5-5.1)
[2022-04-06] MEDS: SENNA 8.6 MG TAB PO SCH ×2 (08:42→21:07)
[2022-04-06] MEDS: AMIODARONE 200 MG TAB PO SCH (08:42)
[2022-04-06] MEDS: APIXABAN 2.5 MG TAB PO SCH ×2 (08:42→21:03)
[2022-04-06] MEDS: FLUDROCORTISONE ACETATE 0.1 MG TAB PO SCH (08:42)
[2022-04-06] MEDS: ZINC SULFATE 220 MG CAPSULE PO SCH (08:43)
[2022-04-06] MEDS: FOLIC ACID 400 MCG TAB PO SCH ×2 (08:44→21:03)
[2022-04-06] MEDS: FINASTERIDE 5 MG TAB PO SCH (08:44)
[2022-04-06] MEDS: CHOLECALCIFEROL 1,000 UNITS 25 MCG TAB PO SCH (08:44)
[2022-04-06] MEDS: MIDODRINE HCL 10 MG TAB PO SCH ×3 (08:44→16:06)
[2022-04-06] MEDS: FLUTICASONE PROPIONATE NA SPR 16 GM BTL SCH (08:44)
[2022-04-06] MEDS: ASCORBIC ACID 500 MG TAB PO SCH (08:44)
[2022-04-06] MEDS: ATORVASTATIN 40 MG TAB PO SCH (08:44)
[2022-04-06] MEDS: METOPROLOL SUCC 25MG EXT REL TAB PO SCH (21:04)
[2022-04-06] MEDS: POLYETHYLENE (MIRALAX) 17 GM PACK PO PRN (21:07)
--- NOTE | 2022-04-07 07:14 | Hospitalist Progress Note ---
Date of Service April 06, 2022 Assessment & Plan (1) Syncope: Plan: Patient is a 86-year-old male with PMH CAD s/p CABG in 1996, ischemic cardiomyopathy, EF <20%, history of V-fib, s/p biventricular defibrillator, chronic atrial fibrillation, HLD, CKD III, orthostatic hypotension on midodrine, BPH presented to ER for fall and possible syncope yesterday after getting up out of bed. Not eating or drinking well. Denies chest pain, shortness of breath. Syncope Likely due to Orthostatic Hypotension Fall due to above Dehydration could have contributed as well --CT Head:No acute intracranial abnormality. Mild frontal scalp swelling. --Neck CT:No acute fracture or subluxation identified. --ECHO: Left ventricle is mildly dilated. Left ventricle systolic function is moderately reduced. EF 35 to 40%. Apical wall motion abnormality may reflect pacemaker activation. Basal posterior, lateral nguyen severely hypokinetic to akinetic. Basal anterior wall is hypokinetic. Left atrium is severely dilated. Aortic valve is moderately calcified. Mild aortic valve stenosis versus surgical aortic valve stenosis in the setting of reduced EF. Mild aortic regurgitation. Moderate to severe mitral regurgitation. Mild tricuspid regurgitation. --EF better when compared to prior ECHO. Wall hypokinesis also noted on prior echo -- Pacemaker interrogation completed: No issues noted --Positive orthostatic hypotension --Could not get MRI brain due to incompatibility with pacemaker --Tamsulosin held --- Increased midodrine to 10 mg daily --Added Compression stockings -- Liberalize salt in diet -- Hold Lasix for now Fall precautions PT OT--Needs Rehab Decreased Metoprolol to 12.5mg Daily Cortisol level in a.m. within normal limit Started on Low-dose of fludrocortisone 0.05mg yesterday will consider to increase fludrocortisone every 3 days if continue to experience symptoms of orthostatic hypotension ( no more than 0.2 mg daily) Continue midodrine 10 mg 3 times daily; but if BP starts to elevate, will consider to reduce the dose of midodrine slowly Continue monitor closely 04/06 - pt is feeling much better with current medication changes Nocturnal hypoxia Oximetry study--qualifies for supplemental oxygen at bedtime Continue supplemental oxygen at bedtime Recommended polysomnography as outpatient BPH Tamsulosin discontinued secondary to orthostatic hypotension Continue finasteride Monitor bladder scan to monitor for urinary retention (2) Orthostatic hypotension: Plan: Chronic orthostatic hypotension Continue midodrine 10mg TID Started on Low-dose of fludrocortisone 0.05mg yesterday Flomax discontinued (3) CKD (chronic kidney disease), stage III: Plan: Cr: 1.68 on admission, 1.3 now . Baseline~1.5 Monitor renal functions Avoid nephrotoxic agents if possible (4) Choledocholithiasis: Plan: Recent transaminitis, choledocholithiasis s/p ERCP Liver functions improved from recent hospitalization on 03/05/2022 Will need outpatient GI follow up (5) Chronic atrial fibrillation: Plan: Continue metoprolol, amiodarone, Eliquis (6) Ischemic cardiomyopathy: (7) Ventricular tachycardia: (8) Cardiac defibrillator in place: Plan: 2019 echo: EF <20% 2022 EF 35 to 40% Resumed Lasix at lower dose as able (9) BPH (benign prostatic hyperplasia): Plan: Continue finasteride DVT Px On Eliquis Code Status DNR/DNI Disposition SNF as able Admission and Anticipated Discharge Date Admission Date: March 27, 2022 Subjective Patient seen for follow-up of dizziness Sitting up in bed in no acute distress Pt reports feeling much better today Denies any chest pain, shortness of breath, nausea, abdominal pain Review of Systems Review of Systems: All systems reviewed & are unremarkable except as noted in Subjective Physical Exam Physical Exam: General Appearance: elderly M in no apparent distress Head: normocephalic, +traumatic, Right frontal ecchymosis Eyes: normal inspection, EOMI Neck: supple, Trachea midline Respiratory/Chest: Normal breath sounds, CTA, No accessory muscle use Cardiovascular: S1, S2, + murmur Abdomen/GI:Soft, Non tender, Bowel sounds present Extremities/Musculoskeletal:normal inspection, no edema Neurologic/Psych:AAOX3, grossly no focal neurological deficits, Chronic mild facial droop Skin: normal color, warm Results & Data Results & Data ([facility]) Vital Signs (Past 12 Hours) Vital Signs Temp Resp Pulse Ox O2 Del Method 04/06/22 22:07 36.5 C 18 96 Room Air 04/06/22 21:05 Room Air Medications Administered Current Inpatient Medications Acetaminophen (Acetaminophen 325 Mg Tab) 650 mg PO Q4H PRN PRN Reason: Pain or Fever Stop: 04/26/22 03:36 Amiodarone HCl (Amiodarone 200 Mg Tab) 200 mg PO DAILY [facility] Stop: 04/26/22 08:59 Last Admin: 04/06/22 08:42 Dose: 200 mg Apixaban (Apixaban 2.5 Mg Tab) 2.5 mg PO BID [facility] Stop: 04/26/22 03:36 Last Admin: 04/06/22 21:03 Dose: 2.5 mg Ascorbic Acid (Ascorbic Acid 500 Mg Tab) 500 mg PO DAILY [facility] Stop: 04/26/22 08:59 Last Admin: 04/06/22 08:44 Dose: 500 mg Atorvastatin Calcium (Atorvastatin 40 Mg Tab) 40 mg PO DAILY [facility] Stop: 04/26/22 08:59 Last Admin: 04/06/22 08:44 Dose: 40 mg Benzonatate (Benzonatate 100 Mg Capsule) 100 mg PO TID PRN PRN Reason: Cough Stop: 04/28/22 22:18 Last Admin: 03/30/22 08:10 Dose: 100 mg Finasteride (Finasteride 5 Mg Tab) 5 mg PO DAILY [facility] Stop: 04/26/22 08:59 Last Admin: 04/06/22 08:44 Dose: 5 mg Fludrocortisone Acetate (Fludrocortisone Acetate 0.1 Mg Tab) 0.05 mg PO QAM [facility] Stop: 05/05/22 10:59 Last Admin: 04/06/22 08:42 Dose: 0.05 mg Fluticasone Propionate (Fluticasone Propionate Na Spr 16 Gm Btl) 2 sprays NA DAILY [facility] Stop: 05/01/22 11:44 Last Admin: 04/06/22 08:44 Dose: 2 sprays Folic Acid (Folic Acid 400 Mcg Tab) 400 mcg PO BID [facility] Stop: 04/26/22 03:36 Last Admin: 04/06/22 21:03 Dose: 400 mcg Furosemide (Furosemide 20 Mg Tab) 20 mg PO Q3D [facility] Stop: 05/03/22 14:44 Last Admin: 04/03/22 15:26 Dose: Not Given Metoprolol Succinate (Metoprolol Succ 25mg Ext Rel Tab) 12.5 mg PO HS [facility] Stop: 04/30/22 20:59 Last Admin: 04/06/22 21:04 Dose: 12.5 mg Midodrine (Midodrine Hcl 10 Mg Tab) 10 mg PO TID@0800,1200,1600 [facility] Stop: 04/26/22 13:59 Last Admin: 04/06/22 16:06 Dose: 10 mg Polyethylene Glycol (Polyethylene (Miralax) 17 Gm Pack) 17 gm PO DAILY PRN PRN Reason: Constipation Stop: 04/26/22 03:36 Last Admin: 04/06/22 21:07 Dose: 17 gm Potassium Chloride (Potassium Chloride 10 Meq Tabcr) 10 meq PO DAILY [facility] Stop: 04/26/22 08:59 Last Admin: 04/01/22 09:15 Dose: Not Given Sennosides (Senna 8.6 Mg Tab) 8.6 mg PO BID [facility] Stop: 04/26/22 03:36 Last Admin: 04/06/22 21:07 Dose: 8.6 mg Vitamin D (Cholecalciferol 1,000 Units 25 Mcg Tab) 2,000 units PO DAILY [facility] Stop: 04/26/22 08:59 Last Admin: 04/06/22 08:44 Dose: 2,000 units Zinc Sulfate (Zinc Sulfate 220 Mg Capsule) 220 mg PO DAILY [facility] Stop: 04/26/22 08:59 Last Admin: 04/06/22 08:43 Dose: 220 mg (3) CKD (chronic kidney disease), stage III Chronic kidney disease stage 3 subtype: unspecified whether 3a or 3b Qualified Code(s): N18.30 - Chronic kidney disease, stage 3 unspecified
--- NOTE | 2022-04-07 07:31 | Hospitalist Progress Note ---
Date of Service April 07, 2022 Assessment & Plan (1) Syncope: Plan: Patient is a 86-year-old male with PMH CAD s/p CABG in 1996, ischemic cardiomyopathy, EF <20%, history of V-fib, s/p biventricular defibrillator, chronic atrial fibrillation, HLD, CKD III, orthostatic hypotension on midodrine, BPH presented to ER for fall and possible syncope yesterday after getting up out of bed. Not eating or drinking well. Denies chest pain, shortness of breath. Syncope Likely due to Orthostatic Hypotension Fall due to above Dehydration could have contributed as well --CT Head:No acute intracranial abnormality. Mild frontal scalp swelling. --Neck CT:No acute fracture or subluxation identified. --ECHO: Left ventricle is mildly dilated. Left ventricle systolic function is moderately reduced. EF 35 to 40%. Apical wall motion abnormality may reflect pacemaker activation. Basal posterior, lateral nguyen severely hypokinetic to akinetic. Basal anterior wall is hypokinetic. Left atrium is severely dilated. Aortic valve is moderately calcified. Mild aortic valve stenosis versus surgical aortic valve stenosis in the setting of reduced EF. Mild aortic regurgitation. Moderate to severe mitral regurgitation. Mild tricuspid regurgitation. --EF better when compared to prior ECHO. Wall hypokinesis also noted on prior echo -- Pacemaker interrogation completed: No issues noted --Positive orthostatic hypotension --Could not get MRI brain due to incompatibility with pacemaker --Tamsulosin held --- Increased midodrine to 10 mg daily --Added Compression stockings -- Liberalize salt in diet -- Hold Lasix for now Fall precautions PT OT--Needs Rehab Decreased Metoprolol to 12.5mg Daily Cortisol level in a.m. within normal limit Started on Low-dose of fludrocortisone 0.05mg 2 days ago will consider to increase fludrocortisone every 3 days if continue to experience symptoms of orthostatic hypotension ( no more than 0.2 mg daily) Continue midodrine 10 mg 3 times daily; but if BP starts to elevate, will consider to reduce the dose of midodrine slowly Continue monitor closely 04/06 -04/07 - pt is feeling much better with current medication changes Nocturnal hypoxia Oximetry study--qualifies for supplemental oxygen at bedtime Continue supplemental oxygen at bedtime Recommended polysomnography as outpatient BPH Tamsulosin discontinued secondary to orthostatic hypotension Continue finasteride Monitor bladder scan to monitor for urinary retention (2) Orthostatic hypotension: Plan: Chronic orthostatic hypotension Continue midodrine 10mg TID Started on Low-dose of fludrocortisone 0.05mg 2 days ago Flomax discontinued (3) CKD (chronic kidney disease), stage III: Plan: Cr: 1.68 on admission, 1.3 now . Baseline~1.5 Monitor renal functions Avoid nephrotoxic agents if possible (4) Choledocholithiasis: Plan: Recent transaminitis, choledocholithiasis s/p ERCP Liver functions improved from recent hospitalization on 03/05/2022 Will need outpatient GI follow up (5) Chronic atrial fibrillation: Plan: Continue metoprolol, amiodarone, Eliquis (6) Ischemic cardiomyopathy: (7) Ventricular tachycardia: (8) Cardiac defibrillator in place: Plan: 2019 echo: EF <20% 2022 EF 35 to 40% Resumed Lasix at lower dose as able (9) BPH (benign prostatic hyperplasia): Plan: Continue finasteride DVT Px On Eliquis Code Status DNR/DNI Disposition SNF as able Admission and Anticipated Discharge Date Admission Date: March 27, 2022 Subjective Patient seen for follow-up of dizziness Sitting up in bed in no acute distress Pt reports feeling much better today Denies any chest pain, shortness of breath, nausea, abdominal pain Daughter at the bedside and updated Review of Systems Review of Systems: All systems reviewed & are unremarkable except as noted in Subjective Physical Exam Physical Exam: General Appearance: elderly M in no apparent distress Head: normocephalic, +traumatic, Right frontal ecchymosis Eyes: normal inspection, EOMI Neck: supple, Trachea midline Respiratory/Chest: Normal breath sounds, CTA, No accessory muscle use Cardiovascular: S1, S2, + murmur Abdomen/GI:Soft, Non tender, Bowel sounds present Extremities/Musculoskeletal:normal inspection, no edema Neurologic/Psych:AAOX3, grossly no focal neurological deficits, Chronic mild facial droop Skin: normal color, warm Results & Data Results & Data ([facility]) Vital Signs (Past 12 Hours) Vital Signs Temp Resp Pulse Ox O2 Del Method 04/07/22 06:36 36.5 C 17 95 Room Air 04/06/22 22:07 36.5 C 18 96 Room Air 04/06/22 21:05 Room Air Medications Administered Current Inpatient Medications Acetaminophen (Acetaminophen 325 Mg Tab) 650 mg PO Q4H PRN PRN Reason: Pain or Fever Stop: 04/26/22 03:36 Amiodarone HCl (Amiodarone 200 Mg Tab) 200 mg PO DAILY [facility] Stop: 04/26/22 08:59 Last Admin: 04/06/22 08:42 Dose: 200 mg Apixaban (Apixaban 2.5 Mg Tab) 2.5 mg PO BID [facility] Stop: 04/26/22 03:36 Last Admin: 04/06/22 21:03 Dose: 2.5 mg Ascorbic Acid (Ascorbic Acid 500 Mg Tab) 500 mg PO DAILY [facility] Stop: 04/26/22 08:59 Last Admin: 04/06/22 08:44 Dose: 500 mg Atorvastatin Calcium (Atorvastatin 40 Mg Tab) 40 mg PO DAILY [facility] Stop: 04/26/22 08:59 Last Admin: 04/06/22 08:44 Dose: 40 mg Benzonatate (Benzonatate 100 Mg Capsule) 100 mg PO TID PRN PRN Reason: Cough Stop: 04/28/22 22:18 Last Admin: 03/30/22 08:10 Dose: 100 mg Finasteride (Finasteride 5 Mg Tab) 5 mg PO DAILY [facility] Stop: 04/26/22 08:59 Last Admin: 04/06/22 08:44 Dose: 5 mg Fludrocortisone Acetate (Fludrocortisone Acetate 0.1 Mg Tab) 0.05 mg PO QAM [facility] Stop: 05/05/22 10:59 Last Admin: 04/06/22 08:42 Dose: 0.05 mg Fluticasone Propionate (Fluticasone Propionate Na Spr 16 Gm Btl) 2 sprays NA DAILY [facility] Stop: 05/01/22 11:44 Last Admin: 04/06/22 08:44 Dose: 2 sprays Folic Acid (Folic Acid 400 Mcg Tab) 400 mcg PO BID [facility] Stop: 04/26/22 03:36 Last Admin: 04/06/22 21:03 Dose: 400 mcg Furosemide (Furosemide 20 Mg Tab) 20 mg PO Q3D [facility] Stop: 05/03/22 14:44 Last Admin: 04/03/22 15:26 Dose: Not Given Metoprolol Succinate (Metoprolol Succ 25mg Ext Rel Tab) 12.5 mg PO HS [facility] Stop: 04/30/22 20:59 Last Admin: 04/06/22 21:04 Dose: 12.5 mg Midodrine (Midodrine Hcl 10 Mg Tab) 10 mg PO TID@0800,1200,1600 [facility] Stop: 04/26/22 13:59 Last Admin: 04/06/22 16:06 Dose: 10 mg Polyethylene Glycol (Polyethylene (Miralax) 17 Gm Pack) 17 gm PO DAILY PRN PRN Reason: Constipation Stop: 04/26/22 03:36 Last Admin: 04/06/22 21:07 Dose: 17 gm Potassium Chloride (Potassium Chloride 10 Meq Tabcr) 10 meq PO DAILY [facility] Stop: 04/26/22 08:59 Last Admin: 04/01/22 09:15 Dose: Not Given Sennosides (Senna 8.6 Mg Tab) 8.6 mg PO BID [facility] Stop: 04/26/22 03:36 Last Admin: 04/06/22 21:07 Dose: 8.6 mg Vitamin D (Cholecalciferol 1,000 Units 25 Mcg Tab) 2,000 units PO DAILY [facility] Stop: 04/26/22 08:59 Last Admin: 04/06/22 08:44 Dose: 2,000 units Zinc Sulfate (Zinc Sulfate 220 Mg Capsule) 220 mg PO DAILY [facility] Stop: 04/26/22 08:59 Last Admin: 04/06/22 08:43 Dose: 220 mg (3) CKD (chronic kidney disease), stage III Chronic kidney disease stage 3 subtype: unspecified whether 3a or 3b Qualified Code(s): N18.30 - Chronic kidney disease, stage 3 unspecified
[2022-04-07] MEDS: CHOLECALCIFEROL 1,000 UNITS 25 MCG TAB PO SCH (07:59)
[2022-04-07] MEDS: FLUDROCORTISONE ACETATE 0.1 MG TAB PO SCH (07:59)
[2022-04-07] MEDS: ATORVASTATIN 40 MG TAB PO SCH (07:59)
[2022-04-07] MEDS: APIXABAN 2.5 MG TAB PO SCH ×2 (07:59→20:01)
[2022-04-07] MEDS: SENNA 8.6 MG TAB PO SCH ×2 (07:59→20:01)
[2022-04-07] MEDS: FOLIC ACID 400 MCG TAB PO SCH ×2 (07:59→20:01)
[2022-04-07] MEDS: ZINC SULFATE 220 MG CAPSULE PO SCH (07:59)
[2022-04-07] MEDS: AMIODARONE 200 MG TAB PO SCH (07:59)
[2022-04-07] MEDS: MIDODRINE HCL 10 MG TAB PO SCH ×3 (07:59→18:04)
[2022-04-07] MEDS: ASCORBIC ACID 500 MG TAB PO SCH (08:00)
[2022-04-07] MEDS: FINASTERIDE 5 MG TAB PO SCH (08:00)
[2022-04-07] MEDS: FLUTICASONE PROPIONATE NA SPR 16 GM BTL SCH (08:00)
[2022-04-07] MEDS: METOPROLOL SUCC 25MG EXT REL TAB PO SCH (20:00)
[2022-04-08] MEDS: MIDODRINE HCL 10 MG TAB PO SCH ×3 (10:15→17:04)
--- NOTE | 2022-04-08 10:15 | Hospitalist Progress Note ---
Date of Service April 08, 2022 Assessment & Plan (1) Syncope: Plan: Patient is a 86-year-old male with PMH CAD s/p CABG in 1996, ischemic cardiomyopathy, EF <20%, history of V-fib, s/p biventricular defibrillator, chronic atrial fibrillation, HLD, CKD III, orthostatic hypotension on midodrine, BPH presented to ER for fall and possible syncope yesterday after getting up out of bed. Not eating or drinking well. Denies chest pain, shortness of breath. Syncope Likely due to Orthostatic Hypotension Fall due to above Dehydration could have contributed as well --CT Head:No acute intracranial abnormality. Mild frontal scalp swelling. --Neck CT:No acute fracture or subluxation identified. --ECHO: Left ventricle is mildly dilated. Left ventricle systolic function is moderately reduced. EF 35 to 40%. Apical wall motion abnormality may reflect pacemaker activation. Basal posterior, lateral nguyen severely hypokinetic to akinetic. Basal anterior wall is hypokinetic. Left atrium is severely dilated. Aortic valve is moderately calcified. Mild aortic valve stenosis versus surgical aortic valve stenosis in the setting of reduced EF. Mild aortic regurgitation. Moderate to severe mitral regurgitation. Mild tricuspid regurgitation. --EF better when compared to prior ECHO. Wall hypokinesis also noted on prior echo -- Pacemaker interrogation completed: No issues noted --Positive orthostatic hypotension --Could not get MRI brain due to incompatibility with pacemaker --Tamsulosin held --- Increased midodrine to 10 mg daily --Added Compression stockings -- Liberalize salt in diet -- Hold Lasix for now Fall precautions PT OT--Needs Rehab Decreased Metoprolol to 12.5mg Daily Cortisol level in a.m. within normal limit Started on Low-dose of fludrocortisone 0.05mg few days ago will consider to increase fludrocortisone every 3 days if continue to experience symptoms of orthostatic hypotension ( no more than 0.2 mg daily) Continue midodrine 10 mg 3 times daily; but if BP starts to elevate, will consider to reduce the dose of midodrine slowly Continue monitor closely 04/06 -04/07 - pt is feeling much better with current medication changes 04/08 BP lower in the morning, but now on repeat 130/75 Nocturnal hypoxia Oximetry study--qualifies for supplemental oxygen at bedtime Continue supplemental oxygen at bedtime Recommended polysomnography as outpatient BPH Tamsulosin discontinued secondary to orthostatic hypotension Continue finasteride Monitor bladder scan to monitor for urinary retention (2) Orthostatic hypotension: Plan: Chronic orthostatic hypotension Continue midodrine 10mg TID Started on Low-dose of fludrocortisone 0.05mg few days ago Flomax discontinued (3) CKD (chronic kidney disease), stage III: Plan: Cr: 1.68 on admission, 1.3 now . Baseline~1.5 Monitor renal functions Avoid nephrotoxic agents if possible (4) Choledocholithiasis: Plan: Recent transaminitis, choledocholithiasis s/p ERCP Liver functions improved from recent hospitalization on 03/05/2022 Will need outpatient GI follow up (5) Chronic atrial fibrillation: Plan: Continue metoprolol, amiodarone, Eliquis (6) Ischemic cardiomyopathy: (7) Ventricular tachycardia: (8) Cardiac defibrillator in place: Plan: 2019 echo: EF <20% 2022 EF 35 to 40% Resumed Lasix at lower dose as able (9) BPH (benign prostatic hyperplasia): Plan: Continue finasteride DVT Px On Eliquis Code Status DNR/DNI Disposition SNF as able Admission and Anticipated Discharge Date Admission Date: March 27, 2022 Subjective Patient seen for follow-up of dizziness Sitting up in bed in no acute distress Pt reports feeling for past few days This AM BP again lower and pt feels disappointed about that - now repeat BP 130/75 Pt denies any chest pain, shortness of breath, nausea, abdominal pain Yesterday, daughter was present at the bedside and updated Review of Systems Review of Systems: All systems reviewed & are unremarkable except as noted in Subjective Physical Exam Physical Exam: General Appearance: elderly M in no apparent distress Head: normocephalic, +traumatic, Right frontal ecchymosis Eyes: normal inspection, EOMI Neck: supple Respiratory/Chest: Normal breath sounds, CTA, No accessory muscle use Cardiovascular: S1, S2, + murmur Abdomen/GI:Soft, Non tender, Bowel sounds present Extremities/Musculoskeletal:normal inspection, no edema Neurologic/Psych:AAOX3, grossly no focal neurological deficits, Chronic mild facial droop Skin: normal color, warm Results & Data Results & Data ([facility]) Vital Signs (Past 12 Hours) Vital Signs Temp Resp Pulse Ox O2 Del Method 04/08/22 06:01 36.6 C 17 95 Room Air Medications Administered Current Inpatient Medications Acetaminophen (Acetaminophen 325 Mg Tab) 650 mg PO Q4H PRN PRN Reason: Pain or Fever Stop: 04/26/22 03:36 Amiodarone HCl (Amiodarone 200 Mg Tab) 200 mg PO DAILY [facility] Stop: 04/26/22 08:59 Last Admin: 04/07/22 07:59 Dose: 200 mg Apixaban (Apixaban 2.5 Mg Tab) 2.5 mg PO BID [facility] Stop: 04/26/22 03:36 Last Admin: 04/07/22 20:01 Dose: 2.5 mg Ascorbic Acid (Ascorbic Acid 500 Mg Tab) 500 mg PO DAILY [facility] Stop: 04/26/22 08:59 Last Admin: 04/07/22 08:00 Dose: 500 mg Atorvastatin Calcium (Atorvastatin 40 Mg Tab) 40 mg PO DAILY [facility] Stop: 04/26/22 08:59 Last Admin: 04/07/22 07:59 Dose: 40 mg Benzonatate (Benzonatate 100 Mg Capsule) 100 mg PO TID PRN PRN Reason: Cough Stop: 04/28/22 22:18 Last Admin: 03/30/22 08:10 Dose: 100 mg Finasteride (Finasteride 5 Mg Tab) 5 mg PO DAILY [facility] Stop: 04/26/22 08:59 Last Admin: 04/07/22 08:00 Dose: 5 mg Fludrocortisone Acetate (Fludrocortisone Acetate 0.1 Mg Tab) 0.05 mg PO QAM [facility] Stop: 05/05/22 10:59 Last Admin: 04/07/22 07:59 Dose: 0.05 mg Fluticasone Propionate (Fluticasone Propionate Na Spr 16 Gm Btl) 2 sprays NA DAILY [facility] Stop: 05/01/22 11:44 Last Admin: 04/07/22 08:00 Dose: 2 sprays Folic Acid (Folic Acid 400 Mcg Tab) 400 mcg PO BID [facility] Stop: 04/26/22 03:36 Last Admin: 04/07/22 20:01 Dose: 400 mcg Furosemide (Furosemide 20 Mg Tab) 20 mg PO Q3D [facility] Stop: 05/03/22 14:44 Last Admin: 04/03/22 15:26 Dose: Not Given Metoprolol Succinate (Metoprolol Succ 25mg Ext Rel Tab) 12.5 mg PO HS [facility] Stop: 04/30/22 20:59 Last Admin: 04/07/22 20:00 Dose: 12.5 mg Midodrine (Midodrine Hcl 10 Mg Tab) 10 mg PO TID@0800,1200,1600 [facility] Stop: 04/26/22 13:59 Last Admin: 04/07/22 18:04 Dose: 10 mg Polyethylene Glycol (Polyethylene (Miralax) 17 Gm Pack) 17 gm PO DAILY PRN PRN Reason: Constipation Stop: 04/26/22 03:36 Last Admin: 04/06/22 21:07 Dose: 17 gm Potassium Chloride (Potassium Chloride 10 Meq Tabcr) 10 meq PO DAILY [facility] Stop: 04/26/22 08:59 Last Admin: 04/01/22 09:15 Dose: Not Given Sennosides (Senna 8.6 Mg Tab) 8.6 mg PO BID [facility] Stop: 04/26/22 03:36 Last Admin: 04/07/22 20:01 Dose: 8.6 mg Vitamin D (Cholecalciferol 1,000 Units 25 Mcg Tab) 2,000 units PO DAILY [facility] Stop: 04/26/22 08:59 Last Admin: 04/07/22 07:59 Dose: 2,000 units Zinc Sulfate (Zinc Sulfate 220 Mg Capsule) 220 mg PO DAILY [facility] Stop: 04/26/22 08:59 Last Admin: 04/07/22 07:59 Dose: 220 mg (3) CKD (chronic kidney disease), stage III Chronic kidney disease stage 3 subtype: unspecified whether 3a or 3b Qualified Code(s): N18.30 - Chronic kidney disease, stage 3 unspecified
[2022-04-08] MEDS: CHOLECALCIFEROL 1,000 UNITS 25 MCG TAB PO SCH (10:16)
[2022-04-08] MEDS: ASCORBIC ACID 500 MG TAB PO SCH (10:16)
[2022-04-08] MEDS: APIXABAN 2.5 MG TAB PO SCH ×2 (10:16→20:14)
[2022-04-08] MEDS: ATORVASTATIN 40 MG TAB PO SCH (10:16)
[2022-04-08] MEDS: AMIODARONE 200 MG TAB PO SCH (10:16)
[2022-04-08] MEDS: FLUTICASONE PROPIONATE NA SPR 16 GM BTL SCH (10:17)
[2022-04-08] MEDS: ZINC SULFATE 220 MG CAPSULE PO SCH (10:17)
[2022-04-08] MEDS: FLUDROCORTISONE ACETATE 0.1 MG TAB PO SCH (10:17)
[2022-04-08] MEDS: SENNA 8.6 MG TAB PO SCH ×2 (10:17→20:15)
[2022-04-08] MEDS: FINASTERIDE 5 MG TAB PO SCH (10:17)
[2022-04-08] MEDS: FOLIC ACID 400 MCG TAB PO SCH ×2 (10:17→20:15)
[2022-04-08] MEDS: METOPROLOL SUCC 25MG EXT REL TAB PO SCH (20:14)
[2022-04-09] MEDS: MIDODRINE HCL 10 MG TAB PO SCH ×3 (07:51→16:07)
[2022-04-09] MEDS: AMIODARONE 200 MG TAB PO SCH (08:39)
[2022-04-09] MEDS: ASCORBIC ACID 500 MG TAB PO SCH (08:39)
[2022-04-09] MEDS: APIXABAN 2.5 MG TAB PO SCH ×2 (08:39→20:32)
[2022-04-09] MEDS: FLUDROCORTISONE ACETATE 0.1 MG TAB PO SCH (08:39)
[2022-04-09] MEDS: ATORVASTATIN 40 MG TAB PO SCH (08:39)
[2022-04-09] MEDS: CHOLECALCIFEROL 1,000 UNITS 25 MCG TAB PO SCH (08:39)
[2022-04-09] MEDS: FINASTERIDE 5 MG TAB PO SCH (08:39)
[2022-04-09] MEDS: SENNA 8.6 MG TAB PO SCH ×2 (08:40→20:32)
[2022-04-09] MEDS: FLUTICASONE PROPIONATE NA SPR 16 GM BTL SCH (08:40)
[2022-04-09] MEDS: ZINC SULFATE 220 MG CAPSULE PO SCH (08:40)
[2022-04-09] MEDS: FOLIC ACID 400 MCG TAB PO SCH ×2 (08:40→20:32)
--- NOTE | 2022-04-09 15:03 | Hospitalist Progress Note ---
Date of Service April 09, 2022 Assessment & Plan (1) Syncope: Plan: Patient is a 86-year-old male with PMH CAD s/p CABG in 1996, ischemic cardiomyopathy, EF <20%, history of V-fib, s/p biventricular defibrillator, chronic atrial fibrillation, HLD, CKD III, orthostatic hypotension on midodrine, BPH presented to ER for fall and possible syncope yesterday after getting up out of bed. Not eating or drinking well. Denies chest pain, shortness of breath. Syncope Likely due to Orthostatic Hypotension Fall due to above Dehydration could have contributed as well --CT Head:No acute intracranial abnormality. Mild frontal scalp swelling. --Neck CT:No acute fracture or subluxation identified. --ECHO: Left ventricle is mildly dilated. Left ventricle systolic function is moderately reduced. EF 35 to 40%. Apical wall motion abnormality may reflect pacemaker activation. Basal posterior, lateral nguyen severely hypokinetic to akinetic. Basal anterior wall is hypokinetic. Left atrium is severely dilated. Aortic valve is moderately calcified. Mild aortic valve stenosis versus surgical aortic valve stenosis in the setting of reduced EF. Mild aortic regurgitation. Moderate to severe mitral regurgitation. Mild tricuspid regurgitation. --EF better when compared to prior ECHO. Wall hypokinesis also noted on prior echo --Cortisol level in a.m. within normal limit -- Pacemaker interrogation completed: No issues noted --Positive orthostatic hypotension --Could not get MRI brain due to incompatibility with pacemaker --Tamsulosin discontinued --- Increased midodrine to 10 mg TID --Added Compression stockings -- Liberalize salt in diet -- Held Lasix Fall precautions PT OT--Needs Rehab Decreased Metoprolol to 12.5mg Daily Started on Low-dose of fludrocortisone 0.05mg daily Will consider to titrate fludrocortisone and Midodrine dose as needed BP better Nocturnal hypoxia Oximetry study--qualifies for supplemental oxygen at bedtime Continue supplemental oxygen at bedtime Recommended polysomnography as outpatient BPH Tamsulosin discontinued secondary to orthostatic hypotension Continue finasteride Monitor bladder scan to monitor for urinary retention (2) Orthostatic hypotension: Plan: Chronic orthostatic hypotension Continue midodrine 10mg TID Continue fludrocortisone 0.05mg daily Flomax discontinued (3) CKD (chronic kidney disease), stage III: Plan: Cr: 1.68 on admission, 1.3 now . Baseline~1.5 Monitor renal functions Avoid nephrotoxic agents if possible (4) Choledocholithiasis: Plan: Recent transaminitis, choledocholithiasis s/p ERCP Liver functions improved from recent hospitalization on 03/05/2022 Will need outpatient GI follow up (5) Chronic atrial fibrillation: Plan: Continue metoprolol, amiodarone, Eliquis (6) Ischemic cardiomyopathy: (7) Ventricular tachycardia: (8) Cardiac defibrillator in place: Plan: 2019 echo: EF <20% 2022 EF 35 to 40% Resume Lasix at lower dose as able (9) BPH (benign prostatic hyperplasia): Plan: Continue finasteride DVT Px On Eliquis Code Status DNR/DNI Disposition SNF as able Admission and Anticipated Discharge Date Admission Date: March 27, 2022 Subjective Patient is seen and examined at bedside States having nausea earlier this morning which currently resolved Denies any dizziness, chest pain, dyspnea Waiting for placement Review of Systems Review of Systems: All systems reviewed & are unremarkable except as noted in Subjective Physical Exam Physical Exam: Physical Exam: Vitals signs as noted above General Appearance:Moderately built and nourished, no apparent distress Head: normocephalic, +traumatic, Right frontal ecchymosis Eyes: normal inspection, EOMI Neck: supple, Trachea midline Respiratory/Chest: Normal breath sounds, CTA, No accessory muscle use Cardiovascular: S1, S2, + murmur Abdomen/GI:Soft, Non tender, Bowel sounds present Extremities/Musculoskeletal:normal inspection, no edema Neurologic/Psych:AAOX3, grossly no focal neurological deficits, Chronic mild facial droop Skin: normal color, warm Results & Data Results & Data ([facility]) Vital Signs (Past 12 Hours) Vital Signs Temp Pulse Resp BP Pulse Ox O2 Del Method 04/09/22 09:40 Room Air 04/09/22 08:29 36.6 C 82 16 135/68 96 Room Air (3) CKD (chronic kidney disease), stage III Chronic kidney disease stage 3 subtype: unspecified whether 3a or 3b Qualified Code(s): N18.30 - Chronic kidney disease, stage 3 unspecified
[2022-04-09] MEDS: METOPROLOL SUCC 25MG EXT REL TAB PO SCH (20:33)
[2022-04-10 07:25] LABS: BUN Creatinine Ratio 19.6 (10-20); Calcium 9.1 mg/dl (8.5-10.1); Creatinine Clr Calc Pharmacy 49.6 ml/min; Est GFR (African American) 77.9 ml/min; Est GFR (Non-African American) 67.2 ml/min; Potassium 4.1 mmol/L (3.5-5.1)
[2022-04-10] MEDS: MIDODRINE HCL 10 MG TAB PO SCH ×3 (07:46→15:22)
[2022-04-10] MEDS: APIXABAN 2.5 MG TAB PO SCH (09:16)
[2022-04-10] MEDS: AMIODARONE 200 MG TAB PO SCH (09:16)
[2022-04-10] MEDS: ATORVASTATIN 40 MG TAB PO SCH (09:17)
[2022-04-10] MEDS: CHOLECALCIFEROL 1,000 UNITS 25 MCG TAB PO SCH (09:17)
[2022-04-10] MEDS: ASCORBIC ACID 500 MG TAB PO SCH (09:17)
[2022-04-10] MEDS: FINASTERIDE 5 MG TAB PO SCH (09:17)
[2022-04-10] MEDS: FLUDROCORTISONE ACETATE 0.1 MG TAB PO SCH (09:18)
[2022-04-10] MEDS: ZINC SULFATE 220 MG CAPSULE PO SCH (09:19)
[2022-04-10] MEDS: FOLIC ACID 400 MCG TAB PO SCH (09:19)
[2022-04-10] MEDS: FLUTICASONE PROPIONATE NA SPR 16 GM BTL SCH (09:19)
[2022-04-10] MEDS: SENNA 8.6 MG TAB PO SCH (09:19)
[2022-04-10] MEDS: POLYETHYLENE (MIRALAX) 17 GM PACK PO PRN (11:15)
[2022-04-10] MEDS ORDERED: FLUDROCORTISONE ACETATE 0.1 MG TAB PO ONE (11:15)
--- NOTE | 2022-04-10 12:19 | Hospitalist Progress Note ---
Date of Service April 10, 2022 Assessment & Plan (1) Syncope: Plan: Patient is a 86-year-old male with PMH CAD s/p CABG in 1996, ischemic cardiomyopathy, EF <20%, history of V-fib, s/p biventricular defibrillator, chronic atrial fibrillation, HLD, CKD III, orthostatic hypotension on midodrine, BPH presented to ER for fall and possible syncope yesterday after getting up out of bed. Not eating or drinking well. Denies chest pain, shortness of breath. Syncope Likely due to Orthostatic Hypotension Fall due to above Dehydration could have contributed as well --CT Head:No acute intracranial abnormality. Mild frontal scalp swelling. --Neck CT:No acute fracture or subluxation identified. --ECHO: Left ventricle is mildly dilated. Left ventricle systolic function is moderately reduced. EF 35 to 40%. Apical wall motion abnormality may reflect pacemaker activation. Basal posterior, lateral nguyen severely hypokinetic to akinetic. Basal anterior wall is hypokinetic. Left atrium is severely dilated. Aortic valve is moderately calcified. Mild aortic valve stenosis versus surgical aortic valve stenosis in the setting of reduced EF. Mild aortic regurgitation. Moderate to severe mitral regurgitation. Mild tricuspid regurgitation. --EF better when compared to prior ECHO. Wall hypokinesis also noted on prior echo --Cortisol level in a.m. within normal limit -- Pacemaker interrogation completed: No issues noted --Positive orthostatic hypotension --Could not get MRI brain due to incompatibility with pacemaker --Tamsulosin discontinued --- Increased midodrine to 10 mg TID --Added Compression stockings -- Liberalize salt in diet -- Held Lasix Fall precautions PT OT--Needs Rehab Decreased Metoprolol to 12.5mg Daily Started on Low-dose of fludrocortisone 0.1mg daily Plan to discharge to SNF today Nocturnal hypoxia Oximetry study--qualifies for supplemental oxygen at bedtime Continue supplemental oxygen at bedtime Recommended polysomnography as outpatient BPH Tamsulosin discontinued secondary to orthostatic hypotension Continue finasteride Monitor bladder scan to monitor for urinary retention (2) Orthostatic hypotension: Plan: Chronic orthostatic hypotension Continue midodrine 10mg TID Continue fludrocortisone 0.1mg daily Flomax discontinued (3) CKD (chronic kidney disease), stage III: Plan: Cr: 1.68 on admission, 1.3 now . Baseline~1.5 Monitor renal functions Avoid nephrotoxic agents if possible (4) Choledocholithiasis: Plan: Recent transaminitis, choledocholithiasis s/p ERCP Liver functions improved from recent hospitalization on 03/05/2022 Will need outpatient GI follow up (5) Chronic atrial fibrillation: Plan: Continue metoprolol, amiodarone, Eliquis (6) Ischemic cardiomyopathy: (7) Ventricular tachycardia: (8) Cardiac defibrillator in place: Plan: 2019 echo: EF <20% 2022 EF 35 to 40% Resume Lasix at lower dose as able (9) BPH (benign prostatic hyperplasia): Plan: Continue finasteride DVT Px On Eliquis Code Status DNR/DNI Disposition SNF today Admission and Anticipated Discharge Date Admission Date: March 27, 2022 Subjective Patient is seen and examined at bedside Feels well No new complaints Dizziness much improved Denies any chest pain, dyspnea, nausea, abd pain Plan to discharge to SNF today Review of Systems Review of Systems: All systems reviewed & are unremarkable except as noted in Subjective Physical Exam Physical Exam: Physical Exam: Vitals signs as noted above General Appearance:Moderately built and nourished, no apparent distress Head: normocephalic, +traumatic, Right frontal ecchymosis Eyes: normal inspection, EOMI Neck: supple, Trachea midline Respiratory/Chest: Normal breath sounds, CTA, No accessory muscle use Cardiovascular: S1, S2, + murmur Abdomen/GI:Soft, Non tender, Bowel sounds present Extremities/Musculoskeletal:normal inspection, no edema Neurologic/Psych:AAOX3, grossly no focal neurological deficits, Chronic mild facial droop Skin: normal color, warm Results & Data Results & Data ([facility]) Vital Signs (Past 12 Hours) Vital Signs Temp Pulse Resp BP Pulse Ox O2 Del Method 04/10/22 08:12 36.6 C 82 16 125/68 96 Room Air 04/10/22 07:53 Room Air Laboratory Results [facility] 04/10/22 06:17 Sodium 139 Potassium 4.1 Chloride 103 Carbon Dioxide 34 H BUN 20 Creatinine 1.02 Glucose 85 Calcium 9.1 (3) CKD (chronic kidney disease), stage III Chronic kidney disease stage 3 subtype: unspecified whether 3a or 3b Qualified Code(s): N18.30 - Chronic kidney disease, stage 3 unspecified
--- NOTE | 2022-04-10 12:37 | Discharge Summary ---
Date of Service April 10, 2022 Admission HPI Per Admitting Provider Patient is a 86-year-old male with PMH CAD s/p CABG in 1996, ischemic cardiomyopathy, EF <20%, history of V-fib, s/p biventricular defibrillator, chronic atrial fibrillation, HLD, CKD III, orthostatic hypotension on midodrine, BPH presented to ER for fall and possible syncope yesterday. history obtained from patient and inpatient and outpatient chart review. Recent [facility] hospitalization 03/05/2022-03/08/2022 for weakness, acute respiratory failure secondary to influenza A, transaminitis, choledocholithiasis s/p ERCP and stent placement. Patient states has had continued cough productive of clear sputum. He also has had continued generalized weakness. He has been using a cane to ambulate. States has not been eating or drinking much. Patient with chronic orthostatic hypotension on midodrine. reports chronic dizziness with standing. States yesterday got up out of bed to walk to bathroom and next thing he remembers is being on floor. Patient unsure what happened. States happened so quickly, is unsure if had any prior symptoms. He is unsure if he had LOC. Patient's son-in-law heard the fall and responded to patient within minutes to help patient up. Family wanted patient to be seen at hospital at that time however patient refused. Patient had noted bruise to right forehead. Family convinced patient to be seen today. Denies fever/chills, diaphoresis, N/V/D/C, HANSON, vision changes, neck pain, CP, SOB, orthopnea, palpitations, cough, sore throat, choking, otalgia, rhinorrhea, abdominal pain, paresthesias, extremity edema, rashes, dysuria, hematuria. Admission Exam Per Admitting Provider Physical Exam Physical Exam: General: no distress, WDWN, elderly male Head: normocephalic, +ecchymosis right forehead Eyes: PERRL, EOM's intact, conjunctiva non-injected, anicteric ENT: hard of hearing, normal inspection external ears, nose, mucous membranes dry Neck: supple, trachea midline Lungs: clear, no respiratory distress, no wheezing/rhonchi/rales CV: RRR, + murmur, no pretibial edema Abd: normal BS, soft, non-tender Ext: no cyanosis, no calf tenderness Neuro: A&O x 3, no focal deficits noted, normal affect Skin: warm, dry, +multiple skin tears to right forearm Principal Diagnosis Syncope Orthostatic Hypotension Nocturnal hypoxia Discharge Data Allergies Allergy/AdvReac Type Severity Reaction Status Date / Time disopyramide Allergy Intermediate SWELLING, Verified 03/26/22 17:07 RED SKIN Consultations 03/26/22 18:17 ED Decision to Admit Stat Procedures Performed Laboratory Results WBC 5.68 K/ul (4.8-10.8) 04/06/22 06:06 RBC 3.79 M/uL (4.70-6.10) L 04/06/22 06:06 Hgb 11.7 g/dl (14.0-18.0) L 04/06/22 06:06 Hct 35.5 % (42.0-52.0) L 04/06/22 06:06 MCV 93.7 fL (80.0-100.0) 04/06/22 06:06 MCH 30.9 pg (25.0-34.0) 04/06/22 06:06 MCHC 33.0 g/dL (32.0-36.0) 04/06/22 06:06 RDW Std Deviation 52.7 fL (36.4-46.3) H 04/06/22 06:06 RDW Coeff of [place] 15.3 % (11.5-14.5) H 04/06/22 06:06 Plt Count 219 K/uL (130-400) 04/06/22 06:06 MPV 9.6 fL (9.4-12.4) 04/06/22 06:06 Immature Gran % (Auto) 0.3 % 03/26/22 13:55 Neut % (Auto) 76.2 % 03/26/22 13:55 Lymph % (Auto) 14.1 % 03/26/22 13:55 Desha % (Auto) 8.7 % 03/26/22 13:55 Eos % (Auto) 0.3 % 03/26/22 13:55 Baso % (Auto) 0.4 % 03/26/22 13:55 Neut # (Auto) 5.24 K/uL (1.40-6.50) 03/26/22 13:55 Lymph # (Auto) 0.97 K/uL (1.2-3.4) L 03/26/22 13:55 Desha # (Auto) 0.60 K/uL (0.11-0.59) H 03/26/22 13:55 Eos # (Auto) 0.02 K/uL (0-0.50) 03/26/22 13:55 Baso # (Auto) 0.03 K/uL (0-0.2) 03/26/22 13:55 Immature Gran # (Auto) 0.02 K/uL (0.01-0.20) 03/26/22 13:55 Platelet Estimate Normal (Normal) 03/27/22 04:26 PT 13.5 Seconds (9.0-12.0) H 03/26/22 13:55 INR 1.3 (0.9-1.1) H 03/26/22 13:55 APTT 31.0 Seconds (21.0-31.0) 03/26/22 13:55 PTT Ratio 1.1 03/26/22 13:55 Sodium 139 mmol/L (136-145) 04/10/22 06:17 Potassium 4.1 mmol/L (3.5-5.1) 04/10/22 06:17 Chloride 103 mmol/L (98-107) 04/10/22 06:17 Carbon Dioxide 34 mmol/L (21-32) H 04/10/22 06:17 Anion Gap 2 (3-11) L 04/10/22 06:17 BUN 20 mg/dl (6-23) 04/10/22 06:17 Creatinine 1.02 mg/dl (0.6-1.4) 04/10/22 06:17 Est Cr Clr Drug Dosing 49.6 ml/min 04/10/22 06:17 Est GFR ( Amer) 77.9 ml/min 04/10/22 06:17 Est GFR (Non-Af Amer) 67.2 ml/min 04/10/22 06:17 BUN/Creatinine Ratio 19.6 (10-20) 04/10/22 06:17 Glucose 85 mg/dl (70-99(Fasting)) 04/10/22 06:17 Calcium 9.1 mg/dl (8.5-10.1) 04/10/22 06:17 Phosphorus 3.2 mg/dl (2.5-4.9) 03/26/22 13:55 Magnesium 2.1 mg/dl (1.7-2.4) 03/28/22 04:37 Total Bilirubin 1.0 mg/dl (0.2-1.0) 03/28/22 04:37 Direct Bilirubin 0.3 mg/dl (0-0.2) H 03/28/22 04:37 AST 50 U/L (13-39) H 03/28/22 04:37 ALT 43 U/L (7-52) 03/28/22 04:37 Alkaline Phosphatase 80 U/L (34-104) 03/28/22 04:37 Troponin I High Sens 36.6 pg/ml (0-20) H 03/26/22 13:55 Total Protein 6.2 gm/dl (6.0-8.3) 03/28/22 04:37 Albumin 2.9 gm/dl (3.4-5.0) L 03/28/22 04:37 Globulin 3.2 gm/dl (2.5-4.0) 03/27/22 04:26 Albumin/Globulin Ratio 0.9 (0.9-2) 03/27/22 04:26 Cortisol AM Sample 12.91 mcg/dl (6.2-22.6) 04/04/22 07:11 Urine Color Yellow 03/26/22 16:10 Urine Appearance Clear (Clear) 03/26/22 16:10 Urine pH 6.5 (4.5-7.5) 03/26/22 16:10 Ur Specific [place] 1.011 (1.000-1.030) 03/26/22 16:10 Urine Protein Negative (Negative) 03/26/22 16:10 Urine Glucose (UA) Negative (Negative) 03/26/22 16:10 Urine Ketones Negative (Negative) 03/26/22 16:10 Urine Blood Negative (Negative) 03/26/22 16:10 Urine Nitrite Negative (Negative) 03/26/22 16:10 Urine Bilirubin Negative (Negative) 03/26/22 16:10 Urine Urobilinogen Negative (Negative) 03/26/22 16:10 Ur Leukocyte Esterase Negative (Negative) 03/26/22 16:10 Nasal Screen MRSA (PCR) Negative (Negative) 02/09/23 Unknown SARS-CoV-2, RNA, NAAT NEGATIVE (NEGATIVE) 04/09/22 10:[address] 03/26/22 14:[address] DOSE: 881.47 mGy.cm HISTORY: syncope, headstrike TECHNIQUE: Multiaxial CT images of the head were performed without the use of intravenous contrast. Automated exposure control was utilized for this study. A dose lowering technique was utilized adhering to the principles of ALARA. Comparison: Head CT 03/05/2022. Findings: The paranasal sinuses and mastoid air cells are clear. The calvarium and skull base are intact. There is no mass, hematoma, midline shift, acute infarct. White matter hypodensity is nonspecific but suggestive of microvascular ischemic change. The ventricles and sulci demonstrate mild age-related involutional changes. Mild frontal scalp swelling. Impression: No acute intracranial abnormality. Mild frontal scalp swelling. ACT 112: Negative or not required by law. Electronically signed by: Leobardo Tolliver M.D. 03/26/2022 3:[address] 03/26/22 21:14 CT cervical spine wo con CT DOSE: 272.61 mGy.cm CLINICAL HISTORY: 86 years-old Male with Fall. Acute neck injury status post fall COMPARISON: Head CT of same day, chest CT 10/26/2019 TECHNIQUE: Multiple axial CT images of the cervical spine were obtained without contrast. A dose lowering technique was utilized adhering to the principles of ALARA. FINDINGS: Multilevel degenerative changes. Large bridging osteophytes with ossification of the posterior longitudinal ligament. Partially calcified pannus posterior to the dens. Multilevel central canal and neural foraminal narrowing. No acute fracture or subluxation identified. The cervical soft tissues appear unremarkable. Calcified plaque of the carotid bulbs. The visualized lung apices appear clear. IMPRESSION: No acute fracture or subluxation identified. ACT 112: Negative or not required by law. The above report was generated using voice recognition software. It may contain grammatical, syntax or spelling errors. Electronically signed by: Ha Haq M.D. 03/27/2022 6:40 AM Chest X-Ray 03/28/22 03:35 XR chest 1V portable HISTORY: 86 years-old Male low o2 acute hypoxia COMPARISON: Chest radiograph 03/26/2022 TECHNIQUE: AP view of the chest FINDINGS: Cardiac silhouette is enlarged. Prior median sternotomy. Left subclavian pacer/AICD. No pneumothorax, large pleural effusion or overt pulmonary edema. Degenerative changes of the shoulders and spine. Chronic appearing lateral left rib fractures. IMPRESSION: Cardiomegaly without acute process. ACT 112: Negative or not required by law. The above report was generated using voice recognition software. It may contain grammatical, syntax or spelling errors. Electronically signed by: Ha Haq M.D. 03/28/2022 8:03 AM Ordered Studies 03/26/22 14:43 CT head/brain wo con Stat 03/26/22 21:14 CT cervical spine wo con Stat Hospital Course (1) Syncope: Patient is a 86-year-old male with PMH CAD s/p CABG in 1996, ischemic cardiomyopathy, EF <20%, history of V-fib, s/p biventricular defibrillator, chronic atrial fibrillation, HLD, CKD III, orthostatic hypotension on midodrine, BPH presented to ER for fall and possible syncope yesterday after getting up out of bed. Not eating or drinking well. Denies chest pain, shortness of breath. Syncope Likely due to Orthostatic Hypotension Fall due to above Dehydration could have contributed as well --CT Head:No acute intracranial abnormality. Mild frontal scalp swelling. --Neck CT:No acute fracture or subluxation identified. --ECHO: Left ventricle is mildly dilated. Left ventricle systolic function is moderately reduced. EF 35 to 40%. Apical wall motion abnormality may reflect pacemaker activation. Basal posterior, lateral nguyen severely hypokinetic to akinetic. Basal anterior wall is hypokinetic. Left atrium is severely dilated. Aortic valve is moderately calcified. Mild aortic valve stenosis versus surgical aortic valve stenosis in the setting of reduced EF. Mild aortic regurgitation. Moderate to severe mitral regurgitation. Mild tricuspid regurgitation. --EF better when compared to prior ECHO. Wall hypokinesis also noted on prior echo --Cortisol level in a.m. within normal limit -- Pacemaker interrogation completed: No issues noted --Positive orthostatic hypotension --Could not get MRI brain due to incompatibility with pacemaker --Tamsulosin discontinued --- Increased midodrine to 10 mg TID --Added Compression stockings -- Liberalize salt in diet -- Held Lasix Fall precautions PT OT--Needs Rehab Decreased Metoprolol to 12.5mg Daily Started on Low-dose of fludrocortisone 0.1mg daily Plan to discharge to SNF today Nocturnal hypoxia Oximetry study--qualifies for supplemental oxygen at bedtime Continue supplemental oxygen at bedtime Recommended polysomnography as outpatient BPH Tamsulosin discontinued secondary to orthostatic hypotension Continue finasteride Monitor bladder scan to monitor for urinary retention (2) Orthostatic hypotension: Chronic orthostatic hypotension Continue midodrine 10mg TID Continue fludrocortisone 0.1mg daily Flomax discontinued (3) CKD (chronic kidney disease), stage III: Cr: 1.68 on admission, 1.3 now . Baseline~1.5 Monitor renal functions Avoid nephrotoxic agents if possible (4) Choledocholithiasis: Recent transaminitis, choledocholithiasis s/p ERCP Liver functions improved from recent hospitalization on 03/05/2022 Will need outpatient GI follow up (5) Chronic atrial fibrillation: Continue metoprolol, amiodarone, Eliquis (6) Ischemic cardiomyopathy: (7) Ventricular tachycardia: (8) Cardiac defibrillator in place: 2019 echo: EF <20% 2022 EF 35 to 40% Resume Lasix at lower dose as able (9) BPH (benign prostatic hyperplasia): Continue finasteride DVT Px On Eliquis Code Status DNR/DNI Disposition SNF today Total Time Total Time Spent Total Time Spent (In Minutes): 54 minutes Discharge Plan Discharge Items Patient Disposition: Transfer Detention Fac Reason For Visit: SYNCOPE Discharge Diagnosis: Syncope Orthostatic Hypotension Nocturnal hypoxia Activity: Per Instructions section Exercise/Sports: Gradually increase as tolerated Non-emergency contact: Primary Care Provider, Tare Worker and Mobility Architect Manager Call non-emergency contact if: you have any medication questions, your symptoms worsen, your pain is concerning for you and you have a fever Follow-up/Referrals: Anival Guido MD [Primary Care Provider] - Diet: Regular Addtl Attending Provider Instructions: Follow-up with your primary care physician in 1 week upon discharge from rehab facility Follow up with your windshield installer in 2-3 weeks as advised Follow-up with your candy polisher for management of gallbladder stones --- Continue using compression stockings as advised to help maintain your blood pressure. --- Use 2 L supplemental oxygen at bedtime as advised. Obtain sleep study as outpatient --Your Lasix, potassium supplement and Tamsulosin are discontinued for now due to low blood pressure. Further recommendations as per your primary care physician/windshield installer. Seek immediate medical attention if your symptoms reoccur or worsen Please take all medications as instructed on discharge list below. Please call if you have any questions or problems. You can reach a [facility] hospitalist on duty at [facility] 24 hours a day by calling [phone] Pending Studies at Discharge: No Stand-Alone Forms: My [facility] Skilled Items Patient informed of condition?: Yes DNR: Yes Discharge Level of Care: Skilled Communicable Disease: No Discharge Prognosis: Stable Lines: None Urinary Catheter: No Medications and DC Order Prescriptions: New fludrocortisone 0.1 mg Tablet 0.1 mg PO QAM Qty: 30 0RF midodrine 10 mg Tablet 10 mg PO TID@0800,1200,1600 Qty: 90 0RF Continued vitamin B complex Tablet 1 tab PO DAILY atorvastatin [Lipitor] 40 mg tablet 40 mg PO DAILY 30 Days Qty: 30 0RF sennosides [senna] 8.6 mg tablet 8.6 mg PO BID Qty: 60 0RF polyethylene glycol 3350 [Miralax] 17 gram Powder In Packet 17 g PO DAILY 30 Days Qty: 30 0RF amiodarone [Pacerone] 200 mg tablet 200 mg PO DAILY 30 Days Qty: 30 0RF folic acid 400 mcg Tablet 0.4 mg PO BID Qty: 60 0RF ascorbic acid (vitamin C) [Vitamin C] 500 mg Tablet 500 mg PO DAILY Qty: 30 0RF finasteride [Proscar] 5 mg tablet 5 mg PO DAILY 30 Days Qty: 30 0RF cholecalciferol (vitamin D3) [Vitamin D3] 50 mcg (2,000 unit) Tablet 50 mcg PO DAILY Qty: 30 0RF Eliquis 2.5 mg tablet 2.5 mg PO BID 30 Days Qty: 60 0RF zinc sulfate 50 mg zinc (220 mg) capsule 50 mg PO DAILY diclofenac sodium 1 % gel 2 g TOPICAL AMHS PRN (Reason: Pain) Rx Instructions: apply to affected area Changed metoprolol succinate 25 mg tablet extended release 24 hr 12.5 mg PO HS Qty: 30 0RF Discontinued tamsulosin 0.4 mg Capsule 0.4 mg PO HS 30 Days Qty: 30 0RF furosemide [Lasix] 20 mg tablet 40 mg PO DAILY 30 Days Qty: 60 0RF midodrine 5 mg tablet 5 mg PO TID potassium chloride 10 mEq capsule, extended release 10 meq PO DAILY Qty: 30 0RF Discharge Orders: Discharge Order (Routine); Ordered 04/10/22 Ordered By: Chuy Mata Admission Data Admit Date/Time: 03/27/22 12:12 Attending Provider: Chuy Mata Admit Provider: Nickie Celeste Primary Care Provider: Anival Guido Other Providers: Nickie Celeste ; Chuy Mata ; Reagan Blue ; [place],[facility], [place]
[2022-04-11] MEDS ORDERED: FLUDROCORTISONE ACETATE 0.1 MG TAB PO SCH (09:00)
== END 2022-04-10 15:27 | DRG 312 ==
LOC: EDINP 12:32 → ED 12:32 → SUATTDRO 19:00 → 1E 03-27 08:30 → SUATTDRO 03-27 12:12 → 2S 03-29 08:13 → 3N 04-02 20:12